=== PATIENT | female | born 1945 | race Caucasian/White ===

== ENCOUNTER 2017-06-19 10:50 | Inpatient (IN) | payer OTHER, MEDICARE ==
--- OUTSIDE RECORDS SUMMARY | 2017-06-19 11:26 | XMS REPORT ---
:1945 External Reference #:[id number] Author Organization [facility] Address [address] [place] [address] Phone [phone] Care Team Providers Name Role Phone Madelin Hoover M.D. 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 Primary Care Physician Unavailable Payers Type Date Identification Numbers Payment Subscriber Provider Health Maintenance Effective: Policy Number: [place] Saroj Yang [facility] ([facility] [place]) 06/01/2016 [id number] [employer] Number: [id number] [id number] PayID: [id number] [place] [address] Medigap Part B Effective: Policy Number: Medicare Carlota Yang 06/01/2012 [id number] PayID: [id number] [address] [place] [address] Problems Date Description Provider Status Onset: 08/12/2013 Essential hypertension Abhijeet Dunn M.D. Active Onset: 08/12/2013 Hypercalcemia Abhijeet Dunn M.D. Active Onset: 08/12/2013 Hypothyroidism Abhijeet Dunn M.D. Active Onset: 08/12/2013 Anxiety state Abhijeet Dunn M.D. Active Onset: 08/12/2013 Vitamin D deficiency Abhijeet Dunn M.D. Active Onset: 08/12/2013 Gastroesophageal reflux disease Abhijeet Dunn M.D. Active Onset: 02/08/2016 Hypoparathyroidism Madelin Hoover M.D. Active Onset: 02/08/2016 Degenerative joint disease involving Madelin Hoover M.D. Active multiple joints Onset: 10/18/2013 Hypocalcemia Abhijeet Dunn M.D. Resolved Resolved: 01/01/2016 Onset: 01/20/2014 Right upper quadrant pain Abhijeet Dunn M.D. Resolved Resolved: 01/01/2016 Onset: 04/17/2015 Acute serous otitis media Abhijeet Dunn M.D. Resolved Resolved: 01/01/2016 Onset: 04/17/2015 Renetta thyroiditis Abhijeet Dunn M.D. 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 ETOH Use Denies alcohol use Smoking Patient has never smoked Exercise Type/Frequency tries to walk , enjoys gardening back pain limits Exercise Type/Frequency Exercises regularly Exercise Type/Frequency Swims 2 times a week Allergies, Adverse Reactions, Alerts Date Description Reaction Status Severity Comments 08/12/2013 Lipitor active 08/12/2013 Norvasc active 08/12/2013 Shellfish-derived Products active 09/06/2013 Metoprolol sob/chest heaviness active 01/20/2014 Codeine active Headache 01/12/2015 Clonidine hypotension active 01/12/2015 Bystolic racing heart active 01/12/2015 Lisinopril/HCTZ elevates bp/dizziness active 10/04/2015 Indocin active 03/25/2016 NSAIDs hives/throat closes active 05/29/2016 Cyclobenzaprine dizzy active 06/12/2017 Retinol Acetate active Medications Medication Date Status Form Strength Qnty SIG Indications Ordering Provider Hydrocortisone 06/12 Active Cream 2.5% 20gm apply to L23.2 Chelsey C. /2018 skin Isidoro, around DIRECTOR HEDIS eyes twice daily for up to 10 days in a row. Lisinopril 05/12 Active Tablets 20mg 90tab 1 by mouth I10 s every day Candelaria Hoover Calcium 05/11 Active Suspension 1250mg/5M 600ml 7.5ml by Madelin L mouth in [place], Antacid am, 5ml in M.D. afternoon and 7.5ml in evening Ambien 12/20 Active Tablets 10mg 30tab take 1 s tablet by Kiko, mouth at M.D. bedtime as needed for sleep Diazepam 09/04 Active Tablets 10mg 30tab 1/2 -1 tab F41.1 Madelin s by mouth [place], two times M.D. a day as needed Escitalopram 04/02 Active Tablets 20mg 30tab 1 by mouth F41.1 Madelin Oxalate s every day [place], M.D. Levothyroxine 12/31 Active Tablets 100mcg 30tab Take 1 E06.3 Madelin Sodium s Tablet By [place], Mouth M.D. Every Day Hydrocodone-Acet 03/21 Active Tablets 5-325mg 90tab 1 by mouth M54.5 Madelin aminophen s three [place], times a M.D. day as needed pain Ergocalciferol 03/14 Active Capsules [id number] 90cap 1 by mouth Madelin s on sat and [place], sun M.D. Pantoprazole 08/[address] 40mg 30tab take 1 K21.9 Madelin Sodium s tablet by [place], mouth once M.D. daily Prednisone 06/12 Hx Tablets 20mg 6tabs take 2 by L23.2 Chelsey C. mouth as Isidoro, - one dose DIRECTOR HEDIS 06/19 daily until gone Zolpidem 06/23 Hx Tablets 10mg 30tab take one Madelin Tartrate s tablet by [place], - mouth at M.D. 12/20 bedtime needed for sleep; max daily dose=1 tablet Physical Therapy 05/28 Hx treatment M25.511 and [place], - evaluation M.D. 05/31 r shoulder pain Cyclobenzaprine 05/28 Hx Tablets 5mg 90tab take 1 M25.511 Madelin HCL s tablet by [place], - mouth M.D. 05/29 times daily as needed Diazepam 11/27 Hx Tablets 10mg 30tab 2 -1 tab F41.1 Madelin s by mouth [place], - two times M.D. 06/23 a day needed Levothyroxine 10/17 Hx Tablets 112mcg 30tab 1 po qd E06.3 Libby Sodium s Audrey, - [place] 12/31 Cyclobenzaprine 05/18 Hx Tablets 10mg 30tab 1 by mouth M79.671 BETZY Carpenter s every M.D. - night 07/12 Diazepam 05/18 Hx Tablets 10mg 6tabs 1 by mouth F41.1 Abhijeet Dunn three M.D. - times a 10/03 day needed Amoxicillin 04/17 Hx Tablets 875mg 20tab 1 by mouth H65.01 Abhijeet Dunn s twice a M.D. - day for 10 Proair HFA 08/08 Hx Aerosol 108(90Bas 1unit 2 puffs 786.2 Talia e) s every 4 [facility] [place], - mcg/Act hours as Afnp-C 11/07 needed for cough Azithromycin 08/03 Hx Tablets 250mg 6tabs 2 tabs by Abhijeet Dunn mouth day M.D. - #1 then 1 08/08 tab by mouth day#2-5 Cephalexin 06/13 Hx Tablets 500mg 20tab 1 by mouth 682.9 Abhijeet Dunn s twice a M.D. - day for 10 Clotrimazole/Bet 05/12 Hx Cream 1-0.05% 30gm apply to 112.9 Alanna amethasone /2013 affected Trae, Dipropionate - area twice [place] 01/12 a Prednisone 05/02 Hx Tablets 20mg 6tabs 1 by mouth 724.2 Abhijeet Dunn, twice a M.D. - day for 3 Zoloft 03/21 Hx Tablets 100mg 1 by mouth 300.00 Abhijeet Dunn every day M.D. - 03/21 Cyclobenzaprine 03/21 Hx Tablets 10mg 40tab 1 by mouth 724.2 Abhijeet Dunn s three M.D. - times a 06/13 day needed Escitalopram 03/21 Hx Tablets 10mg 30tab Take 1 F41.9 Pedrito Bacon s Tablet By Alva, - Mouth Once M.D. 04/02 Daily 2016 F32.9 Vitamin D2 01/20/2014 - Hx Tablets 400Unit 1 by mouth Abhijeet 03/14/2014 every day Candelaria Dunn Physical Therapy 12/26/2013 - Hx treatment and 724. Abhijeet 01/19/2014 evaluation for 3 Dunn, sciatica M.D. Cephalexin 12/19/2013 - Hx Tablets 500mg 20ta 1 by mouth 682. Abhijeet 01/19/2014 bs twice a day 3 Dunn, for 10 days M.D. Ondansetron Odt 12/19/2013 - Hx Tablets 4mg 40ta 1 by mouth 787. Abhijeet 05/11/2017 Dispers bs every 6 hours 02 Dunn, as needed M.D. Zoloft 12/06/2013 - Hx Tablets 50mg 1 po qd 300. Abhijeet 03/21/2014 00 Dunn, M.D. Oxycodone/Acetam 11/29/2013 - Hx Tablets 2.5-325mg 40ta 1-2 take pill Abhijeet inophen 12/25/2013 bs every 8 hours Dunn, for pain M.D. Hydrocodone/Acet 11/28/2013 - Hx Tablets 5-325mg 60ta 1 by mouth 719. Abhijeet aminophen 03/21/2014 bs four times a 42 Dunn, day as needed M.D. pain 724.3 Vitamin D3 10/18/2013 - Hx Tablets 400Unit 1 po qid Abhijeet Dunn, 01/19/2014 M.D. Zoloft 10/18/2013 - Hx Tablets 100mg 30ta 1 PO qd 300 Abhijeet Dunn, 12/06/2013 bs (brand name .00 M.D. only) Clonazepam 09/13/2013 - Hx Tablets 0.5mg 90ta three times 300 Abhijeet Dunn , 01/19/2014 bs a day as .00 M.D. needed Clonidine HCL 09/06/2013 - Hx Tablets 0.1mg 60ta take one 401 Abhijeet Dunn , 10/18/2013 bs tablet by .9 M.D. mouth twice a day Metoprolol 08/26/2013 - Hx Tablets ER 50mg 30ta 1 po qd 401 Abhijeet Dunn, Succinate ER 09/06/2013 24HR bs .9 M.D. Calcium 600 08/12/2013 - Hx Tablets 600mg 3 qam, 2 po E83 Abhijeet Dunn, 05/11/2017 @ noon and 3 .51 M.D. po qpm Vitamin D 08/12/2013 - Hx Capsules [id number] 8cap 1 po weekly 268 Abhijeet Dunn, 08/26/2013 s x 8. .9 M.D. Ambien 08/12/2013 - Hx Tablets 10mg 30ta 1 by mouth G47 Libby 06/04/2016 bs every night .00 Audrey, at bedtime [place] Valium 08/12/2013 - Hx Tablets 10mg 120t 1/2 to 1 po 300 Abhijeet Dunn, 08/26/2013 abs qd prn .00 M.D. severe anxiety Zoloft 08/12/2013 - Hx Tablets 50mg 30ta 1 po qd 300 Abhijeet Dunn, 10/18/2013 bs brand only .00 M.D. Lisinopril 08/12/2013 - Hx Tablets 40mg 90ta 1/2 tab at I10 Madelin 05/12/2017 bs bedtime Candelaria Hoover Levothyroxine 08/12/2013 - Hx Tablets 125mcg 90ta 1 by mouth E06 Abhijeet Dunn, Sodium 10/18/2015 bs every day .3 M.D. Klonopin - Hx Tablets 0.5mg 60ta 1 by mouth F41 Libby 12/20/2015 bs three times .9 Audrey, a day as [place] needed anxiety Prednisone - Hx Tablets 20mg taper as Unknown 12/06/2013 directed Magnesium-Oxide - Hx Tablet 400mg 30ta Take 1 Libby 12/30/2015 bs Tablet By Audrey, Mouth Every [place] Day as Needed Immunizations CPT Code Status Date Vaccine Lot # [id number] Given 08/20/2016 Pneumococcal Conjugate Vacc-13 [id number] Given 03/25/2016 High-Dose, Influenza Virus Vacccine-fluzone 65 and [id number] older 07627 Given 03/19/2014 DO Not Use Split Influenza Virus Vaccine Vital Signs Date Vital Result Comment 06/19/2017 BP Systolic 150 mmHg BP Diastolic 84 mmHg Heart Rate 76 /min Body Temperature 100.6 F Respiratory Rate 16 /min Height 61.5 inches 5'1.50" Weight 193.00 lb BMI (Body Mass Index) 35.9 kg/m2 06/12/2017 BP Systolic 142 mmHg BP Diastolic 98 mmHg Heart Rate 96 /min Body Temperature 97.7 F Height 61.5 inches 5'1.50" Weight 193.00 lb BMI (Body Mass Index) 35.9 kg/m2 05/12/2017 BP Systolic 150 mmHg BP Diastolic 80 mmHg Heart Rate 76 /min Body Temperature 98.2 F Respiratory Rate 16 /min Height 61.5 inches 5'1.50" Weight 193.00 lb BMI (Body Mass Index) 35.9 kg/m2 01/13/2017 BP Systolic 132 mmHg BP Diastolic 80 mmHg Heart Rate 90 /min Body Temperature 97.9 F Respiratory Rate 16 /min Height 61.5 inches 5'1.50" Weight 201.38 lb BMI (Body Mass Index) 37.4 kg/m2 08/20/2016 BP Systolic 150 mmHg BP Diastolic 90 mmHg Heart Rate 78 /min Body Temperature 97.7 F Respiratory Rate 16 /min Height 61.5 inches 5'1.50" 07/02/2016 BP Systolic 142 mmHg BP Diastolic 86 mmHg Heart Rate 80 /min Body Temperature 97.9 F Respiratory Rate 16 /min Height 61.5 inches 5'1.50" Weight 190.38 lb BMI (Body Mass Index) 35.4 kg/m2 05/28/2016 BP Systolic 140 mmHg BP Diastolic 86 mmHg Heart Rate 90 /min Body Temperature 97.0 F Respiratory Rate 16 /min Height 61.5 inches 5'1.50" Weight 190.38 lb BMI (Body Mass Index) 35.4 kg/m2 04/02/2016 BP Systolic 138 mmHg BP Diastolic 84 mmHg Heart Rate 72 /min Body Temperature 97.9 F Respiratory Rate 16 /min Height 61.5 inches 5'1.50" 03/25/2016 BP Systolic 170 mmHg BP Diastolic 100 mmHg BP Systolic Recheck 160 mmHg BP Diastolic Recheck 90 mmHg Heart Rate 64 /min Body Temperature 97.8 F Respiratory Rate 12 /min Height 61.5 inches 5'1.50" Weight 188.00 lb BMI (Body Mass Index) 34.9 kg/m2 02/08/2016 BP Systolic 134 mmHg BP Diastolic 86 mmHg Heart Rate 80 /min Body Temperature 98.1 F Respiratory Rate 16 /min Height 61.5 inches 5'1.50" Weight 193.00 lb BMI (Body Mass Index) 35.9 kg/m2 12/20/2015 BP Systolic 124 mmHg BP Diastolic 82 mmHg Heart Rate 80 /min Body Temperature 97.9 F Respiratory Rate 18 /min Height 61.5 inches 5'1.50" Weight 191.00 lb BMI (Body Mass Index) 35.5 kg/m2 10/18/2015 BP Systolic 140 mmHg BP Diastolic 90 mmHg Heart Rate 76 /min Body Temperature 97.8 F Respiratory Rate 18 /min Height 61.5 inches 5'1.50" Weight 190.00 lb BMI (Body Mass Index) 35.3 kg/m2 10/04/2015 BP Systolic 136 mmHg BP Diastolic 80 mmHg Heart Rate 78 /min Body Temperature 97.9 F Respiratory Rate 16 /min Height 61.5 inches 5'1.50" Weight 193.25 lb BMI (Body Mass Index) 35.9 kg/m2 07/12/2015 BP Systolic 140 mmHg BP Diastolic 80 mmHg Heart Rate 72 /min Body Temperature 98.3 F Respiratory Rate 20 /min Height 61.5 inches 5'1.50" Weight 205.00 lb BMI (Body Mass Index) 38.1 kg/m2 05/18/2015 BP Systolic 140 mmHg BP Diastolic 90 mmHg Heart Rate 78 /min Body Temperature 97.7 F Respiratory Rate 16 /min Height 61.5 inches 5'1.50" 04/17/2015 BP Systolic 158 mmHg BP Diastolic 100 mmHg Heart Rate 84 /min Body Temperature 97.6 F Respiratory Rate 18 /min Height 61.5 inches 5'1.50" Weight 204.00 lb BMI (Body Mass Index) 37.9 kg/m2 01/12/2015 BP Systolic 142 mmHg BP Diastolic 88 mmHg Heart Rate 84 /min Body Temperature 98.3 F Respiratory Rate 16 /min Height 61.5 inches 5'1.50" Weight 201.00 lb BMI (Body Mass Index) 37.4 kg/m2 11/07/2014 BP Systolic 140 mmHg BP Diastolic 98 mmHg Heart Rate 80 /min Body Temperature 98.1 F Respiratory Rate 18 /min Height 61.50 inches 5'1.50" Weight 199.00 lb BMI (Body Mass Index) 37.0 kg/m2 10/03/2014 BP Systolic 150 mmHg BP Diastolic 90 mmHg Heart Rate 84 /min Body Temperature 98.6 F Height 61.50 inches 5'1.50" Weight 199.12 lb BMI (Body Mass Index) 37.0 kg/m2 08/08/2014 BP Systolic 130 mmHg BP Diastolic 84 mmHg Heart Rate 70 /min Body Temperature 97.2 F Respiratory Rate 18 /min Height 61.50 inches 5'1.50" Weight 197.00 lb BMI (Body Mass Index) 36.6 kg/m2 07/28/2014 BP Systolic 142 mmHg BP Diastolic 88 mmHg Heart Rate 96 /min Body Temperature 101.0 F Respiratory Rate 18 /min O2 % BldC Oximetry 93 % Height 61.50 inches 5'1.50" Weight 197.00 lb BMI (Body Mass Index) 36.6 kg/m2 06/13/2014 BP Systolic 150 mmHg BP Diastolic 110 mmHg Heart Rate 68 /min Body Temperature 98.3 F Respiratory Rate 16 /min Height 61.50 inches 5'1.50" Weight 198.00 lb BMI (Body Mass Index) 36.8 kg/m2 05/12/2014 BP Systolic 170 mmHg BP Diastolic 90 mmHg Heart Rate 76 /min Body Temperature 96.9 F Respiratory Rate 16 /min Height 61.50 inches 5'1.50" Weight 201.00 lb BMI (Body Mass Index) 37.4 kg/m2 05/02/2014 BP Systolic 158 mmHg BP Diastolic 92 mmHg Heart Rate 92 /min Body Temperature 99.3 F Respiratory Rate 16 /min Height 61.50 inches 5'1.50" 03/31/2014 BP Systolic 132 mmHg BP Diastolic 80 mmHg Heart Rate 78 /min Body Temperature 98.0 F Respiratory Rate 14 /min Height 61.50 inches 5'1.50" 03/21/2014 BP Systolic 140 mmHg BP Diastolic 98 mmHg Heart Rate 88 /min Body Temperature 98.0 F Respiratory Rate 10 /min Height 61.50 inches 5'1.50" Weight 188.12 lb BMI (Body Mass Index) 35.0 kg/m2 01/20/2014 BP Systolic 130 mmHg BP Diastolic 90 mmHg Heart Rate 84 /min Body Temperature 97.8 F Height 61.50 inches 5'1.50" Weight 191.38 lb BMI (Body Mass Index) 35.6 kg/m2 12/26/2013 BP Systolic 134 mmHg BP Diastolic 74 mmHg Heart Rate 88 /min Body Temperature 99.5 F Respiratory Rate 16 /min Height 61.50 inches 5'1.50" Weight 190.00 lb BMI (Body Mass Index) 35.3 kg/m2 12/19/2013 BP Systolic 126 mmHg BP Diastolic 72 mmHg Heart Rate 72 /min Body Temperature 99.2 F Respiratory Rate 16 /min Height 61.50 inches 5'1.50" Weight 190.12 lb BMI (Body Mass Index) 35.3 kg/m2 12/13/2013 BP Systolic 144 mmHg BP Diastolic 86 mmHg Heart Rate 86 /min Body Temperature 99.3 F Height 61.50 inches 5'1.50" Weight 191.00 lb BMI (Body Mass Index) 35.5 kg/m2 12/06/2013 BP Systolic 144 mmHg BP Diastolic 96 mmHg Heart Rate 80 /min Body Temperature 98.2 F Respiratory Rate 15 /min Height 61.50 inches 5'1.50" Weight 189.00 lb BMI (Body Mass Index) 35.1 kg/m2 11/28/2013 BP Systolic 140 mmHg BP Diastolic 80 mmHg Heart Rate 84 /min Body Temperature 98.9 F Respiratory Rate 16 /min Height 61.50 inches 5'1.50" Weight 197.00 lb BMI (Body Mass Index) 36.6 kg/m2 10/18/2013 BP Systolic 142 mmHg BP Diastolic 80 mmHg Heart Rate 74 /min Body Temperature 98.3 F Respiratory Rate 18 /min Height 61.50 inches 5'1.50" Weight 187.00 lb BMI (Body Mass Index) 34.8 kg/m2 09/13/2013 BP Systolic 126 mmHg BP Diastolic 80 mmHg Heart Rate 68 /min Body Temperature 98.0 F Respiratory Rate 18 /min Height 61.50 inches 5'1.50" Weight 185.00 lb BMI (Body Mass Index) 34.4 kg/m2 09/06/2013 BP Systolic 142 mmHg BP Diastolic 98 mmHg Heart Rate 60 /min Body Temperature 97.5 F Respiratory Rate 16 /min Height 61.50 inches 5'1.50" Weight 184.00 lb BMI (Body Mass Index) 34.2 kg/m2 08/26/2013 BP Systolic 138 mmHg BP Diastolic 90 mmHg Heart Rate 80 /min Body Temperature 97.6 F Respiratory Rate 16 /min Height 61.50 inches 5'1.50" Weight 184.00 lb BMI (Body Mass Index) 34.2 kg/m2 08/12/2013 BP Systolic 140 mmHg BP Diastolic 82 mmHg Heart Rate 68 /min Body Temperature 98.4 F Respiratory Rate 18 /min Height 61.50 inches 5'1.50" Weight 184.00 lb BMI (Body Mass Index) 34.2 kg/m2 Results Test Date Test Result H/L Range Note Comprehensive Metabolic Prof 05/05/2017 Sodium 137 mEq/L 134-149 Potassium 3.6 mEq/L 3.6-5.5 Chloride 99 mEq/L 94-112 Carbon Dioxide 27 mEq/L 21-32 Glucose 98 mg/dL 70-105 BUN 13 mg/dL 6-26 Creatinine 0.8 mg/dL 0.6-1.4 BUN/Creat Ratio 16.3 CALC 8.0-36.0 Calcium 7.2 mg/dL Low 8.6-10.2 1 Total Protein 6.4 g/dL 6.4-8.3 Albumin 4.2 g/dL 3.8-5.5 Globulin 2.2 g/dL 2.0-4.8 A/G Ratio 1.9 CALC 0.6-2.3 Alk. Phosphatase 57 U/L 30-110 Alt (SGPT) 12 U/L 7-35 Ast (Sgot) 14 U/L 5-34 Total Bilirubin 0.5 mg/dL 0.2-1.3 GFR Non- >60 ml/min/1.73m^ >=60 GFR >60 ml/min/1.73m^ >=60 Complete Blood Count 05/05/2017 WBC 5.9 x10^3/UL 3.6-9.6 RBC 4.58 x10^6/UL 3.90-5.70 HGB 14.0 g/dL 12.1-17.2 HCT 40 % 36-50 MCV 88.0 fL 82.2-97.4 MCH 30.5 pg 27.6-33.3 MCHC 34.9 g/dL 33.0-35.5 RDW 14.8 % High 11.6-13.7 PLT 248 x10^3/UL 150-400 MPV 7.7 fL 7.4-10.4 Gran # 4.1 x10^3/UL 1.5-7.2 Lymph# 1.5 x10^3/UL 0.7-4.9 [place]# 0.3 x10^3/UL 0.1-0.9 Gran % 68.0 % 42.2-75.2 Lymph % 26.7 % 20.5-51.1 [place]% 5.3 % 1.7-9.3 Laboratory test finding 05/05/2017 TSH 3.37 mIU/L 0.50-6.00 Lipid Profile 05/05/2017 Cholesterol 244 mg/dL High 120-200 Triglycerides 90 mg/dL 30-200 HDL Cholesterol 59 mg/dL 30-85 LDL (Calculated) 167 CALC High 0-129 VLDL Cholesterol 18 mg/dL 0-50 HDL Risk Factor 4.1 CALC 0.0-4.4 Laboratory test finding 01/30/2017 Hemoglobin A1c (Fma) 5.8 % High 4.1- 5.7 Brain Natural Peptide 41.1 pg/mL <100 Laboratory test finding 01/30/2017 Calcium, Ionized, Serum 3.8 mg/dL Low 4.5-5.6 2 Laboratory test finding 01/30/2017 TSH 2.89 mIU/L 0.50-6.00 Vitamin D25 >120 High 30-100 Lipid Profile 01/30/2017 Cholesterol 279 mg/dL High 120-200 Triglycerides 102 mg/dL 30-200 HDL Cholesterol 68 mg/dL 30-85 LDL (Calculated) 191 CALC High 0-129 VLDL Cholesterol 20 mg/dL 0-50 HDL Risk Factor 4.1 CALC 0.0-4.4 Laboratory test finding 01/30/2017 Free T4 1.18 ng/dL 0.75-1.54 Comprehensive Metabolic Prof 01/30/2017 Sodium 146 mEq/L 134-149 Potassium 3.8 mEq/L 3.6-5.5 Chloride 102 mEq/L 94-112 Carbon Dioxide 30 mEq/L 21-32 Glucose 96 mg/dL 70-105 BUN 10 mg/dL 6-26 Creatinine 0.8 mg/dL 0.6-1.4 BUN/Creat Ratio 12.5 CALC 8.0-36.0 Calcium 7.2 mg/dL Low 8.6-10.2 3 Total Protein 6.6 g/dL 6.4-8.3 Albumin 3.9 g/dL 3.8-5.5 Globulin 2.7 g/dL 2.0-4.8 A/G Ratio 1.4 CALC 0.6-2.3 Alk. Phosphatase 60 U/L 30-110 Alt (SGPT) 14 U/L 7-35 Ast (Sgot) 16 U/L 5-34 Total Bilirubin 0.7 mg/dL 0.2-1.3 GFR Non- >60 ml/min/1.73m^ >=60 GFR >60 ml/min/1.73m^ >=60 Complete Blood Count 01/30/2017 WBC 6.6 x10^3/UL 3.6-9.6 RBC 4.84 x10^6/UL 3.90-5.70 HGB 14.3 g/dL 12.1-17.2 HCT 42 % 36-50 MCV 87.0 fL 82.2-97.4 MCH 29.5 pg 27.6-33.3 MCHC 33.8 g/dL 33.0-35.5 RDW 14.4 % High 11.6-13.7 PLT 266 x10^3/UL 150-400 MPV 7.7 fL 7.4-10.4 Gran # 4.9 x10^3/UL 1.5-7.2 Lymph# 1.4 x10^3/UL 0.7-4.9 [place]# 0.3 x10^3/UL 0.1-0.9 Gran % 73.2 % 42.2-75.2 Lymph % 21.6 % 20.5-51.1 [place]% 5.2 % 1.7-9.3 Comprehensive Metabolic Prof 07/02/2016 Sodium 142 mEq/L 134-149 Potassium 3.9 mEq/L 3.6-5.5 Chloride 103 mEq/L 94-112 Carbon Dioxide 32 mEq/L 21-32 Glucose 74 mg/dL 70-105 BUN 19 mg/dL 6-26 Creatinine 0.9 mg/dL 0.6-1.4 BUN/Creat Ratio 21.1 CALC 8.0-36.0 Calcium 7.3 mg/dL Low 8.6-10.2 4 Total Protein 7.2 g/dL 6.4-8.3 Albumin 4.1 g/dL 3.8-5.5 Globulin 3.1 g/dL 2.0-4.8 A/G Ratio 1.3 CALC 0.6-2.3 Alk. Phosphatase 68 U/L 30-110 Alt (SGPT) 15 U/L 7-35 Ast (Sgot) 17 U/L 5-34 Total Bilirubin 0.4 mg/dL 0.2-1.3 GFR Non- >60 ml/min/1.73m^ >=60 GFR >60 ml/min/1.73m^ >=60 Laboratory test finding 07/02/2016 TSH 4.63 mIU/L 0.50-6.00 Free T4 1.29 ng/dL 0.75-1.54 Complete Blood Count 07/02/2016 WBC 7.7 x10^3/UL 3.6-9.6 RBC 4.90 x10^6/UL 3.90-5.70 HGB 14.1 g/dL 12.1-17.2 HCT 42 % 36-50 MCV 86.0 fL 82.2-97.4 MCH 28.7 pg 27.6-33.3 MCHC 33.2 g/dL 33.0-35.5 RDW 15.5 % High 11.6-13.7 PLT 262 x10^3/UL 150-400 MPV 7.9 fL 7.4-10.4 Gran # 5.0 x10^3/UL 1.5-7.2 Lymph# 2.3 x10^3/UL 0.7-4.9 [place]# 0.4 x10^3/UL 0.1-0.9 Gran % 63.7 % 42.2-75.2 Lymph % 30.9 % 20.5-51.1 Dod[place]% 5.4 % 1.7-9.3 Laboratory test finding 07/02/2016 Calcium, Ionized, Serum 4.1 mg/dL Low 4.5-5.6 5 PTH Intact + Calcium 01/31/2016 Calcium, Ionized, Serum 3.9 mg/dL Low 4.5- 5.6 6 Ionized PTH, Intact 8 pg/mL Low 15-65 6 Laboratory test finding 01/31/2016 PDF [id number] SEE IMAGE 6 Laboratory test finding 01/31/2016 TSH 1.51 mIU/L 0.50-6.00 Free T4 1.36 ng/dL 0.75-1.54 Comprehensive Metabolic Prof 01/31/2016 Sodium 140 mEq/L 134-149 Potassium 3.9 mEq/L 3.6-5.5 Chloride 100 mEq/L 94-112 Carbon Dioxide 27 mEq/L 21-32 Glucose 87 mg/dL 70-105 BUN 13 mg/dL 6-26 Creatinine 0.8 mg/dL 0.6-1.4 BUN/Creat Ratio 16.3 CALC 8.0-36.0 Calcium 7.4 mg/dL Low 8.6-10.2 7 Total Protein 6.7 g/dL 6.4-8.3 Albumin 4.0 g/dL 3.8-5.5 Globulin 2.7 g/dL 2.0-4.8 A/G Ratio 1.5 CALC 0.6-2.3 Alk. Phosphatase 56 U/L 30-110 Alt (SGPT) 12 U/L 7-35 Ast (Sgot) 18 U/L 5-34 Total Bilirubin 0.5 mg/dL 0.2-1.3 GFR Non- >60 ml/min/1.73m^ >=60 GFR >60 ml/min/1.73m^ >=60 Laboratory test finding 01/31/2016 Vitamin D25 >120 High 30-100 8 Basic Metabolic Profile 12/20/2015 Sodium 141 mEq/L 134-149 Potassium 3.8 mEq/L 3.6-5.5 Chloride 101 mEq/L 94-112 Carbon Dioxide 26 mEq/L 21-32 Glucose 75 mg/dL 70-105 BUN 18 mg/dL 6-26 Creatinine 0.8 mg/dL 0.6-1.4 BUN/Creat Ratio 22.5 CALC 8.0-36.0 Calcium 8.0 mg/dL Low 8.6-10.2 9 GFR Non- >60 ml/min/1.73m^ >=60 GFR >60 ml/min/1.73m^ >=60 Laboratory test finding 12/20/2015 Magnesium, Serum 1.3 mEq/L 1.2-2.1 TSH 0.29 mIU/L Low 0.50-6.00 Free T3 2.67 pg/mL 2.00-4.90 Free T4 1.84 ng/dL High 0.75-1.54 Basic Metabolic Profile 10/04/2015 Sodium 140 mEq/L 134-149 Potassium 3.8 mEq/L 3.6-5.5 Chloride 100 mEq/L 94-112 Carbon Dioxide 32 mEq/L 21-32 Glucose 93 mg/dL 70-105 BUN 17 mg/dL 6-26 Creatinine 0.8 mg/dL 0.6-1.4 BUN/Creat Ratio 21.3 CALC 8.0-36.0 Calcium 8.1 mg/dL Low 8.6-10.2 10 GFR Non- >60 ml/min/1.73m^ >=60 GFR >60 ml/min/1.73m^ >=60 Laboratory test finding 10/04/2015 TSH 0.09 mIU/L Low 0.50-6.00 Free T4 1.86 ng/dL High 0.75-1.54 Free T3 2.78 pg/mL 2.00-4.90 Basic Metabolic Profile 07/12/2015 Sodium 139 mEq/L 134-149 Potassium 3.7 mEq/L 3.6-5.5 Chloride 99 mEq/L 94-112 Carbon Dioxide 28 mEq/L 21-32 Glucose 111 mg/dL High 70-105 11 BUN 18 mg/dL 6-26 Creatinine 0.8 mg/dL 0.6-1.4 BUN/Creat Ratio 22.5 CALC 8.0-36.0 Calcium 7.4 mg/dL Low 8.6-10.2 12 GFR Non- >60 ml/min/1.73m^ >=60 GFR >60 ml/min/1.73m^ >=60 Laboratory test finding 07/12/2015 Free T4 1.51 ng/dL 0.75-1.54 Free T3 2.46 pg/mL 2.00-4.90 Magnesium, Serum 2.0 mEq/L 1.2-2.1 TSH 1.08 mIU/L 0.50-6.00 Comprehensive Metabolic Prof 04/17/2015 Sodium 139 mEq/L 134-149 Potassium 3.6 mEq/L 3.6-5.5 Chloride 96 mEq/L 94-112 Carbon Dioxide 31 mEq/L 21-32 Glucose 105 mg/dL 70-105 BUN 15 mg/dL 6-26 Creatinine 0.8 mg/dL 0.6-1.4 BUN/Creat Ratio 18.8 CALC 8.0-36.0 Calcium 7.7 mg/dL Low 8.6-10.2 13 Total Protein 7.1 g/dL 6.4-8.3 Albumin 4.1 g/dL 3.8-5.5 Globulin 3.0 g/dL 2.0-4.8 A/G Ratio 1.4 CALC 0.6-2.3 Alk. Phosphatase 54 U/L 30-110 Alt (SGPT) 17 U/L 7-35 Ast (Sgot) 22 U/L 5-34 Total Bilirubin 0.5 mg/dL 0.2-1.3 GFR Non- >60 ml/min/1.73m^ >=60 GFR >60 ml/min/1.73m^ >=60 Laboratory test finding 04/17/2015 Free T4 1.32 ng/dL 0.75-1.54 14 TSH 1.42 mIU/L 0.50-6.00 Free T3 2.47 pg/mL 2.00-4.90 [facility] Metabolic Prof 01/12/2015 Sodium 140 mEq/L 134-149 Potassium 3.9 mEq/L 3.6-5.5 Chloride 102 mEq/L 94-112 Carbon Dioxide 22 mEq/L 21-32 Glucose 94 mg/dL 70-105 BUN 17 mg/dL 6-26 Creatinine 0.8 mg/dL 0.6-1.4 BUN/Creat Ratio 21.3 CALC 8.0-36.0 Calcium 7.0 mg/dL Low 8.6-10.2 15 Total Protein 7.1 g/dL 6.4-8.3 Albumin 4.1 g/dL 3.8-5.5 Globulin 3.0 g/dL 2.0-4.8 A/G Ratio 1.4 CALC 0.6-2.3 Alk. Phosphatase 63 U/L 30-110 Alt (SGPT) 15 U/L 7-35 Ast (Sgot) 13 U/L 5-34 Total Bilirubin 0.5 mg/dL 0.2-1.3 GFR Non- >60 ml/min/1.73m^ >=60 GFR >60 ml/min/1.73m^ >=60 Laboratory test finding 01/12/2015 TSH 1.71 mIU/L 0.50-6.00 Uric Acid 4.7 mg/dL 2.5-9.2 Complete Blood Count 01/12/2015 WBC 7.5 x10^3/UL 3.6-9.6 RBC 4.93 x10^6/UL 3.90-5.70 HGB 14.6 g/dL 12.1-17.2 HCT 44 % 36-50 MCV 88.0 fL 82.2-97.4 MCH 29.6 pg 27.6-33.3 MCHC 33.5 g/dL 33.0-35.5 RDW 13.8 % High 11.6-13.7 PLT 332 x10^3/UL 150-400 MPV 7.5 fL 7.4-10.4 Gran # 4.8 x10^3/UL 1.5-7.2 Lymph# 1.9 x10^3/UL 0.7-4.9 Doddridge# 0.8 x10^3/UL 0.1-0.9 Gran % 62.7 % 42.2-75.2 Lymph % 26.3 % 20.5-51.1 Doddridge% 11.0 % High 1.7-9.3 Ua - Non Micro (Fma) 01/12/2015 Appearance clear Color yellow Glucose, Urine (Fma/CMC/CTX) - Bilirubin - Ketones - SP Grav 1.010 Blood trace-intact PH 7.5 Protein - Urobil 0.2 Nitrite - Leukocytes (a/[facility]) - Comprehensive Metabolic Prof 11/07/2014 Sodium 138 mEq/L 134-149 Potassium 3.8 mEq/L 3.6-5.5 Chloride 94 mEq/L 94-112 Carbon Dioxide 27 mEq/L 21-32 Glucose 79 mg/dL 70-105 BUN 20 mg/dL 6-26 Creatinine 0.8 mg/dL 0.6-1.4 BUN/Creat Ratio 25.0 CALC 8.0-36.0 Calcium 7.6 mg/dL Low 8.6-10.2 16 Total Protein 7.1 g/dL 6.4-8.3 Albumin 4.2 g/dL 3.8-5.5 Globulin 2.9 g/dL 2.0-4.8 A/G Ratio 1.4 CALC 0.6-2.3 Alk. Phosphatase 58 U/L 30-110 Alt (SGPT) 17 U/L 7-35 Ast (Sgot) 18 U/L 5-34 Total Bilirubin 0.6 mg/dL 0.2-1.3 Laboratory test finding 11/07/2014 TSH 1.04 mIU/L 0.50-6.00 Free T3 2.61 pg/mL 2.00-4.90 Free T4 1.52 ng/dL 0.75-1.54 Laboratory test finding 10/03/2014 Cytology RUN DATE: <SEE NOTE> Laboratory test finding 10/03/2014 Wet Prep (Fma,CMC,CX) see scanned 18 Laboratory test finding 10/03/2014 Gardnerella/Yeast: (SEE NOTE) 19 Vaginal Dna Trichomonas: Vaginal Dna Probe (SEE NOTE) 20 Comprehensive Metabolic Prof 08/08/2014 Sodium 141 mEq/L 134-149 Potassium 3.7 mEq/L 3.6-5.5 Chloride 98 mEq/L 94-112 Carbon Dioxide 27 mEq/L 21-32 Glucose 108 mg/dL High 70-105 21 BUN 12 mg/dL 6-26 Creatinine 0.8 mg/dL 0.6-1.4 BUN/Creat Ratio 15.0 CALC 8.0-36.0 Calcium 7.3 mg/dL Low 8.6-10.2 22 Total Protein 7.1 g/dL 6.4-8.3 Albumin 3.9 g/dL 3.8-5.5 Globulin 3.2 g/dL 2.0-4.8 A/G Ratio 1.2 CALC 0.6-2.3 Alk. Phosphatase 56 U/L 30-110 Alt (SGPT) 20 U/L 7-35 Ast (Sgot) 17 U/L 5-34 Total Bilirubin 0.4 mg/dL 0.2-1.3 Complete Blood Count 08/08/2014 WBC 8.0 x10^3/UL 3.6-9.6 RBC 5.13 x10^6/UL 3.90-5.70 HGB 15.0 g/dL 12.1-17.2 HCT 45 % 36-50 MCV 87.0 fL 82.2-97.4 MCH 29.3 pg 27.6-33.3 MCHC 33.5 g/dL 33.0-35.5 RDW 12.5 % 11.6-13.7 PLT 282 x10^3/UL 150-400 MPV 7.4 fL 7.4-10.4 Gran # 6.2 x10^3/UL 1.5-7.2 Lymph# 1.5 x10^3/UL 0.7-4.9 Doddridge# 0.3 x10^3/UL 0.1-0.9 Gran % 76.2 % High 42.2-75.2 Lymph % 19.1 % Low 20.5-51.1 Doddridge% 4.7 % 1.7-9.3 Laboratory test finding 08/08/2014 Magnesium, Serum 1.9 mEq/L 1.2-2.1 Influenza A&B-fma 07/28/2014 Influenza A NEG Influenza B NEG Comprehensive Metabolic Prof 05/02/2014 Sodium 138 mEq/L 134-149 Potassium 3.6 mEq/L 3.6-5.5 Chloride 100 mEq/L 94-112 Carbon Dioxide 29 mEq/L 21-32 Glucose 92 mg/dL 70-105 BUN 18 mg/dL 6-26 Creatinine 0.9 mg/dL 0.6-1.4 BUN/Creat Ratio 20.0 CALC 8.0-36.0 Calcium 7.5 mg/dL Low 8.6-10.2 23 Total Protein 7.0 g/dL 6.4-8.3 Albumin 4.4 g/dL 3.8-5.5 Globulin 2.6 g/dL 2.0-4.8 A/G Ratio 1.7 CALC 0.6-2.3 Alk. Phosphatase 63 U/L 30-110 Alt (SGPT) 30 U/L 7-35 Ast (Sgot) 28 U/L 5-34 Total Bilirubin 0.3 mg/dL 0.2-1.3 Laboratory test finding 05/02/2014 Magnesium, Serum 1.9 mEq/L 1.2-2.1 Vitamin D25 >120 High 30-100 24 Laboratory test finding 02/21/2014 Magnesium 1.8 mg/dL Low 1.9-2.7 Free T4 1.08 ng/mL 0.61-1.12 TSH (Thyroid Stimulating Horm) 1.34 IU/mL 0.34-5.60 Vitamin D, 25 Hydroxy 02/21/2014 25-Hydroxy Vitamin D2 136 ng/mL 25-Hydroxy Vitamin D3 67 ng/mL 25-Hydroxy Vitamin D Total 203 ng/mL 25 Comp Metabolic Panel 02/21/2014 Sodium 139 mmol/L 133-145 Potassium 4.0 mmol/L 3.7-5.6 Chloride 102 mmol/L 101-111 Co2 Carbon Dioxide 30 mmol/L 22-32 Anion Gap 7 mmol/L 2-11 Glucose 75 mg/dL 70-100 Blood Urea Nitrogen 13 mg/dL 6-24 Creatinine 0.80 mg/dL 0.51-0.95 BUN/Creatinine Ratio 16.3 8-20 Calcium 7.1 mg/dL Low 8.6-10.3 Total Protein 6.8 g/dL 6.4-8.9 Albumin 4.0 g/dL 3.2-5.2 Globulin 2.8 g/dL 2-4 Albumin/Globulin Ratio 1.4 1-3 Total Bilirubin 0.40 mg/dL 0.2-1.0 Alkaline Phosphatase 61 U/L 34-104 Alt 24 U/L 7-52 Ast 21 U/L 13-39 Egfr Non- 71.8 >60 Egfr 92.3 >60 26 CBC Manual Diff-Fma 01/20/2014 WBC 8.1 3.6-9.6 RBC 5.06 3.90-5.70 Hemoglobin (Fma/CMC/CTX) 15.0 g/dL 12.1 - 17.2 Hematocrit (Fma/CMC/CTX) 44.9 % 36.1 - 50.3 Mean Corpuscular Vol 89 82.2-97.4 Mean Corpuscular Hemoglobin 29.6 27.6-33.3 Mean Corpuscular Hemo Concen 33.3 32.0-36.0 Platelets 251 10^3/ul 150-400 RDW 12.9 11.6-13.7 Mean Platelet Volume 7.7 5.5-11.0 Neutrophil 61 Band 5 Lymphocytes 24 Monocyte 6 Eosinophils 4 Z#Comment rbc/plts normal Laboratory test finding 01/20/2014 Rheumatoid Arth Factor 9.3 IU/mL 0.0- 13.9 Comprehensive Metabolic Prof 01/20/2014 Sodium 139 mEq/L 134-149 Potassium 3.8 mEq/L 3.6-5.5 Chloride 98 mEq/L 94-112 Carbon Dioxide 22 mEq/L 21-32 Glucose 91 mg/dL 70-105 BUN 13 mg/dL 6-26 Creatinine 0.8 mg/dL 0.6-1.4 BUN/Creat Ratio 16.3 CALC 8.0-36.0 Calcium 8.2 mg/dL Low 8.6-10.2 27 Total Protein 7.8 g/dL 6.3-8.1 Albumin 4.5 g/dL 3.8-5.5 Globulin 3.3 g/dL 2.0-4.8 A/G Ratio 1.4 CALC 0.6-2.3 Alk. Phosphatase 68 U/L 30-110 Alt (SGPT) 29 U/L 7-35 Ast (Sgot) 18 U/L 5-34 Total Bilirubin 0.6 mg/dL 0.2-1.3 Laboratory test finding 01/20/2014 TSH 3.77 mIU/L 0.50-6.00 Free T4 1.25 ng/dL 0.75-1.54 Laboratory test finding 12/13/2013 C Reactive Protein 7.40 mg/L High < 5.00 28 Complete Blood Count 12/13/2013 WBC 6.7 x10^3/UL 3.6-9.6 RBC 4.65 x10^6/UL 3.90-5.70 HGB 14.0 g/dL 12.1-17.2 HCT 41 % 36-50 MCV 88.0 fL 82.2-97.4 MCH 30.2 pg 27.6-33.3 MCHC 34.2 g/dL 33.0-35.5 RDW 12.4 % 11.6-13.7 PLT 287 x10^3/UL 150-400 MPV 7.1 fL Low 7.4-10.4 Gran # 5.1 x10^3/UL 1.5-7.2 Lymph# 1.3 x10^3/UL 0.7-4.9 Doddridge# 0.3 x10^3/UL 0.1-0.9 Gran % 73.9 % 42.2-75.2 Lymph % 20.3 % Low 20.5-51.1 Doddridge% 5.8 % 1.7-9.3 Laboratory test finding 12/13/2013 Calcium, Serum 6.7 mg/dL Low 8.6-10.2 29 Vitamin D, 25 Hydroxy 11/01/2013 25-Hydroxy Vitamin D2 96 ng/mL 25-Hydroxy Vitamin D3 75 ng/mL 25-Hydroxy Vitamin D Total 171 ng/mL 30 Comp Metabolic Panel 11/01/2013 Sodium 137 mmol/L 133-145 Potassium 3.9 mmol/L 3.7-5.6 Chloride 101 mmol/L 101-111 Co2 Carbon Dioxide 28 mmol/L 22-32 Anion Gap 8 mmol/L 2-11 Glucose 88 mg/dL 70-100 Blood Urea Nitrogen 15 mg/dL 6-24 Creatinine 0.81 mg/dL 0.51-0.95 BUN/Creatinine Ratio 18.5 8-20 Calcium 7.6 mg/dL Low 8.6-10.3 Total Protein 6.7 g/dL 6.4-8.9 Albumin 4.0 g/dL 3.2-5.2 Globulin 2.7 g/dL 2-4 Albumin/Globulin Ratio 1.5 1-3 Total Bilirubin 0.50 mg/dL 0.2-1.0 Alkaline Phosphatase 67 U/L 34-104 Alt 17 U/L 7-52 Ast 14 U/L 13-39 Egfr Non- 70.7 >60 Egfr 91.0 >60 31 Laboratory test finding 10[facility]12[facility]2013 [facility] see scanned Laboratory test finding 09/19/2013 Free T4 1.07 ng/mL 0.61-1.12 TSH (Thyroid Stimulating Horm) 0.65 IU/mL 0.34-5.60 Comp Metabolic Panel 09/19/2013 Sodium 137 mmol/L 133-145 Potassium 4.2 mmol/L 3.7-5.6 Chloride 102 mmol/L 101-111 Co2 Carbon Dioxide 28 mmol/L 22-32 Anion Gap 7 mmol/L 2-11 Glucose 70 mg/dL 70-100 Blood Urea Nitrogen 19 mg/dL 6-24 Creatinine 0.85 mg/dL 0.51-0.95 BUN/Creatinine Ratio 22.4 High 8-20 Calcium 7.3 mg/dL Low 8.6-10.3 Total Protein 6.3 g/dL Low 6.4-8.9 Albumin 4.0 g/dL 3.2-5.2 Globulin 2.3 g/dL 2-4 Albumin/Globulin Ratio 1.7 1-3 Total Bilirubin 0.40 mg/dL 0.2-1.0 Alkaline Phosphatase 64 U/L 34-104 Alt 29 U/L 7-52 Ast 23 U/L 13-39 Egfr Non- 66.9 >60 Egfr 86.1 >60 32 Vitamin D, 25 Hydroxy 09/19/2013 25-Hydroxy Vitamin D2 <4.0 ng/mL 25-Hydroxy Vitamin D3 53 ng/mL 25-Hydroxy Vitamin D Total 53 ng/mL 33 Comprehensive Metabolic Prof 08/12/2013 Sodium 135 mEq/L 134-149 Potassium 3.7 mEq/L 3.6-5.5 Chloride 95 mEq/L 94-112 Carbon Dioxide 28 mEq/L 21-32 Glucose 98 mg/dL 70-105 BUN 18 mg/dL 6-26 Creatinine 1.1 mg/dL 0.6-1.4 BUN/Creat Ratio 16.4 CALC 8.0-36.0 Calcium 8.6 mg/dL 8.6-10.2 Total Protein 7.1 g/dL 6.3-8.1 Albumin 4.5 g/dL 3.8-5.5 Globulin 2.6 g/dL 2.0-4.8 A/G Ratio 1.7 CALC 0.6-2.3 Alk. Phosphatase 68 U/L 30-110 Alt (SGPT) 25 U/L 7-35 Ast (Sgot) 20 U/L 5-34 Total Bilirubin 0.4 mg/dL 0.2-1.3 1 consistent w/ previous results 2 1 sst 3 consistent w/ previous results 4 consistent w/ previous results 5 1 sst unopened 6 split specimen 7 RESULTS VERIFIED BY REPEAT ANALYSIS 8 consistent w/ previous results 9 consistent w/ previous results 10 RESULTS VERIFIED BY REPEAT ANALYSIS 11 RESULTS VERIFIED BY REPEAT ANALYSIS 12 RESULTS VERIFIED BY REPEAT ANALYSIS 13 consistent w/ previous results 14 FASTING 15 RESULTS VERIFIED BY REPEAT ANALYSIS 16 RESULTS VERIFIED BY REPEAT ANALYSIS 17 RUN DATE: 10/05/14 [facility] LAB LIVE PAGE 1 RUN TIME: [address] [place] [address] Specimen Inquiry Name: MELIDA YANG Joleen : [address]: Talia Desouza NP Acct: [id number] Unit: [id number] AGE: 69 Location: [facility] Re10/03/14 SEX: F Status: REG REF SPEC: [id number] NITHYA: 10/03/14-[address]: Talia Desouza DIRECTOR HEDIS REQ: [id number] RECD: 10/04/14 STATUS: SOUT _ ORDERED: IMAGE ANALYSIS FINAL DIAGNOSIS Negative for Intraepithelial lesion or Malignancy A. Ectocervical/Endocervical Specimen Adequacy: Satisfactory of evaluation Transformation zone component cannot be definitely identified due to presence of atrophy or other hormonal changes Patient Information: HPV: Thin Layer Pap Test w/reflex to high risk HPV RNA testing when ASCUS Actual Specimen Date: 10/03/14 LMP If Unknown: 1998 Spec Date if unknown: 2011 ?: N Post Menopausal?: Y Hysterectomy?: N Previous Abnormal Pap Smears?:N Signed (signature on file) EDIE Mcnair (ASCP) 10/05 1519 This Pap test was evaluated with the assistance of the [employer] Test Imaging System. Due to cytologic findings at the medical communication specialist microscope, comprehensive manual rescreening by a Spool Salvager may be required. The Pap Smear is a screening test designed to aid in the detection of premalignant and malignant conditions of the uterine cervix. It is not a diagnostic procedure and should not be used as the sole means of detecting cervical cancer. Both false- positive and false- negative reports do occur. Depending on your risk status, a Pap smear should be obtained and evaluated every 1-3 years. END OF REPORT * ML=Testing performed at Main Lab DEPARTMENT OF PATHOLOGY, [address] [place] [address] Luke Cash M.D. Director [facility] # [id number] 18 few epis, no wbc , no clue cells, neg whiff 19 RUN DATE: 10/05/14 [facility] LAB LIVE PAGE 1 RUN TIME: [address] [place], [place] [address] Specimen Inquiry Name: MELIDA YANG : [address]: Talia Desouza NP Acct: [id number] Unit: [id number] AGE: 69 Location: [facility] Re10/03/14 SEX: F Status: REG REF SPEC: [id number] NITHYA: 10/03/[address] [facility] [address]: Talia Desouza DIRECTOR HEDIS REQ: [id number] RECD: 10/04/14428 STATUS: RES _ SOURCE: VAGINAL SPDESC: ORDERED: Gertrude,Yeast DNA, Trich DNA QUERIES: Provider Requisition # [id number] Procedure Result Verified Site Gardnerella/Yeast: Vaginal DNA Final 10/05/14- 08 ML Organism 1 Negative Gardnerella Organism 2 Negative Tameka The presence of G. vaginalis, although suggestive, is not diagnostic for bacterial vaginosis. Results should be interpreted in conjuction with other clinical and laboratory data available. Women with vaginal discharge should be evaluated for risk factors of cervicitis and pelvic inflammatory disease, toxic shock syndrome (S.aureus), and if present, evaluated for organisms not included in this assay such as N. gonorrhoeae, C. trachomatis, Mobiluncus, Mycoplasma and/or Prevotella. Mixed infections may occur. The performance of this test on patient specimens collected during or immediately after antimicrobial therapy is unknown. The presence or absence of Tameka species, or G. vaginalis cannot be used as a test for therapeutic success or failure. Trichomonas: Vaginal DNA Probe PENDING * ML - MAIN LAB ([facility]) . END OF REPORT * ML=Testing performed at Main Lab DEPARTMENT OF PATHOLOGY, [facility] [address] [place], [place] [address] Luke Cash M.D. Director [facility] # [id number] 20 RUN DATE: 10/05/14 [facility] LAB LIVE PAGE 1 RUN TIME: [address] [place], [place] [address] Specimen Inquiry Name: MELIDA YANG : [address]: Talia Desouza NP Acct: [id number] Unit: [id number] AGE: 69 Location: [facility] Re10/03/14 SEX: F Status: REG REF SPEC: [id number] NITHYA: 10/03/[address]: Talia Desouza NP REQ: [id number] RECD: 10/04/14 STATUS: COMP _ SOURCE: VAGINAL SPDESC: ORDERED: Gertrude,Yeast DNA, Trich DNA QUERIES: Provider Requisition # [id number] Procedure Result Verified Site Gardnerella/Yeast: Vaginal DNA Final 10/05/14- 0842 ML Organism 1 Negative Gardnerella Organism 2 Negative Tameka The presence of G. vaginalis, although suggestive, is not diagnostic for bacterial vaginosis. Results should be interpreted in conjuction with other clinical and laboratory data available. Women with vaginal discharge should be evaluated for risk factors of cervicitis and pelvic inflammatory disease, toxic shock syndrome (S.aureus), and if present, evaluated for organisms not included in this assay such as N. gonorrhoeae, C. trachomatis, Mobiluncus, Mycoplasma and/or Prevotella. Mixed infections may occur. The performance of this test on patient specimens collected during or immediately after antimicrobial therapy is unknown. The presence or absence of Tameka species, or G. vaginalis cannot be used as a test for therapeutic success or failure. Trichomonas: Vaginal DNA Probe Final 10/05/14- 843 ML Organism 1 Negative Trichomonas CONTINUED ON NEXT PAGE * ML=Testing performed at Main Lab DEPARTMENT OF PATHOLOGY, [facility] [address] [place] [address] Luke Cash M.D. Director [facility] # [id number] RUN DATE: 10/05/14 [facility] LAB LIVE PAGE 2 RUN TIME: 8[address] [facility] [employer] [place] [address] Specimen Inquiry Patient: MELIDA YANG Joleen [id number] (Continued) Specimen: [id number] Collected: 10/03/14 Received: 10/04/14 (Continued) Procedure Result Verified Site Trichomonas: Vaginal DNA Probe Final (continued) 10/05/14843 The presence or absence of T. vaginalis cannot be used as a test for therapeutic success or failure. * ML - MAIN LAB ([facility]) . END OF REPORT * ML=Testing performed at Main Lab DEPARTMENT OF PATHOLOGY, [address] [place] [address] Luke Cash M.D. Director [facility] # [id number] 21 RESULTS VERIFIED BY REPEAT ANALYSIS 22 RESULTS VERIFIED BY REPEAT ANALYSIS 23 consistent w/ previous results 24 RESULTS VERIFIED BY REPEAT ANALYSIS 25 Interpretation: >80 ng/mL (toxicity possible) -- REFERENCE VALUE -- 25-HYDROXY D TOTAL (D2+D3) Optimum levels in the healthy population are 20-50, patients with bone disease may benefit from higher levels within this range. Test Performed by: [place] [address] Leadlighter: Masood Rankin III, M.D. 26 Because ethnic data is not always readily available, this report includes an eGFR for both -Americans and non- Americans. The National Kidney Disease Education Program (NKDEP) does not endorse the use of the MDRD equation for patients that are not between the ages of 18 and 70, are , have extremes of body size, muscle mass, or nutritional status, or are non- or non-. According to the National Kidney Foundation, irrespective of diagnosis, the stage of the disease is based on the level of kidney function: Stage Description GFR(mL/min/1.73 m(2)) 1 Kidney damage with normal or decreased GFR 90 2 Kidney damage with mild decrease in GFR 60-89 3 Moderate decrease in GFR 30-59 4 Severe decrease in GFR 15-29 5 Kidney failure <15 (or dialysis) 27 consistent w/ previous results 28 Acute inflammation: >10.00 29 RESULTS VERIFIED BY REPEAT ANALYSIS 30 Interpretation: >80 ng/mL (toxicity possible) -- REFERENCE VALUE -- 25-HYDROXY D TOTAL (D2+D3) Optimum levels in the healthy population are 20-50, patients with bone disease may benefit from higher levels within this range. Test Performed by: [place] [address] Leadlighter: Masood Rankin III, M.D. 31 Because ethnic data is not always readily available, this report includes an eGFR for both -Americans and non- Americans. The National Kidney Disease Education Program (NKDEP) does not endorse the use of the MDRD equation for patients that are not between the ages of 18 and 70, are , have extremes of body size, muscle mass, or nutritional status, or are non- or non-. According to the National Kidney Foundation, irrespective of diagnosis, the stage of the disease is based on the level of kidney function: Stage Description GFR(mL/min/1.73 m(2)) 1 Kidney damage with normal or decreased GFR 90 2 Kidney damage with mild decrease in GFR 60-89 3 Moderate decrease in GFR 30-59 4 Severe decrease in GFR 15-29 5 Kidney failure <15 (or dialysis) 32 Because ethnic data is not always readily available, this report includes an eGFR for both -Americans and non- Americans. The National Kidney Disease Education Program (NKDEP) does not endorse the use of the MDRD equation for patients that are not between the ages of 18 and 70, are , have extremes of body size, muscle mass, or nutritional status, or are non- or non-. According to the National Kidney Foundation, irrespective of diagnosis, the stage of the disease is based on the level of kidney function: Stage Description GFR(mL/min/1.73 m(2)) 1 Kidney damage with normal or decreased GFR 90 2 Kidney damage with mild decrease in GFR 60-89 3 Moderate decrease in GFR 30-59 4 Severe decrease in GFR 15-29 5 Kidney failure <15 (or dialysis) 33 Interpretation: 51-80 ng/mL (increased risk of hypercalciuria) -- REFERENCE VALUE -- 25-HYDROXY D TOTAL (D2+D3) Optimum levels in the healthy population are 20-50, patients with bone disease may benefit from higher levels within this range. Test Performed by: [place] [address] Leadlighter: Masood Rankin III, M.D. Procedures Date CPT Code Description Status 05/12/2017 19774 Electrocardiogram Complete Completed 02/15/2016 Mammogram Completed 01/12/2015 59965 Paring/Cutting Benign Lesion (Ever[place]/Callus) Completed 08/15/2014 Mammogram Completed 08/08/2014 35467 Pulse Oximetry Completed 07/28/2014 34650 Pulse Oximetry Completed 06/01/2012 Colonoscopy Completed Encounters Type Date Location Provider CPT E/M Dx Office Visit 06/12/2017 1:45p [facility] [place] [address] L23.2 Office Visit 05/12/2017 1:20p [facility] Madelin Hoover M.D. 01793 Z00.00 I10 E83.51 F41.1 E03.8 Office Visit 01/13/2017 11:30a [facility] Madelin Hoover M.D. 45691 E83.51 F41.1 I10 E89.2 E66.9 Office Visit 08/20/2016 4:40p [facility] Madelin Hoover M.D. 92863 F41.1 I10 E89.2 E03.8 E83.51 Z23 Office Visit 07/02/2016 1:40p [facility] Madelin Hoover M.D. 14808 F41.1 I10 E83.51 E89.2 E03.8 M25.511 Office Visit 05/28/2016 8:00a [facility] Madelin Hoover M.D. 53752 F41.1 I10 E83.51 E89.2 E03.8 M25.511 Office Visit 04/02/2016 11:30a [facility] Madelin Hoover M.D. 69156 I10 E83.51 F41.1 Office Visit 03/25/2016 9:40a Main Office Madelin Hoover M.D. 73127 I10 E83.51 F41.1 Z23 Office Visit 02/08/2016 4:20p [facility] Madelin Hoover M.D. 09006 E89.2 E83.51 I10 F41.1 E03.8 Z12.31 M15.0 Office Visit 10/18/2015 1:00p [facility] LUIS Mueller 65893 E83.51 E06.3 Office Visit 10/04/2015 4:00p [facility] LUIS Mueller 79940 E83.51 E06.3 Office Visit 07/12/2015 3:00p [facility] LUIS Mueller 49951 E83.51 E06.3 Office Visit 05/18/2015 11:10a [facility] Abhijeet Dunn M.D. 84919 M79.671 F41.1 I10 Office Visit 04/17/2015 8:50a [facility] Abhijeet Dunn M.D. 36766 H65.01 I10 E06.3 E83.51 Office Visit 01/12/2015 9:20a [facility] Office Abhijeet Dunn M.D. 33620 788.42 780.52 275.42 300.02 454.1 700 719.47 Office Visit 11/07/2014 10:00a [facility] Office Abhijeet Dunn M.D. 83958 401.9 244.9 300.02 275.41 Office Visit 10/03/2014 4:00p [facility] Office Talia Desouza Willow-C 46253 V70.0 311 300.02 401.9 724.2 620.2 244.9 623.8 Office Visit 08/08/2014 10:15a [facility] Office Talia Desouza [place]-Fidencio 56009 786.2 790.6 300.00 Office Visit 07/28/2014 3:00p [facility] Office Alanna MelchorbhartMARVINP 11301 780.60 786.2 787.02 Office Visit 06/13/2014 11:00a [facility] Office Abhijeet Dunn M.D. 65948 682.9 300.00 530.81 780.52 Office Visit 05/12/2014 1:30p [facility] Office LUIS Espinosa 91230 112.9 Office Visit 05/02/2014 4:20p [facility] Office Abhijeet Dunn M.D. 86836 724.2 275.41 Office Visit 03/31/2014 2:30p [facility] Office Abhijeet Dunn M.D. 41321 724.2 780.52 Office Visit 03/21/2014 3:20p [facility] Office Abhijeet Dunn M.D. 31721 724.2 311 Office Visit 01/20/2014 8:00a [facility] Office Abhijeet Dunn M.D. 43770 275.41 401.9 789.01 780.79 244.9 Office Visit 12/26/2013 3:30p Main Office Abhijeet Dunn M.D. 39816 724.3 Office Visit 12/19/2013 2:40p Main Office Abhijeet Dunn M.D. 74502 682.3 787.02 Office Visit 12/13/2013 11:20a [facility] Office Abhijeet Dunn M.D. 32278 682.4 275.41 401.9 Office Visit 12/06/2013 1:00p [facility] Office Abhijeet Dunn M.D. 79143 682.4 Office Visit 11/28/2013 8:30a Main Office Abhijeet Dunn M.D. 87819 719.42 Office Visit 10/18/2013 9:20a [facility] Office Abhijeet Dunn M.D. 31274 401.9 275.42 300.00 275.41 Office Visit 09/13/2013 9:40a [facility] Office Abhijeet Dunn M.D. 42308 401.9 300.00 530.81 Office Visit 09/06/2013 10:50a [facility] Office Abhijeet Dunn M.D. 37159 401.9 Office Visit 08/26/2013 9:30a [facility] Office Abhijeet Dunn M.D. 41321 401.9 275.42 244.9 Office Visit 08/12/2013 10:20a [facility] Office Abhijeet Dunn M.D. 60388 401.9 275.42 244.9 300.00 268.9 530.81 Plan of Care Future Appointment(s):11/03/2017 8:30 am - Madelin Hoover M.D. at [facility] Esavku3411/10/2017 10:00 am - Madelin Hoover M.D. at [facility] Npmryo3906/19/2017 - Chelsey Chaudhry, NPM25.541 Pain in joints of right handNew Labs:CBC Electronic -ALL Lab CompaniErythrocyte Sed RateComments:Go see the orthopedist right away as we discussed.
--- OUTSIDE RECORDS SUMMARY | 2017-06-19 11:28 | XMS REPORT ---
:1945 External Reference #:[id number] Author Organization [facility] Address [address] [place] [address] Phone [phone] Care Team Providers Name Role Phone Madelin Hoover M.D. 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 Primary Care Physician Unavailable Payers Type Date Identification Payment Subscriber Numbers Provider Health Maintenance Effective: Policy Number: [place] Saroj Yang [facility] ([facility]) 06/01/2016 [id number] [employer] Group Number: [id number] [id number] PayID: [id number] [place] [address] Medigap Part B Effective: Policy Number: Medicare Carlota Yang 06/01/2012 [id number] PayID: [id number] [address] [place] [address] Problems Date Description Provider Status Onset: 08/12/2013 [...] History Date Family Member(s) Problem(s) Comments Father [place] Mother due to Alzheimer's Disease () Social History Type Date Description Comments Marital Status Legal Status: Lives With Spouse 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 /2018 mouth as Isidoro, one dose DRUG ABUSE TREATMENT SPECIALIST daily until gone Hydrocortisone 06/12 Active Cream 2.5% 20gm apply to L23.2 Chelsey C. /2018 skin Isidoro, around DRUG ABUSE TREATMENT SPECIALIST eyes twice daily for up to 10 days in a row. Lisinopril 05/12 Active Tablets 20mg 90tab 1 by mouth I10 s every day Lucien Hoover.DRohith Calcium 05/11 Active Suspension 1250mg/5M 600ml 7.5ml by Madelin L mouth in [place], Antacid am, 5ml in M.D. afternoon and 7.5ml in evening Ambien 12/20 Active Tablets 10mg 30tab take 1 Madelin s tablet by [place], mouth at M.D. bedtime as needed for sleep Diazepam 09/04 Active Tablets 10mg 30tab 2 -1 tab F41.1 s by mouth [place], two times M.D. a day as needed Escitalopram 04/02 Active Tablets 20mg 30tab 1 by mouth F41.1 Madelin Oxalate s every day [place], M.D. Levothyroxine 12/31 Active Tablets 100mcg 30tab Take 1 E06.3 Madelin Sodium s Tablet By [place], Mouth M.D. Every Day Hydrocodone-Acet 03/21 Active Tablets 5-325mg 90tab 1 by mouth M54.5 Madelin aminophen s three [place], times a M.D. day as needed pain Ergocalciferol 03/14 Active Capsules [id number] 90cap 1 by mouth Madelin s on sat and [place], sun M.D. Pantoprazole 08/[address] 40mg 30tab take 1 K21.9 Madelin Sodium s tablet by [place], mouth once M.D. daily Zolpidem 06/23 Hx Tablets 10mg 30tab take one Madelin Tartrate s tablet by [place], - mouth at M.D. 12/20 bedtime needed for sleep; max daily dose=1 tablet Physical Therapy 05/28 Hx treatment M25.511 and [place], - evaluation M.D. 05/31 r shoulder pain Cyclobenzaprine 05/28 Hx Tablets 5mg 90tab take 1 M25.511 Madelin HCL s tablet by [place], - mouth M.D. 05/29 times daily as needed Diazepam 11/27 Hx Tablets 10mg 30tab 2 -1 tab F41.1 Madelin s by mouth [place], - two times M.D. 06/23 a day needed Levothyroxine 10/17 Hx Tablets 112mcg 30tab 1 po qd E06.3 Libby Sodium s Audrey, - DUST BOX WORKER 12/31 Cyclobenzaprine 05/18 Hx Tablets 10mg 30tab 1 by mouth M79.671 BETZY Carpenter s every M.D. - night 07/12 Diazepam 05/18 Hx Tablets 10mg 6tabs 1 by mouth F41.1 Abhijeet three M.D. - times a 10/03 day needed Amoxicillin 04/17 Hx Tablets 875mg 20tab 1 by mouth H65.01 Abhijeet Dunn s twice a M.D. - day for 10 Proair HFA 08/08 Hx Aerosol 108(90Bas 1unit 2 puffs 786.2 Talia e) s every 4 [facility], [place], - mcg/Act hours as Afnp-C 11/07 needed [...] /2013 affected Trae, Dipropionate - area twice DUST BOX WORKER 01/12 a /2014 Prednisone 05/02 Hx Tablets 20mg 6tabs 1 [...] Alva, - Mouth Once M.D. 04/02 Daily /2015 F32.9 Vitamin D2 01/20/2014 - Hx Tablets [...] qpm Vitamin D 08/12/2013 - Hx Capsules [id number] 8cap 1 po weekly 268 Abhijeet Dunn, 08/26/2013 s x 8. .9 M.D. Ambien 08/12/2013 - Hx Tablets 10mg 30ta 1 by mouth G47 Libby 06/04/2016 bs every night .00 Audrey, at bedtime DUST BOX WORKER Valium 08/12/2013 - Hx Tablets 10mg 120t [...] three times .9 Audrey, a day as DUST BOX WORKER needed anxiety Prednisone - Hx Tablets 20mg taper as Unknown 12/06/2013 directed Magnesium-Oxide - Hx Tablet 400mg 30ta Take 1 Libby 12/30/2015 bs Tablet By Audrey, Mouth Every DUST BOX WORKER Day as Needed Immunizations CPT Code Status Date Vaccine Lot # [id number] Given 08/20/2016 Pneumococcal Conjugate Vacc-13 [id number] Given 03/25/2016 High-Dose, Influenza Virus Vacccine-fluzone 65 and [id number] older 80630 Given 03/19/2014 DO Not Use Split Influenza Virus Vaccine Vital Signs Date Vital Result Comment 06/12/2017 BP Systolic 142 mmHg BP Diastolic [...] 4.1 x10^3/UL 1.5-7.2 Lymph# 1.5 x10^3/UL 0.7-4.9 Divide# 0.3 x10^3/UL 0.1-0.9 Gran % 68.0 % 42.2-75.2 Lymph % 26.7 % 20.5-51.1 Divide% 5.3 % 1.7-9.3 Laboratory test finding 05/05/2017 TSH 3.37 mIU/L 0.50-6.00 Lipid Profile 05/05/2017 Cholesterol 244 mg/dL High 120-200 Triglycerides 90 mg/dL 30-200 HDL Cholesterol 59 mg/dL 30-85 LDL (Calculated) 167 CALC High 0-129 VLDL Cholesterol 18 mg/dL 0-50 HDL Risk Factor 4.1 CALC 0.0-4.4 Complete Blood Count 01/30/2017 WBC 6.6 x10^3/UL 3.6-9.6 RBC 4.84 x10^6/UL 3.90-5.70 HGB 14.3 g/dL 12.1-17.2 HCT 42 % 36-50 MCV 87.0 fL 82.2-97.4 MCH 29.5 pg 27.6-33.3 MCHC 33.8 g/dL 33.0-35.5 RDW 14.4 % High 11.6-13.7 PLT 266 x10^3/UL 150-400 MPV 7.7 fL 7.4-10.4 Gran # 4.9 x10^3/UL 1.5-7.2 Lymph# 1.4 x10^3/UL 0.7-4.9 Divide# 0.3 x10^3/UL 0.1-0.9 Gran % 73.2 % 42.2-75.2 Lymph % 21.6 % 20.5-51.1 Divide% 5.2 % 1.7-9.3 Comprehensive Metabolic Prof 01/30/2017 Sodium 146 mEq/L 134-149 Potassium 3.8 mEq/L 3.6-5.5 Chloride 102 mEq/L 94-112 Carbon Dioxide 30 mEq/L 21-32 Glucose 96 mg/dL 70-105 BUN 10 mg/dL 6-26 Creatinine 0.8 mg/dL 0.6-1.4 BUN/Creat Ratio 12.5 CALC 8.0-36.0 Calcium 7.2 mg/dL Low 8.6-10.2 2 Total Protein 6.6 g/dL 6.4-8.3 Albumin 3.9 g/dL 3.8-5.5 Globulin 2.7 g/dL 2.0-4.8 A/G Ratio 1.4 CALC 0.6-2.3 Alk. Phosphatase 60 U/L 30-110 Alt (SGPT) 14 U/L 7-35 Ast (Sgot) 16 U/L 5-34 Total Bilirubin 0.7 mg/dL 0.2-1.3 GFR Non- >60 ml/min/1.73m^ >=60 GFR >60 ml/min/1.73m^ >=60 Laboratory test finding 01/30/2017 Free T4 1.18 ng/dL 0.75-1.54 Lipid Profile 01/30/2017 Cholesterol 279 mg/dL High 120-200 Triglycerides 102 mg/dL 30-200 HDL Cholesterol 68 mg/dL 30-85 LDL (Calculated) 191 CALC High 0-129 VLDL Cholesterol 20 mg/dL 0-50 HDL Risk Factor 4.1 CALC 0.0-4.4 Laboratory test finding 01/30/2017 TSH 2.89 mIU/L 0.50-6.00 Vitamin D25 >120 High 30-100 Laboratory test finding 01/30/2017 Calcium, Ionized, Serum 3.8 mg/dL Low 4.5-5.6 3 Laboratory test finding 01/30/2017 Hemoglobin A1c (Fma) 5.8 % High 4.1- 5.7 Brain Natural Peptide 41.1 pg/mL <100 Comprehensive Metabolic Prof 07/02/2016 Sodium 142 mEq/L [...] 5.0 x10^3/UL 1.5-7.2 Lymph# 2.3 x10^3/UL 0.7-4.9 Divide# 0.4 x10^3/UL 0.1-0.9 Gran % 63.7 % 42.2-75.2 Lymph % 30.9 % 20.5-51.1 Divide% 5.4 % 1.7-9.3 Laboratory test finding 07/02/2016 Calcium, Ionized, Serum 4.1 mg/dL Low 4.5-5.6 5 PTH Intact + Calcium 01/31/2016 Calcium, Ionized, Serum 3.9 mg/dL Low 4.5- 5.6 6 Ionized PTH, Intact 8 pg/mL Low 15-65 6 Laboratory test finding 01/31/2016 PDF [id number] SEE IMAGE 6 Laboratory test finding 01/31/2016 [...] mIU/L 0.50-6.00 Free T3 2.47 pg/mL 2.00-4.90 Comprehensive Metabolic Prof 01/12/2015 Sodium 140 mEq/L 134-149 [...] 4.8 x10^3/UL 1.5-7.2 Lymph# 1.9 x10^3/UL 0.7-4.9 Divide# 0.8 x10^3/UL 0.1-0.9 Gran % 62.7 % 42.2-75.2 Lymph % 26.3 % 20.5-51.1 Divide% 11.0 % High 1.7-9.3 Ua - Non Micro (Fma) 01/12/2015 Appearance clear Color yellow Glucose, Urine (Fma/CMC/CTX) - Bilirubin - Ketones - SP Grav 1.010 Blood trace-intact PH 7.5 Protein - Urobil 0.2 Nitrite - Leukocytes (Fma/CMC/Centrex) - Comprehensive Metabolic Prof 11/07/2014 Sodium 138 [...] 6.2 x10^3/UL 1.5-7.2 Lymph# 1.5 x10^3/UL 0.7-4.9 Divide# 0.3 x10^3/UL 0.1-0.9 Gran % 76.2 % High 42.2-75.2 Lymph % 19.1 % Low 20.5-51.1 Divide% 4.7 % 1.7-9.3 Laboratory test finding 08/08/2014 [...] 1.2-2.1 Vitamin D25 >120 High 30-100 24 Comp Metabolic Panel 02/21/2014 Sodium 139 mmol/L [...] Egfr Non- 71.8 >60 Egfr 92.3 >60 25 Laboratory test finding 02/21/2014 Magnesium 1.8 mg/dL Low 1.9-2.7 Free T4 1.08 ng/mL 0.61-1.12 TSH (Thyroid Stimulating Horm) 1.34 IU/mL 0.34-5.60 Vitamin D, 25 Hydroxy 02/21/2014 25-Hydroxy Vitamin D2 136 ng/mL 25-Hydroxy Vitamin D3 67 ng/mL 25-Hydroxy Vitamin D Total 203 ng/mL 26 Laboratory test finding 01/20/2014 TSH 3.77 mIU/L 0.50-6.00 Free T4 1.25 ng/dL 0.75-1.54 Comprehensive Metabolic Prof 01/20/2014 Sodium 139 mEq/L [...] 0.6 mg/dL 0.2-1.3 Laboratory test finding 01/20/2014 Rheumatoid Arth Factor 9.3 IU/mL 0.0- 13.9 CBC Manual Diff-a 01/20/2014 WBC 8.1 3.6-9.6 RBC 5.06 3.90-5.70 [...] 4 Z#Comment rbc/plts normal Laboratory test finding 12/13/2013 Calcium, Serum 6.7 mg/dL Low 8.6-10.2 28 Complete Blood Count 12/13/2013 WBC 6.7 x10^3/UL 3.6-9.6 RBC 4.65 x10^6/UL 3.90-5.70 HGB 14.0 g/dL 12.1-17.2 HCT 41 % 36-50 MCV 88.0 fL 82.2-97.4 MCH 30.2 pg 27.6-33.3 MCHC 34.2 g/dL 33.0-35.5 RDW 12.4 % 11.6-13.7 PLT 287 x10^3/UL 150-400 MPV 7.1 fL Low 7.4-10.4 Gran # 5.1 x10^3/UL 1.5-7.2 Lymph# 1.3 x10^3/UL 0.7-4.9 Divide# 0.3 x10^3/UL 0.1-0.9 Gran % 73.9 % 42.2-75.2 Lymph % 20.3 % Low 20.5-51.1 Divide% 5.8 % 1.7-9.3 Laboratory test finding 12/13/2013 C Reactive Protein 7.40 mg/L High < 5.00 29 Comp Metabolic Panel 11/01/2013 Sodium 137 mmol/L [...] Egfr Non- 70.7 >60 Egfr 91.0 >60 30 Vitamin D, 25 Hydroxy 11/01/2013 25-Hydroxy Vitamin D2 96 ng/mL 25-Hydroxy Vitamin D3 75 ng/mL 25-Hydroxy Vitamin D Total 171 ng/mL 31 Laboratory test finding 10/12/2013 [facility] Lab Test see scanned Comp Metabolic Panel 09/19/2013 Sodium 137 mmol/L [...] 25-Hydroxy Vitamin D Total 53 ng/mL 33 Laboratory test finding 09/19/2013 Free T4 1.07 ng/mL 0.61-1.12 TSH (Thyroid Stimulating Horm) 0.65 IU/mL 0.34-5.60 Comprehensive Metabolic Prof 08/12/2013 Sodium 135 mEq/L [...] 0.2-1.3 1 consistent w/ previous results 2 consistent w/ previous results 3 1 sst 4 consistent w/ previous results 5 1 [...] BY REPEAT ANALYSIS 17 RUN DATE: 10/05/14 [facility] LAB LIVE PAGE 1 RUN TIME: [address] [place] [id number] Specimen Inquiry Name: MELIDA YANG : [address]: Talia Desouza DRUG ABUSE TREATMENT SPECIALIST Acct: [id number] Unit: [id number] AGE: 69 Location: [facility] Re10/03/14 SEX: F Status: REG REF SPEC: [id number] NITHYA: 10/03/14-16[address] [facility] [address]: Talia Desouza DRUG ABUSE TREATMENT SPECIALIST REQ: [id number] RECD: 10/04/14 STATUS: SOUT _ ORDERED: IMAGE [...] was evaluated with the assistance of the 8020select Test Imaging System. Due to cytologic findings at the traveling passenger agent microscope, comprehensive manual rescreening by a Water Quality Control Engineer may be required. The Pap Smear is [...] performed at Main Lab DEPARTMENT OF PATHOLOGY, [address] [place] [address] Luke Cash M.D. Director [place] # [id number] 18 few epis, no wbc , no clue cells, neg whiff 19 RUN DATE: 10/05/14 [facility] LAB LIVE PAGE 1 RUN TIME: [address] [place] [address] Specimen Inquiry Name: MELIDA YANG : [address]: Talia Desouza DRUG ABUSE TREATMENT SPECIALIST Acct: [id number] Unit: [id number] AGE: 69 Location: [facility] Re10/03/14 SEX: F Status: REG REF SPEC: [id number] NITHYA: 10/03/[address]: Talia Desouza NP REQ: [id number] RECD: 10/04/14 STATUS: RES _ SOURCE: VAGINAL SPDESC: ORDERED: Gertrude,Yeast DNA, Trich DNA QUERIES: Provider Requisition # [id number] Procedure Result Verified Site Gardnerella/Yeast: Vaginal DNA [...] Probe PENDING * ML - MAIN LAB ([facility]) . END OF REPORT * ML=Testing performed at Main Lab DEPARTMENT OF PATHOLOGY, [facility] [email or web address] [place], [place] [address] Luke Cash M.D. Director [facility] # [id number] 20 RUN DATE: 10/05/14 [facility] LAB LIVE PAGE 1 RUN TIME: 5552 [facility] [address] [place], [place] [address] Specimen Inquiry Name: MELIDA YANG : [address]: Talia Desouza NP Acct: [id number] Unit: [id number] AGE: 69 Location: [facility] Re10/03/14 SEX: F Status: REG REF SPEC: [id number] NITHYA: 10/03/14-[address] [facility] [address]: Talia Desouza NP REQ: [id number] RECD: 10/04/14 STATUS: COMP _ SOURCE: VAGINAL SPDESC: ORDERED: Gertrude,Yeast DNA, Trich DNA QUERIES: Provider Requisition # [id number] Procedure Result Verified Site Gardnerella/Yeast: Vaginal DNA [...] or failure. Trichomonas: Vaginal DNA Probe Final 10/05/14843 ML Organism 1 Negative Trichomonas CONTINUED ON NEXT PAGE * ML=Testing performed at Main Lab DEPARTMENT OF PATHOLOGY, [address] [place] [address] Luke Cash M.D. Director [facility] # [id number] RUN DATE: 10/05/14 [facility] LAB LIVE PAGE 2 RUN TIME: [address] [place] [address] Specimen Inquiry Patient: HUBERTMELIDA L [id number] (Continued) Specimen: [id number] Collected: 10/03/14 Received: 10/04/14 (Continued) Procedure Result Verified Site Trichomonas: Vaginal DNA Probe Final (continued) 10/05/14- 843 The presence or absence of T. vaginalis cannot be used as a test for therapeutic success or failure. * ML - MAIN LAB ([facility]) . END OF REPORT * ML=Testing performed at Main Lab DEPARTMENT OF PATHOLOGY, [address] [place] [address] Luke Cash M.D. Director [facility] # [id number] 21 RESULTS VERIFIED BY REPEAT ANALYSIS 22 RESULTS VERIFIED BY REPEAT ANALYSIS 23 consistent w/ previous results 24 RESULTS VERIFIED BY REPEAT ANALYSIS 25 Because ethnic data is not always readily [...] 15-29 5 Kidney failure <15 (or dialysis) 26 Interpretation: >80 ng/mL (toxicity possible) -- REFERENCE VALUE -- 25-HYDROXY D TOTAL (D2+D3) Optimum levels in the healthy population are 20-50, patients with bone disease may benefit from higher levels within this range. Test Performed by: [place] [address] [employer] St[employer] Channeler: Masood Rankin III, M.D. 27 consistent w/ previous results 28 RESULTS VERIFIED BY REPEAT ANALYSIS 29 Acute inflammation: >10.00 30 Because ethnic data is not always readily [...] 15-29 5 Kidney failure <15 (or dialysis) 31 Interpretation: >80 ng/mL (toxicity possible) -- REFERENCE VALUE -- 25-HYDROXY D TOTAL (D2+D3) Optimum levels in the healthy population are 20-50, patients with bone disease may benefit from higher levels within this range. Test Performed by: [address] [address] [employer] St[employer] Channeler: Masood R. Cockerill, III, M.D. 32 Because ethnic data is not always [...] levels within this range. Test Performed by: [place] [address] [employer] Channeler: Masood Rankin III, M.D. Procedures Date CPT Code Description Status 05/12/2017 08555 Electrocardiogram Complete Completed 02/15/2016 Mammogram Completed 01/12/2015 35515 Paring/Cutting Benign Lesion ([place]/Callus) Completed 08/15/2014 Mammogram Completed 08/08/2014 27614 Pulse Oximetry Completed 07/28/2014 96681 Pulse Oximetry Completed 06/01/2012 Colonoscopy Completed Encounters Type Date Location Provider CPT E/M Dx Office Visit 05/12/2017 1:20p [facility] Madelin Hoover M.D. 41737 Z00.00 I10 E83.51 F41.1 E03.8 Office Visit 01/13/2017 11:30a [facility] Madelin Hoover M.D. 91447 E83.51 F41.1 I10 E89.2 E66.9 Office Visit 08/20/2016 4:40p [facility] Madelin Hoover M.D. 67513 F41.1 I10 E89.2 E03.8 E83.51 Z23 Office Visit 07/02/2016 1:40p [facility] Madelin Hoover M.D. 95971 F41.1 I10 E83.51 E89.2 E03.8 M25.511 Office Visit 05/28/2016 8:00a [facility] Madelin Hoover M.D. 99669 F41.1 I10 E83.51 E89.2 E03.8 M25.511 Office Visit 04/02/2016 11:30a [facility] Madelin Hoover M.D. 99091 I10 E83.51 F41.1 Office Visit 03/25/2016 9:40a [facility] Madelin Hoover M.D. 48081 I10 E83.51 F41.1 Z23 Office Visit 02/08/2016 4:20p [facility] Madelin Hoover M.D. 76612 E89.2 E83.51 I10 F41.1 E03.8 Z12.31 M15.0 Office Visit 10/18/2015 1:00p [facility] Office LUIS Mueller 60272 E83.51 E06.3 Office Visit 10/04/2015 4:00p [facility] LUIS Mueller 63259 E83.51 E06.3 Office Visit 07/12/2015 3:00p [facility] Office LUIS Mueller 15940 E83.51 E06.3 Office Visit 05/18/2015 11:10a [facility] Office Abhijeet Dunn M.D. 32629 M79.671 F41.1 I10 Office Visit 04/17/2015 8:50a [facility] Office Abhijeet Dunn M.D. 46408 H65.01 I10 E06.3 E83.51 Office Visit 01/12/2015 9:20a [facility] Office Abhijeet Dunn M.D. 18224 788.42 780.52 275.42 300.02 454.1 700 719.47 Office Visit 11/07/2014 10:00a [facility] Office Abhijeet Dunn M.D. 25558 401.9 244.9 300.02 275.41 Office Visit 10/03/2014 4:00p [facility] Talia Desouza bubba-C 82694 V70.0 311 300.02 401.9 724.2 620.2 244.9 623.8 Office Visit 08/08/2014 10:15a [facility] Talia Desouza Afnp-C 53315 786.2 790.6 300.00 Office Visit 07/28/2014 3:00p [facility] Alanna Larkin, [facility] 05219 780.60 786.2 787.02 Office Visit 06/13/2014 11:00a [facility] Abhijeet Dunn M.D. 01327 682.9 300.00 530.81 780.52 Office Visit 05/12/2014 1:30p [facility] Alanna Trae, [facility] 88739 112.9 Office Visit 05/02/2014 4:20p [facility] Office Abhijeet Dunn M.D. 41509 724.2 275.41 Office Visit 03/31/2014 2:30p [facility] Office Abhijeet Dunn M.D. 73292 724.2 780.52 Office Visit 03/21/2014 3:20p [facility] Office Abhijeet Dunn M.D. 44947 724.2 311 Office Visit 01/20/2014 8:00a [facility] Office Abhijeet Dunn M.D. 98739 275.41 401.9 789.01 780.79 244.9 Office Visit 12/26/2013 3:30p [facility] Abhijeet Dunn M.D. 11492 724.3 Office Visit 12/19/2013 2:40p [facility] Abhijeet Dunn M.D. 70960 682.3 787.02 Office Visit 12/13/2013 11:20a [facility] Abhijeet Dunn M.D. 89394 682.4 275.41 401.9 Office Visit 12/06/2013 1:00p [facility] Abhijeet Dunn M.D. 61438 682.4 Office Visit 11/28/2013 8:30a [facility] Office Abhijeet Dunn M.D. 14004 719.42 Office Visit 10/18/2013 9:20a [facility] Abhijeet Dunn M.D. 09944 401.9 275.42 300.00 275.41 Office Visit 09/13/2013 9:40a [facility] Office Abhijeet Dunn M.D. 78439 401.9 300.00 530.81 Office Visit 09/06/2013 10:50a [facility] Abhijeet Dunn M.D. 94746 401.9 Office Visit 08/26/2013 9:30a [facility] Office Abhijeet Dunn M.D. 95565 401.9 275.42 244.9 Office Visit 08/12/2013 10:20a [facility] Office Abhijeet Dunn M.D. 24326 401.9 275.42 244.9 300.00 268.9 530.81 Plan of Care Future Appointment(s):11/03/2017 8:30 am - Madelin Hoover M.D. at [facility] [id number]/10/2017 10:00 am - Madelin Hoover M.D. at [facility]06/12/2017 - Chelsey Chaudhry, BUBBAL23.2 Allergic contact dermatitis due to cosmeticsNew Medication:Prednisone 20 mgHydrocortisone 2.5 %Comments:Call JENNIFER if condition changes/worsens in any way
[2017-06-19] MEDS ORDERED: Ondansetron INJ* 2 MG/ML VIAL IV PRN (12:17)
[2017-06-19] MEDS ORDERED: HYDROcodone/ACETAMIN 5-325 MG* 1 TAB PO PRN (12:27)
[2017-06-19 13:48] LABS: EGFR Non-African American 77.8 (>60)
[2017-06-19 14:00] LABS: INR 0.98 (0.77-1.02)
[2017-06-19 14:12] LABS: ABS Basophils 0.1 10^3/ul (0-0.2); ABS Eosinophils 0.1 10^3/ul (0-0.6); ABS Lymphocytes 1.7 10^3/ul (1.0-4.8); ABS Neutrophils 8.3 10^3/ul (1.5-7.7); ABS Nucleated RBC 0 10^3/ul; Hematocrit 42 % (35-47); Hemoglobin 13.7 g/dl (12.0-16.0); Lymphocyte % 15.5 % (25-47); Mean Corpuscular HGB Conc 33 g/dl (31-36); Mean Corpuscular Hemoglobin 29 pg (27-31); Mean Corpuscular Volume 87 fL (80-97); Mean Platelet Volume 8 um3 (7.4-10.4); Nucleated Red Blood Cells % 0.1; Platelet Count 215 10^3/ul (150-450); Red Blood Count 4.76 10^6/ul (4.0-5.4); Red Cell Distribution Width 14 % (10.5-15); White Blood Count 11.3 10^3/ul (3.5-10.8)
[2017-06-19] MEDS ORDERED: Vancomycin per Pharmacy* NOTE FOLLOW UP PRN (14:12)
[2017-06-19] MEDS ORDERED: Vancomycin(*) 1,500 MG in NS 0.9% 250 ML* 250 ML IVPB ONE (14:15)
--- NOTE | 2017-06-19 14:39 | CONS ---
CC: Dr. Aguilera; Dr. Madelin Hoover * CONSULTATION REPORT: DATE OF CONSULT: 06/19/17 PRIMARY CARE PROVIDER: Dr. Madelin Hoover. MY ATTENDING PHYSICIAN WHILE IN THE HOSPITAL: Dr. Adams Hoover (report dictated by Jaun Blair NP). REQUESTING PHYSICIAN FOR CONSULT: Dr. Aguilera. REASON FOR MEDICAL CONSULT: Evaluation and medical management of comorbid medical conditions and also perioperative risk stratification. HISTORY OF PRESENTING ILLNESS: Mrs. Yang is a 71-year-old female patient, she has a history of arthritis, hypertension, depression, anxiety, GERD, and hypothyroidism. She presented to the Dr. Aguilera's service on the outpatient setting as she had said that on Thursday, the patient was lifting heavy object. She developed right thumb finger swelling and the right hand was swollen and also started getting some wrist pain on the right wrist. The pain got progressively worse throughout the week and that she has noted the last 2 days, that she has had redness coming down from the base of her thumb and into her forearm. She was concerned because the redness was not getting any better and sought care with her primary today and then she was referred to Dr. Aguilera's office and it was felt that she was going to need IV antibiotics, imaging, and possible I and D and washout of that area. The patient says that she did have chills last night. She just could not get warm. She denies having any chest pain or shortness of breath. She denies any nausea or vomiting. There has been no URI symptoms, no cold symptoms. She has not felt short of breath and she says that she typically walks up a flight of stairs and she has no chest pain, shortness of breath, or discomfort with this when she is feeling well. She does state that she has been feeling nauseated and then has been feeling fatigued with this. To her knowledge, there have been no abrasions or opening of the skin to that area and no trauma. The only thing that she can remember is that she lifted a heavy tray. Because of her medical complexity and the fact that she needed perioperative risk stratification, we were asked to evaluate in consult. PAST MEDICAL HISTORY: Significant for: 1. Arthritis. 2. Hypertension. 3. Depression. 4. Anxiety. 5. GERD. 6. Hypothyroidism. PAST SURGICAL HISTORY: She has had: 1. Appendectomy. 2. . 3. Thyroidectomy. MEDICATIONS: Home meds according to list in [facility] include: 1. Calcium and vitamin D 1 tablet p.o. daily. 2. Synthroid 100 mcg p.o. daily. 3. Lisinopril 40 mg daily. 4. Lexapro 20 mg daily. 5. Hydrocodone/acetaminophen 1 tablet every 4 to 6 hours as needed. 6. Ambien 10 mg at bedtime as needed. 7. Protonix 40 mg p.o. daily. ALLERGIES TO MEDICATIONS: Include NSAIDS, CODEINE, FLEXERIL, and SHELLFISH. FAMILY HISTORY: Her mother had history of dementia, in her 80s. Father had history of an [place] in his 60s. SOCIAL HISTORY: She does not smoke, does not drink. She does live with her , who is her surrogate decision maker as well. REVIEW OF SYSTEMS: There is no documented fever. She did admit to having chills. There was no significant weight change. There was no double vision. She denies having any ear discharge. There was no rhinorrhea. There was no sore throat. There was no thyroid enlargement. She denied having any chest pain. No orthopnea, no nocturnal dyspnea. There was no abdominal pain. There was no nausea, no vomiting. No dysuria, there was no frequency. There was no seizure, no loss of consciousness. No pruritus and no skin ulcerations. Review of 14 systems completed, all others negative. PHYSICAL EXAM: Vital Signs: Blood pressure 134/70 with the pulse of 70, respirations 18, her temperature was 99.5. General: At this time, Ms. Yang is a 71-year-old female patient, she appears to be well-nourished, well- developed. She does not appear to be in any acute distress. She is sitting in the hospital bed. HEENT: Head is atraumatic and normocephalic. Eyes: EOMs are intact. Sclerae anicteric and not pale. Neck: Supple. Throat: Oral mucosa appears to be moist. No oropharyngeal erythema. Heart: Sounds S1 and S2. Regular rate and rhythm. No murmurs, rubs, or gallops. Lungs: Clear to auscultation. No wheezing, rales, or rhonchi. Abdomen: Soft, it was flat, nontender. Bowel sounds are present. Extremities: Pulses were 2+ throughout. She is moving all 4 extremities with 5/5 strength with exception of that right hand. Right hand is noted to be swollen and edematous. She does have an area of erythema down at the base of the thumb and swelling of the thumb and the erythema extends down into her wrist. She does have flexion and extension of the wrist along with pronation and supination of the wrist and there is no pain with this. With flexion and extension of the thumb and palpation at the base of the thumb, she does have significant amount of tenderness there. Neurologic: She is awake, alert, oriented x3. Tongue midline. Incubator Operator are equal. No gross focal deficits. Skin was intact. LABORATORY DATA: Her labs are pending. Old medical records reviewed. ASSESSMENT AND PLAN: Ms. Yang is a 71-year-old female patient coming into the hospital today, was a direct admit to Orthopedics. We we were asked to evaluate in consult for medical management and perioperative risk stratification for a right thumb cellulitis and possible tenosynovitis. Recommendations at this point are: 1. Cellulitis with possible tenosynovitis of the wrist and thumb. My plan at this point is to defer management to Dr. Aguilera and team, but an MRI has been ordered and I did order vancomycin and I did recommend getting CRP, ESR, CBC, BMP, and blood cultures which have all been ordered already and Dr. Aguilera will be following. In terms of her perioperative risk stratification, she is low risk. I am just waiting on an EKG and chest x-ray. If these are both negative and benign, then she could proceed to the OR. Again, the patient being a low risk, her RCRI is 0. 2. Arthritis. Continue meds as prescribed. 3. Gastroesophageal reflux disease. I recommend continuing PPI therapy. 4. Hypertension. Continue lisinopril. I would hold this though if she does go to surgery, hold it preoperatively. 5. Hypothyroidism. Continue Synthroid. 6. Depression and anxiety. Continue supportive care. 7. DVT prophylaxis. I will defer to the primary team, but I did order SCDs for the time being as she is moderate risk. 8. Code status. Full code. 9. Fluids, electrolytes, and nutrition. She can have a heart-healthy diet. TIME SPENT: On the admission was approximately 60 minutes, greater than half the time was spent [id number] with the patient obtaining my history and physical, the other half time was spent going over the plan of care with the patient and implementing plan of care. I did discuss the plan of care with my attending, Dr. Adams Hoover; he is in agreement. JAUN BLAIR NP [id number]/[facility]PS #: [id number] LADY
[2017-06-19] MEDS: Diazepam TAB(*) 10 MG PO PRN (15:08)
[2017-06-19] MEDS ORDERED: Gadoteridol* (CONTRAST) 279.3 MG/ML 10 ML IV ONE (15:54)
[2017-06-19] MEDS ORDERED: Calcium Gluconate INJ* 2 GM in NS 0.9% 100 ML* 100 ML IV ONE (17:00)
--- NOTE | 2017-06-19 17:07 | PN ---
Hospitalist Progress Note Date of Service: 06/19/17 Responded to cat call for AMS, pt noted to be starring by MRI staff. Cat call placed. On arrival sitting in wheelchair awake and alert, drowsy but alert to place time self and situation, no focal deficits, f/s 127, bp stable tx to fllor , patient states numbness in both hand and states that she was anxious about the mri as it took hours per patient, noted to be diaphoretic, no chest pain or sob, lungs cta, no murmurs heard, non focal exam, suspect panic, attack vs, hypocalcemia hx of this, will hydrate patient, replaced calcium, and encourage PO intake, ekg pending and ordered, Dr ford in agreement with plan,
[2017-06-19] MEDS ORDERED: NS 0.9% 1000 ML* 1,000 ML IV ONE (17:18)
[2017-06-19] MEDS ORDERED: CALCIUM GLUCONATE* 1 GM/10 ML VIAL (in Pyxis) IV PUSH ONE (17:18)
[2017-06-19] MEDS ORDERED: Calcium Gluconate INJ* 1 GM in NS 0.9% 50 ML* 50 ML IV ONE (17:20)
[2017-06-19] MEDS ORDERED: CALCIUM GLUCONATE* 1 GM/10 ML VIAL (in Pyxis) IV PUSH STA (17:22)
--- NOTE | 2017-06-19 19:07 | RAD ---
INDICATION: Hypertension and acute presentation of right hand cellulitis COMPARISON: Chest x-ray August 08, 2014 TECHNIQUE: Single AP portable view of the chest was obtained. FINDINGS: Image quality is compromised due to the relative inferiority of a portable chest x-ray. Surgical clips are noted overlying the midline low cervical level. The heart and mediastinum exhibit normal size and contour. There is density obscuring the left lung base and left hemidiaphragm that was not apparent on the previous chest x-ray. Elsewhere the lungs are grossly clear. There is no evidence of a large pleural effusion. Visualized bones are normal for the patient's age. IMPRESSION: Density obscuring the left lung base and left hemidiaphragm. Atelectasis, pneumonia or other consolidation with or without pleural effusion are diagnostic possibilities.
[2017-06-19] MEDS: Calcium Carbonate CHEW TAB* 500 MG (TUMS) PO SCH (19:40)
[2017-06-19] MEDS: NS 0.9% 1000 ML* 1,000 ML IV SCH (19:40)
[2017-06-19] MEDS ORDERED: PROCHLORPERAZINE INJ 5 MG/ML 2 ML VIAL IV PRN (19:55)
--- NOTE | 2017-06-19 19:58 | HP ---
HISTORY AND PHYSICAL: DATE OF ADMISSION: 06/19/17 CHIEF COMPLAINT: Right hand pain and erythema. ADMITTING DIAGNOSIS: Right hand cellulitis. HISTORY OF PRESENT ILLNESS: Ms. Yang is a 71-year-old female who has developed right hand pain, erythema, and warmth over the last 48 hours. She denies any injury to the hand. She has developed 7/10 pain in the right thumb and hand. She noted swelling and erythema. Now, the erythema is traveling up her wrist. She has increased pain with movement of the thumb and wrist, decreased pain with rest. She notices she feels feverish. No recent illness. The patient reports that over a year ago, she was hospitalized for left hand cellulitis, which occurred in much the same manner. She was treated with IV antibiotics and did not have any surgery with resolution of symptoms. PAST MEDICAL HISTORY: 1. Hypertension. 2. Osteoarthritis. 3. GERD. 4. Hypothyroidism. 5. Anxiety. PAST SURGICAL HISTORY: 1. Appendectomy. 2. Thyroid surgery at age 24. FAMILY HISTORY: Paternal heart disease. Paternal rheumatoid arthritis. 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 She lives with her . No tobacco, alcohol, or recreational drug use. Right hand dominant. REVIEW OF SYSTEMS: Fourteen systems reviewed with the patient today. Positive for right hand pain, swelling, erythema. Positive for fevers, chills, nausea, vomiting. Positive for fatigue and anxiety. Otherwise, the patient reports review of systems is negative or not relevant. PHYSICAL EXAMINATION GENERAL: The patient is a well-nourished female, in no apparent distress. She does look fatigued and ill today. Alert and oriented x3. Pleasant mood and appropriate affect. VITAL SIGNS: The patient's temperature is 99.5, pulse of 84, blood pressure 134 /70. Height of 5 feet 2 inches tall, weight of 178 pounds, BMI 32.6. HEENT: Atraumatic/normocephalic. Pupils equal and reactive to light. LUNGS: Clear to auscultation in all lung cardona. No wheezes, rubs, or rhonchi. HEART: S1 and S2. No obvious irregular rhythm or murmur. ABDOMEN: Soft, nontender, nondistended. Bowel sounds in 4 quadrants. EXTREMITIES: Right upper extremity, the patient's skin is intact. She has no open wounds. She has some swelling and erythema around the thenar eminence of her right thumb as well as along the basal joint and proximal at the carpal tunnel region. This is warm. She has pain with motion of the thumb and wrist. She has 2+ palpable radial pulse. Full sensation to light touch in all nerve distributions. No palpable masses or fluid collections. GAIT: The patient's gait is normal. DIAGNOSTIC STUDIES/LAB DATA: Radiographs: Multiple views of the right hand and wrist show significant arthritic changes at the basal joint. Scaphoid has a subchondral cyst. I see no obvious fracture. Labs are pending. ASSESSMENT AND PLAN: Ms. Yang is a 71-year-old female who presents today as an outpatient in orthopedic clinic with right thumb and hand cellulitis. The patient is reporting fevers. I will direct admit her to hospital. We will run some laboratory studies to include CBC, ESR, CRP. We will obtain blood cultures to ensure she is not septic. I will get a hospitalist consult to medically optimize her in case we need to do an open I and D of any abscess or fluid collections in the thumb or hand. We will order a stat MRI to evaluate for any fluid collections or abscesses. We will place her on IV vancomycin for the cellulitis. The patient and I had a long discussion today. She understands she needs to be admitted with IV antibiotics. The cellulitis might clear up on its own. If we find a fluid collection suggestive of infection, we may consider an open I and D in the operating room. Within the differential diagnosis is also gout, an we will check uric acid as well as place her on indomethacin. She will be admitted and placed on her home medications. She will have SCDs and mobilize often for DVT prophylaxis. She will have p.r.n. pain medication. I will follow the MRI and discuss this with the patient. [id number]/[facility] #: [id number] LADY
[2017-06-19] MEDS: Zolpidem TAB* 10 MG PO PRN (21:35)
[2017-06-20] MEDS: hydrALAZINE IV* 20 MG/ML VIAL IV PRN (00:46)
[2017-06-20] MEDS: Vancomycin(*) 1,000 MG in NS 0.9% 250 ML* 250 ML IVPB SCH ×3 (00:46→18:05)
[2017-06-20] MEDS: Acetaminophen TAB* 325 MG PO PRN ×2 (01:57→09:23)
[2017-06-20] MEDS: Levothyroxine TAB* 100 MCG TAB PO SCH (05:23)
[2017-06-20 08:43] LABS: ABS Basophils 0.1 10^3/ul (0-0.2); ABS Eosinophils 0.2 10^3/ul (0-0.6); ABS Lymphocytes 1.5 10^3/ul (1.0-4.8); ABS Neutrophils 8.4 10^3/ul (1.5-7.7); ABS Nucleated RBC 0 10^3/ul; Eosinophil % 1.6 % (0-6); Hematocrit 40 % (35-47); Hemoglobin 13.4 g/dl (12.0-16.0); Lymphocyte % 13.5 % (25-47); Mean Corpuscular HGB Conc 33 g/dl (31-36); Mean Corpuscular Hemoglobin 29 pg (27-31); Mean Corpuscular Volume 87 fL (80-97); Mean Platelet Volume 8 um3 (7.4-10.4); Nucleated Red Blood Cells % 0; Platelet Count 207 10^3/ul (150-450); Red Blood Count 4.63 10^6/ul (4.0-5.4); Red Cell Distribution Width 15 % (10.5-15); White Blood Count 11.2 10^3/ul (3.5-10.8)
--- NOTE | 2017-06-20 08:51 | PN ---
Progress Note - Progress Note Date of Service: 06/20/17 SOAP: Subjective: Pt. is alert, reports pain and swelling is much improved. Objective: RUE - erythema and swelling dramatically improved today. Radially over basal joint is dark red area, no obvious palpable fluid collection. Improved motion wrist and thumb with minimal pain. 2+ radial pulse, full sens lt. Vital Signs: Temp Pulse Resp BP Pulse Ox 98.4 F 85 16 141/68 91 06/20/17 07:58 06/20/17 07:58 06/20/17 07:58 06/20/17 07:58 06/20/17 07:58 Laboratory Results - last 24 hr 06/19/17 06/19/17 06/19/17 13:18 13:18 14:00 WBC 11.3 H RBC 4.76 Hgb 13.7 Hct 42 MCV 87 MCH 29 MCHC 33 RDW 14 Plt Count 215 MPV 8 Neut % (Auto) 73.4 Lymph % (Auto) 15.5 L [place] % (Auto) 9.2 H Eos % (Auto) 1.0 Baso % (Auto) 0.9 Absolute Neuts (auto) 8.3 H Absolute Lymphs (auto) 1.7 Absolute Monos (auto) 1.0 H Absolute Eos (auto) 0.1 Absolute Basos (auto) 0.1 Absolute Nucleated RBC 0 Nucleated RBC % 0.1 ESR 28 INR (Anticoag Therapy) 0.98 Sodium 134 Potassium 4.1 Chloride 100 L Carbon Dioxide 24 Anion Gap 10 BUN 12 Creatinine 0.74 Est GFR ( Amer) 100.1 Est GFR (Non-Af Amer) 77.8 BUN/Creatinine Ratio 16.2 Glucose 87 POC Glucose (mg/dL) Uric Acid 4.4 Calcium 6.8 L C-Reactive Protein 61.23 H 06/19/17 06/19/17 06/20/17 17:03 21:02 08:15 WBC 11.2 H RBC 4.63 Hgb 13.4 Hct 40 MCV 87 MCH 29 MCHC 33 RDW 15 Plt Count 207 MPV 8 Neut % (Auto) 75.1 Lymph % (Auto) 13.5 L [place] % (Auto) 9.0 Eos % (Auto) 1.6 Baso % (Auto) 0.8 Absolute Neuts (auto) 8.4 H Absolute Lymphs (auto) 1.5 Absolute Monos (auto) 1.0 H Absolute Eos (auto) 0.2 Absolute Basos (auto) 0.1 Absolute Nucleated RBC 0 Nucleated RBC % 0 ESR INR (Anticoag Therapy) Sodium Potassium Chloride Carbon Dioxide Anion Gap BUN Creatinine Est GFR ( Amer) Est GFR (Non-Af Amer) BUN/Creatinine Ratio Glucose POC Glucose (mg/dL) 127 H 139 H Uric Acid Calcium C-Reactive Protein Assessment: 71 yo F HD 2 for R hand cellulitis Plan: dramatic improvement on Vanco continue IV abx another 24-48 hours and will reassess tomorrow. starting indomethacin today OOB and ambulate TID prn analgesia possible d/c to home on bactrim or clinda po tomorrow if continued imrovement
[2017-06-20 08:54] LABS: EGFR Non-African American 88.8 (>60)
[2017-06-20] MEDS: Indomethacin CAP* 25 MG CAP PO SCH ×3 (09:21→21:17)
[2017-06-20] MEDS: Lisinopril TAB* 10 MG PO SCH (09:21)
[2017-06-20] MEDS: Omeprazole CAP* 20 MG PO SCH (09:22)
[2017-06-20] MEDS: Calcium Carbonate CHEW TAB* 500 MG (TUMS) PO SCH ×3 (09:23→21:16)
[2017-06-20] MEDS: NS 0.9% 1000 ML* 1,000 ML IV SCH (09:28)
[2017-06-20] MEDS: ESCITALOPRAM 20 MG PO SCH (11:39)
--- NOTE | 2017-06-20 15:07 | PN ---
Subjective Date of Service: 06/20/17 Interval History: Feeling better. Swelling and ROM greatly improved per pt report on the IV vancomycin. Midline not working well. Objective Active Medications: Acetaminophen (Tylenol Tab*) 650 mg PO Q4H PRN PRN Reason: FEVER/PAIN Last Admin: 06/20/17 09:23 Dose: 650 mg Hydrocodone Bitart/Acetaminophen ([place] 5-325 Tab*) 1 tab PO Q4H PRN PRN Reason: PAIN Last Admin: 06/19/17 15:08 Dose: 1 tab Calcium Carbonate (Tums*) 600 mg PO TID REPLACED BY [facility] Last Admin: 06/20/17 09:23 Dose: 600 mg Diazepam (Valium Tab(*)) 10 mg PO DAILY PRN PRN Reason: ANXIETY Last Admin: 06/19/17 15:08 Dose: 10 mg Escitalopram Oxalate (Lexapro (Nf)) 20 mg PO DAILY REPLACED BY [facility] Last Admin: 06/20/17 11:39 Dose: 20 mg Heparin Sodium (Porcine) (Heparin Flush Picc/Ml/Cvc(*)) 0 ml IV FLUSH 0600, 1800 REPLACED BY [facility] PRN Reason: Protocol Last Admin: 06/20/17 05:23 Dose: 1 ml Hydralazine HCl (Apresoline Iv*) 10 mg IV Q4H PRN PRN Reason: Systolic >170 Last Admin: 06/20/17 00:46 Dose: 10 mg Sodium Chloride (Ns 0.9% 1000 Ml*) 1,000 mls @ 100 mls/hr IV PER RATE REPLACED BY [facility] Last Admin: 06/20/17 09:28 Dose: 100 mls/hr Vancomycin HCl 1,000 mg/ (Sodium Chloride) 250 mls @ 166.667 mls/hr IVPB Q8H REPLACED BY [facility] Last Admin: 06/20/17 09:28 Dose: 166.667 mls/hr Indomethacin (Indocin Cap*) 25 mg PO TID REPLACED BY [facility] Last Admin: 06/20/17 09:21 Dose: 25 mg Levothyroxine Sodium (Synthroid Tab*) 100 mcg PO 0600 REPLACED BY [facility] Last Admin: 06/20/17 05:23 Dose: 100 mcg Lisinopril (Prinivil Tab*) 40 mg PO DAILY REPLACED BY [facility] Last Admin: 06/20/17 09:21 Dose: 40 mg Omeprazole (Prilosec Cap*) 20 mg PO DAILY REPLACED BY [facility] Last Admin: 06/20/17 09:22 Dose: 20 mg Ondansetron HCl (Zofran Inj*) 4 mg IV Q6H PRN PRN Reason: NAUSEA Last Admin: 06/19/17 18:29 Dose: 4 mg Pharmacy Consult (Vancomycin Per Pharmacy*) 1 note FOLLOW UP . PRN PRN Reason: PER PROTOCOL Pharmacy Profile Note (Vancomycin Trough Check) 1 note FOLLOW UP ONCE ONE Stop: 06/20/17 16:31 Prochlorperazine Edisylate (Compazine Inj*) 5 mg IV Q6H PRN PRN Reason: NAUSEA/VOMITING Last Admin: 06/19/17 20:04 Dose: 5 mg Zolpidem Tartrate (Ambien Tab*) 10 mg PO BEDTIME PRN PRN Reason: SLEEP Last Admin: 06/19/17 21:35 Dose: 10 mg Vital Signs - 8 hr 06/20/17 06/20/17 06/20/17 07:58 08:00 11:25 Temperature 98.4 F 97.3 F Pulse Rate 85 73 Respiratory 16 16 16 Rate Blood Pressure 141/68 146/74 (mmHg) O2 Sat by Pulse 91 91 91 Oximetry Oxygen Devices in Use Now: None Appearance: NAD Eyes: No Scleral Icterus, PERRLA Ears/Nose/Mouth/Throat: NL Teeth, Lips, Gums, Mucous Membranes Moist Respiratory: Symmetrical Chest Expansion and Respiratory Effort, Clear to Auscultation Cardiovascular: NL Sounds; No Murmurs; No JVD, RRR Abdominal: NL Sounds; No Tenderness; No Distention, No Hepatosplenomegaly Extremities: No Edema, - - small echymoses base of right thumb. erythema. slight sweeling. able to close finger Skin: - - as above Neurological: Alert and Oriented x 3, NL Sensation, NL Muscle Strength and Tone Nutrition: Taking PO's Result Diagrams: 06/20/17 08:15 06/20/17 08:18 Additional Lab and Data: Laboratory Results - last 24 hr 06/19/17 06/19/17 06/19/17 14:00 17:03 21:02 WBC RBC Hgb Hct MCV MCH MCHC RDW Plt Count MPV Neut % (Auto) Lymph % (Auto) [place] % (Auto) Eos % (Auto) Baso % (Auto) Absolute Neuts (auto) Absolute Lymphs (auto) Absolute Monos (auto) Absolute Eos (auto) Absolute Basos (auto) Absolute Nucleated RBC Nucleated RBC % ESR 28 Sodium Potassium Chloride Carbon Dioxide Anion Gap BUN Creatinine Est GFR ( Amer) Est GFR (Non-Af Amer) BUN/Creatinine Ratio Glucose POC Glucose (mg/dL) 127 H 139 H Calcium 06/20/17 06/20/17 08:15 08:18 WBC 11.2 H RBC 4.63 Hgb 13.4 Hct 40 MCV 87 MCH 29 MCHC 33 RDW 15 Plt Count 207 MPV 8 Neut % (Auto) 75.1 Lymph % (Auto) 13.5 L [place] % (Auto) 9.0 Eos % (Auto) 1.6 Baso % (Auto) 0.8 Absolute Neuts (auto) 8.4 H Absolute Lymphs (auto) 1.5 Absolute Monos (auto) 1.0 H Absolute Eos (auto) 0.2 Absolute Basos (auto) 0.1 Absolute Nucleated RBC 0 Nucleated RBC % 0 ESR Sodium 138 Potassium 3.3 L Chloride 103 Carbon Dioxide 26 Anion Gap 9 BUN 7 Creatinine 0.66 Est GFR ( Amer) 114.2 Est GFR (Non-Af Amer) 88.8 BUN/Creatinine Ratio 10.6 Glucose 97 POC Glucose (mg/dL) Calcium 7.0 L Microbiology and Other Data: Microbiology 06/19/17 14:00 Aerobic Blood Culture - Preliminary Blood Venous No Growth Day 1 Anaerobic Blood Culture - Preliminary No Growth Day 1 06/19/17 13:16 Aerobic Blood Culture - Preliminary Blood Venous No Growth Day 1 Anaerobic Blood Culture - Preliminary No Growth Day 1 Assess/Plan/Problems-Billing Assessment: 71 yo female PMH HTN, OA, GERD, hypothryoidism (s/p thyroidectomy), anxiety p/w right thumb cellulitis. Improving on IV vancomycin. Course c/b AMS w/ CAT call during MRI. - Patient Problems (1) Cellulitis of thumb, right Current Visit: Yes Status: Acute Code(s): L03.011 - CELLULITIS OF RIGHT FINGER SNOMED Code(s): 24437035 Comment: Improving on IV vancomycin. No surgery planned by ortho if continue to improve. (2) Hypothyroidism Current Visit: Yes Status: Acute Code(s): E03.9 - HYPOTHYROIDISM, UNSPECIFIED SNOMED Code(s): 81898703 Comment: Continue synthroid 100mcg daily. (3) Anxiety Current Visit: Yes Status: Acute Code(s): F41.9 - ANXIETY DISORDER, UNSPECIFIED SNOMED Code(s): 57228542 Comment: continue lexapro 10mg daily. continue valium 10mg daily prn. (4) Hypocalcemia Current Visit: Yes Status: Acute Code(s): E83.51 - HYPOCALCEMIA SNOMED Code(s): 1741696 Comment: s/p repletion. (5) Hypertension Current Visit: Yes Status: Acute Code(s): I10 - ESSENTIAL (PRIMARY) HYPERTENSION SNOMED Code(s): 17953654 Comment: continue lisinopril 40mg daily. Status and Disposition: ortho service inpatient. Medicine consulted for risk stratification. Attending: Nicholas Bajwa
[2017-06-20] MEDS ORDERED: Potassium Chlor TAB* 20 MEQ TAB.ER PO ONE (15:51)
[2017-06-20] MEDS ORDERED: Vancomycin Trough Check NOTE FOLLOW UP ONE (16:30)
[2017-06-20] MEDS: Zolpidem TAB* 10 MG PO PRN (21:20)
[2017-06-21] MEDS: Vancomycin(*) 1,000 MG in NS 0.9% 250 ML* 250 ML IVPB SCH ×2 (01:08→08:28)
[2017-06-21] MEDS: Diazepam TAB(*) 10 MG PO PRN (01:51)
[2017-06-21] MEDS: Levothyroxine TAB* 100 MCG TAB PO SCH (05:41)
[2017-06-21] MEDS: ESCITALOPRAM 20 MG PO SCH (08:23)
[2017-06-21] MEDS: Acetaminophen TAB* 325 MG PO PRN (08:23)
[2017-06-21] MEDS: Indomethacin CAP* 25 MG CAP PO SCH (08:24)
[2017-06-21] MEDS: Omeprazole CAP* 20 MG PO SCH (08:24)
[2017-06-21] MEDS: Lisinopril TAB* 10 MG PO SCH (08:24)
[2017-06-21] MEDS: Calcium Carbonate CHEW TAB* 500 MG (TUMS) PO SCH (08:27)
[2017-06-21] MEDS: hydrALAZINE IV* 20 MG/ML VIAL IV PRN (09:38)
--- NOTE | 2017-06-21 10:13 | PN ---
Progress Note - Progress Note Date of Service: 06/21/17 SOAP: Subjective: Right thumb cellulitis, improving rapidly with IV abx. Minimal pain today. Anxious for d/c home. Denies CP/SOB Objective: Vitals: Temp Pulse Resp BP Pulse Ox 97.9 F 70 16 173/76 93 06/21/17 07:17 06/21/17 07:17 06/21/17 07:17 06/21/17 07:17 06/21/17 07:37 Gen: A&O x3, NAD at rest RUE: Small area of erythema to radial aspect of 1st MCP joint, +ttp but no fluctuance appreciated. +triggering and tenderness at A1 monserrat of thumb. N/V intact Assessment: Right thumb cellulitis Plan: Pt able to be d/c'd home. Indomethacin stopped due to NSAID allergy. Pt takes [place] occasionally for pain due to arthritis and has some if pain worsens, otherwise with take Tylenol Clindamycin 300mg QID F/u with Dr. Aguilera Thursday.
[2017-06-21 12:09] VITALS: BP 135/64
--- NOTE | 2017-06-22 03:28 | DS ---
DISCHARGE SUMMARY: DATE OF ADMISSION: 06/19/17 DATE OF DISCHARGE: 06/21/17 ATTENDING PROVIDER: Dr. Aguilera *(DICTATED BY RICARDO MCGUIRE) ADMITTING DIAGNOSIS: Right upper extremity cellulitis. DISCHARGE DIAGNOSIS: Right upper extremity cellulitis. SECONDARY DIAGNOSES: 1. Hypertension. 2. Gastroesophageal reflux disease. 3. Hypothyroidism. 4. Anxiety. HISTORY OF PRESENT ILLNESS: Ms. Yang is a 71-year-old female who developed right hand pain, erythema, and warmth 48 hours prior to admission. She had no injury to the hand. She had no open wound. She developed 7/10 pain in the thumb and hand with the associated swelling and erythema and is travelling up her wrist. She did not report any fevers, but did state that she felt feverish. HOSPITAL COURSE: On 06/19/17, the patient was admitted to [facility] and started on broad-spectrum IV antibiotics. Blood cultures, CBC, sed rate, and CRP were also obtained. Blood cultures have been negative to date. The patient did have an increased white count of 11, sed rate was normal at 28, CRP was elevated at 61. The patient was started on IV vancomycin. On day 2 of her admission, the patient's pain, swelling, and redness had improved significantly with the IV antibiotics. She was also started on indomethacin for possible gouty arthropathy. She did have a uric acid drawn, which was normal as well. On day 3 of admission, the patient advised staff that she was allergic to NSAIDs and the indomethacin was stopped. She had no adverse reaction due to this. She reported continued improvement of the pain, swelling , and redness. On evaluation, the erythema and swelling had subsided significantly as well. She was found stable for discharge home. DISCHARGE CONDITION: Stable. DISCHARGE MEDICATIONS: The patient will go home with: 1. Clindamycin 300 mg p.o. q.i.d. She will resume her home medications of: 1. Tylenol 650 mg p.o. q.4 hours p.r.n. 2. Tums as needed for indigestion. 3. Valium 10 mg p.o. q. day. 4. Lexapro 20 mg p.o. q. day. 5. Harmony 5/325 one tab p.o. q.4 hours p.r.n. 6. Synthroid 100 mcg p.o. q. day. 7. Lisinopril 40 mg p.o. q. day. 8. Omeprazole 20 mg p.o. q. day. DISCHARGE INSTRUCTIONS: The patient is to avoid any heavy lifting with the right hand until pain completely resolved. She will apply warm compresses to the hand as needed for pain. She will follow up in the office on Thursday, , with Dr. Aguilera. She is understanding to call to schedule that appointment. She is understanding to call the office with any problems or concerns. She will go back directly to the ER with any increasing redness, pain, swelling, fevers, or chills. RICARDO MCGUIER [id number]/CPS #: [id number] MTDD
[2017-06-23] MEDS ORDERED: Vancomycin Trough Check NOTE FOLLOW UP ONE (08:30)
== END 2017-06-21 13:15 | disposition home or self-care (01) | DRG 603 ==
LOC: MED 11:21
PROVIDERS: ADMIT Orthopaedic Surgery Adult Reconstructive Orthopaedic Surgery; ATTEND Orthopaedic Surgery Adult Reconstructive Orthopaedic Surgery
DX: L03.113 Cellulitis of right upper limb (principal); E83.51 Hypocalcemia; I10 Essential (primary) hypertension; K21.9 Gastro-esophageal reflux disease without esophagitis; E03.9 Hypothyroidism, unspecified; F41.9 Anxiety disorder, unspecified; M19.90 Unspecified osteoarthritis, unspecified site; Z82.49 Family history of ischemic heart disease and other diseases of the circulatory system; Z82.61 Family history of arthritis; Z79.1 Long term (current) use of non-steroidal anti-inflammatories (NSAID); Z79.899 Other long term (current) drug therapy; Z88.8 Allergy status to other drugs, medicaments and biological substances; Z88.6 Allergy status to analgesic agent; Z88.5 Allergy status to narcotic agent; Z91.013 Allergy to seafood
CPT/HCPCS: 36415; 71045; 80048; 80202; 84550; 85025; 85610; 85652; 86140; 87040; 93005; 94760; A9270-GY; A9579; J0360; J0610; J0780; J2405; J3370

== ENCOUNTER 2017-11-25 15:06 | Inpatient (IN) | payer MEDICARE, OTHER ==
--- OUTSIDE RECORDS SUMMARY | 2017-11-25 15:25 | XMS REPORT ---
:1945 External Reference #:[id number] Author Organization [facility] Address [address] [place] [address] Phone [phone] Care Team Providers Name Role Phone Madelin Hoover M.D. Care Team Information Box Finisher Unavailable Madelin Hoover M.D. Primary Care Physician Unavailable Payers Type Date Identification Numbers Payment Subscriber Provider Health Maintenance Effective: Policy Number: Liebenthal Saroj Yang [facility] ([facility] [place] [facility]) 06/01/2016 [id number] [employer] Number: [id number] [id number] PayID: [id number] [place] [address] Medigap Part B Effective: Policy Number: Medicare Carlota Yang 06/01/2012 [id number] PayID: [id number] [address] [place] [address] Problems Date Description Provider Status Onset: 08/12/2013 [...] History Date Family Member(s) Problem(s) Comments Father CA Mother due to Alzheimer's Disease () Social History Type Date Description Comments Marital Status Legal Status: Lives With Spouse 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 Thursday And Thursday Hydrocodone-Acet 09/16 Active Tablets 7.5-325mg 90tab 1 tab M54.5 Madelin aminophen s every 8 Frederic, hours as M.D. needed pain Lisinopril 05/12 Active Tablets 20mg 90tab 1 by mouth I10 Madelin s every day Frederic, M.D. Calcium 05/11 Active Suspension 1250mg/5M 600ml 7.5ml by Madelin Carbonate L mouth in Frederic, Antacid am, 5ml in M.D. afternoon and 7.5ml in evening Ambien 12/20 Active Tablets 10mg 30tab take 1 Madelin s tablet by Frederic, mouth at M.D. bedtime Diazepam 09/04 Active Tablets 10mg 30tab 2 -1 tab F41.1 s by mouth Kiko, two times M.D. a day as needed Escitalopram 04/02 Active Tablets 20mg 30tab 1 by mouth F41.1 Madelin Oxalate s every day FredericCandelaria Levothyroxine 12/31 Active Tablets 100mcg 30tab Take 1 E06.3 Madelin Sodium s Tablet By Frederic, Mouth M.D. Every Day Ergocalciferol 03/14 Active Capsules [id number] 90cap 1 by mouth s every Frederic, other day M.D. Pantoprazole 08/[address] 40mg 30tab Take 1 K21.9 Madelin Sodium s Tablet By Kiko Mouth Once M.D. Daily Augmentin 11/02 Hx Tablets 875-125mg 14tab 1 by mouth Pedrito Moody s twice a Halley fisher MD 11/10 Prednisone 06/12 Hx Tablets 20mg 6tabs take 2 by L23.2 Chelsey CRohith mouth as Isidoro, - one dose STONECUTTER 06/19 daily until gone Hydrocortisone 06/12 Hx Cream 2.5% 20gm apply to L23.2 skin Frederic, - around M.D. 08/24 eyes twice daily for up to 10 days in a row. Zolpidem 06/23 Hx Tablets 10mg 30tab take one Madelin Tartrate s tablet by Kiko, - mouth at M.D. 12/20 bedtime needed for sleep; max daily dose=1 tablet Physical Therapy 05/28 Hx treatment M25.511 and Kiko, - evaluation M.D. 05/31 r shoulder pain Cyclobenzaprine 05/28 Hx Tablets 5mg 90tab take 1 M25.511 Madelin HCL s tablet by Kiko, - mouth M.D. 05/29 times daily as needed Diazepam 11/27 Hx Tablets 10mg 30tab 06/02 -1 tab F41.1 s by mouth Frederic, - two times M.D. 06/23 a day as needed Levothyroxine 10/17 Hx Tablets 112mcg 30tab 1 po qd E06.3 Libby Sodium /2015 s Audrey, - DIETARY TECH 12/31 Cyclobenzaprine 05/18 Hx Tablets 10mg 30tab [...] puffs 786.2 Talia e) s every 4 [facility], - mcg/Act hours as Afnp-C 11/07 needed for cough Azithromycin 08/03 Hx Tablets 250mg 6tabs 2 tabs by Abhijeet Dunn, mouth day M.D. - #1 then 1 08/08 tab by mouth day#2-5 Cephalexin 06/13 Hx Tablets 500mg 20tab 1 by mouth 682.9 Abhijeet Dunn s twice a M.D. - day for 10 Clotrimazole/Bet 05/12 Hx Cream 1-0.05% 30gm apply to 112.9 Alanna amethasone /2013 affected Trae, Dipropionate - area twice DIETARY TECH 01/12 a day /2014 Prednisone 05/02 Hx Tablets 20mg 6tabs 1 by mouth 724.2 Abhijeet Dunn, twice a M.D. - day for 3 Zoloft 03/21 Hx Tablets 100mg 1 by mouth 300.00 Abhijeet Dunn every day M.D. - 03/21 Cyclobenzaprine 03/21 Hx Tablets 10mg 40tab 1 by mouth 724.2 BETZY Carpenter s three M.D. - times a 06/13 day needed Hydrocodone-Acet 03/21 Hx Tablets 5-325mg 90tab 1 by mouth M54.5 Madelin aminophen s three Frederic, - times a M.D. 09/16 day as needed pain Escitalopram 03/21 Hx Tablets 10mg 30tab Take 1 F41.9 Pedrito J. Oxalate s Tablet By Alva, - Mouth Once M.D. 04/02 Daily /2016 F32.9 Vitamin D2 01/20/2014 - Hx Tablets [...] 1 po qd 300. Abhijeet 03/21/2014 00 Candelaria Dunn Oxycodone/Acetam 11/29/2013 - Hx Tablets 2.5-325mg 40ta 1-2 take pill Abhijeet inomarcos 12/25/2013 bs every 8 hours Shaun, for pain M.D. Hydrocodone/Acet 11/28/2013 - Hx [...] 0.5mg 90ta three times 300 Abhijeet Dunn 01/19/2014 bs a day as .00 M.D. needed Clonidine HCL 09/06/2013 - Hx Tablets 0.1mg 60ta take one 401 Abhijeet Dunn 10/18/2013 bs tablet by .9 M.D. mouth twice a day Metoprolol 08/26/2013 - Hx Tablets ER 50mg 30ta 1 po qd 401 Abhijeet Dunn, Succinate ER 09/06/2013 24HR bs .9 M.D. Calcium 600 08/12/2013 - Hx Tablets 600mg 3 qam, 2 po E83 Abhijeet Dunn, 05/11/2017 @ noon and 3 .51 M.D. po qpm Vitamin D 08/12/2013 - Hx Capsules [id number] 8cap 1 po weekly 268 Abhijeet Dunn, 08/26/2013 s x 8. .9 M.D. Ambien 08/12/2013 - Hx Tablets 10mg 30ta 1 by mouth G47 Libby 06/04/2016 bs every night .00 Audrey, at bedtime DIETARY TECH Valium 08/12/2013 - Hx Tablets 10mg 120t [...] three times .9 Audrey, a day as DIETARY TECH needed anxiety Prednisone - Hx Tablets 20mg taper as Unknown 12/06/2013 directed Magnesium-Oxide - Hx Tablet 400mg 30ta Take 1 Libby 12/30/2015 bs Tablet By Audrey, Mouth Every DIETARY TECH Day as Needed Immunizations CPT Code Status Date Vaccine Lot # [id number] Given 03/20/2017 High-Dose, Influenza Virus Vacccine-fluzone 65 and older [id number] Given 08/20/2016 Pneumococcal Conjugate Vacc-13 [id number] Given 03/25/2016 High-Dose, Influenza Virus Vacccine-fluzone [id number] [facility] [address] Given 03/19/2014 DO Not Use Split Influenza Virus Vaccine Vital Signs Date Vital Result Comment 11/10/2017 BP Systolic 148 mmHg BP Diastolic 98 mmHg Heart Rate 76 /min Body Temperature 98.6 F Respiratory Rate 18 /min Height 61.5 inches 5'1.50" Weight 190.00 lb BMI (Body Mass Index) 35.3 kg/m2 11/02/2017 BP Systolic 140 mmHg BP Diastolic 82 mmHg Heart Rate 78 /min Body Temperature 97.7 F Height 61.5 inches 5'1.50" Weight 192.00 lb BMI (Body Mass Index) 35.7 kg/m2 09/16/2017 BP Systolic 154 mmHg BP Diastolic 84 mmHg Heart Rate 72 /min Body Temperature 98.4 F Respiratory Rate 16 /min Height 61.5 inches 5'1.50" Weight 194.00 lb BMI (Body Mass Index) 36.1 kg/m2 06/19/2017 BP Systolic 150 mmHg BP Diastolic [...] Test Date Test Result H/L Range Note Istat BUN/Crea/Egfr/V Mainct 11/02/2017 Poc Bun Mainct 14 mg/dL 9-18 Poc Crea Mainct 0.9 mg/dL 0.6-0.9 GFR Non- MCT 61.9 >60 GFR Mainct 79.6 >60 1 Laboratory test finding 09/16/2017 Vitamin D25 >120 High 30-100 Free T4 1.44 ng/dL 0.75-1.54 TSH 1.69 mIU/L 0.50-6.00 Comprehensive Metabolic Prof 09/16/2017 Sodium 142 mEq/L 134-149 Potassium 3.6 mEq/L 3.6-5.5 Chloride 99 mEq/L 94-112 Carbon Dioxide 29 mEq/L 21-32 Glucose 123 mg/dL High 70-105 BUN 18 mg/dL 6-26 Creatinine 0.7 mg/dL 0.6-1.4 BUN/Creat Ratio 25.7 CALC 8.0-36.0 Calcium 7.5 mg/dL Low 8.6-10.2 2 Total Protein 6.7 g/dL 6.4-8.3 Albumin 4.2 g/dL 3.8-5.5 Globulin 2.5 g/dL 2.0-4.8 A/G Ratio 1.7 CALC 0.6-2.3 Alk. Phosphatase 63 U/L 30-110 Alt (SGPT) 13 U/L 7-35 Ast (Sgot) 13 U/L 5-34 Total Bilirubin 0.4 mg/dL 0.2-1.3 GFR Non- >60 ml/min/1.73m^ >=60 GFR >60 ml/min/1.73m^ >=60 CBC Electronic Fma 09/16/2017 WBC 7.9 x10^3/UL 4.0-10.0 RBC 4.94 x10^6/UL 3.93-6.00 HGB 14.3 g/dL 12.0-17.0 HCT 43 % 35-50 MCV 86.6 fL 80.0-95.0 MCH 28.9 pg 25.6-32.2 MCHC 33.4 g/dL 32.2-36.0 RDW-CV 13.7 % 11.6-14.4 PLT 271 x10^3/UL 163-400 MPV 10.1 fL 9.4-12.4 Mary# 5.22 x10^3/UL 1.56-6.13 Lymph# 1.85 x10^3/UL 1.18-3.74 Baraga# 0.64 x10^3/UL 0.24-0.82 Eos # 0.1 x10^3/UL 0.0-0.5 Baso # 0.04 x10^3/UL 0.01-0.08 Mary% 66.1 % 34.0-70.0 Lymph % 23.4 % 20.0-52.0 Baraga% 8.1 % 5.0-12.0 Eos% 1.8 % 0.7-7.0 Baso% 0.5 % 0.1-1.2 Calcium+Calcium,Ionized 09/16/2017 Calcium 7.1 mg/dL Low 8.7-10.3 3 Calcium, Ionized, Serum 4.0 mg/dL Low 4.5-5.6 3 Lyme AB/Western Blot Reflex 09/16/2017 Lyme IgG/IgM Ab <0.91 ISR 0.00- 0.90 3, 4 Lyme Disease Ab, Quant, IgM <0.80 index 0.00-0.79 3, 5 Arthritis Panel 06/26/2017 Uric Acid 4.6 mg/dL 2.3-6.6 Erythrocyte Sed Rate 33 mm/Hr 0-40 Rheumatoid Factor <15 IU/mL <15 6 Anti-Nuclear Antibody 0.3 U 7 Cyclic Citrullinated Peptide <15.6 U 8 Interpretation See Comment 9 CBC Electronic (Fma) 06/19/2017 WBC 12.0 High 3.6-9.6 RBC 4.87 3.90-5.70 Hemoglobin (Fma/CMC/CTX) 14.6 g/dL 12.1 - 17.2 Hematocrit (Fma/CMC/CTX) 42.7 % 36.1 - 50.3 Platelets 255 10^3/ul 150-400 Lymph% 12.5 % Low 17.0-48.0 Mixed% 4.1 Neutrophils % 83.4 Mean Corpuscular Vol 88 82.2-97.4 Mean Corpuscular Hemoglobin 29.9 27.6-33.3 Mean Corpuscular Hemo Concen 34.1 32.0-36.0 RDW 14.3 High 11.6-13.7 Mean Platelet Volume 7.8 5.5-11.0 Laboratory test finding 06/19/2017 Sedimentation Rate 17 mm Lipid Profile 05/05/2017 Cholesterol 244 mg/dL High 120-200 Triglycerides 90 mg/dL 30-200 HDL Cholesterol 59 mg/dL 30-85 LDL (Calculated) 167 CALC High 0-129 VLDL Cholesterol 18 mg/dL 0-50 HDL Risk Factor 4.1 CALC 0.0-4.4 Laboratory test finding 05/05/2017 TSH 3.37 mIU/L 0.50-6.00 Complete Blood Count 05/05/2017 WBC 5.9 x10^3/UL 3.6-9.6 RBC 4.58 x10^6/UL 3.90-5.70 HGB 14.0 g/dL 12.1-17.2 HCT 40 % 36-50 MCV 88.0 fL 82.2-97.4 MCH 30.5 pg 27.6-33.3 MCHC 34.9 g/dL 33.0-35.5 RDW 14.8 % High 11.6-13.7 PLT 248 x10^3/UL 150-400 MPV 7.7 fL 7.4-10.4 Gran # 4.1 x10^3/UL 1.5-7.2 Lymph# 1.5 x10^3/UL 0.7-4.9 Baraga# 0.3 x10^3/UL 0.1-0.9 Gran % 68.0 % 42.2-75.2 Lymph % 26.7 % 20.5-51.1 Baraga% 5.3 % 1.7-9.3 Comprehensive Metabolic Prof 05/05/2017 Sodium 137 mEq/L 134-149 Potassium 3.6 mEq/L 3.6-5.5 Chloride 99 mEq/L 94-112 Carbon Dioxide 27 mEq/L 21-32 Glucose 98 mg/dL 70-105 BUN 13 mg/dL 6-26 Creatinine 0.8 mg/dL 0.6-1.4 BUN/Creat Ratio 16.3 CALC 8.0-36.0 Calcium 7.2 mg/dL Low 8.6-10.2 10 Total Protein 6.4 g/dL 6.4-8.3 Albumin 4.2 g/dL 3.8-5.5 Globulin 2.2 g/dL 2.0-4.8 A/G Ratio 1.9 CALC 0.6-2.3 Alk. Phosphatase 57 U/L 30-110 Alt (SGPT) 12 U/L 7-35 Ast (Sgot) 14 U/L 5-34 Total Bilirubin 0.5 mg/dL 0.2-1.3 GFR Non- >60 ml/min/1.73m^ >=60 GFR >60 ml/min/1.73m^ >=60 Laboratory test finding 01/30/2017 Hemoglobin A1c (Fma) 5.8 % High 4.1- 5.7 Brain Natural Peptide 41.1 pg/mL <100 Laboratory test finding 01/30/2017 Calcium, Ionized, 3.8 mg/dL Low 4.5- 5.6 11 Serum Laboratory test finding 01/30/2017 TSH 2.89 mIU/L [...] CALC 8.0-36.0 Calcium 7.2 mg/dL Low 8.6-10.2 12 Total Protein 6.6 g/dL 6.4-8.3 Albumin 3.9 [...] 4.9 x10^3/UL 1.5-7.2 Lymph# 1.4 x10^3/UL 0.7-4.9 Baraga# 0.3 x10^3/UL 0.1-0.9 Gran % 73.2 % 42.2-75.2 Lymph % 21.6 % 20.5-51.1 Baraga% 5.2 % 1.7-9.3 Comprehensive Metabolic Prof 07/02/2016 Sodium 142 mEq/L 134-149 Potassium 3.9 mEq/L 3.6-5.5 Chloride 103 mEq/L 94-112 Carbon Dioxide 32 mEq/L 21-32 Glucose 74 mg/dL 70-105 BUN 19 mg/dL 6-26 Creatinine 0.9 mg/dL 0.6-1.4 BUN/Creat Ratio 21.1 CALC 8.0-36.0 Calcium 7.3 mg/dL Low 8.6-10.2 13 Total Protein 7.2 g/dL 6.4-8.3 Albumin 4.1 [...] 5.0 x10^3/UL 1.5-7.2 Lymph# 2.3 x10^3/UL 0.7-4.9 Baraga# 0.4 x10^3/UL 0.1-0.9 Gran % 63.7 % 42.2-75.2 Lymph % 30.9 % 20.5-51.1 Baraga% 5.4 % 1.7-9.3 Laboratory test finding 07/02/2016 Calcium, Ionized, Serum 4.1 mg/dL Low 4.5-5.6 14 PTH Intact + Calcium 01/31/2016 Calcium, Ionized, Serum 3.9 mg/dL Low 4.5- 5.6 15 Ionized PTH, Intact 8 pg/mL Low 15-65 15 Laboratory test finding 01/31/2016 PDF [id number] SEE IMAGE 15 Laboratory test finding 01/31/2016 TSH 1.51 mIU/L 0.50-6.00 Free T4 1.36 ng/dL 0.75-1.54 Comprehensive Metabolic Prof 01/31/2016 Sodium 140 mEq/L 134-149 Potassium 3.9 mEq/L 3.6-5.5 Chloride 100 mEq/L 94-112 Carbon Dioxide 27 mEq/L 21-32 Glucose 87 mg/dL 70-105 BUN 13 mg/dL 6-26 Creatinine 0.8 mg/dL 0.6-1.4 BUN/Creat Ratio 16.3 CALC 8.0-36.0 Calcium 7.4 mg/dL Low 8.6-10.2 16 Total Protein 6.7 g/dL 6.4-8.3 Albumin 4.0 g/dL 3.8-5.5 Globulin 2.7 g/dL 2.0-4.8 A/G Ratio 1.5 CALC 0.6-2.3 Alk. Phosphatase 56 U/L 30-110 Alt (SGPT) 12 U/L 7-35 Ast (Sgot) 18 U/L 5-34 Total Bilirubin 0.5 mg/dL 0.2-1.3 GFR Non- >60 ml/min/1.73m^ >=60 GFR >60 ml/min/1.73m^ >=60 Laboratory test finding 01/31/2016 Vitamin D25 >120 High 30-100 17 Basic Metabolic Profile 12/20/2015 Sodium 141 mEq/L 134-149 Potassium 3.8 mEq/L 3.6-5.5 Chloride 101 mEq/L 94-112 Carbon Dioxide 26 mEq/L 21-32 Glucose 75 mg/dL 70-105 BUN 18 mg/dL 6-26 Creatinine 0.8 mg/dL 0.6-1.4 BUN/Creat Ratio 22.5 CALC 8.0-36.0 Calcium 8.0 mg/dL Low 8.6-10.2 18 GFR Non- >60 ml/min/1.73m^ >=60 GFR >60 [...] CALC 8.0-36.0 Calcium 8.1 mg/dL Low 8.6-10.2 19 GFR Non- >60 ml/min/1.73m^ >=60 GFR >60 ml/min/1.73m^ >=60 Laboratory test finding 10/04/2015 TSH 0.09 mIU/L Low 0.50-6.00 Free T4 1.86 ng/dL High 0.75-1.54 Free T3 2.78 pg/mL 2.00-4.90 Basic Metabolic Profile 07/12/2015 Sodium 139 mEq/L 134-149 Potassium 3.7 mEq/L 3.6-5.5 Chloride 99 mEq/L 94-112 Carbon Dioxide 28 mEq/L 21-32 Glucose 111 mg/dL High 70-105 20 BUN 18 mg/dL 6-26 Creatinine 0.8 mg/dL 0.6-1.4 BUN/Creat Ratio 22.5 CALC 8.0-36.0 Calcium 7.4 mg/dL Low 8.6-10.2 21 GFR Non- >60 ml/min/1.73m^ >=60 GFR >60 [...] CALC 8.0-36.0 Calcium 7.7 mg/dL Low 8.6-10.2 22 Total Protein 7.1 g/dL 6.4-8.3 Albumin 4.1 g/dL 3.8-5.5 Globulin 3.0 g/dL 2.0-4.8 A/G Ratio 1.4 CALC 0.6-2.3 Alk. Phosphatase 54 U/L 30-110 Alt (SGPT) 17 U/L 7-35 Ast (Sgot) 22 U/L 5-34 Total Bilirubin 0.5 mg/dL 0.2-1.3 GFR Non- >60 ml/min/1.73m^ >=60 GFR >60 ml/min/1.73m^ >=60 Laboratory test finding 04/17/2015 Free T4 1.32 ng/dL 0.75-1.54 23 TSH 1.42 mIU/L 0.50-6.00 Free T3 2.47 pg/mL 2.00-4.90 Comprehensive Metabolic Prof 01/12/2015 Sodium 140 mEq/L 134-149 Potassium 3.9 mEq/L 3.6-5.5 Chloride 102 mEq/L 94-112 Carbon Dioxide 22 mEq/L 21-32 Glucose 94 mg/dL 70-105 BUN 17 mg/dL 6-26 Creatinine 0.8 mg/dL 0.6-1.4 BUN/Creat Ratio 21.3 CALC 8.0-36.0 Calcium 7.0 mg/dL Low 8.6-10.2 24 Total Protein 7.1 g/dL 6.4-8.3 Albumin 4.1 [...] 4.8 x10^3/UL 1.5-7.2 Lymph# 1.9 x10^3/UL 0.7-4.9 Baraga# 0.8 x10^3/UL 0.1-0.9 Gran % 62.7 % 42.2-75.2 Lymph % 26.3 % 20.5-51.1 Baraga% 11.0 % High 1.7-9.3 Ua - Non [...] CALC 8.0-36.0 Calcium 7.6 mg/dL Low 8.6-10.2 25 Total Protein 7.1 g/dL 6.4-8.3 Albumin 4.2 g/dL 3.8-5.5 Globulin 2.9 g/dL 2.0-4.8 A/G Ratio 1.4 CALC 0.6-2.3 Alk. Phosphatase 58 U/L 30-110 Alt (SGPT) 17 U/L 7-35 Ast (Sgot) 18 U/L 5-34 Total Bilirubin 0.6 mg/dL 0.2-1.3 Laboratory test finding 11/07/2014 TSH 1.04 mIU/L 0.50-6.00 Free T3 2.61 pg/mL 2.00-4.90 Free T4 1.52 ng/dL 0.75-1.54 Laboratory test finding 10/03/2014 Cytology RUN DATE: 10/05/ <SEE 26 NOTE> Laboratory test finding 10/03/2014 Wet Prep (a,[facility] [place] see scanned 27 Laboratory test finding 10/03/2014 Gardnerella/Yeast: (SEE NOTE) 28 Vaginal Dna Trichomonas: Vaginal Dna Probe (SEE NOTE) 29 Comprehensive Metabolic Prof 08/08/2014 Sodium 141 mEq/L 134-149 Potassium 3.7 mEq/L 3.6-5.5 Chloride 98 mEq/L 94-112 Carbon Dioxide 27 mEq/L 21-32 Glucose 108 mg/dL High 70-105 30 BUN 12 mg/dL 6-26 Creatinine 0.8 mg/dL 0.6-1.4 BUN/Creat Ratio 15.0 CALC 8.0-36.0 Calcium 7.3 mg/dL Low 8.6-10.2 31 Total Protein 7.1 g/dL 6.4-8.3 Albumin 3.9 [...] 6.2 x10^3/UL 1.5-7.2 Lymph# 1.5 x10^3/UL 0.7-4.9 Baraga# 0.3 x10^3/UL 0.1-0.9 Gran % 76.2 % High 42.2-75.2 Lymph % 19.1 % Low 20.5-51.1 Baraga% 4.7 % 1.7-9.3 Laboratory test finding 08/08/2014 [...] CALC 8.0-36.0 Calcium 7.5 mg/dL Low 8.6-10.2 32 Total Protein 7.0 g/dL 6.4-8.3 Albumin 4.4 g/dL 3.8-5.5 Globulin 2.6 g/dL 2.0-4.8 A/G Ratio 1.7 CALC 0.6-2.3 Alk. Phosphatase 63 U/L 30-110 Alt (SGPT) 30 U/L 7-35 Ast (Sgot) 28 U/L 5-34 Total Bilirubin 0.3 mg/dL 0.2-1.3 Laboratory test finding 05/02/2014 Magnesium, Serum 1.9 mEq/L 1.2-2.1 Vitamin D25 >120 High 30-100 33 Comp Metabolic Panel 02/21/2014 Sodium 139 mmol/L [...] Egfr Non- 71.8 >60 Egfr 92.3 >60 34 Laboratory test finding 02/21/2014 Magnesium 1.8 mg/dL Low 1.9-2.7 Free T4 1.08 ng/mL 0.61-1.12 TSH (Thyroid Stimulating Horm) 1.34 IU/mL 0.34-5.60 Vitamin D, 25 Hydroxy 02/21/2014 25-Hydroxy Vitamin D2 136 ng/mL 25-Hydroxy Vitamin D3 67 ng/mL 25-Hydroxy Vitamin D Total 203 ng/mL 35 Laboratory test finding 01/20/2014 TSH 3.77 mIU/L 0.50-6.00 Free T4 1.25 ng/dL 0.75-1.54 CBC Manual Diff-Fma 01/20/2014 WBC 8.1 3.6-9.6 [...] CALC 8.0-36.0 Calcium 8.2 mg/dL Low 8.6-10.2 36 Total Protein 7.8 g/dL 6.3-8.1 Albumin 4.5 g/dL 3.8-5.5 Globulin 3.3 g/dL 2.0-4.8 A/G Ratio 1.4 CALC 0.6-2.3 Alk. Phosphatase 68 U/L 30-110 Alt (SGPT) 29 U/L 7-35 Ast (Sgot) 18 U/L 5-34 Total Bilirubin 0.6 mg/dL 0.2-1.3 Laboratory test finding 12/13/2013 C Reactive Protein 7.40 mg/L High < 5.00 37 Complete Blood Count 12/13/2013 WBC 6.7 x10^3/UL 3.6-9.6 RBC 4.65 x10^6/UL 3.90-5.70 HGB 14.0 g/dL 12.1-17.2 HCT 41 % 36-50 MCV 88.0 fL 82.2-97.4 MCH 30.2 pg 27.6-33.3 MCHC 34.2 g/dL 33.0-35.5 RDW 12.4 % 11.6-13.7 PLT 287 x10^3/UL 150-400 MPV 7.1 fL Low 7.4-10.4 Gran # 5.1 x10^3/UL 1.5-7.2 Lymph# 1.3 x10^3/UL 0.7-4.9 Baraga# 0.3 x10^3/UL 0.1-0.9 Gran % 73.9 % 42.2-75.2 Lymph % 20.3 % Low 20.5-51.1 Baraga% 5.8 % 1.7-9.3 Laboratory test finding 12/13/2013 Calcium, Serum 6.7 mg/dL Low 8.6-10.2 38 Vitamin D, 25 Hydroxy 11/01/2013 25-Hydroxy Vitamin D2 96 ng/mL 25-Hydroxy Vitamin D3 75 ng/mL 25-Hydroxy Vitamin D Total 171 ng/mL 39 Comp Metabolic Panel 11/01/2013 Sodium 137 mmol/L [...] Egfr Non- 70.7 >60 Egfr 91.0 >60 40 Laboratory test finding 10/12/2013 [facility] Lab Test see scanned Vitamin D, 25 Hydroxy 09/19/2013 25-Hydroxy Vitamin D2 <4.0 ng/mL 25-Hydroxy Vitamin D3 53 ng/mL 25-Hydroxy Vitamin D Total 53 ng/mL 41 Laboratory test finding 09/19/2013 Free T4 1.07 [...] Egfr Non- 66.9 >60 Egfr 86.1 >60 42 Comprehensive Metabolic Prof 08/12/2013 Sodium 135 mEq/L [...] 5-34 Total Bilirubin 0.4 mg/dL 0.2-1.3 1 Because ethnic data is not always readily [...] 15-29 5 Kidney failure <15 (or dialysis) 2 RESULTS VERIFIED BY REPEAT ANALYSIS 3 2 SST ONE WITH TAPE UNOPEN ED 4 Negative <0.91 Equivocal 0.91 - 1.09 Positive >1.09 5 Negative <0.80 Equivocal 0.80 - 1.19 Positive >1.19 IgM levels may peak at 3-6 weeks post infection, then gradually decline. 6 Test Performed by: [facility] [place] [id number] 7 REFERENCE VALUE <=1.0 (Negative) 8 REFERENCE VALUE <20.0 (Negative) 9 Tests for antibodies to dsDNA and TAYLOR antigens are not performed automatically unless the JOSEFA result is > or= 3.0 U. Studies performed at [facility] indicate that positive JOSEFA results <3.0 U are rarely accompanied by positive second order tests. Test Performed by: [facility] - [address] [address] 10 consistent w/ previous results 11 1 sst 12 consistent w/ previous results 13 consistent w/ previous results 14 1 sst unopened 15 split specimen 16 RESULTS VERIFIED BY REPEAT ANALYSIS 17 consistent w/ previous results 18 consistent w/ previous results 19 RESULTS VERIFIED BY REPEAT ANALYSIS 20 RESULTS VERIFIED BY REPEAT ANALYSIS 21 RESULTS VERIFIED BY REPEAT ANALYSIS 22 consistent w/ previous results 23 FASTING 24 RESULTS VERIFIED BY REPEAT ANALYSIS 25 RESULTS VERIFIED BY REPEAT ANALYSIS 26 RUN DATE: 10/05/14 [facility] LAB LIVE PAGE 1 RUN TIME: [address] [place] [address] Specimen Inquiry Name: MELIDA YANG : [address]: Talia Desouza STONECUTTER Acct: [id number] Unit: [id number] AGE: 69 Location: [facility] Re10/03/14 SEX: F Status: REG REF SPEC: [id number] NITHYA: 10/03/14-[address]: Talia Desouza STONECUTTER REQ: [id number] RECD: 10/04/14 STATUS: SOUT _ ORDERED: IMAGE [...] (signature on file) EDIE Mcnair (ASCP) 10/05 4698 This Pap test was evaluated with the assistance of the [employer] Test Imaging System. Due to cytologic findings at the signalman microscope, comprehensive manual rescreening by a Electrical Development Engineer may be required. The Pap Smear [...] performed at Main Lab DEPARTMENT OF PATHOLOGY, [facility] [employer] [place], [place] [address] Luke Cash M.D. Director [facility] # [id number] 27 few epis, no wbc , no clue cells, neg whiff 28 RUN DATE: 10/05/14 [facility] LAB LIVE PAGE 1 RUN TIME: 841 [facility] [employer] [place], [place] [address] Specimen Inquiry Name: HUBERTMELIDA : [address]: Talia Desouza NP Acct: [id number] Unit: [id number] AGE: 69 Location: [facility] Re10/03/14 SEX: F Status: REG REF SPEC: [id number] NITHYA: 10/03/14-[address] [facility] [address]: Talia Desouza NP REQ: [id number] RECD: 10/04/14 STATUS: RES _ SOURCE: VAGINAL SPDESC: ORDERED: Gertrude,Yeast DNA, Trich DNA QUERIES: Provider Requisition # [id number] Procedure Result Verified Site Gardnerella/Yeast: Vaginal DNA Final 10/05/14841 ML Organism 1 Negative Gardnerella Organism 2 [...] Probe PENDING * ML - MAIN LAB ([facility]) . END OF REPORT * ML=Testing performed at Main Lab DEPARTMENT OF PATHOLOGY, [facility] [employer] [place], [place] [address] Luke Cash M.D. Director [facility] # [id number] RUN DATE: 10/05/14 [facility] LAB LIVE PAGE 1 RUN TIME: 08 [facility] [employer] [place], [place] [address] Specimen Inquiry Name: MELIDA YANG : [address]: Talia Desouza STONECUTTER Acct: [id number] Unit: [id number] AGE: 69 Location: [facility] Re10/03/14 SEX: F Status: REG REF SPEC: [id number] NITHYA: 10/03/14-[address] [facility] [address]: Talia Desouza STONECUTTER REQ: [id number] RECD: 10/04/14 STATUS: COMP _ SOURCE: VAGINAL SPDESC: ORDERED: Gertrude,Yeast DNA, Trich DNA QUERIES: Provider Requisition # [id number] Procedure Result Verified Site Gardnerella/Yeast: Vaginal DNA Final 10/05/14- 841 ML Organism 1 Negative Gardnerella Organism 2 [...] performed at Main Lab DEPARTMENT OF PATHOLOGY, [address] [place] [address] Luke Cash M.D. Director [facility] # [id number] RUN DATE: 10/05/14 [facility] LAB LIVE PAGE 2 RUN TIME: [address] [place] [address] Specimen Inquiry Patient: MELIDA YANG [id number] (Continued) Specimen: [id number] Collected: 10/03/14 Received: 10/04/14 (Continued) Procedure Result Verified Site Trichomonas: Vaginal DNA Probe Final (continued) 10/05/14843 The presence or absence of T. vaginalis cannot be used as a test for therapeutic success or failure. * ML - [facility] ([facility]) . END OF REPORT * ML=Testing performed at [facility] DEPARTMENT OF PATHOLOGY, [address] [place] [address] Luke Cash M.D. Director [facility] # [id number] 30 RESULTS VERIFIED BY REPEAT ANALYSIS 31 RESULTS VERIFIED BY REPEAT ANALYSIS 32 consistent w/ previous results 33 RESULTS VERIFIED BY REPEAT ANALYSIS 34 Because ethnic data is not always readily [...] 15-29 5 Kidney failure <15 (or dialysis) 35 Interpretation: >80 ng/mL (toxicity possible) -- REFERENCE VALUE -- 25-HYDROXY D TOTAL (D2+D3) Optimum levels in the healthy population are 20-50, patients with bone disease may benefit from higher levels within this range. Test Performed by: [address] [address] Recruiter: Masood Rankin III, M.D. 36 consistent w/ previous results 37 Acute inflammation: >10.00 38 RESULTS VERIFIED BY REPEAT ANALYSIS 39 Interpretation: >80 ng/mL (toxicity possible) -- REFERENCE VALUE -- 25-HYDROXY D TOTAL (D2+D3) Optimum levels in the healthy population are 20-50, patients with bone disease may benefit from higher levels within this range. Test Performed by: [address] [address] Recruiter: Masood Rankin III, M.D. 40 Because ethnic data is not always readily [...] 15-29 5 Kidney failure <15 (or dialysis) 41 Interpretation: 51-80 ng/mL (increased risk of hypercalciuria) -- REFERENCE VALUE -- 25-HYDROXY D TOTAL (D2+D3) Optimum levels in the healthy population are 20-50, patients with bone disease may benefit from higher levels within this range. Test Performed by: [address] [address] Recruiter: Masood Rankin III, M.D. 42 Because ethnic data is not always readily [...] 15-29 5 Kidney failure <15 (or dialysis) Procedures Date CPT Code Description Status 10/01/2017 Mammogram Completed 05/12/2017 94984 Electrocardiogram Complete Completed 02/15/2016 Mammogram Completed 01/12/2015 18246 Paring/Cutting Benign Lesion (Huguenot/Callus) Completed 08/15/2014 Mammogram Completed 08/08/2014 13626 Pulse Oximetry Completed 07/28/2014 22832 Pulse Oximetry Completed 06/01/2012 Colonoscopy Completed Encounters Type Date Location Provider CPT E/M Dx Office Visit 11/02/2017 1:20p [facility] Pedrito Rowley, 38703 R59.0 Office Visit 09/16/2017 2:00p [facility] Office Madelin Hoover M.D. 74857 M25.541 F41.1 E83.51 M15.0 E06.3 Z12.31 Office Visit 06/19/2017 9:00a [facility] [place] [address] M25.541 Office Visit 06/12/2017 1:45p [facility] [place] [address] L23.2 Office Visit 05/12/2017 1:20p [facility] Madelin Hoover M.D. 09325 Z00.00 I10 E83.51 F41.1 E03.8 Office Visit 01/13/2017 11:30a [facility] Madelin Hoover M.D. 91366 E83.51 F41.1 I10 E89.2 E66.9 Office Visit 08/20/2016 4:40p [facility] Madelin Hoover M.D. 38184 F41.1 I10 E89.2 E03.8 E83.51 Z23 Office Visit 07/02/2016 1:40p [facility] Madelin Hoover M.D. 79501 F41.1 I10 E83.51 E89.2 E03.8 M25.511 Office Visit 05/28/2016 8:00a [facility] Madelin Hoover M.D. 13509 F41.1 I10 E83.51 E89.2 E03.8 M25.511 Office Visit 04/02/2016 11:30a [facility] Madelin Hoover M.D. 19189 I10 E83.51 F41.1 Office Visit 03/25/2016 9:40a [facility] Madelin Hoover M.D. 34657 I10 E83.51 F41.1 Z23 Office Visit 02/08/2016 4:20p [facility] Madelin Hoover M.D. 78123 E89.2 E83.51 I10 F41.1 E03.8 Z12.31 M15.0 Office Visit 10/18/2015 1:00p [facility] Libby Ventura [facility] 77003 E83.51 E06.3 Office Visit 10/04/2015 4:00p [facility] Libby Ventura [facility] 72807 E83.51 E06.3 Office Visit 07/12/2015 3:00p [facility] Libby Ventura [facility] 33212 E83.51 E06.3 Office Visit 05/18/2015 11:10a [facility] Office Abhijeet Dunn M.D. 76573 M79.671 F41.1 I10 Office Visit 04/17/2015 8:50a [facility] Office Abhijeet Dunn M.D. 30833 H65.01 I10 E06.3 E83.51 Office Visit 01/12/2015 9:20a [facility] Abhijeet Dunn M.D. 56960 788.42 780.52 275.42 300.02 454.1 700 719.47 Office Visit 11/07/2014 10:00a [facility] Abhijeet Dunn M.D. 53062 401.9 244.9 300.02 275.41 Office Visit 10/03/2014 4:00p [facility] Willow Adler-Fidencio 22491 V70.0 311 300.02 401.9 724.2 620.2 244.9 623.8 Office Visit 08/08/2014 10:15a [facility] Willow Adler-Fidencio 20877 786.2 790.6 300.00 Office Visit 07/28/2014 3:00p [facility] Alanna Larkin DIETARY TECH 08128 780.60 786.2 787.02 Office Visit 06/13/2014 11:00a [facility] Abhijeet Dunn M.D. 60523 682.9 300.00 530.81 780.52 Office Visit 05/12/2014 1:30p [facility] Office Alanna LarkinMARVINP 55777 112.9 Office Visit 05/02/2014 4:20p [facility] Abhijeet Dunn M.D. 60347 724.2 275.41 Office Visit 03/31/2014 2:30p [facility] Abhijeet Dunn M.D. 01260 724.2 780.52 Office Visit 03/21/2014 3:20p [facility] Abhijeet Dunn M.D. 88879 724.2 311 Office Visit 01/20/2014 8:00a [facility] Abhijeet Dunn M.D. 44315 275.41 401.9 789.01 780.79 244.9 Office Visit 12/26/2013 3:30p [facility] Abhijeet Dunn M.D. 70187 724.3 Office Visit 12/19/2013 2:40p [facility] Abhijeet Dunn M.D. 46833 682.3 787.02 Office Visit 12/13/2013 11:20a [facility] Office Abhijeet Dunn M.D. 58154 682.4 275.41 401.9 Office Visit 12/06/2013 1:00p [facility] Abhijeet Dunn M.D. 38538 682.4 Office Visit 11/28/2013 8:30a [facility] Abhijeet Dunn M.D. 23501 719.42 Office Visit 10/18/2013 9:20a [facility] Abhijeet Dunn M.D. 43896 401.9 275.42 300.00 275.41 Office Visit 09/13/2013 9:40a [facility] Office Abhijeet Dunn M.D. 75337 401.9 300.00 530.81 Office Visit 09/06/2013 10:50a [facility] Office Abhijeet Dunn M.D. 18673 401.9 Office Visit 08/26/2013 9:30a [facility] Office Abhijeet Dunn M.D. 62168 401.9 275.42 244.9 Office Visit 08/12/2013 10:20a [facility] Abhijeet Dunn M.D. 99152 401.9 275.42 244.9 300.00 268.9 530.81 Plan of Care Future Appointment(s):04/13/2018 8:20 am - Madelin Hoover M.D. at [facility] Grcpwx9511/10/2017 - Madelin Hoover M.D.I10 Essential (primary) hypertensionComments:The patient will continue to monitor blood pressure and let me know the blood pressure results if there are readings persistently above 140/80. Goal blood pressure is less than 140/80. Recommend low salt/cardiac diet and routine exercise.M15.0 Primary generalized (osteo)arthritisComments: stable on smcocogtzcaS84.51 HypocalcemiaComments:continue vitamin D and calcium druyegggxlE25.1 Generalized anxiety disorderComments:consider adding cymbalta if mood worsens or pain not controlledFollow up:FallK21.9 Gastro- esophageal reflux disease without esophagitisComments:The patient was instructed to call if symptoms worsened. Can stop pantoprazole, take tums prnE89.2 Postprocedural hypoparathyroidismAllComments:~B_~U_Medication Management~b_~u_ Patient Understands medications she's taking? Yes No Are there Barriers to Adherence? Yes No Has the patient been asked about herbal supplements and therapies, and OTC meds? Yes No
--- OUTSIDE RECORDS SUMMARY | 2017-11-25 15:25 | XMS REPORT ---
:1945 External Reference #:[id number] Author Organization [facility] Address [address] [place] [address] Phone [phone] Care Team Providers Name Role Phone Madelin Hoover M.D. 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 Primary Care Physician Unavailable Payers Type Date Identification Numbers Payment Subscriber Provider Health Maintenance Effective: Policy Number: [place] Saroj Yang [facility] [place] [place] 06/01/2016 [id number] [employer] Number: [id number] [id number] PayID: [id number] [place] [address] Medigap Part B Effective: Policy Number: Medicare Carlota Yang 06/01/2012 [id number] PayID: [id number] [address] [place] [address] Problems Date Description Provider Status Onset: 08/12/2013 [...] History Date Family Member(s) Problem(s) Comments Father DE Mother due to Alzheimer's Disease () Social History Type Date Description Comments Marital Status Legal Status: Lives With Spouse 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 Thursday And Thursday Hydrocodone-Acet 09/16 Active Tablets 7.5-325mg 90tab 1 tab M54.5 Madelin aminophen /2017 s every 8 [place], hours as M.D. needed pain Lisinopril 05/12 Active Tablets 20mg 90tab 1 by mouth I10 Madelin s every day Candelaria Hoover Calcium 05/11 Active Suspension 1250mg/5M 600ml 7.5ml by Madelin Carbonate L mouth in [place], Antacid am, 5ml in M.D. afternoon and 7.5ml in evening Ambien 12/20 Active Tablets 10mg 30tab take 1 Madelin s tablet by [place], mouth at M.D. bedtime Diazepam 09/04 Active Tablets 10mg 30tab 2 -1 tab F41.1 Madelin s by mouth Kiko, two times M.D. a day as needed Escitalopram 04/02 Active Tablets 20mg 30tab 1 by mouth F41.1 Madelin Oxalate s every day Candelaria Hoover Levothyroxine 12/31 Active Tablets 100mcg 30tab Take 1 E06.3 Madelin Sodium s Tablet By [place], Mouth M.D. Every Day Ergocalciferol 03/14 Active Capsules [id number] 90cap 1 by mouth s on sat and param Hoover M.DRohith Pantoprazole 08/[address] 40mg 30tab Take 1 K21.9 Madelin Sodium s Tablet By [place] Once M.D. Daily Prednisone 06/12 Hx Tablets 20mg 6tabs take 2 by L23.2 Chelsey C. mouth as Isidoro, - one dose PUBLIC AREA ATTENDANT 06/19 daily until gone Hydrocortisone 06/12 Hx Cream 2.5% 20gm apply to L23.2 skin [place], - around M.D. 08/24 eyes twice daily [...] -1 tab F41.1 s by mouth Kiko, - two times M.D. 06/23 a day needed Levothyroxine 10/17 Hx Tablets 112mcg 30tab 1 po qd E06.3 Libby Sodium s Audrey, - SKEIN STRAIGHTENER 12/31 Cyclobenzaprine 05/18 Hx Tablets 10mg 30tab 1 by mouth M79.671 Abhijeet Dunn s every M.D. - night 07/12 Diazepam [...] /2013 affected Trae, Dipropionate - area twice SKEIN STRAIGHTENER 01/12 a Prednisone 05/02 Hx Tablets 20mg [...] 90tab 1 by mouth M54.5 Madelin aminophen /2013 s three [place], - times a M.D. 09/16 day needed pain Escitalopram 03/21 Hx Tablets 10mg 30tab Take 1 F41.9 Pedrito Hawthorne s Tablet By Alva, - Mouth Once M.D. 04/02 /2015 F32.9 Vitamin D2 01/20/2014 - Hx [...] Abhijeet aminophen 03/21/2014 bs four times a Dunn, day as needed M.D. pain 724.3 [...] qpm Vitamin D 08/12/2013 - Hx Capsules [id number] 8cap 1 po weekly 268 Abhijeetilana Dunn, 08/26/2013 s x 8. .9 M.D. Ambien 08/12/2013 - Hx Tablets 10mg 30ta 1 by mouth G47 Libby 06/04/2016 bs every night .00 Audrey, at bedtime SKEIN STRAIGHTENER Valium 08/12/2013 - Hx Tablets 10mg 120t [...] 125mcg 90ta 1 by mouth E06 Abhijeet Dunn Sodium 10/18/2015 bs every day .3 M.D. Klonopin - Hx Tablets 0.5mg 60ta 1 by mouth F41 Libby 12/20/2015 bs three times .9 Audrey, a day as SKEIN STRAIGHTENER needed anxiety Prednisone - Hx Tablets 20mg taper as Unknown 12/06/2013 directed Magnesium-Oxide - Hx Tablet 400mg 30ta Take 1 Libby 12/30/2015 bs Tablet By Audrey, Mouth Every SKEIN STRAIGHTENER Day as Needed Immunizations CPT Code Status Date Vaccine Lot # [id number] Given 08/20/2016 Pneumococcal Conjugate Vacc-13 [id number] Given 03/25/2016 High-Dose, Influenza Virus Vacccine-fluzone 65 and [id number] older 75987 Given 03/19/2014 DO Not Use Split Influenza Virus Vaccine Vital Signs Date Vital Result Comment 11/02/2017 BP Systolic 140 mmHg BP Diastolic [...] Test Date Test Result H/L Range Note Lyme AB/Western Blot Reflex 09/16/2017 Lyme IgG/IgM Ab <0.91 ISR 0.00- 0.90 1, 2 Lyme Disease Ab, Quant, IgM <0.80 index 0.00-0.79 1, 3 Calcium+Calcium,Ionized 09/16/2017 Calcium 7.1 mg/dL Low 8.7-10.3 1 Calcium, Ionized, Serum 4.0 mg/dL Low 4.5-5.6 1 Laboratory test finding 09/16/2017 Vitamin D25 >120 High 30-100 Free T4 1.44 ng/dL 0.75-1.54 TSH 1.69 mIU/L 0.50-6.00 Comprehensive Metabolic Prof 09/16/2017 Sodium 142 mEq/L 134-149 Potassium 3.6 mEq/L 3.6-5.5 Chloride 99 mEq/L 94-112 Carbon Dioxide 29 mEq/L 21-32 Glucose 123 mg/dL High 70-105 BUN 18 mg/dL 6-26 Creatinine 0.7 mg/dL 0.6-1.4 BUN/Creat Ratio 25.7 CALC 8.0-36.0 Calcium 7.5 mg/dL Low 8.6-10.2 4 Total Protein 6.7 g/dL 6.4-8.3 Albumin 4.2 g/dL 3.8-5.5 Globulin 2.5 g/dL 2.0-4.8 A/G Ratio 1.7 CALC 0.6-2.3 Alk. Phosphatase 63 U/L 30-110 Alt (SGPT) 13 U/L 7-35 Ast (Sgot) 13 U/L 5-34 Total Bilirubin 0.4 mg/dL 0.2-1.3 GFR Non- >60 ml/min/1.73m^ >=60 GFR >60 ml/min/1.73m^ >=60 CBC Electronic a 09/16/2017 WBC 7.9 x10^3/UL 4.0-10.0 RBC 4.94 x10^6/UL 3.93-6.00 HGB 14.3 g/dL 12.0-17.0 HCT 43 % 35-50 MCV 86.6 fL 80.0-95.0 MCH 28.9 pg 25.6-32.2 MCHC 33.4 g/dL 32.2-36.0 RDW-CV 13.7 % 11.6-14.4 PLT 271 x10^3/UL 163-400 MPV 10.1 fL 9.4-12.4 Mary# 5.22 x10^3/UL 1.56-6.13 Lymph# 1.85 x10^3/UL 1.18-3.74 [place]# 0.64 x10^3/UL 0.24-0.82 Eos # 0.1 x10^3/UL 0.0-0.5 Baso # 0.04 x10^3/UL 0.01-0.08 Mary% 66.1 % 34.0-70.0 Lymph % 23.4 % 20.0-52.0 [place]% 8.1 % 5.0-12.0 Eos% 1.8 % 0.7-7.0 Baso% 0.5 % 0.1-1.2 Arthritis Panel 06/26/2017 Uric Acid 4.6 mg/dL 2.3-6.6 Erythrocyte Sed Rate 33 mm/Hr 0-40 Rheumatoid Factor <15 IU/mL <15 5 Anti-Nuclear Antibody 0.3 U 6 Cyclic Citrullinated Peptide <15.6 U 7 Interpretation See Comment 8 CBC Electronic (Fma) 06/19/2017 WBC 12.0 High [...] test finding 06/19/2017 Sedimentation Rate 17 mm Comprehensive Metabolic Prof 05/05/2017 Sodium 137 mEq/L 134-149 Potassium 3.6 mEq/L 3.6-5.5 Chloride 99 mEq/L 94-112 Carbon Dioxide 27 mEq/L 21-32 Glucose 98 mg/dL 70-105 BUN 13 mg/dL 6-26 Creatinine 0.8 mg/dL 0.6-1.4 BUN/Creat Ratio 16.3 CALC 8.0-36.0 Calcium 7.2 mg/dL Low 8.6-10.2 9 Total Protein 6.4 g/dL 6.4-8.3 Albumin 4.2 [...] 4.1 x10^3/UL 1.5-7.2 Lymph# 1.5 x10^3/UL 0.7-4.9 [place]# 0.3 x10^3/UL 0.1-0.9 Gran % 68.0 % 42.2-75.2 Lymph % 26.7 % 20.5-51.1 [place]% 5.3 % 1.7-9.3 Laboratory test finding 05/05/2017 [...] 4.9 x10^3/UL 1.5-7.2 Lymph# 1.4 x10^3/UL 0.7-4.9 [place]# 0.3 x10^3/UL 0.1-0.9 Gran % 73.2 % 42.2-75.2 Lymph % 21.6 % 20.5-51.1 [place]% 5.2 % 1.7-9.3 Comprehensive Metabolic Prof 01/30/2017 Sodium 146 mEq/L 134-149 Potassium 3.8 mEq/L 3.6-5.5 Chloride 102 mEq/L 94-112 Carbon Dioxide 30 mEq/L 21-32 Glucose 96 mg/dL 70-105 BUN 10 mg/dL 6-26 Creatinine 0.8 mg/dL 0.6-1.4 BUN/Creat Ratio 12.5 CALC 8.0-36.0 Calcium 7.2 mg/dL Low 8.6-10.2 10 Total Protein 6.6 g/dL 6.4-8.3 Albumin 3.9 [...] Calcium, Ionized, Serum 3.8 mg/dL Low 4.5-5.6 11 Laboratory test finding 01/30/2017 Hemoglobin A1c (Fma) 5.8 % High 4.1- 5.7 Brain Natural Peptide 41.1 pg/mL <100 Comprehensive Metabolic Prof 07/02/2016 Sodium 142 mEq/L 134-149 Potassium 3.9 mEq/L 3.6-5.5 Chloride 103 mEq/L 94-112 Carbon Dioxide 32 mEq/L 21-32 Glucose 74 mg/dL 70-105 BUN 19 mg/dL 6-26 Creatinine 0.9 mg/dL 0.6-1.4 BUN/Creat Ratio 21.1 CALC 8.0-36.0 Calcium 7.3 mg/dL Low 8.6-10.2 12 Total Protein 7.2 g/dL 6.4-8.3 Albumin 4.1 [...] 5.0 x10^3/UL 1.5-7.2 Lymph# 2.3 x10^3/UL 0.7-4.9 [place]# 0.4 x10^3/UL 0.1-0.9 Gran % 63.7 % 42.2-75.2 Lymph % 30.9 % 20.5-51.1 [place]% 5.4 % 1.7-9.3 Laboratory test finding 07/02/2016 Calcium, Ionized, Serum 4.1 mg/dL Low 4.5-5.6 13 PTH Intact + Calcium 01/31/2016 Calcium, Ionized, Serum 3.9 mg/dL Low 4.5- 5.6 14 Ionized PTH, Intact 8 pg/mL Low 15-65 14 Laboratory test finding 01/31/2016 PDF [id number] SEE IMAGE 14 Laboratory test finding 01/31/2016 TSH 1.51 mIU/L 0.50-6.00 Free T4 1.36 ng/dL 0.75-1.54 Comprehensive Metabolic Prof 01/31/2016 Sodium 140 mEq/L 134-149 Potassium 3.9 mEq/L 3.6-5.5 Chloride 100 mEq/L 94-112 Carbon Dioxide 27 mEq/L 21-32 Glucose 87 mg/dL 70-105 BUN 13 mg/dL 6-26 Creatinine 0.8 mg/dL 0.6-1.4 BUN/Creat Ratio 16.3 CALC 8.0-36.0 Calcium 7.4 mg/dL Low 8.6-10.2 15 Total Protein 6.7 g/dL 6.4-8.3 Albumin 4.0 g/dL 3.8-5.5 Globulin 2.7 g/dL 2.0-4.8 A/G Ratio 1.5 CALC 0.6-2.3 Alk. Phosphatase 56 U/L 30-110 Alt (SGPT) 12 U/L 7-35 Ast (Sgot) 18 U/L 5-34 Total Bilirubin 0.5 mg/dL 0.2-1.3 GFR Non- >60 ml/min/1.73m^ >=60 GFR >60 ml/min/1.73m^ >=60 Laboratory test finding 01/31/2016 Vitamin D25 >120 High 30-100 16 Basic Metabolic Profile 12/20/2015 Sodium 141 mEq/L 134-149 Potassium 3.8 mEq/L 3.6-5.5 Chloride 101 mEq/L 94-112 Carbon Dioxide 26 mEq/L 21-32 Glucose 75 mg/dL 70-105 BUN 18 mg/dL 6-26 Creatinine 0.8 mg/dL 0.6-1.4 BUN/Creat Ratio 22.5 CALC 8.0-36.0 Calcium 8.0 mg/dL Low 8.6-10.2 17 GFR Non- >60 ml/min/1.73m^ >=60 GFR >60 [...] CALC 8.0-36.0 Calcium 8.1 mg/dL Low 8.6-10.2 18 GFR Non- >60 ml/min/1.73m^ >=60 GFR >60 ml/min/1.73m^ >=60 Laboratory test finding 10/04/2015 TSH 0.09 mIU/L Low 0.50-6.00 Free T4 1.86 ng/dL High 0.75-1.54 Free T3 2.78 pg/mL 2.00-4.90 Basic Metabolic Profile 07/12/2015 Sodium 139 mEq/L 134-149 Potassium 3.7 mEq/L 3.6-5.5 Chloride 99 mEq/L 94-112 Carbon Dioxide 28 mEq/L 21-32 Glucose 111 mg/dL High 70-105 19 BUN 18 mg/dL 6-26 Creatinine 0.8 mg/dL 0.6-1.4 BUN/Creat Ratio 22.5 CALC 8.0-36.0 Calcium 7.4 mg/dL Low 8.6-10.2 20 GFR Non- >60 ml/min/1.73m^ >=60 GFR >60 [...] CALC 8.0-36.0 Calcium 7.7 mg/dL Low 8.6-10.2 21 Total Protein 7.1 g/dL 6.4-8.3 Albumin 4.1 g/dL 3.8-5.5 Globulin 3.0 g/dL 2.0-4.8 A/G Ratio 1.4 CALC 0.6-2.3 Alk. Phosphatase 54 U/L 30-110 Alt (SGPT) 17 U/L 7-35 Ast (Sgot) 22 U/L 5-34 Total Bilirubin 0.5 mg/dL 0.2-1.3 GFR Non- >60 ml/min/1.73m^ >=60 GFR >60 ml/min/1.73m^ >=60 Laboratory test finding 04/17/2015 Free T4 1.32 ng/dL 0.75-1.54 22 TSH 1.42 mIU/L 0.50-6.00 Free T3 2.47 pg/mL 2.00-4.90 Ua - Non Micro (Fma) 01/12/2015 Appearance clear Color yellow Glucose, Urine (Fma/CMC/CTX) - Bilirubin - Ketones - SP Grav 1.010 Blood trace-intact PH 7.5 Protein - Urobil 0.2 Nitrite - Leukocytes (Fma/CMC/Centrex) - Complete Blood Count 01/12/2015 WBC 7.5 x10^3/UL 3.6-9.6 RBC 4.93 x10^6/UL 3.90-5.70 HGB 14.6 g/dL 12.1-17.2 HCT 44 % 36-50 MCV 88.0 fL 82.2-97.4 MCH 29.6 pg 27.6-33.3 MCHC 33.5 g/dL 33.0-35.5 RDW 13.8 % High 11.6-13.7 PLT 332 x10^3/UL 150-400 MPV 7.5 fL 7.4-10.4 Gran # 4.8 x10^3/UL 1.5-7.2 Lymph# 1.9 x10^3/UL 0.7-4.9 [place]# 0.8 x10^3/UL 0.1-0.9 Gran % 62.7 % 42.2-75.2 Lymph % 26.3 % 20.5-51.1 [place]% 11.0 % High 1.7-9.3 Laboratory test finding 01/12/2015 TSH 1.71 mIU/L 0.50-6.00 Uric Acid 4.7 mg/dL 2.5-9.2 Comprehensive Metabolic Prof 01/12/2015 Sodium 140 mEq/L 134-149 Potassium 3.9 mEq/L 3.6-5.5 Chloride 102 mEq/L 94-112 Carbon Dioxide 22 mEq/L 21-32 Glucose 94 mg/dL 70-105 BUN 17 mg/dL 6-26 Creatinine 0.8 mg/dL 0.6-1.4 BUN/Creat Ratio 21.3 CALC 8.0-36.0 Calcium 7.0 mg/dL Low 8.6-10.2 23 Total Protein 7.1 g/dL 6.4-8.3 Albumin 4.1 g/dL 3.8-5.5 Globulin 3.0 g/dL 2.0-4.8 A/G Ratio 1.4 CALC 0.6-2.3 Alk. Phosphatase 63 U/L 30-110 Alt (SGPT) 15 U/L 7-35 Ast (Sgot) 13 U/L 5-34 Total Bilirubin 0.5 mg/dL 0.2-1.3 GFR Non- >60 ml/min/1.73m^ >=60 GFR >60 ml/min/1.73m^ >=60 Comprehensive Metabolic Prof 11/07/2014 Sodium 138 mEq/L 134-149 Potassium 3.8 mEq/L 3.6-5.5 Chloride 94 mEq/L 94-112 Carbon Dioxide 27 mEq/L 21-32 Glucose 79 mg/dL 70-105 BUN 20 mg/dL 6-26 Creatinine 0.8 mg/dL 0.6-1.4 BUN/Creat Ratio 25.0 CALC 8.0-36.0 Calcium 7.6 mg/dL Low 8.6-10.2 24 Total Protein 7.1 g/dL 6.4-8.3 Albumin 4.2 [...] finding 10/03/2014 Cytology RUN DATE: 10/05/ <SEE 25 NOTE> Laboratory test finding 10/03/2014 Wet Prep (Fma,CMC,CX) see scanned 26 Laboratory test finding 10/03/2014 Gardnerella/Yeast: (SEE NOTE) 27 Vaginal Dna Trichomonas: Vaginal Dna Probe (SEE NOTE) 28 Comprehensive Metabolic Prof 08/08/2014 Sodium 141 mEq/L 134-149 Potassium 3.7 mEq/L 3.6-5.5 Chloride 98 mEq/L 94-112 Carbon Dioxide 27 mEq/L 21-32 Glucose 108 mg/dL High 70-105 29 BUN 12 mg/dL 6-26 Creatinine 0.8 mg/dL 0.6-1.4 BUN/Creat Ratio 15.0 CALC 8.0-36.0 Calcium 7.3 mg/dL Low 8.6-10.2 30 Total Protein 7.1 g/dL 6.4-8.3 Albumin 3.9 [...] 6.2 x10^3/UL 1.5-7.2 Lymph# 1.5 x10^3/UL 0.7-4.9 [place]# 0.3 x10^3/UL 0.1-0.9 Gran % 76.2 % High 42.2-75.2 Lymph % 19.1 % Low 20.5-51.1 [place]% 4.7 % 1.7-9.3 Laboratory test finding 08/08/2014 [...] CALC 8.0-36.0 Calcium 7.5 mg/dL Low 8.6-10.2 31 Total Protein 7.0 g/dL 6.4-8.3 Albumin 4.4 g/dL 3.8-5.5 Globulin 2.6 g/dL 2.0-4.8 A/G Ratio 1.7 CALC 0.6-2.3 Alk. Phosphatase 63 U/L 30-110 Alt (SGPT) 30 U/L 7-35 Ast (Sgot) 28 U/L 5-34 Total Bilirubin 0.3 mg/dL 0.2-1.3 Laboratory test finding 05/02/2014 Magnesium, Serum 1.9 mEq/L 1.2-2.1 Vitamin D25 >120 High 30-100 32 Comp Metabolic Panel 02/21/2014 Sodium 139 mmol/L [...] Egfr Non- 71.8 >60 Egfr 92.3 >60 33 Laboratory test finding 02/21/2014 Magnesium 1.8 mg/dL Low 1.9-2.7 Free T4 1.08 ng/mL 0.61-1.12 TSH (Thyroid Stimulating Horm) 1.34 IU/mL 0.34-5.60 Vitamin D, 25 Hydroxy 02/21/2014 25-Hydroxy Vitamin D2 136 ng/mL 25-Hydroxy Vitamin D3 67 ng/mL 25-Hydroxy Vitamin D Total 203 ng/mL 34 Laboratory test finding 01/20/2014 TSH 3.77 mIU/L 0.50-6.00 Free T4 1.25 ng/dL 0.75-1.54 Comprehensive Metabolic Prof 01/20/2014 Sodium 139 mEq/L 134-149 Potassium 3.8 mEq/L 3.6-5.5 Chloride 98 mEq/L 94-112 Carbon Dioxide 22 mEq/L 21-32 Glucose 91 mg/dL 70-105 BUN 13 mg/dL 6-26 Creatinine 0.8 mg/dL 0.6-1.4 BUN/Creat Ratio 16.3 CALC 8.0-36.0 Calcium 8.2 mg/dL Low 8.6-10.2 35 Total Protein 7.8 g/dL 6.3-8.1 Albumin 4.5 g/dL 3.8-5.5 Globulin 3.3 g/dL 2.0-4.8 A/G Ratio 1.4 CALC 0.6-2.3 Alk. Phosphatase 68 U/L 30-110 Alt (SGPT) 29 U/L 7-35 Ast (Sgot) 18 U/L 5-34 Total Bilirubin 0.6 mg/dL 0.2-1.3 Laboratory test finding 01/20/2014 Rheumatoid Arth Factor 9.3 IU/mL 0.0- 13.9 CBC Manual Diff-Fma 01/20/2014 WBC 8.1 3.6-9.6 [...] 12/13/2013 Calcium, Serum 6.7 mg/dL Low 8.6-10.2 36 Complete Blood Count 12/13/2013 WBC 6.7 x10^3/UL 3.6-9.6 RBC 4.65 x10^6/UL 3.90-5.70 HGB 14.0 g/dL 12.1-17.2 HCT 41 % 36-50 MCV 88.0 fL 82.2-97.4 MCH 30.2 pg 27.6-33.3 MCHC 34.2 g/dL 33.0-35.5 RDW 12.4 % 11.6-13.7 PLT 287 x10^3/UL 150-400 MPV 7.1 fL Low 7.4-10.4 Gran # 5.1 x10^3/UL 1.5-7.2 Lymph# 1.3 x10^3/UL 0.7-4.9 [place]# 0.3 x10^3/UL 0.1-0.9 Gran % 73.9 % 42.2-75.2 Lymph % 20.3 % Low 20.5-51.1 [place]% 5.8 % 1.7-9.3 Laboratory test finding 12/13/2013 C Reactive Protein 7.40 mg/L High < 5.00 37 Comp Metabolic Panel 11/01/2013 Sodium 137 mmol/L [...] Egfr Non- 70.7 >60 Egfr 91.0 >60 38 Vitamin D, 25 Hydroxy 11/01/2013 25-Hydroxy Vitamin D2 96 ng/mL 25-Hydroxy Vitamin D3 75 ng/mL 25-Hydroxy Vitamin D Total 171 ng/mL 39 Laboratory test finding 10/12/2013 [facility] Lab Test see scanned Vitamin D, 25 Hydroxy 09/19/2013 25-Hydroxy Vitamin D2 <4.0 ng/mL 25-Hydroxy Vitamin D3 53 ng/mL 25-Hydroxy Vitamin D Total 53 ng/mL 40 Laboratory test finding 09/19/2013 Free T4 1.07 [...] Egfr Non- 66.9 >60 Egfr 86.1 >60 41 Comprehensive Metabolic Prof 08/12/2013 Sodium 135 mEq/L [...] 5-34 Total Bilirubin 0.4 mg/dL 0.2-1.3 1 2 SST ONE WITH TAPE UNOPEN ED 2 Negative <0.91 Equivocal 0.91 - 1.09 Positive >1.09 3 Negative <0.80 Equivocal 0.80 - 1.19 Positive >1.19 IgM levels may peak at 3-6 weeks post infection, then gradually decline. 4 RESULTS VERIFIED BY REPEAT ANALYSIS 5 Test Performed by: [facility] - [address] [address] 6 REFERENCE VALUE <=1.0 (Negative) 7 REFERENCE VALUE <20.0 (Negative) 8 Tests for antibodies to dsDNA and TAYLOR antigens are not performed automatically unless the JOSEFA result is > or= 3.0 U. Studies performed at [facility] indicate that positive JOSEFA results <3.0 U are rarely accompanied by positive second order tests. Test Performed by: [facility] - [address] [address] 9 consistent w/ previous results 10 consistent w/ previous results 11 1 sst 12 consistent w/ previous results 13 1 sst unopened 14 split specimen 15 RESULTS VERIFIED BY REPEAT ANALYSIS 16 consistent w/ previous results 17 consistent w/ previous results 18 RESULTS VERIFIED BY REPEAT ANALYSIS 19 RESULTS VERIFIED BY REPEAT ANALYSIS 20 RESULTS VERIFIED BY REPEAT ANALYSIS 21 consistent w/ previous results 22 FASTING 23 RESULTS VERIFIED BY REPEAT ANALYSIS 24 RESULTS VERIFIED BY REPEAT ANALYSIS 25 RUN DATE: 10/05/14 [facility] LAB LIVE PAGE 1 RUN TIME: [address] [place] [address] Specimen Inquiry Name: MELIDA YANG : [address]: Talia Desouza NP Acct: [id number] Unit: [id number] AGE: 69 Location: [facility] Re10/03/14 SEX: F Status: REG REF SPEC: [id number] NITHYA: 10/03/14-[address]: Talia Desouza PUBLIC AREA ATTENDANT REQ: [id number] RECD: 10/04/14 STATUS: SOUT _ ORDERED: IMAGE [...] Abnormal Pap Smears?:N Signed (signature on file) Ant Maurer EDIE (ASCP) 10/05 1519 This Pap test was evaluated with the assistance of the ThinPrep Test Imaging System. Due to cytologic findings at the belt brander microscope, comprehensive manual rescreening by a Mask Layout Designer may be required. The Pap Smear is [...] performed at Main Lab DEPARTMENT OF PATHOLOGY, [facility] [employer] [place], [place] [address] Luke Cash M.D. Director [facility] # [id number] 26 few epis, no wbc , no clue cells, neg whiff 27 RUN DATE: 10/05/14 [facility] LAB LIVE PAGE 1 RUN TIME: 841 [facility] [employer] [place], [place] [address] Specimen Inquiry Name: MELIDA YANG : [address]: Talia Desouza NP Acct: [id number] Unit: [id number] AGE: 69 Location: [facility] Re10/03/14 SEX: F Status: REG REF SPEC: [id number] NITHYA: 10/03/14 [facility] DR: Talia Desouza NP REQ: [id number] RECD: 10/04/14 STATUS: RES _ SOURCE: VAGINAL SPDESC: ORDERED: Gertrude,Yeast DNA, Trich DNA QUERIES: Provider Requisition # [id number] Procedure Result Verified Site Gardnerella/Yeast: Vaginal DNA [...] Probe PENDING * ML - MAIN LAB ([facility]) . END OF REPORT * ML=Testing performed at Main Lab DEPARTMENT OF PATHOLOGY, [facility] [employer] [place] [address] Luke Cash M.D. Director [facility] # [id number] 28 RUN DATE: 10/05/14 [facility] LAB LIVE PAGE 1 RUN TIME: 08 [facility] [place], [place] [address] Specimen Inquiry Name: MELIDA YANG : [address]: Talia Desouza NP Acct: [id number] Unit: [id number] AGE: 69 Location: [facility] Re10/03/14 SEX: F Status: REG REF SPEC: [id number] NITHYA: 10/03/[address]: Talia Desouza NP REQ: [id number] RECD: 10/04/14 STATUS: COMP _ SOURCE: VAGINAL SPDESC: ORDERED: Gertrude,Yeast DNA, Trich DNA QUERIES: Provider Requisition # [id number] Procedure Result Verified Site Gardnerella/Yeast: Vaginal DNA [...] performed at Main Lab DEPARTMENT OF PATHOLOGY, [facility] [employer] [place] [address] Luke Cash M.D. Director [facility] # [id number] RUN DATE: 10/05/14 [facility] LAB LIVE PAGE 2 RUN TIME: 843 [facility] [place], [place] [address] Specimen Inquiry Patient: MELIDA YANG Joleen [id number] (Continued) Specimen: [id number] Collected: 10/03/14 Received: 10/04/14-1755 (Continued) Procedure Result Verified Site Trichomonas: Vaginal DNA Probe Final (continued) 10/05/14843 The presence or absence of T. vaginalis cannot be used as a test for therapeutic success or failure. * ML - [facility] ([facility]) . END OF REPORT * ML=Testing performed at Main Lab DEPARTMENT OF PATHOLOGY, [address] [place] [address] Luke Cash M.D. Director [facility] # [id number] 29 RESULTS VERIFIED BY REPEAT ANALYSIS 30 RESULTS VERIFIED BY REPEAT ANALYSIS 31 consistent w/ previous results 32 RESULTS VERIFIED BY REPEAT ANALYSIS 33 Because ethnic data is not always readily [...] 15-29 5 Kidney failure <15 (or dialysis) 34 Interpretation: >80 ng/mL (toxicity possible) -- REFERENCE VALUE -- 25-HYDROXY D TOTAL (D2+D3) Optimum levels in the healthy population are 20-50, patients with bone disease may benefit from higher levels within this range. Test Performed by: [place] [address] [employer] Guide: Masood Rankin III, M.D. 35 consistent w/ previous results 36 RESULTS VERIFIED BY REPEAT ANALYSIS 37 Acute inflammation: >10.00 38 Because ethnic data is not always readily [...] 15-29 5 Kidney failure <15 (or dialysis) 39 Interpretation: >80 ng/mL (toxicity possible) -- REFERENCE VALUE -- 25-HYDROXY D TOTAL (D2+D3) Optimum levels in the healthy population are 20-50, patients with bone disease may benefit from higher levels within this range. Test Performed by: [place] [address] [employer] Guide: Masood Rankin III, M.D. 40 Interpretation: 51-80 ng/mL (increased risk of hypercalciuria) -- REFERENCE VALUE -- 25-HYDROXY D TOTAL (D2+D3) Optimum levels in the healthy population are 20-50, patients with bone disease may benefit from higher levels within this range. Test Performed by: [address] [address] [employer] Guide: Masood Rankin III, M.D. 41 Because ethnic data is not always readily [...] Code Description Status 10/01/2017 Mammogram Completed 05/12/2017 99825 Electrocardiogram Complete Completed 02/15/2016 Mammogram Completed 01/12/2015 77149 Paring/Cutting Benign Lesion ([place]/Callus) Completed 08/15/2014 Mammogram Completed 08/08/2014 71954 Pulse Oximetry Completed 07/28/2014 33513 Pulse Oximetry Completed 06/01/2012 Colonoscopy Completed Encounters Type Date Location Provider CPT E/M Dx Office Visit 09/16/2017 2:00p [facility] Madelin Hoover M.D. 04681 M25.541 F41.1 E83.51 M15.0 E06.3 Z12.31 Office Visit 06/19/2017 9:00a [facility] [place] [address] M25.541 Office Visit 06/12/2017 1:45p [facility] [place] [address] L23.2 Office Visit 05/12/2017 1:20p [facility] Madelin Hoover M.D. 25532 Z00.00 I10 E83.51 F41.1 E03.8 Office Visit 01/13/2017 11:30a [facility] Madelin Hoover M.D. 53412 E83.51 F41.1 I10 E89.2 E66.9 Office Visit 08/20/2016 4:40p [facility] Madelin Hoover M.D. 29358 F41.1 I10 E89.2 E03.8 E83.51 Z23 Office Visit 07/02/2016 1:40p [facility] Madelin Hoover M.D. 18110 F41.1 I10 E83.51 E89.2 E03.8 M25.511 Office Visit 05/28/2016 8:00a [facility] Madelin Hoover M.D. 41711 F41.1 I10 E83.51 E89.2 E03.8 M25.511 Office Visit 04/02/2016 11:30a [facility] Madelin Hoover M.D. 40381 I10 E83.51 F41.1 Office Visit 03/25/2016 9:40a [facility] Madelin Hoover M.D. 43471 I10 E83.51 F41.1 Z23 Office Visit 02/08/2016 4:20p [facility] Madelin Hoover M.D. 50524 E89.2 E83.51 I10 F41.1 E03.8 Z12.31 M15.0 Office Visit 10/18/2015 1:00p [facility] Office MARVIN MuellerP 60029 E83.51 E06.3 Office Visit 10/04/2015 4:00p [facility] LUIS Mueller 01589 E83.51 E06.3 Office Visit 07/12/2015 3:00p [facility] MARVIN MuellerP 22096 E83.51 E06.3 Office Visit 05/18/2015 11:10a [facility] Office Abhijeet Dunn M.D. 72233 M79.671 F41.1 I10 Office Visit 04/17/2015 8:50a [facility] Office Abhijeet Dunn M.D. 99956 H65.01 I10 E06.3 E83.51 Office Visit 01/12/2015 9:20a [facility] Office Abhijeet Dunn M.D. 78620 788.42 780.52 275.42 300.02 454.1 700 719.47 Office Visit 11/07/2014 10:00a [facility] Office Abhijeet Dunn M.D. 84965 401.9 244.9 300.02 275.41 Office Visit 10/03/2014 4:00p [facility] Talia Desouza, júnior-C 22699 V70.0 311 300.02 401.9 724.2 620.2 244.9 623.8 Office Visit 08/08/2014 10:15a [facility] Talia Desouza Afnp-C 44804 786.2 790.6 300.00 Office Visit 07/28/2014 3:00p [facility] Alanna Larkin, [facility] [address] 780.60 786.2 787.02 Office Visit 06/13/2014 11:00a [facility] Abhijeet Dunn M.D. 22425 682.9 300.00 530.81 780.52 Office Visit 05/12/2014 1:30p [facility] Office Alanna Trae, [facility] [address] 112.9 Office Visit 05/02/2014 4:20p [facility] Office Abhijeet Dunn M.D. 91177 724.2 275.41 Office Visit 03/31/2014 2:30p [facility] Office Abhijeet Dunn M.D. 30576 724.2 780.52 Office Visit 03/21/2014 3:20p [facility] Office Abhijeet Dunn M.D. 92969 724.2 311 Office Visit 01/20/2014 8:00a [facility] Office Abhijeet Dunn M.D. 00313 275.41 401.9 789.01 780.79 244.9 Office Visit 12/26/2013 3:30p [facility] Abhijeet Dunn M.D. 33768 724.3 Office Visit 12/19/2013 2:40p [facility] Abhijeet Dunn M.D. 35694 682.3 787.02 Office Visit 12/13/2013 11:20a [facility] Office Abhijeet Dunn M.D. 23503 682.4 275.41 401.9 Office Visit 12/06/2013 1:00p [facility] Office Abhijeet Dunn M.D. 91351 682.4 Office Visit 11/28/2013 8:30a [facility] Abhijeet Dunn M.D. 11320 719.42 Office Visit 10/18/2013 9:20a [facility] Office Abhijeet Dunn M.D. 41911 401.9 275.42 300.00 275.41 Office Visit 09/13/2013 9:40a [facility] Office Abhijeet Dunn M.D. 26277 401.9 300.00 530.81 Office Visit 09/06/2013 10:50a [facility] Office Abhijeet Dunn M.D. 78405 401.9 Office Visit 08/26/2013 9:30a [facility] Office Abhijeet Dunn M.D. 94390 401.9 275.42 244.9 Office Visit 08/12/2013 10:20a [facility] Office Abhijeet Dunn M.D. 43539 401.9 275.42 244.9 300.00 268.9 530.81 Plan of Care Future Appointment(s):11/03/2017 8:30 am - Madelin Hoover M.D. at [facility] Hyogsi0811/10/2017 10:00 am - Madelin Hoover M.D. at [facility] Zoojpl6811/02/2017 - Pedrito Rowley, MDR59.0 Localized enlarged lymph nodesNew Xrays:CT Head Or Brain W/ContrastAllComments:~B_~U_Medication Management~b_~u_ Patient Understands medications she's taking? Yes No Are there Barriers to Adherence? Yes No Has the patient been asked about herbal supplements and therapies, and OTC meds? Yes No
[2017-11-25] MEDS ORDERED: Acetaminophen TAB* 325 MG PO ONE ×2 (15:38→22:51)
[2017-11-25] MEDS ORDERED: Ondansetron ODT TAB* 4 MG PO ONE (15:46)
--- NOTE | 2017-11-25 16:03 | RAD ---
Indication: Chest pain. Single frontal view of the chest performed at 1548 hours was reviewed. Comparison is made with previous exam dated June 19, 2017. No mediastinal shift is noted. Heart is of normal size and configuration. Lung cardona appear clear. IMPRESSION: NO ACTIVE CARDIOPULMONARY DISEASE IS NOTED.
[2017-11-25] MEDS: NS 0.9% 1000 ML* 2,500 ML IV ONE (16:10)
[2017-11-25 16:15] LABS: ABS Basophils 0 10^3/ul (0-0.2); ABS Eosinophils 0 10^3/ul (0-0.6); ABS Lymphocytes 0.5 10^3/ul (1.0-4.8); ABS Monocytes 0.6 10^3/ul (0-0.8); ABS Neutrophils 7.9 10^3/ul (1.5-7.7); ABS Nucleated RBC 0 10^3/ul; Eosinophil % 0 % (0-6); Hematocrit 42 % (35-47); Hemoglobin 14.4 g/dl (12.0-16.0); Lymphocyte % 5.1 % (25-47); Mean Corpuscular HGB Conc 35 g/dl (31-36); Mean Corpuscular Hemoglobin 29 pg (27-31); Mean Corpuscular Volume 85 fL (80-97); Mean Platelet Volume 8.1 um3 (7.4-10.4); Nucleated Red Blood Cells % 0.1; Platelet Count 192 10^3/ul (150-450); Red Blood Count 4.92 10^6/ul (4.00-5.40); Red Cell Distribution Width 15 % (10.5-15)
[2017-11-25 16:34] LABS: EGFR Non-African American 76.4 (>60)
[2017-11-25] MEDS ORDERED: Metoprolol Tartrate IV* 1 MG/ML 5 ML VIAL IV ONE (17:19)
[2017-11-25] MEDS ORDERED: Morphine INJ* 10 MG/ML 1 ML CARPUJECT IV ONE (17:20)
[2017-11-25] MEDS ORDERED: Iohexol 350* (CONTRAST) 500 ML MDV IV ONE (17:23)
[2017-11-25] MEDS ORDERED: Morphine VIAL* 4 MG/ML VIAL (1 ml vial) IV ONE ×3 (17:33→17:38)
[2017-11-25 18:03] LABS: Urine Appearance Clear; Urine Blood 2+ (Negative); Urine Color Yellow; Urine Ketones 1+ (Negative); Urine Protein 1+(30 mg/dL) (Negative); Urine Specific Gravity 1.014 (1.010-1.030); Urine Urobilinogen Negative (Negative)
--- NOTE | 2017-11-25 18:40 | RAD ---
INDICATION: Chest pain radiating to back. COMPARISON: CT abdomen pelvis March 30, 2013 TECHNIQUE: Axial source images were obtained from the thoracic inlet to the symphysis pubis following administration of intravenous contrast using CT angiographic technique. 80 mL of Visipaque 320 was utilized. Coronal and sagittal reconstructed images were acquired. CHEST FINDINGS: Neck/thyroid: There is thyroidectomy. Chest wall: There are no acute abnormalities of the bony thorax or chest wall. There is no supraclavicular, infraclavicular, or axillary lymphadenopathy. Lungs : There are no pulmonary parenchymal masses or infiltrates. The pulmonary interstitium appears normal. There are no endobronchial lesions. Cardiomediastinal structures: The heart is normal in size. There is no pericardial effusion. There is no evidence of aortic aneurysm or dissection. The central pulmonary vessels appear normal. There is no mediastinal or hilar adenopathy. The esophagus appears normal. Pleura : There are no pleural-based masses or effusions. ABDOMINAL/PELVIC FINDINGS: Liver: The liver is normal in size. There are no masses. There is no ductal dilatation. Gallbladder: There are no calcified gallstones. There is no evidence of wall thickening or pericholecystic fluid. Spleen: The spleen is normal in size. There are no masses. Pancreas: There is no evidence of pancreatic mass or ductal dilatation. Adrenal glands: There is no evidence of adrenal mass. Kidneys: The kidneys are normal in size and position. There are prompt nephrograms and there is prompt excretion bilaterally. There are no renal parenchymal masses. There is no evidence of nephrolithiasis. Adenopathy: There is no evidence of adenopathy by size criteria. Fluid collections: There are no free or localized fluid collections. Vessels:The aorta is patent with no evidence of aneurysm or dissection. The visceral branches are widely patent. Incidental note is made of dual renal arterial supply bilaterally GI tract: There are no acute CT bowel findings. There is no obstruction. The stomach and small bowel appear normal. There are moderate diverticula of the sigmoid colon. There is no CT evidence of acute diverticulitis. There are no obstructive findings. Pelvic organs: There were no calcifications consistent with calcified uterine leiomyomas. The appearance unchanged. There is no adnexal mass. Bladder: There are no bladder masses. Abdominal and pelvic soft tissues: The extraperitoneal abdominal and pelvic soft tissues appear normal.. Osseous structures: There are no acute osseous findings. IMPRESSION: 1. No CT evidence of thoracic aortic aneurysm or dissection. There is no active disease of the chest. 2. No acute CT findings of the abdomen or pelvis. Normal abdominal aorta and visceral branches. 3. Moderate diverticula of the sigmoid colon without CT evidence of acute diverticulitis. 4. Uterine leiomyomas. 5. Thyroidectomy.
[2017-11-25] MEDS ORDERED: Al Hydrox/Mg Hydrox/Simet LIQ* 30 ML UDC PO ONE (20:58)
[2017-11-25] MEDS ORDERED: Lidocaine 2% VISCOUS* 15 ML UDC PO ONE (20:58)
[2017-11-25] MEDS ORDERED: Enoxaparin(*) 80 MG/0.8 ML SYR SUBCUT ONE (22:06)
--- NOTE | 2017-11-25 22:23 | HP ---
H&P (Free Text) History and Physical: PCP: Fidencio Hoover MD Date/Time: 11/25/2017 2200 CC: chest pain, hypoxia HPI: Mrs Yang is a 72YO female HX HTN, hypothyroidism, GERD, OA, & anxiety/ depression who reports onset of generalized malaise and myalgias Thursday AM which progressed to ~8 episodes of N/V this AM. Although she then states that she just vomited a small amount and references an emesis bag with <5cc of clear , frothy saliva. She then developed generalized dull chest discomfort radiating across B shoulder blades. The chest pain began after the recurrent N/V. She denies subjective F/C, sweats, SOB, palpitations, sore throat, earache, abdominal pain, B/U/F of urine, rash, and open wounds. She has had some diarrhea without black or bloody aspect. She did have a mild/mod headache which resolved with acetaminophen in the ED, but did not do much for her generalized myalgias. While in the ED, she was noted to desaturate to 85% and was placed on oxygen with good result. She denies HX smoking, COPD, asthma, or other lung problems. At this point, the ED MD became concerned for an atypical presentation of pulmonary embolism, but she has already received a CT chest/abd/ pel W. As such, he requested observation and further evaluation in AM. The plan is to anticoagulate with SQ enoxaparin, give IV hydration overnight, recheck the renal function in the AM, and to obtain a CTA chest in the AM. PMedHx HTN hypothyroidism GERD OA anxiety depression insomnia Ambulatory Orders Calcium Carbonate LIQ* [Calcium Carbonate Liq*] 5 ml PO 1200 11/25/17 Calcium Carbonate LIQ* [Calcium Carbonate Liq*] 7.5 ml PO BID 11/25/17 Diazepam TAB(*) [Valium TAB(*)] 5 - 10 mg PO BID PRN 11/25/17 Ergocalciferol CAP* [Drisdol CAP*] 50,000 unit PO SUSA 11/25/17 Escitalopram (NF) [Lexapro 20 mg (NF)] 20 mg PO DAILY 11/25/17 Hydrocodone/Acetaminophen [[place] 7.5-325 Tablet] 1 tab PO Q8HR PRN 11/25/17 Levothyroxine TAB* [Synthroid TAB*] 100 mcg PO DAILY 11/25/17 Lisinopril TAB* [Prinivil TAB*] 20 mg PO DAILY 11/25/17 Pantoprazole TAB (NF) [Protonix TAB (NF)] 40 mg PO DAILY 11/25/17 Zolpidem TAB* [Ambien TAB*] 10 mg PO BEDTIME 11/25/17 Allergies MS Cyclobenzaprine [Cyclobenzaprine] Allergy (Verified 06/19/17 13:17) Hives MS Hydrochlorothiazide [Hydrochlorothiazide] Allergy (Verified 06/19/17 13:19) Hives MS NSAIDs [NSAIDs] Allergy (Verified 11/25/17 21:39) All Nsaids, Hives, closing of throat MS Atorvastatin [From Lipitor] Adverse Reaction (Verified 11/25/17 21:39) Vomiting Violent vomitting per pt MS Codeine [Codeine] Adverse Reaction (Verified 11/25/17 21:39) Headache Sea Food Adverse Reaction (Uncoded 11/25/17 21:39) GI Upset PSurgHx thyroidectomy appendectomy section SocHx: no tobacco, alcohol, or recreational drugs; lives with her ; 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; 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 FamHx: Mother: passed in her 80s 2nd dementia; Father: passed in his 60s 2nd CAD ROS: as above, otherwise reviewed and all were negative vitals: Vital Signs Temp 37.3 C 11/25/17 19:50 Pulse 72 11/25/17 22:34 Resp 20 11/25/17 17:39 BP 168/90 11/25/17 22:34 Pulse Ox 95 11/25/17 22:34 Intake & Output 11/24/17 11/25/17 11/25/17 23:59 11:59 23:59 Intake Total 1999 Balance 1999 Weight 81.647 kg Intake: IV Fluids 1999 Constitutional: NAD, normally developed, obese white female HEENM: atraumatic; sclera/conjunctiva: anicteric/clear; hearing: clinically intact; oropharynx: clear, mucosa moist Neck: soft tissue: no nuchal rigidity; thyroid: normal Pulmonary: clear to auscultation bilaterally, good aeration, no accessory muscle use CV: RR/RR, normal S1S2, no carotid bruit, no jugular venous distention, 2+ B DP/ PT, no edema Abdominal: soft, non-distended, non-tender, no rebound/guarding/rigidity, normoactive bowel sounds, no hepatosplenomegaly or masses, no costovertebral angle tenderness Musculoskeletal: general: grossly intact, mild tenderness of ankles with palpation Integumental: normal appearance and texture of exposed skin Psychiatric orientation: AA&O to PPS affect: mildly anxious & generally uncomfortable appearing w/o specific localizable complaint at this time mood: cooperative eye contact: fair content: seemingly reliable responses: timely insight: fair Testing: Lab Results 11/25/17 11/25/17 11/25/17 Range/Units 16:08 16:08 16:08 WBC 9.0 (3.5-10.8) 10^3/ul RBC 4.92 (4.00-5.40) 10^6/ul Hgb 14.4 (12.0-16.0) g/dl Hct 42 (35-47) % MCV 85 (80-97) fL MCH 29 (27-31) pg MCHC 35 (31-36) g/dl RDW 15 (10.5-15) % Plt Count 192 (150-450) 10^3/ul MPV 8.1 (7.4-10.4) um3 Neut % (Auto) 87.3 H (38-83) % Lymph % (Auto) 5.1 L (25-47) % Garza % (Auto) 7.1 H (0-7) % Eos % (Auto) 0 (0-6) % Baso % (Auto) 0.5 (0-2) % Absolute Neuts (auto) 7.9 H (1.5-7.7) 10^3/ul Absolute Lymphs (auto) 0.5 L (1.0-4.8) 10^3/ul Absolute Monos (auto) 0.6 (0-0.8) 10^3/ul Absolute Eos (auto) 0 (0-0.6) 10^3/ul Absolute Basos (auto) 0 (0-0.2) 10^3/ul Absolute Nucleated RBC 0 10^3/ul Nucleated RBC % 0.1 Sodium 135 (135-145) mmol/L Potassium 3.1 L (3.5-5.0) mmol/L Chloride 96 L (101-111) mmol/L Carbon Dioxide 26 (22-32) mmol/L Anion Gap 13 H (2-11) mmol/L BUN 12 (6-24) mg/dL Creatinine 0.75 (0.51-0.95) mg/dL Est GFR ( Amer) 92.4 (>60) Est GFR (Non-Af Amer) 76.4 (>60) BUN/Creatinine Ratio 16.0 (8-20) Glucose 123 H (70-100) mg/dL Lactic Acid 0.9 (0.5-2.0) mmol/L Calcium 7.4 L (8.6-10.3) mg/dL Total Bilirubin 0.80 (0.2-1.0) mg/dL AST 17 (13-39) U/L ALT 13 (7-52) U/L Alkaline Phosphatase 59 (34-104) U/L Troponin I 0.01 (<0.04) ng/mL Total Protein 7.4 (6.4-8.9) g/dL Albumin 4.0 (3.2-5.2) g/dL Globulin 3.4 (2-4) g/dL Albumin/Globulin Ratio 1.2 (1-3) Urine Color Urine Appearance Urine pH (5-9) Ur Specific [place] (1.010-1.030) Urine Protein (Negative) Urine Ketones (Negative) Urine Blood (Negative) Urine Nitrate (Negative) Urine Bilirubin (Negative) Urine Urobilinogen (Negative) Ur Leukocyte Esterase (Negative) Urine WBC (Auto) (Absent) Urine RBC (Auto) (Absent) Ur Squamous Epith Cells (Absent) Urine Bacteria (Absent) Urine Glucose (Negative) 11/25/17 11/25/17 11/25/17 Range/Units 17:40 18:43 21:35 WBC (3.5-10.8) 10^3/ul RBC (4.00-5.40) 10^6/ul Hgb (12.0-16.0) g/dl Hct (35-47) % MCV (80-97) fL MCH (27-31) pg MCHC (31-36) g/dl RDW (10.5-15) % Plt Count (150-450) 10^3/ul MPV (7.4-10.4) um3 Neut % (Auto) (38-83) % Lymph % (Auto) (25-47) % Garza % (Auto) (0-7) % Eos % (Auto) (0-6) % Baso % (Auto) (0-2) % Absolute Neuts (auto) (1.5-7.7) 10^3/ul Absolute Lymphs (auto) (1.0-4.8) 10^3/ul Absolute Monos (auto) (0-0.8) 10^3/ul Absolute Eos (auto) (0-0.6) 10^3/ul Absolute Basos (auto) (0-0.2) 10^3/ul Absolute Nucleated RBC 10^3/ul Nucleated RBC % Sodium (135-145) mmol/L Potassium (3.5-5.0) mmol/L Chloride (101-111) mmol/L Carbon Dioxide (22-32) mmol/L Anion Gap (2-11) mmol/L BUN (6-24) mg/dL Creatinine (0.51-0.95) mg/dL Est GFR ( Amer) (>60) Est GFR (Non-Af Amer) (>60) BUN/Creatinine Ratio (8-20) Glucose (70-100) mg/dL Lactic Acid (0.5-2.0) mmol/L Calcium (8.6-10.3) mg/dL Total Bilirubin (0.2-1.0) mg/dL AST (13-39) U/L ALT (7-52) U/L Alkaline Phosphatase (34-104) U/L Troponin I 0.01 0.00 (<0.04) ng/mL Total Protein (6.4-8.9) g/dL Albumin (3.2-5.2) g/dL Globulin (2-4) g/dL Albumin/Globulin Ratio (1-3) Urine Color Yellow Urine Appearance Clear Urine pH 7.0 (5-9) Ur Specific [place] 1.014 (1.010-1.030) Urine Protein 1+(30 mg/dl) A (Negative) Urine Ketones 1+ A (Negative) Urine Blood 2+ A (Negative) Urine Nitrate Negative (Negative) Urine Bilirubin Negative (Negative) Urine Urobilinogen Negative (Negative) Ur Leukocyte Esterase Negative (Negative) Urine WBC (Auto) Trace(0-5/hpf) (Absent) Urine RBC (Auto) 3+(>10/hpf) A (Absent) Ur Squamous Epith Cells Present A (Absent) Urine Bacteria Absent (Absent) Urine Glucose Negative (Negative) ECG, personally reviewed: sinus vs ectopic atrial rhythem rate 86, no ischemia, small Q-waves II/III/AVF; unchanged from comparison dated 06/19/2017 CXR, personally reviewed: IMPRESSION: NO ACTIVE CARDIOPULMONARY DISEASE IS NOTED. CT chest/abd/pel W, personally reviewed: IMPRESSION: 1. No CT evidence of thoracic aortic aneurysm or dissection. There is no active disease of the chest. 2. No acute CT findings of the abdomen or pelvis. Normal abdominal aorta and visceral branches. 3. Moderate diverticula of the sigmoid colon without CT evidence of acute diverticulitis. 4. Uterine leiomyomas. 5. Thyroidectomy. Impression: 72F HX HTN, hypothyroidism, GERD, OA, & anxiety presents with chest pain radiating to B shoulder blades associated with new hypoxia being admitted observation for evaluation of possible atypical PE DIAGNOSIS & PLAN Primary atypical chest pain, concern for atypical PE given unexplained hypoxia : given 1mg/kg enoxaparin SQ in ED : unable to do CTA currently 2nd IV dye load for CTA c/a/p : gentle overnight IV hydration : check BMP in AM : plan CTA chest to eval for PE in AM : supplemental oxygen : pain control : supportive care fever ? source : could be VTE vs viral vs as yet undeclared bacterial source : no clear indication for ABX at this time : check blood & urine CXs : trend WBCs & temp curves hypoKalemia : replace & recheck Secondary HTN : continue lisinopril hypothyroidism : continue levothyroxine GERD : continue pantoprazole OA : continue hydrocodone/acetaminophen PRN anxiety : continue escitalopram & diazepam insomnia : continue zolpidem HS Admission Rational: telemetry observation to r/o PE in AM DVTp: enoxaparin SQ Code Status: full HCP: , Brian
[2017-11-25] MEDS ORDERED: Ondansetron ODT TAB* 4 MG ONE (22:54)
[2017-11-25] MEDS: Ondansetron ODT TAB* 4 MG SL PRN (22:57)
[2017-11-25] MEDS ORDERED: HYDROmorphone INJ* 1 MG/ML CARPUJECT SYRINGE IV ONE (23:28)
[2017-11-25] MEDS ORDERED: HYDROmorphone INJ* 2 MG/ML CARPUJECT SYRINGE ONE (23:36)
[2017-11-26] MEDS ORDERED: Melatonin 3 MG TAB PO PRN (00:40)
[2017-11-26] MEDS ORDERED: Pantoprazole IV* 40 MG IV ONE (00:42)
[2017-11-26] MEDS: KCL 10 MEQ/50 ML IVPREMIX* 10 MEQ/50 ML BAG IV SCH ×2 (01:17→02:28)
[2017-11-26] MEDS: NS 0.9% 1000 ML* 1,000 ML IV SCH ×2 (01:17→18:09)
[2017-11-26] MEDS: Ondansetron ODT TAB* 4 MG SL PRN ×3 (05:39→20:06)
[2017-11-26] MEDS: HYDROcodone/ACET. 7.5/325 LIQ* 15 ML UDC PO PRN ×2 (05:49→14:03)
[2017-11-26] MEDS ORDERED: HYDROmorphone INJ* 2 MG/ML CARPUJECT SYRINGE IV PRN (05:56)
[2017-11-26] MEDS: Levothyroxine TAB* 100 MCG TAB PO SCH (06:18)
[2017-11-26] MEDS: Acetaminophen TAB* 325 MG PO PRN (07:27)
[2017-11-26] MEDS: Lisinopril TAB* 10 MG PO SCH (08:57)
[2017-11-26] MEDS: Diazepam TAB(*) 5 MG PO PRN (08:58)
[2017-11-26] MEDS: Omeprazole CAP* 20 MG PO SCH (08:58)
[2017-11-26] MEDS: CMCS Escitalopram (NF) 10 MG TAB PO SCH (09:34)
[2017-11-26 10:20] LABS: ABS Basophils 0 10^3/ul (0-0.2); ABS Eosinophils 0 10^3/ul (0-0.6); ABS Lymphocytes 0.3 10^3/ul (1.0-4.8); ABS Monocytes 0.6 10^3/ul (0-0.8); ABS Neutrophils 7.1 10^3/ul (1.5-7.7); ABS Nucleated RBC 0 10^3/ul; Eosinophil % 0 % (0-6); Hematocrit 39 % (35-47); Mean Corpuscular HGB Conc 34 g/dl (31-36); Mean Corpuscular Hemoglobin 29 pg (27-31); Mean Corpuscular Volume 86 fL (80-97); Mean Platelet Volume 8.5 um3 (7.4-10.4); Nucleated Red Blood Cells % 0; Platelet Count 169 10^3/ul (150-450); Red Blood Count 4.51 10^6/ul (4.00-5.40); Red Cell Distribution Width 15 % (10.5-15); White Blood Count 8.1 10^3/ul (3.5-10.8)
[2017-11-26 10:36] LABS: EGFR Non-African American 80.1 (>60)
[2017-11-26] MEDS ORDERED: Calcium CHLORIDE 10% SYRINGE* 0.68 GM in D5W 100 ML BAG* 100 ML IV ONE (11:31)
[2017-11-26] MEDS ORDERED: Magnesium Sulfate 1 GM IV* 1 GM/100 ML BAG IV ONE (11:31)
[2017-11-26] MEDS ORDERED: D5W IV ONE (15:00)
[2017-11-26] MEDS ORDERED: CALCIUM CHLORIDE IV ONE (15:00)
[2017-11-26] MEDS ORDERED: Acetaminophen SUPP* 650 MG SUPP PR PRN (15:26)
[2017-11-26] MEDS: HYDROmorphone INJ* 0.5 MG/0.5 ML SYRINGE IV PRN ×2 (16:12→20:06)
[2017-11-26] MEDS: LORazepam INJ* 2 MG/ML 1 ML VIAL IV PUSH PRN (16:17)
[2017-11-26] MEDS: Ondansetron INJ* 2 MG/ML VIAL IV PRN (16:19)
[2017-11-26] MEDS ORDERED: Enoxaparin(*) 80 MG/0.8 ML SYR SUBCUT STA (16:46)
[2017-11-26] MEDS ORDERED: Iohexol 350* (CONTRAST) 500 ML MDV IV ONE (17:10)
--- NOTE | 2017-11-26 17:21 | PN ---
Subjective Date of Service: 11/26/17 Interval History: Pt seen and examined. Meds and labs reviewed. Received a page/call from tomographic tech this AM asking why a CTA Chest is ordered when she had a CTA of Chest /Abd/Pelvis. Instructed tomographic tech to confirm with radiologist to see if PE has been appropriately ruled out, and for radiologist to write an addendum saying so in the official report, if it has truly been ruled out. Received a text page later informing me that there is no PE. However, pt continued to complain of CP radiating to the back throughout the day and contacted Dr. Yusuf directly since I didnt see a modification of his official note as previously discussed. He clarified that although large PE is likely ruled out, a CTA of chest looking for PE specifically will need to be re- ordered to be more sensitive to small vessel PE. Please see discussion below. ROS: CP, radiating to back, burning in character. Denied DEAN/dizziness, F/C, N/ V, SOB, increased cough, sputum production, abd pain, diarrhea, constipation, dysuria, myalgias, arthralgias, throat pain, and new skin lesions. The rest of the 14 point ROS are unremarkable. PHYSICAL EXAM: GEN APPEARANCE: Awake, not in acute distress HEENT: NC/AT, PERRLA, moist oral mucosa, (-) throat erythema NECK: Soft, supple, (-) cervical LAD, (-)JVD HEART: S1S2 WNL, RRR, No MRG CHEST: CTA, BL, GAE, No W/R/R, non-reproducible CP ABD: Soft, ND/NT, NABS 4x Q EXT: No C/C/E SKIN: Warm to touch PSYCH: No active psychosis, hallucinations, depression, SI/HI Objective Active Medications: Acetaminophen (Tylenol Tab*) 650 mg PO Q6H PRN PRN Reason: FEVER/PAIN Last Admin: 11/26/17 07:27 Dose: 650 mg Acetaminophen (Tylenol Supp*) 650 mg [place] Q6H PRN PRN Reason: FEVER/PAIN Hydrocodone Bitart/Acetaminophen ([place] 7.5/325 Liq*) 15 ml PO Q8H PRN PRN Reason: PAIN Last Admin: 11/26/17 14:03 Dose: 15 ml Diazepam (Valium Tab(*)) 5 mg PO BID PRN PRN Reason: ANXIETY Last Admin: 11/26/17 08:58 Dose: 5 mg Escitalopram Oxalate (Lexapro (Nf)) 20 mg PO DAILY [facility] Last Admin: 11/26/17 09:34 Dose: Not Given Hydromorphone HCl (Dilaudid Inj*) 0.5 mg IV Q4H PRN PRN Reason: PAIN Last Admin: 11/26/17 16:12 Dose: 0.5 mg Sodium Chloride (Ns 0.9% 1000 Ml*) 1,000 mls @ 75 mls/hr IV PER RATE [facility] Last Admin: 11/26/17 01:17 Dose: 75 mls/hr Levothyroxine Sodium (Synthroid Tab*) 100 mcg PO 0600 [facility] Last Admin: 11/26/17 06:18 Dose: Not Given Lisinopril (Prinivil Tab*) 20 mg PO DAILY [facility] Last Admin: 11/26/17 08:57 Dose: 20 mg Lorazepam (Ativan Inj*) 0.25 mg IV PUSH Q8H PRN PRN Reason: ANXIETY Last Admin: 11/26/17 16:17 Dose: 0.25 mg Melatonin (Melatonin) 3 mg PO BEDTIME PRN; Protocol PRN Reason: Sleep Omeprazole (Prilosec Cap*) 20 mg PO DAILY [facility] Last Admin: 11/26/17 08:58 Dose: 20 mg Ondansetron HCl (Zofran Odt Tab*) 4 mg SL Q6H PRN PRN Reason: NAUSEA/VOMITING Last Admin: 11/26/17 14:05 Dose: 4 mg Ondansetron HCl (Zofran Inj*) 4 mg IV Q6H PRN PRN Reason: NAUSEA Last Admin: 11/26/17 16:19 Dose: 4 mg Potassium Chloride (Klor Con Er Tab*) 40 meq PO DAILY [facility] Zolpidem Tartrate (Ambien Tab*) 10 mg PO BEDTIME PRN PRN Reason: SLEEP Vital Signs - 8 hr 11/26/17 11/26/17 11/26/17 11:14 11:43 14:03 Temperature 98.2 F Pulse Rate 74 Respiratory 15 18 18 Rate Blood Pressure 137/68 (mmHg) O2 Sat by Pulse 95 Oximetry 11/26/17 11/26/17 11/26/17 15:19 16:10 16:12 Temperature 99.5 F Pulse Rate 80 Respiratory 20 18 18 Rate Blood Pressure 161/67 (mmHg) O2 Sat by Pulse 93 Oximetry 11/26/17 16:17 Temperature Pulse Rate Respiratory 18 Rate Blood Pressure (mmHg) O2 Sat by Pulse Oximetry Oxygen Devices in Use Now: None Result Diagrams: 11/26/17 09:51 11/26/17 09:51 Assess/Plan/Problems-Billing Assessment: - Patient Problems (1) Chest pain, atypical Current Visit: Yes Status: Acute Code(s): R07.89 - OTHER CHEST PAIN SNOMED Code(s): 362887960 Comment: -Clarified with Dr. Yusuf that the admitting physician was concerned about PE and mentioned that CTA previously ordered does not have sufficient power for small vessel PE -No dissection seen on CTA Chest/Abd/Pelvis -Reordered CTA of Chest for PE protocol -Continue to trend troponins as ordered -Ordered 1mg/kg x1 of Lovenox given her symptoms and will continue q12 if any PE is found -Possibly due to GERD due to N/V, however, denies any sour taste nor sensation at the back of the mouth this AM -If PE negative consider esophageal dysmotility given radiation to back (2) Hypoxia Current Visit: Yes Status: Acute Code(s): R09.02 - HYPOXEMIA SNOMED Code(s ): 298307015 Comment: -Small vessel PE still being ruled out given above -Will request overnight oximetry study (3) Fever Current Visit: Yes Status: Acute Code(s): R50.9 - FEVER, UNSPECIFIED SNOMED Code(s): 890733461 Comment: -Please see above discussion -Imaging of Chest does not suggest PNA -U/A does not suggest UTI, although with some microscopic hematuria; unclear whether this was a cath sample -Blood cultures still pending (4) Electrolyte abnormality Current Visit: Yes Status: Acute Code(s): E87.8 - OTH DISORDERS OF ELECTROLYTE AND FLUID BALANCE, NEC SNOMED Code(s): 483330488 Comment: -Hypokalemia, Hypocalcemia, and Hypomagnesemia -All replaced -Will continue watchful waiting (5) Hypertension Current Visit: No Status: Acute Code(s): I10 - ESSENTIAL (PRIMARY) HYPERTENSION SNOMED Code(s): 63201583 Comment: -Improved control -Earlier much elevated BP likely due to pain and distress of recent admission -Continue Lisinopril -Continue watchful waiting (6) Hypothyroidism Current Visit: No Status: Acute Code(s): E03.9 - HYPOTHYROIDISM, UNSPECIFIED SNOMED Code(s): 17104786 Comment: -Continue synthroid -Will check TSH in AM (7) DVT prophylaxis Current Visit: Yes Status: Acute Code(s): [id number] - SNOMED Code(s): 492534214 Comment: -Pt will once again received 1x dose of 80 mg Lovenox -If negative for PE, consider starting on prophylaxis in AM Status and Disposition: -As above
[2017-11-26] MEDS: Potassium Chlor TAB* 20 MEQ TAB.ER PO SCH (17:41)
--- NOTE | 2017-11-26 19:25 | RAD ---
Indication: Shortness of breath. Contrast: Administered 74.2 ml of Contrast -- mg/ml CTA of the chest was performed without IV contrast administration. Coronal and sagittal reconstructed images were obtained. The pulmonary arterial tree is well opacified. No filling defect is present to suggest pulmonary embolus. Aorta demonstrates no evidence of aortic dissection. There is no mediastinal or hilar adenopathy noted. The heart is enlarged. No pericardial effusion is noted. The lung cardona demonstrate left basilar atelectasis. No alveolar consolidation is noted. IMPRESSION: No definite pulmonary embolus is noted. Cardiomegaly. No evidence of aortic dissection. Left basilar atelectasis.
[2017-11-26] MEDS: Zolpidem TAB* 10 MG PO PRN (22:26)
[2017-11-27] MEDS: Acetaminophen TAB* 325 MG PO PRN ×3 (00:18→19:38)
[2017-11-27] MEDS: Levothyroxine TAB* 100 MCG TAB PO SCH (05:36)
[2017-11-27 06:14] LABS: ABS Basophils 0 10^3/ul (0-0.2); ABS Eosinophils 0 10^3/ul (0-0.6); ABS Lymphocytes 0.4 10^3/ul (1.0-4.8); ABS Monocytes 0.7 10^3/ul (0-0.8); ABS Neutrophils 7.1 10^3/ul (1.5-7.7); ABS Nucleated RBC 0 10^3/ul; Eosinophil % 0.1 % (0-6); Hematocrit 39 % (35-47); Hemoglobin 13.2 g/dl (12.0-16.0); Lymphocyte % 4.9 % (25-47); Mean Corpuscular HGB Conc 34 g/dl (31-36); Mean Corpuscular Hemoglobin 29 pg (27-31); Mean Corpuscular Volume 86 fL (80-97); Mean Platelet Volume 8.1 um3 (7.4-10.4); Nucleated Red Blood Cells % 0; Platelet Count 143 10^3/ul (150-450); Red Cell Distribution Width 15 % (10.5-15); White Blood Count 8.4 10^3/ul (3.5-10.8)
[2017-11-27 06:32] LABS: EGFR Non-African American 78.8 (>60)
[2017-11-27] MEDS: Diazepam TAB(*) 5 MG PO PRN (08:00)
[2017-11-27] MEDS: Potassium Chlor TAB* 20 MEQ TAB.ER PO SCH (08:00)
[2017-11-27] MEDS: Lisinopril TAB* 10 MG PO SCH (08:00)
[2017-11-27] MEDS: CMCS Escitalopram (NF) 10 MG TAB PO SCH (08:00)
[2017-11-27] MEDS: Omeprazole CAP* 20 MG PO SCH (08:01)
--- NOTE | 2017-11-27 11:08 | ED ---
Ryan Dial Tenzin, scribed for Olegario Diaz MD on 11/25/17 at 1550 . Complex/Multi-Sys Presentation - HPI Summary HPI Summary: Pt is a 72 years old female presenting to the ED complaining of general malaise , body aches, N/V with coughs since yesterday. Her reports that the chest pain radiating to the lumbar back started after the coughs with white phelgm and episodes of emesis. Pt also reports that last night her whole body was aching and that she couldn't sleep well. Pt reports she woke up this morning with feeling nauseous. She took some meds for it this morning. She also adds that she has been very anxious from all the sickness and reports she has a hx of anxiety. Denies Fever, Chills, Erythema (eyes), Sore throat, SOB, cough, Dysuria, Hematuria, Myalgia, Edema and rash. No alleviating factors were noted. She reports that the chest pain is aggravated when she is breathing. She took some meds last night and this morning. But notes that she is still feeling very sick. She reports a hx of arthritis. - History Of Current Complaint Chief Complaint: EDChestPainROMI Time Seen by Provider: 11/25/17 15:37 Hx Obtained From: Patient, Family/[employer] Onset/Duration: Still Present - Allergies/Home Medications Allergies/Adverse Reactions: Allergies Allergy/AdvReac Type Severity Reaction Status Date / Time MS Cyclobenzaprine Allergy Hives Verified 06/19/17 13:17 [Cyclobenzaprine] MS Hydrochlorothiazide Allergy Hives Verified 06/19/17 13:19 [Hydrochlorothiazide] MS NSAIDs [NSAIDs] Allergy All Verified 11/25/17 21:39 Nsaids, Hives, closing of throat MS Atorvastatin AdvReac Vomiting Verified 11/25/17 21:39 [From Lipitor] MS Codeine [Codeine] AdvReac Headache Verified 11/25/17 21:39 Sea Food AdvReac GI Upset Uncoded 11/25/17 21:39 Home Medications: Home Medications Calcium Carbonate LIQ* [Calcium Carbonate Liq*] 5 ml PO 1200 11/25/17 [History Confirmed 11/25/17] Calcium Carbonate LIQ* [Calcium Carbonate Liq*] 7.5 ml PO BID 11/25/17 [History Confirmed 11/25/17] Diazepam TAB(*) [Valium TAB(*)] 5 - 10 mg PO BID PRN 11/25/17 [History Confirmed 11/25/17] Ergocalciferol CAP* [Drisdol CAP*] 50,000 unit PO SUSA 11/25/17 [History Confirmed 11/25/17] Escitalopram (NF) [Lexapro 20 mg (NF)] 20 mg PO DAILY 11/25/17 [History Confirmed 11/25/17] Hydrocodone/Acetaminophen [[place] 7.5-325 Tablet] 1 tab PO Q8HR PRN 11/25/17 [ History Confirmed 11/25/17] Levothyroxine TAB* [Synthroid TAB*] 100 mcg PO DAILY 11/25/17 [History Confirmed 11/25/17] Lisinopril TAB* [Prinivil TAB*] 20 mg PO DAILY 11/25/17 [History Confirmed 11/25] Pantoprazole TAB (NF) [Protonix TAB (NF)] 40 mg PO DAILY 11/25/17 [History Confirmed 11/25/17] Zolpidem TAB* [Ambien TAB*] 10 mg PO BEDTIME 11/25/17 [History Confirmed ] PMH/Surg Hx/FS Hx/Imm Hx Endocrine/Hematology History: Reports: Hx Thyroid Disease, Other Endocrine/ Hematological Disorders - hypoparathyroidism, hypo and hypercalcemia r/t Denies: Hx Diabetes Cardiovascular History: Reports: Hx Hypertension - MEDS Denies: Hx Pacemaker/ICD History: Denies: Hx Renal Disease Musculoskeletal History: Reports: Hx Arthritis Denies: Hx Rheumatoid Arthritis, Hx Osteoporosis Sensory History: Reports: Hx Contacts or Glasses Denies: Hx Hearing Aid Opthamlomology History: Reports: Hx Contacts or Glasses Psychiatric History: Reports: Hx Anxiety Denies: Hx Panic Disorder - Cancer History Hx Chemotherapy: No Hx Radiation Therapy: No - Surgical History Surgery Procedure, Year, and Place: Appendectomy-age 16, Thyroid -age 24, C- section-age 42 Infectious Disease History: No Infectious Disease History: Denies: Hx Clostridium Difficile, Hx Hepatitis, Hx Human Immunodeficiency Virus (HIV), Hx of Known/Suspected MRSA, Hx Shingles, Hx Tuberculosis, Hx Known/ Suspected VRE, Hx Known/Suspected VRSA, History Other Infectious Disease, Traveled Outside the [place] in Last 30 Days - Family History Known Family History: Positive: Hypertension - Social History Alcohol Use: Occasionally Substance Use Type: Reports: None Smoking Status (MU): Never Smoked Tobacco Review of Systems Positive: Fatigue. Negative: Fever, Chills Negative: Erythema Negative: Sore Throat Positive: Chest Pain - radiating to her lumber back. Positive: Cough. Negative: Shortness Of Breath Positive: Abdominal Pain, Vomiting, Nausea Negative: dysuria, hematuria Negative: Myalgia, Edema Negative: Rash All Other Systems Reviewed And Are Negative: Yes Physical Exam - Summary Physical Exam Summary: Constitutional: Well-developed, Well-nourished, Alert. (-) Distressed Skin: Warm, Dry HENT: Normocephalic; Atraumatic Eyes: Conjunctiva normal Neck: Musculoskeletal ROM normal neck. (-) JVD, (-) Stridor, (-) Tracheal deviation Cardio: Rhythm regular, rate normal, Heart sounds normal; Intact distal pulses; The pedal pulses are 2+ and symmetric. Radial pulses are 2+ and symmetric. (-) Murmur Pulmonary/Chest wall: Effort normal. (-) Respiratory distress, (-) Wheezes, (-) Rales Abd: Soft, TENDERNESS IN EPIGASTRIUM, (-) Distension, (-) Guarding, (-) Rebound Musculoskeletal: (-) Edema Lymph: (-) Cervical adenopathy Neuro: Alert, Oriented x3 Psych: Mood and affect Normal Triage Information Reviewed: Yes Vital Signs On Initial Exam: Initial Vitals Temp Pulse Resp BP Pulse Ox 100.8 F 99 24 172/100 96 11/25/17 15:25 11/25/17 15:25 11/25/17 15:25 11/25/17 15:25 11/25/17 15:25 Vital Signs Reviewed: Yes Diagnostics - Vital Signs Vital Signs Temp Pulse Resp BP Pulse Ox 11/25/17 15:25 100.8 F 99 24 172/100 96 - Laboratory Result Diagrams: 11/25/17 16:08 11/25/17 16:08 Lab Statement: Any lab studies that have been ordered have been reviewed, and results considered in the medical decision making process. - Radiology CHEST X RAY Radiology Interpretation Completed By: Radiologist - IMPRESSION: NO ACTIVE CARDIOPULMONARY DISEASE IS NOTED. - CT CHEST/ABDOMEN/PELVIS CTA CT Interpretation Completed By: Radiologist - IMPRESSION: 1. No CT evidence of thoracic aortic aneurysm or dissection. There is no active disease of the chest. 2. No acute CT findings of the abdomen or pelvis. Normal abdominal aorta and visceral branches. 3. Moderate diverticula of the sigmoid colon without CT evidence of acute diverticulitis. 4. Uterine leiomyomas. 5. Thyroidectomy. - EKG 15:31 Cardiac Rate: NL - at 86 BPM EKG Interpretation: Ectopic atrial rhythm, NON-STEMI Re-Evaluation - Re-Evaluation First Eval Re-Evaluation Time: 20:43 Comment: Pt notes that her chest is burning. Her oximetry reading is 91% in room air. Second Eval Re-Evaluation Time: 20:59 Change: Unchanged Comment: Pt notes that her chest is still burning. Her oximetery dropped from 91 % to 86% after ambulation. Complex Multi-Symp Course/Dx Course Of Treatment: Pt is a 72 years old female presenting to the ED complaining of general malaise, body aches, N/V with coughs since yesterday. Her reports that the chest pain radiating to the lumbar back started after the coughs with white phelgm and episodes of emesis. Chest X ray was taken. Chest/abdomen/pelvis CTA is taken. Consulted with Dr. Thayer and pt will be admitted. He also advised to give lovenox to the pt in ED today. - Diagnoses Provider Diagnoses: Hypoxia, Chest pain, unspecified, Vomiting, Diarrhea, Pulmonary embolism - Physician Notifications Discussed Care Of Patient With: Pramod Thayer Time Discussed With Above Provider: 21:56 - Pt will be admitted. He advised to give anticoagulant lovenox at the ED today. Discharge - Sign-Out/Discharge Documenting (check all that apply): Discharge/Admit/Transfer - Admit - Discharge Plan Condition: Stable Disposition: ADMITTED TO [facility] Referrals: Madelin Hoover MD [Primary Care Provider] - The documentation as recorded by the Ryan sanchez Tenzin accurately reflects the service I personally performed and the decisions made by me, Olegario Diaz MD.
[2017-11-27] MEDS ORDERED: Potassium Chlor TAB* 20 MEQ TAB.ER PO ONE (11:18)
[2017-11-27] MEDS: DOXYcycline IV* 100 MG in NS 0.9% 250 ML* 250 ML IVPB SCH (11:58)
[2017-11-27] MEDS: NS 0.9% 1000 ML* 1,000 ML IV SCH (11:58)
[2017-11-27] MEDS ORDERED: Albuterol/Ipratropium NEB.SOL* Albuterol 2.5 MG/Ipratropium 0.5 MG 3 ML INH SCH (12:00)
[2017-11-27] MEDS ORDERED: Albuterol/Ipratropium NEB.SOL* Albuterol 2.5 MG/Ipratropium 0.5 MG 3 ML INH PRN (12:29)
[2017-11-27] MEDS: Ondansetron INJ* 2 MG/ML VIAL IV PRN (13:39)
[2017-11-27] MEDS: LORazepam INJ* 2 MG/ML 1 ML VIAL IV PUSH PRN (13:54)
[2017-11-27] MEDS: Metoprolol Tartrate IV* 1 MG/ML 5 ML VIAL IV PRN (16:11)
[2017-11-27] MEDS: Hydrocodone/Acetamin 10/325 1 TAB PO PRN (16:11)
[2017-11-27] MEDS: Metoclopramide IV* 5 MG/ML 2 ML VIAL IV SCH (16:17)
--- NOTE | 2017-11-27 16:19 | PN ---
Subjective Date of Service: 11/27/17 Interval History: Pt seen and examined. Meds and labs reviewed. Pt had ROS: Denied DEAN/dizziness, F/C, N/V, CP, SOB, increased cough, sputum production , abd pain, diarrhea, constipation, dysuria, myalgias, arthralgias, throat pain , and new skin lesions. The rest of the 14 point ROS are unremarkable. PHYSICAL EXAM: GEN APPEARANCE: Awake, not in acute distress HEENT: NC/AT, PERRLA, moist oral mucosa, (-) throat erythema NECK: Soft, supple, (-) cervical LAD, (-)JVD HEART: S1S2 WNL, RRR, No MRG CHEST: CTA, BL, GAE, No W/R/R ABD: Soft, ND/NT, NABS 4x Q EXT: No C/C/E SKIN: Warm to touch PSYCH: No active psychosis, hallucinations, depression, SI/HI Objective Active Medications: Acetaminophen (Tylenol Tab*) 650 mg PO Q6H PRN PRN Reason: FEVER/PAIN Last Admin: 11/27/17 06:26 Dose: 650 mg Acetaminophen (Tylenol Supp*) 650 mg AL Q6H PRN PRN Reason: FEVER/PAIN Hydrocodone Bitart/Acetaminophen ([place] 10/325 (Nf)) 1 tab PO Q8H PRN PRN Reason: PAIN Last Admin: 11/27/17 16:11 Dose: 1 tab Albuterol/Ipratropium (Duoneb (Albuterol 2.5 Mg/Ipratropium 0.5 Mg)) 1 neb INH [id number] AWAKE PRN PRN Reason: SHORTNESS OF BREATH Diazepam (Valium Tab(*)) 5 mg PO BID PRN PRN Reason: ANXIETY Last Admin: 11/27/17 08:00 Dose: 5 mg Enoxaparin Sodium (Lovenox(*)) 40 mg SUBCUT Q24H SYDNEE Escitalopram Oxalate (Lexapro (Nf)) 20 mg PO DAILY SYDNEE Last Admin: 11/27/17 08:00 Dose: 20 mg Hydromorphone HCl (Dilaudid Inj*) 0.5 mg IV Q4H PRN PRN Reason: PAIN Last Admin: 11/26/17 20:06 Dose: 0.5 mg Sodium Chloride (Ns 0.9% 1000 Ml*) 1,000 mls @ 75 mls/hr IV PER RATE [facility] Last Admin: 11/27/17 11:58 Dose: 75 mls/hr Doxycycline Hyclate 100 mg/ (Sodium Chloride) 250 mls @ 250 mls/hr IVPB Q12H [facility] Last Admin: 11/27/17 11:58 Dose: 250 mls/hr Levothyroxine Sodium (Synthroid Tab*) 100 mcg PO 0600 [facility] Last Admin: 11/27/17 05:36 Dose: 100 mcg Lisinopril (Prinivil Tab*) 20 mg PO DAILY [facility] Last Admin: 11/27/17 08:00 Dose: 20 mg Lorazepam (Ativan Inj*) 0.25 mg IV PUSH Q8H PRN PRN Reason: ANXIETY Last Admin: 11/27/17 13:54 Dose: 0.25 mg Melatonin (Melatonin) 3 mg PO BEDTIME PRN; Protocol PRN Reason: Sleep Metoclopramide HCl (Reglan Iv*) 10 mg IV Q8H [facility] Stop: 11/28/17 16:59 Metoprolol Tartrate (Lopressor Iv*) 5 mg IV Q6H PRN PRN Reason: BLOOD PRESSURE Last Admin: 11/27/17 16:11 Dose: 5 mg Omeprazole (Prilosec Cap*) 20 mg PO DAILY [facility] Last Admin: 11/27/17 08:01 Dose: 20 mg Ondansetron HCl (Zofran Odt Tab*) 4 mg SL Q6H PRN PRN Reason: NAUSEA/VOMITING Last Admin: 11/26/17 20:06 Dose: 4 mg Ondansetron HCl (Zofran Inj*) 4 mg IV Q6H PRN PRN Reason: NAUSEA Last Admin: 11/27/17 13:39 Dose: 4 mg Potassium Chloride (Klor Con Er Tab*) 40 meq PO DAILY [facility] Last Admin: 11/27/17 08:00 Dose: 40 meq Zolpidem Tartrate (Ambien Tab*) 10 mg PO BEDTIME PRN PRN Reason: SLEEP Last Admin: 11/26/17 22:26 Dose: 10 mg Vital Signs - 8 hr 11/27/17 11/27/17 11/27/17 09:55 11:36 12:22 Temperature 98.1 F Pulse Rate 81 82 Respiratory 20 16 14 Rate Blood Pressure 150/72 (mmHg) O2 Sat by Pulse 95 96 Oximetry 11/27/17 11/27/17 11/27/17 13:54 15:16 15:18 Temperature 98.5 F Pulse Rate 95 Respiratory 22 20 20 Rate Blood Pressure 184/88 (mmHg) O2 Sat by Pulse 93 Oximetry 11/27/17 16:11 Temperature Pulse Rate Respiratory 20 Rate Blood Pressure (mmHg) O2 Sat by Pulse Oximetry Oxygen Devices in Use Now: Nasal Cannula Result Diagrams: 11/27/17 06:01 11/27/17 06:01 Microbiology and Other Data: Microbiology 11/25/17 17:40 Urine Culture - Final Urine 11/25/17 17:38 Aerobic Blood Culture - Preliminary Blood Venous No Growth Day 1 Anaerobic Blood Culture - Preliminary No Growth Day 1 Assess/Plan/Problems-Billing Assessment: - Patient Problems (1) Chest pain, atypical Current Visit: Yes Status: Acute Code(s): R07.89 - OTHER CHEST PAIN SNOMED Code(s): 834323442 Comment: -Likely due to Atypical PNA -PE, ACS, and dissection ruled out -Had periods of de-saturation on O/N oximetry and pt may have MICHELA; d/w Dr. Odonnell and will await further reccs -Given low grade fever and small lesion in other circumstances is interpreted as atelectasis is likely due to an atypical PNA, therefore will give Doxycycline -Continue to follow cultures (2) Hypoxia Current Visit: Yes Status: Acute Code(s): R09.02 - HYPOXEMIA SNOMED Code(s ): 173654233 Comment: -Likely due to above and maybe complicated by sleep apnea (3) Electrolyte abnormality Current Visit: Yes Status: Acute Code(s): E87.8 - OTH DISORDERS OF ELECTROLYTE AND FLUID BALANCE, NEC SNOMED Code(s): 311551181 Comment: -Hypokalemia, Hypocalcemia, and Hypomagnesemia -All replaced -Will continue watchful waiting (4) Hypertension Current Visit: No Status: Acute Code(s): I10 - ESSENTIAL (PRIMARY) HYPERTENSION SNOMED Code(s): 67371882 Comment: -Uncontrolled -PRN IV Metoprolol ordered with appropriate holding orders (5) Hypothyroidism Current Visit: No Status: Acute Code(s): E03.9 - HYPOTHYROIDISM, UNSPECIFIED SNOMED Code(s): 99482178 Comment: -Continue synthroid -Will check TSH in AM (6) DVT prophylaxis Current Visit: Yes Status: Acute Code(s): GLJ2314 - SNOMED Code(s): 789444519 Comment: -Pt will once again received 1x dose of 80 mg Lovenox -If negative for PE, consider starting on prophylaxis in AM Status and Disposition: -For PT eval
[2017-11-27] MEDS: Enoxaparin(*) 40 MG/0.4 ML SYR SUBCUT SCH (16:40)
[2017-11-27] MEDS: Zolpidem TAB* 10 MG PO PRN (22:04)
[2017-11-28] MEDS: DOXYcycline IV* 100 MG in NS 0.9% 250 ML* 250 ML IVPB SCH ×2 (00:17→15:12)
[2017-11-28] MEDS: Metoclopramide IV* 5 MG/ML 2 ML VIAL IV SCH ×2 (00:18→09:06)
[2017-11-28] MEDS: Acetaminophen TAB* 325 MG PO PRN ×2 (00:56→12:01)
[2017-11-28] MEDS: Diazepam TAB(*) 5 MG PO PRN (02:33)
[2017-11-28] MEDS: Levothyroxine TAB* 100 MCG TAB PO SCH (05:31)
[2017-11-28] MEDS: Hydrocodone/Acetamin 10/325 1 TAB PO PRN ×2 (05:32→18:47)
[2017-11-28] MEDS: Potassium Chlor TAB* 20 MEQ TAB.ER PO SCH (09:06)
[2017-11-28] MEDS: Lisinopril TAB* 10 MG PO SCH (09:06)
[2017-11-28] MEDS: Omeprazole CAP* 20 MG PO SCH (09:06)
[2017-11-28] MEDS: CMCS Escitalopram (NF) 10 MG TAB PO SCH (09:06)
[2017-11-28] MEDS ORDERED: Calcium CHLORIDE 10% SYRINGE* 0.68 GM in D5W 100 ML BAG* 100 ML IV ONE (11:21)
--- NOTE | 2017-11-28 15:10 | RAD ---
Indication: Fever. 2 views of the chest are reviewed including dual energy PA views and compared to previous exam dated November 25, 2017. Cardiomegaly is noted. There appears to be bibasilar airspace disease likely representing atelectasis. No pneumothorax is noted. IMPRESSION: Likely bibasilar atelectasis.
[2017-11-28 16:14] LABS: Urine Appearance Cloudy; Urine Blood 2+ (Negative); Urine Color Yellow; Urine Ketones 1+ (Negative); Urine Protein 2+(100 mg/dL) (Negative); Urine Specific Gravity 1.017 (1.010-1.030); Urine Urobilinogen Negative (Negative)
[2017-11-28] MEDS: Enoxaparin(*) 40 MG/0.4 ML SYR SUBCUT SCH (16:39)
[2017-11-28] MEDS: NS 0.9% 1000 ML* 1,000 ML IV SCH (16:39)
--- NOTE | 2017-11-28 18:13 | PN ---
Subjective Date of Service: 11/28/17 Interval History: Pt seen and examined. Meds and labs reviewed. She had another febrile episode again this AM and earlier at [facility]. ROS: Has intermittent fever. Denied DEAN/dizziness, Chills, N/V, CP, SOB, increased cough, sputum production, abd pain, diarrhea, constipation, dysuria, myalgias, arthralgias, throat pain, and new skin lesions. The rest of the 14 point ROS are unremarkable. PHYSICAL EXAM: GEN APPEARANCE: Awake, not in acute distress HEENT: NC/AT, PERRLA, moist oral mucosa, (-) throat erythema NECK: Soft, supple, (-) cervical LAD, (-)JVD HEART: S1S2 WNL, RRR, No MRG CHEST: CTA, BL, GAE, No W/R/R ABD: Soft, ND/NT, NABS 4x Q EXT: No C/C/E SKIN: Warm to touch PSYCH: No active psychosis, hallucinations, depression, SI/HI Objective Active Medications: Acetaminophen (Tylenol Tab*) 650 mg PO Q6H PRN PRN Reason: FEVER/PAIN Last Admin: 11/28/17 12:01 Dose: 650 mg Acetaminophen (Tylenol Supp*) 650 mg VT Q6H PRN PRN Reason: FEVER/PAIN Hydrocodone Bitart/Acetaminophen ([place] 10/325 (Nf)) 1 tab PO Q6H PRN PRN Reason: PAIN Albuterol/Ipratropium (Duoneb (Albuterol 2.5 Mg/Ipratropium 0.5 Mg)) 1 neb INH [id number] AWAKE PRN PRN Reason: SHORTNESS OF BREATH Diazepam (Valium Tab(*)) 5 mg PO BID PRN PRN Reason: ANXIETY Last Admin: 11/28/17 02:33 Dose: 5 mg Enoxaparin Sodium (Lovenox(*)) 40 mg SUBCUT Q24H SYDNEE Last Admin: 11/28/17 16:39 Dose: 40 mg Escitalopram Oxalate (Lexapro (Nf)) 20 mg PO DAILY SY[facility] Last Admin: 11/28/17 09:06 Dose: 20 mg Hydromorphone HCl (Dilaudid Inj*) 0.5 mg IV Q4H PRN PRN Reason: PAIN Last Admin: 11/26/17 20:06 Dose: 0.5 mg Sodium Chloride (Ns 0.9% 1000 Ml*) 1,000 mls @ 75 mls/hr IV PER RATE SY[facility] Last Admin: 11/28/17 16:39 Dose: 75 mls/hr Doxycycline Hyclate 100 mg/ (Sodium Chloride) 250 mls @ 250 mls/hr IVPB Q12H SY[facility] Last Admin: 11/28/17 15:12 Dose: 250 mls/hr Levothyroxine Sodium (Synthroid Tab*) 100 mcg PO 0600 [facility] Last Admin: 11/28/17 05:31 Dose: 100 mcg Lisinopril (Prinivil Tab*) 20 mg PO DAILY [facility] Last Admin: 11/28/17 09:06 Dose: 20 mg Lorazepam (Ativan Inj*) 0.25 mg IV PUSH Q8H PRN PRN Reason: ANXIETY Last Admin: 11/27/17 13:54 Dose: 0.25 mg Melatonin (Melatonin) 3 mg PO BEDTIME PRN; Protocol PRN Reason: Sleep Metoprolol Tartrate (Lopressor Iv*) 5 mg IV Q6H PRN PRN Reason: BLOOD PRESSURE Last Admin: 11/27/17 16:11 Dose: 5 mg Metoprolol Tartrate (Lopressor Tab*) 25 mg PO BID [facility] Omeprazole (Prilosec Cap*) 20 mg PO DAILY [facility] Last Admin: 11/28/17 09:06 Dose: 20 mg Ondansetron HCl (Zofran Odt Tab*) 4 mg SL Q6H PRN PRN Reason: NAUSEA/VOMITING Last Admin: 11/26/17 20:06 Dose: 4 mg Ondansetron HCl (Zofran Inj*) 4 mg IV Q6H PRN PRN Reason: NAUSEA Last Admin: 11/27/17 13:39 Dose: 4 mg Potassium Chloride (Klor Con Er Tab*) 40 meq PO DAILY [facility] Last Admin: 11/28/17 09:06 Dose: 40 meq Zolpidem Tartrate (Ambien Tab*) 10 mg PO BEDTIME PRN PRN Reason: SLEEP Last Admin: 11/27/17 22:04 Dose: 10 mg Vital Signs - 8 hr 11/28/17 11/28/17 11/28/17 10:52 11:30 13:22 Temperature 101.5 F 99.3 F Pulse Rate 92 Respiratory 18 17 Rate Blood Pressure 156/87 (mmHg) O2 Sat by Pulse 90 Oximetry 11/28/17 15:16 Temperature 98.2 F Pulse Rate 85 Respiratory 16 Rate Blood Pressure 145/80 (mmHg) O2 Sat by Pulse 91 Oximetry Oxygen Devices in Use Now: Nasal Cannula Result Diagrams: 11/27/17 06:01 11/27/17 06:01 Microbiology and Other Data: Microbiology 11/25/17 17:40 Urine Culture - Final Urine 11/25/17 17:38 Aerobic Blood Culture - Preliminary Blood Venous No Growth Day 1 Anaerobic Blood Culture - Preliminary No Growth Day 1 Assess/Plan/Problems-Billing Assessment: - Patient Problems (1) FUO (fever of unknown origin) Current Visit: Yes Status: Acute Comment: -Multiple imaging of chest/abd/pelvis are unremarkable for any focus of fever -Blood cultures remain negative -Urinalysis show no pyuria but with microscopic hematuria---will check with nurse if last one done was straight cath; otherwise consider urine microscopic analysis and nephrology consultation to rule out autoimmune cause? -D/W Dr. Gonzalez for possibility of atypical or tick-borne illness; will evaluate pt on Thursday and will obtain Tickborne PCR panel---although no rashes nor conjunctivitis seen -Mildly elevated ESR and significantly elevated CRP -Repeat CXR showed basilar atelectasis, repeat blood cultures done -Possibly due to atypical PNA??? Continue Doxycycline to cover for possible PNA vs viral and/or atypical infection (2) Chest pain, atypical Current Visit: Yes Status: Acute Code(s): R07.89 - OTHER CHEST PAIN SNOMED Code(s): 475582254 Comment: -Likely due to Atypical PNA -PE, ACS, and dissection ruled out with CTA chest and (-) troponins x3, respectively -Had periods of de-saturation on O/N oximetry and pt may have MICHELA; d/w Dr. Odonnell and will await further reccs---will await any further recommendations and /or outpatient F/U -Given low grade fever and small lesion in other circumstances is interpreted as atelectasis is likely due to an atypical PNA, therefore will continue Doxycycline -Continue to follow cultures (3) Hypoxia Current Visit: Yes Status: Acute Code(s): R09.02 - HYPOXEMIA SNOMED Code(s ): 930429975 Comment: -Likely due to above and maybe complicated by sleep apnea (4) Electrolyte abnormality Current Visit: Yes Status: Acute Code(s): E87.8 - OTH DISORDERS OF ELECTROLYTE AND FLUID BALANCE, NEC SNOMED Code(s): 988538756 Comment: -Hypokalemia, Hypocalcemia, and Hypomagnesemia -All replaced -Will continue watchful waiting (5) Hypertension Current Visit: No Status: Acute Code(s): I10 - ESSENTIAL (PRIMARY) HYPERTENSION SNOMED Code(s): 46023370 Comment: -Uncontrolled -PRN IV Metoprolol ordered with appropriate holding orders (6) Hypothyroidism Current Visit: No Status: Acute Code(s): E03.9 - HYPOTHYROIDISM, UNSPECIFIED SNOMED Code(s): 90011277 Comment: -Continue synthroid -TSH normal (7) DVT prophylaxis Current Visit: Yes Status: Acute Code(s): BPR8182 - SNOMED Code(s): 308894240 Comment: -Continue Lovenox SQ Status and Disposition: -Appreciate PT eval---D/C home when W/U done and clinically improved
[2017-11-28] MEDS: Ondansetron ODT TAB* 4 MG SL PRN (20:54)
[2017-11-28] MEDS ORDERED: Metoprolol Tartrate TAB* 25 MG PO SCH (21:00)
[2017-11-28] MEDS: Zolpidem TAB* 10 MG PO PRN (21:01)
[2017-11-29] MEDS: DOXYcycline IV* 100 MG in NS 0.9% 250 ML* 250 ML IVPB SCH ×2 (00:12→12:25)
[2017-11-29] MEDS: Diazepam TAB(*) 5 MG PO PRN ×3 (00:45→20:51)
[2017-11-29] MEDS: Ondansetron INJ* 2 MG/ML VIAL IV PRN (00:46)
[2017-11-29] MEDS: Metoprolol Tartrate IV* 1 MG/ML 5 ML VIAL IV PRN ×2 (00:57→09:41)
[2017-11-29] MEDS: Acetaminophen TAB* 325 MG PO PRN (01:29)
[2017-11-29] MEDS: Levothyroxine TAB* 100 MCG TAB PO SCH (05:57)
[2017-11-29 06:38] LABS: EGFR Non-African American 102.8 (>60)
[2017-11-29] MEDS ORDERED: Potassium Chlor TAB* 20 MEQ TAB.ER PO ONE (07:56)
[2017-11-29] MEDS ORDERED: Metoprolol Tartrate TAB* 25 MG PO SCH (08:00)
[2017-11-29 08:05] LABS: Hematocrit 37 % (35-47); Hemoglobin 12.5 g/dl (12.0-16.0); Mean Corpuscular HGB Conc 34 g/dl (31-36); Mean Corpuscular Hemoglobin 29 pg (27-31); Mean Corpuscular Volume 86 fL (80-97); Red Blood Count 4.32 10^6/ul (4.00-5.40); Red Cell Distribution Width 15 % (10.5-15)
[2017-11-29 08:50] LABS: ABS Basophils 0 10^3/ul (0-0.2); ABS Eosinophils 0 10^3/ul (0-0.6); ABS Lymphocytes 1.1 10^3/ul (1.0-4.8); ABS Monocytes 1.3 10^3/ul (0-0.8); ABS Neutrophils 5.5 10^3/ul (1.5-7.7)
[2017-11-29 08:55] LABS: Monocytes % 10 % (0-7); Platelet Count Platelets clumped. 10^3/ul (150-450)
[2017-11-29] MEDS: Metoprolol Tartrate TAB* 25 MG PO SCH ×2 (09:42→20:43)
[2017-11-29] MEDS: Lisinopril TAB* 10 MG PO SCH (09:42)
[2017-11-29] MEDS: Omeprazole CAP* 20 MG PO SCH (09:42)
[2017-11-29] MEDS: NS 0.9% 1000 ML* 1,000 ML IV SCH (09:47)
[2017-11-29] MEDS: CMCS Escitalopram (NF) 10 MG TAB PO SCH (10:12)
[2017-11-29] MEDS: Potassium Chlor TAB* 20 MEQ TAB.ER PO SCH (10:13)
[2017-11-29] MEDS: Calcium Carbonate LIQ* 1,250 MG/5 ML UDC PO SCH ×3 (13:50→22:38)
[2017-11-29] MEDS: Hydrocodone/Acetamin 10/325 1 TAB PO PRN (15:39)
[2017-11-29] MEDS ORDERED: hydrOXYzine HCL TAB* 25 MG PO PRN (16:31)
--- NOTE | 2017-11-29 16:44 | PN ---
Subjective Date of Service: 11/29/17 Interval History: Pt seen and examined. Meds and labs reviewed. No fevers last night although last febrile episode was yesterday morning. ROS: Complains of anxiety. Denied DEAN/dizziness, F/C, N/V, CP, SOB, increased cough, sputum production, abd pain, diarrhea, constipation, dysuria, myalgias, arthralgias, throat pain, and new skin lesions. The rest of the 14 point ROS are unremarkable. PHYSICAL EXAM: GEN APPEARANCE: Awake, not in acute distress HEENT: NC/AT, PERRLA, moist oral mucosa, (-) throat erythema NECK: Soft, supple, (-) cervical LAD, (-)JVD HEART: S1S2 WNL, RRR, No MRG CHEST: CTA, BL, GAE, No W/R/R ABD: Soft, ND/NT, NABS 4x Q EXT: No C/C/E SKIN: Warm to touch PSYCH: No active psychosis, hallucinations, depression, SI/HI Objective Active Medications: Acetaminophen (Tylenol Tab*) 650 mg PO Q6H PRN PRN Reason: FEVER/PAIN Last Admin: 11/29/17 01:29 Dose: 650 mg Acetaminophen (Tylenol Supp*) 650 mg NM Q6H PRN PRN Reason: FEVER/PAIN Hydrocodone Bitart/Acetaminophen ([place] 10/325 (Nf)) 1 tab PO Q6H PRN PRN Reason: PAIN Last Admin: 11/29/17 15:39 Dose: 1 tab Albuterol/Ipratropium (Duoneb (Albuterol 2.5 Mg/Ipratropium 0.5 Mg)) 1 neb INH [id number] AWAKE PRN PRN Reason: SHORTNESS OF BREATH Buspirone HCl (Buspar Tab*) 10 mg PO BID SYDNEE Calcium Carbonate (Calcium Carbonate Liq*) 1,875 mg PO TID SYDNEE Last Admin: 11/29/17 14:18 Dose: 1,875 mg Diazepam (Valium Tab(*)) 5 mg PO BID PRN PRN Reason: ANXIETY Last Admin: 11/29/17 08:56 Dose: 5 mg Enoxaparin Sodium (Lovenox(*)) 40 mg SUBCUT Q24H [facility] Last Admin: 11/28/17 16:39 Dose: 40 mg Escitalopram Oxalate (Lexapro (Nf)) 20 mg PO DAILY [facility] Last Admin: 11/29/17 10:12 Dose: 20 mg Hydromorphone HCl (Dilaudid Inj*) 0.5 mg IV Q4H PRN PRN Reason: PAIN Last Admin: 11/26/17 20:06 Dose: 0.5 mg Hydroxyzine HCl (Atarax Tab*) 25 mg PO Q6H PRN PRN Reason: ANXIETY Sodium Chloride (Ns 0.9% 1000 Ml*) 1,000 mls @ 75 mls/hr IV PER RATE [facility] Last Admin: 11/29/17 09:47 Dose: 75 mls/hr Doxycycline Hyclate 100 mg/ (Sodium Chloride) 250 mls @ 250 mls/hr IVPB Q12H [facility] Last Admin: 11/29/17 12:25 Dose: 250 mls/hr Levothyroxine Sodium (Synthroid Tab*) 100 mcg PO 0600 [facility] Last Admin: 11/29/17 05:57 Dose: 100 mcg Lisinopril (Prinivil Tab*) 40 mg PO DAILY [facility] Last Admin: 11/29/17 09:42 Dose: 40 mg Lorazepam (Ativan Inj*) 0.25 mg IV PUSH Q8H PRN PRN Reason: ANXIETY Last Admin: 11/27/17 13:54 Dose: 0.25 mg Melatonin (Melatonin) 3 mg PO BEDTIME PRN; Protocol PRN Reason: Sleep Metoprolol Tartrate (Lopressor Iv*) 5 mg IV Q6H PRN PRN Reason: BLOOD PRESSURE Last Admin: 11/29/17 09:41 Dose: 5 mg Metoprolol Tartrate (Lopressor Tab*) 50 mg PO BID [facility] Last Admin: 11/29/17 09:42 Dose: 50 mg Omeprazole (Prilosec Cap*) 20 mg PO DAILY [facility] Last Admin: 11/29/17 09:42 Dose: 20 mg Ondansetron HCl (Zofran Odt Tab*) 4 mg SL Q6H PRN PRN Reason: NAUSEA/VOMITING Last Admin: 11/28/17 20:54 Dose: 4 mg Ondansetron HCl (Zofran Inj*) 4 mg IV Q6H PRN PRN Reason: NAUSEA Last Admin: 11/29/17 00:46 Dose: 4 mg Potassium Chloride (Klor Con Er Tab*) 40 meq PO DAILY SYDNEE Last Admin: 11/29/17 10:13 Dose: 40 meq Zolpidem Tartrate (Ambien Tab*) 10 mg PO BEDTIME PRN PRN Reason: SLEEP Last Admin: 11/28/17 21:01 Dose: 10 mg Vital Signs - 8 hr 11/29/17 11/29/17 11/29/17 08:56 10:33 15:39 Respiratory 20 16 18 Rate Oxygen Devices in Use Now: Nasal Cannula Result Diagrams: 11/29/17 05:47 11/29/17 05:47 Microbiology and Other Data: Microbiology 11/25/17 17:40 Urine Culture - Final Urine 11/25/17 17:38 Aerobic Blood Culture - Preliminary Blood Venous No Growth Day 1 Anaerobic Blood Culture - Preliminary No Growth Day 1 Assess/Plan/Problems-Billing Assessment: - Patient Problems (1) FUO (fever of unknown origin) Current Visit: Yes Status: Acute Comment: -Multiple imaging of chest/abd/pelvis are unremarkable for any focus of fever -Viral infection from remote loose stools/diarrhea prior to admission??? -Blood cultures remain negative -Urinalysis show no pyuria but with microscopic hematuria---consider nephrology consult for possible glomerulonephritis? -D/W Dr. Gonzalez for possibility of atypical or tick-borne illness; will evaluate pt on Thursday and will obtain Tickborne PCR panel---although no rashes nor conjunctivitis seen -Mildly elevated ESR and significantly elevated CRP -Repeat CXR showed basilar atelectasis, repeat blood cultures done -Possibly due to atypical PNA??? Continue Doxycycline to cover for possible PNA vs viral and/or atypical infection (2) Primary hyperparathyroidism Current Visit: Yes Status: Acute Code(s): E21.0 - PRIMARY HYPERPARATHYROIDISM SNOMED Code(s): 01370217 Comment: -iPTH low and calcium is low, normal phosphorous, High vit D likely due to supplementations -24 hour urine calcium ordered -Likely cause of Hypocalcemia -Unclear if other electrolyte abn associated with or concomitant with other cause such as atypical and/or viral infection -Continue PO Calcium and Vit D oral supplementations -Likely contributing to patients uncontrolled anxiety (3) Anxiety Current Visit: No Status: Acute Code(s): F41.9 - ANXIETY DISORDER, UNSPECIFIED SNOMED Code(s): 44735219 Comment: -Pt with some episodes of panic attacks during this admission, however, will defer with BZDs at this point given desaturation especially at night that may be suggestive of MICHELA -Place pt on buspirone and titrate to effect -Place on Hydroxyzine PRN -Primary hypoparathyroidism likely contributing (4) Chest pain, atypical Current Visit: Yes Status: Acute Code(s): R07.89 - OTHER CHEST PAIN SNOMED Code(s): 739836254 Comment: -Likely due to Atypical PNA -PE, ACS, and dissection ruled out with CTA chest and (-) troponins x3, respectively -Repeat O/N oximetry tonight and ambulatory sats in AM in preparation for possible D/C in 1-2 days -Given low grade fever and small lesion in other circumstances is interpreted as atelectasis is likely due to an atypical PNA, therefore will continue Doxycycline -Continue to follow cultures (5) Hypoxia Current Visit: Yes Status: Acute Code(s): R09.02 - HYPOXEMIA SNOMED Code(s ): 019442494 Comment: -Likely due to above and maybe complicated by sleep apnea -Appreciate Dr. Antonio input -Repeat O/N oximetry study -For outpatient Sleep study to see if pt qualifies for CPAP (6) Electrolyte abnormality Current Visit: Yes Status: Acute Code(s): E87.8 - OTH DISORDERS OF ELECTROLYTE AND FLUID BALANCE, NEC SNOMED Code(s): 657191593 Comment: -Hypokalemia, Hypocalcemia, and Hypomagnesemia -All replaced -Will continue watchful waiting -Please see above discussion (7) Hypertension Current Visit: No Status: Acute Code(s): I10 - ESSENTIAL (PRIMARY) HYPERTENSION SNOMED Code(s): 57951361 Comment: -Uncontrolled -PRN IV Metoprolol ordered with appropriate holding orders -Increase Metoprolol tartrate to 50 mg PO BID (8) Hypothyroidism Current Visit: No Status: Acute Code(s): E03.9 - HYPOTHYROIDISM, UNSPECIFIED SNOMED Code(s): 98321248 Comment: -Continue synthroid -TSH normal (9) DVT prophylaxis Current Visit: Yes Status: Acute Code(s): LNH7170 - SNOMED Code(s): 755553047 Comment: -Continue Lovenox SQ Status and Disposition: -Appreciate PT eval---D/C home when W/U done and clinically improved
[2017-11-29] MEDS: Enoxaparin(*) 40 MG/0.4 ML SYR SUBCUT SCH (17:10)
--- NOTE | 2017-11-29 20:17 | CONS ---
PULMONARY CONSULT REPORT: DATE OF CONSULT: 11/29/17 REQUESTING PHYSICIAN: Dr. Ton Boateng REASON FOR CONSULT: Evaluation of hypoxemia. HISTORY OF PRESENT ILLNESS: The patient is a 72-year-old female with history of hypertension, hypothyroidism, GERD, osteoarthritis, anxiety, depression, insomnia, who presents for evaluation of chest pain. The patient reports onset of generalized malaise and myalgias 1 week ago, which progressed to having nausea and vomiting the day of presentation. The patient did not feel herself, was concerned about the vomiting, and decided to come into the emergency room. The patient reported significant chest pain, radiating across her shoulder blades, also reported abdominal pain. The patient started having chest pain after episodes of nausea and vomiting. The patient denies subjective fevers or chills, night sweats, shortness of breath, palpitations, sore throat, earache, abdominal pain, urinary complaints, rash. The patient reports recent diarrheal illness and nausea. Denies dark stools. The patient also reported generalized malaise and headaches that resolved with Tylenol. She was found to have an episode of hypoxemia in the emergency room and was placed on O2 supplementation. The patient denies any lung problems in the past. The patient denies episodes of shortness of breath in the past. The patient reports mild allergies. The patient reports feeling congested in her chest. The patient reports the chest pain is significantly improved and almost resolved at this time; however, she still feels weak and tired. The patient had a CT scan of the chest, abdomen and pelvis with contrast, I personally reviewed the images. The patient with no evidence of filling defects concerning for pulmonary embolism. The patient noted to have atelectasis of the right lung in the lingular segment. No significant mediastinal or hilar adenopathy was noted, no pleural effusions were noted, no evidence of pneumonia was noted. The patient had further evaluation including a laboratory workup, which did not reveal any white count. She, however, did have a left shift. Her ESR was elevated. Potassium was low. Calcium was significantly low with low albumin at 3.0. PTH was significantly decreased and 25-hydroxy vitamin D was increased. TSH levels were within normal limits. Urinalysis revealed evidence of 2+ protein, 1+ ketones, 2+ blood without obvious hematuria. The patient also with evidence of hyaline casts in urine. She is currently undergoing 24-hour urine measurement. The patient was started on nebulizer treatments and broad spectrum antibiotic, she is currently on doxycycline. The patient reports history of snoring, nocturia, daytime fatigue; however, denies gasping episodes or witnessed apneas. The patient has history of thyroid surgery in the past. The patient was seen and examined at bedside. The patient denies any other complaints other than generalized malaise. The patient reports complete resolution of chest and abdominal discomfort at this time. PAST MEDICAL HISTORY: 1. Hypertension. 2. Hypothyroidism. 3. GERD. 4. Osteoarthritis. 5. Anxiety/depression. 6. Insomnia. MEDICATIONS: At home: 1. Calcium carbonate. 2. Diazepam. 3. Drisdol. 4. Lexapro. 5. [place]. 6. Synthroid. 7. Prinivil. 8. Protonix. 9. Ambien. ALLERGIES: CYCLOBENZAPRINE, HYDROCHLOROTHIAZIDE, ATORVASTATIN, CODEINE. PAST SURGICAL HISTORY: Thyroidectomy, appendectomy, . FAMILY HISTORY: Mother secondary to dementia related complications. Father passed in 60 secondary to coronary artery disease. SOCIAL HISTORY: No smoking, alcohol or drug abuse. 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 REVIEW OF SYSTEMS: All 14 systems reviewed and as per HPI. PHYSICAL EXAMINATION: The patient is an obese female, lying in bed, in no apparent distress. Vital Signs: Temperature 98.1, pulse 75 beats per minute, respiratory rate 20 per minute, O2 sat 96% on 2 L as per records, has been on room air at the time of my exam, blood pressure 175/96. HEENT: Pupils equal, reactive to light. Mucous membranes moist. Lungs: Good air entry bilaterally. Fine crackles at the left base. Cardiovascular: S1 and S2 present, regular. No murmurs, gallops or rubs. Abdomen: Soft, nontender, nondistended, bowel sounds present. Extremities: Normal range of motion. Neurologic: No focal deficits DIAGNOSTIC STUDIES/LAB DATA: WBC count 8.0, hemoglobin 12.5, hematocrit 37, platelet count 120. Sodium 138, potassium 3.0, chloride 98, bicarb 32, BUN 7, creatinine 0.58, calcium 6.0, PTH less than 1, 25-hydroxy vitamin D elevated at 120, CRP elevated 171. Urinalysis as above. CT of the chest show no evidence of filling defects, evidence of left basilar consolidation or atelectasis. Pulse oximetry showed evidence of hypoxemia with O2 zachariah of 63% and desaturation index of 10 per hour, O2 less than 88% for about an hour. IMPRESSION/RECOMMENDATION: 1. 72-year-old female, admitted with myalgias, fevers, continues to have febrile episodes, has been afebrile since past day, unknown etiology of febrile illness, suspect autoimmune disorder. She does have low calcium, low PTH, with elevated vitamin D levels, with evidence of proteinuria and mild hematuria. Unclear if above are secondary to viral illness as she had some GI complaints recently. The patient is undergoing 24-hour urine collection for further evaluation. Recommend Nephrology consult. 2. Fever of unknown etiology, less likely to be infectious. I suspect either viral etiology or noninfectious etiology given significantly elevated CRP levels. 3. Hypoxemia, likely secondary to atelectasis of left lung base secondary to significant pain she has been having prior to presentation resulting in splinting. O2 levels are improving. She does also have component of obstructive sleep apnea, which will be evaluated further as outpatient. Will recommend repeating overnight oximetry prior to discharge. Recommend echocardiogram for evaluation of shunt physiology, suspect intrapulmonary shunting and V/Q mismatching secondary to atelectasis. Recommended incentive spirometry. Thank you for allowing me to participate in the care of your patient. Will follow up with you. [id number]/[facility] #: [id number] LADY
[2017-11-29] MEDS: busPIRone TAB* 10 MG PO SCH (20:42)
[2017-11-29] MEDS: Zolpidem TAB* 10 MG PO PRN (20:51)
[2017-11-30] MEDS: DOXYcycline IV* 100 MG in NS 0.9% 250 ML* 250 ML IVPB SCH (00:16)
[2017-11-30] MEDS: NS 0.9% 1000 ML* 1,000 ML IV SCH (00:18)
[2017-11-30] MEDS: Hydrocodone/Acetamin 10/325 1 TAB PO PRN ×2 (01:51→22:54)
[2017-11-30] MEDS: Levothyroxine TAB* 100 MCG TAB PO SCH (05:05)
[2017-11-30 06:32] LABS: ABS Basophils 0.1 10^3/ul (0-0.2); ABS Eosinophils 0.2 10^3/ul (0-0.6); ABS Lymphocytes 2.4 10^3/ul (1.0-4.8); ABS Monocytes 1.4 10^3/ul (0-0.8); ABS Neutrophils 3.8 10^3/ul (1.5-7.7); Hematocrit 35 % (35-47); Hemoglobin 11.6 g/dl (12.0-16.0); Mean Corpuscular HGB Conc 34 g/dl (31-36); Mean Corpuscular Hemoglobin 29 pg (27-31); Mean Corpuscular Volume 86 fL (80-97); Red Blood Count 4.06 10^6/ul (4.00-5.40); Red Cell Distribution Width 15 % (10.5-15); White Blood Count 7.9 10^3/ul (3.5-10.8)
[2017-11-30] MEDS ORDERED: MAGNESIUM SULFATE IVPB ONE (07:30)
[2017-11-30] MEDS ORDERED: NS 0.9% IVPB ONE (07:30)
[2017-11-30] MEDS: Calcium Carbonate LIQ* 1,250 MG/5 ML UDC PO SCH ×3 (07:50→20:39)
[2017-11-30] MEDS: Omeprazole CAP* 20 MG PO SCH (08:10)
[2017-11-30] MEDS: Lisinopril TAB* 10 MG PO SCH (08:11)
[2017-11-30] MEDS: Potassium Chlor TAB* 20 MEQ TAB.ER PO SCH (08:11)
[2017-11-30] MEDS: CMCS Escitalopram (NF) 10 MG TAB PO SCH (08:12)
[2017-11-30] MEDS: Metoprolol Tartrate TAB* 25 MG PO SCH ×2 (08:12→20:43)
[2017-11-30] MEDS: busPIRone TAB* 10 MG PO SCH ×2 (08:12→20:43)
[2017-11-30 08:32] LABS: Monocytes % 11 % (0-7)
[2017-11-30] MEDS ORDERED: Calcium CHLORIDE 10% SYRINGE* 0.34 GM in D5W 100 ML BAG* 100 ML IV ONE (08:55)
[2017-11-30] MEDS: Metoprolol Tartrate IV* 1 MG/ML 5 ML VIAL IV PRN (11:39)
--- NOTE | 2017-11-30 12:24 | CONS ---
CONSULTATION REPORT: DATE OF CONSULT: 11/30/17 REQUESTING PHYSICIAN: Dr. Boateng. CONSULTING SERVICE: Infectious Disease. REASON FOR CONSULT: Fever. IMPRESSION: 1. Three days of fever, myalgia, nausea, vomiting, initial chest pain. Aortic dissection and MT were ruled out. Her symptoms all resolved, except for fatigue. She has been on doxycycline two days. She spends a lot of time outdoors in areas where there are a lot of deer. At this time of the year, the differential diagnosis does include Lyme or anaplasmosis even without a rash for Lyme. She has a transaminitis and thrombocytopenia, so could fit for anaplasma. Could also be a viral illness. In any event, she is much improved. 2. Hypertension. 3. Hypothyroidism. 4. Hypoparathyroidism with hypocalcemia. RECOMMENDATIONS: Continue doxycycline, we will change it to 100 mg by mouth twice a day for seven more days. She can follow up with me. HISTORY OF PRESENT ILLNESS: This is a 72-year-old woman with hypothyroidism admitted with chest pain and malaise with fever and chills. She was well until last . She developed diffuse myalgia, chills, fever, malaise. She started vomiting a few times, after she vomited a few times she developed crushing substernal chest pain that radiated to her back. She was seen in the emergency room, she had no white count. Platelet were normal. Troponin was negative. CT chest, abdomen, and pelvis were negative. Her PE were negative. Her troponins were trended and never bumped. She was febrile on admission and that persisted for a couple of days up to 38.6. She was started on doxycycline empirically with resolution of all of her symptoms today. The main thing today that she still notices is severe fatigue though better even than yesterday. Her energy is starting to continuous pickling line pickler. Her appetite is too. She has had no chills or sweats overnight. She spends a lot of time outdoors in the yard where there a lot of deer activity in [place]. She does check for tics. She has an indoor pet. She has no sick contacts. PAST MEDICAL HISTORY: 1. History of graves disease, status post thyroidectomy, now hypothyroidism and hypoparathyroid. 2. Hypertension. 3. Gastroesophageal reflux disease. 4. Osteoarthritis. 5. Anxiety. 6. Depression. 7. Insomnia. 8. Status post appendectomy. 9. Status post section. ALLERGIES: FLEXERIL, HYDROCHLOROTHIAZIDE, ANTIINFLAMMATORIES, LIPITOR, and CODEINE. FAMILY HISTORY: Parents . Mother with dementia, father with coronary artery disease. SOCIAL HISTORY: Nonsmoker, lives with her . She is retired. No injection drugs. REVIEW OF SYSTEMS: All negative for 12-point review of systems except as noted above. PHYSICAL EXAM: Vital Signs: Temperature 36.7, heart rate 70, respiratory rate 16, blood pressure 170/89, oxygen saturation 93% on room air. General: She is awake, not in distress. Neurologic: She is oriented x3, follows all commands. HEENT: There is no conjunctival hemorrhage. Oropharynx without lesions. Neck: Supple without mass. There is a healed thyroidectomy scar. Heart: Regular, rate, and rhythm without murmurs, rubs, or gallops. Lungs: Clear to auscultation bilaterally. Abdomen: Soft, nontender, and nondistended. There is bowel sounds present. Skin: There is no rash or splinter hemorrhages. Musculoskeletal: There is no spinous tenderness to palpation. No joint synovitis. DIAGNOSTIC STUDIES/LAB DATA: Creatinine 0.5, calcium 5.8, magnesium 1.6, ALT 75 , white blood cell count 7.9, hemoglobin 11, platelets 120. Urinalysis, ketones, blood, and epithelial cells. Please see impression and recommendations outlined above. Thank you for asking me to see Ms. Yang in consultation. [id number]/[facility] #: [id number] LADY
[2017-11-30] MEDS: DOXYcycline CAP(*) 100 MG PO SCH ×2 (12:34→20:43)
[2017-11-30] MEDS: Diazepam TAB(*) 5 MG PO PRN ×2 (12:51→20:43)
--- NOTE | 2017-11-30 15:43 | PN ---
Subjective Date of Service: 11/30/17 Interval History: Ms. Yang reports that she is feeling better today. She denies nausea or vomiting and is tolerating oral intake well. She denies diarrhea. She reports some chest heaviness this morning but denies shortness of breath, lightheadedness. Objective Active Medications: Acetaminophen (Tylenol Tab*) 650 mg PO Q6H PRN Acetaminophen (Tylenol Supp*) 650 mg CA Q6H PRN Hydrocodone Bitart/Acetaminophen ([place] 10/325 (Nf)) 1 tab PO Q6H PRN Albuterol/Ipratropium (Duoneb (Albuterol 2.5 Mg/Ipratropium 0.5 Mg)) 1 neb INH [id number] AWAKE PRN Buspirone HCl (Buspar Tab*) 10 mg PO BID SYDNEE Calcium Carbonate (Calcium Carbonate Liq*) 1,875 mg PO TID SYDNEE Diazepam (Valium Tab(*)) 5 mg PO BID PRN Doxycycline Hyclate (Vibramycin Cap(*)) 100 mg PO BID SYDNEE Enoxaparin Sodium (Lovenox(*)) 40 mg SUBCUT Q24H SYDNEE Escitalopram Oxalate (Lexapro (Nf)) 20 mg PO DAILY SYDNEE Hydromorphone HCl (Dilaudid Inj*) 0.5 mg IV Q4H PRN Hydroxyzine HCl (Atarax Tab*) 25 mg PO Q6H PRN Sodium Chloride (Ns 0.9% 1000 Ml*) 1,000 mls @ 75 mls/hr IV PER RATE SYDNEE Levothyroxine Sodium (Synthroid Tab*) 100 mcg PO 0600 SYDNEE Lisinopril (Prinivil Tab*) 40 mg PO DAILY SYDNEE Lorazepam (Ativan Inj*) 0.25 mg IV PUSH Q8H PRN Melatonin (Melatonin) 3 mg PO BEDTIME PRN; Protocol Metoprolol Tartrate (Lopressor Iv*) 5 mg IV Q6H PRN Metoprolol Tartrate (Lopressor Tab*) 50 mg PO BID SYDNEE Omeprazole (Prilosec Cap*) 20 mg PO DAILY SYDNEE Ondansetron HCl (Zofran Odt Tab*) 4 mg SL Q6H PRN Ondansetron HCl (Zofran Inj*) 4 mg IV Q6H PRN Potassium Chloride (Klor Con Er Tab*) 40 meq PO DAILY SYDNEE Zolpidem Tartrate (Ambien Tab*) 10 mg PO BEDTIME PRN Vital Signs: Temp Pulse Resp BP Pulse Ox 98.1 F 65 16 172/82 92 11/30/17 11:29 11/30/17 11:29 11/30/17 14:23 11/30/17 11:29 11/30/17 11:29 Oxygen Devices in Use Now: None Appearance: Female sitting up in bed, eating breakfast in NAD Eyes: No Scleral Icterus Ears/Nose/Mouth/Throat: Mucous Membranes Moist Neck: Trachea Midline Respiratory: Symmetrical Chest Expansion and Respiratory Effort, Clear to Auscultation Cardiovascular: NL Sounds; No Murmurs; No JVD, No Edema Abdominal: NL Sounds; No Tenderness; No Distention Lymphatic: No Cervical Adenopathy Extremities: No Edema Skin: No Rash or Ulcers Neurological: Alert and Oriented x 3, NL Muscle Strength and Tone Nutrition: Taking PO's Result Diagrams: 11/30/17 06:00 11/30/17 06:00 Microbiology and Other Data: . Assess/Plan/Problems-Billing Assessment: Ms. Yang is a 72 yo female with a PMH of hypothyroidism with thyroidectomy and subsequent hypoparathyroidism on chronic levothyroxone and calcium supplementation who was admitted on 11/25/17 with nausea, vomiting and diarrhea with suspected viral illness vs tick borne illness and electrolyte abnormalities including hypocalcemia, hypomagnesemia, and hypokalemia. - Patient Problems (1) Secondary hypoparathyroidism Comment: - Hx of thyroidectomy with subsequent hypoparathyroidism since age 24. - Suspect malabsorption of calcium supplementation with n/v/d. - Continue oral replacement, IV calcium ordered today as well. - Repeat labs pending for this afternoon. (2) Fever Comment: - Afebrile since 11/28 at 1130am. - With nausea, vomiting and diarrhea, highly suspect viral illness though has frequent exposure to ticks and could have tick borne illness. - Appreciate ID consultation, plan to complete course of doxycycline. (3) Chest pain, atypical Comment: - Question if secondary to retching with N/V. - PE, ACS, and dissection ruled out with CTA chest and (-) troponins x3, respectively. No infiltrate noted on CT chest. (4) Electrolyte abnormality Comment: - Hypokalemia, Hypocalcemia, and Hypomagnesemia - Repleted, repeat afternoon labs pending. (5) Hypoxia Comment: - Appreciate Dr. Antonio input - MICHELA likely - For outpatient Sleep study to see if pt qualifies for CPAP (6) Anxiety Comment: - Continue buspirone, started this admission. Continue home valium. - Secondary hypoparathyroidism likely contributing (7) Hypertension Comment: - SBP 150-170s. - Continue increased metoprolol tartrate, continue lisinopril. - Stop IVF. (8) Hypothyroidism Comment: - Continue synthroid - TSH normal (9) DVT prophylaxis Comment: -Continue Lovenox SQ (10) Full code status Comment: Status and Disposition: Inpatient. Anticipate discharge to home when medically stable.
[2017-11-30] MEDS: Enoxaparin(*) 40 MG/0.4 ML SYR SUBCUT SCH (16:54)
[2017-11-30] MEDS: KCL 20 MEQ/100 ML IVPREMIX* 20 MEQ/100 ML BAG IV SCH ×3 (19:23→23:34)
[2017-11-30] MEDS: Zolpidem TAB* 10 MG PO PRN (20:43)
[2017-11-30] MEDS ORDERED: Potassium Chlor TAB* 20 MEQ TAB.ER PO ONE (23:25)
[2017-12-01] MEDS ORDERED: hydrALAZINE IV* 20 MG/ML VIAL IV SLOW PU ONE (03:54)
[2017-12-01] MEDS: Levothyroxine TAB* 100 MCG TAB PO SCH (05:35)
[2017-12-01] MEDS: Calcium Carbonate LIQ* 1,250 MG/5 ML UDC PO SCH ×2 (07:35→12:53)
[2017-12-01] MEDS: Omeprazole CAP* 20 MG PO SCH (07:36)
[2017-12-01] MEDS: DOXYcycline CAP(*) 100 MG PO SCH (07:36)
[2017-12-01] MEDS: Potassium Chlor TAB* 20 MEQ TAB.ER PO SCH (07:36)
[2017-12-01] MEDS: CMCS Escitalopram (NF) 10 MG TAB PO SCH (07:36)
[2017-12-01] MEDS: Lisinopril TAB* 10 MG PO SCH (07:36)
[2017-12-01] MEDS: Metoprolol Tartrate TAB* 25 MG PO SCH (07:36)
[2017-12-01] MEDS: busPIRone TAB* 10 MG PO SCH (07:36)
[2017-12-01] MEDS: Acetaminophen TAB* 325 MG PO PRN (07:43)
[2017-12-01] MEDS ORDERED: Calcium CHLORIDE 10% SYRINGE* 0.34 GM in D5W 100 ML BAG* 100 ML IV ONE (11:10)
[2017-12-01 12:08] VITALS: BP 143/86
--- NOTE | 2017-12-01 12:44 | PN ---
Subjective Date of Service: 12/01/17 Interval History: Ms. Yang reports feeling quite well today and is eager for discharge to home. Objective Active Medications: Acetaminophen (Tylenol Tab*) 650 mg PO Q6H PRN Acetaminophen (Tylenol Supp*) 650 mg NC Q6H PRN Hydrocodone Bitart/Acetaminophen ([employer] 10/325 (Nf)) 1 tab PO Q6H PRN Albuterol/Ipratropium (Duoneb (Albuterol 2.5 Mg/Ipratropium 0.5 Mg)) 1 neb INH [id number] AWAKE PRN Buspirone HCl (Buspar Tab*) 10 mg PO BID SYDNEE Calcium Carbonate (Calcium Carbonate Liq*) 1,875 mg PO TID SYDNEE Diazepam (Valium Tab(*)) 5 mg PO BID PRN Doxycycline Hyclate (Vibramycin Cap(*)) 100 mg PO BID SYDNEE Enoxaparin Sodium (Lovenox(*)) 40 mg SUBCUT Q24H SYDNEE Escitalopram Oxalate (Lexapro (Nf)) 20 mg PO DAILY SYDNEE Hydromorphone HCl (Dilaudid Inj*) 0.5 mg IV Q4H PRN Hydroxyzine HCl (Atarax Tab*) 25 mg PO Q6H PRN Levothyroxine Sodium (Synthroid Tab*) 100 mcg PO 0600 SYDNEE Lisinopril (Prinivil Tab*) 40 mg PO DAILY SYDNEE Lorazepam (Ativan Inj*) 0.25 mg IV PUSH Q8H PRN Melatonin (Melatonin) 3 mg PO BEDTIME PRN; Protocol Metoprolol Tartrate (Lopressor Iv*) 5 mg IV Q6H PRN Metoprolol Tartrate (Lopressor Tab*) 50 mg PO BID SYDNEE Omeprazole (Prilosec Cap*) 20 mg PO DAILY SYDNEE Ondansetron HCl (Zofran Odt Tab*) 4 mg SL Q6H PRN Ondansetron HCl (Zofran Inj*) 4 mg IV Q6H PRN Potassium Chloride (Klor Con Er Tab*) 40 meq PO DAILY SYDNEE Zolpidem Tartrate (Ambien Tab*) 10 mg PO BEDTIME PRN Vital Signs: Temp Pulse Resp BP Pulse Ox 98.1 F 70 16 143/86 96 12/01/17 11:48 12/01/17 11:48 12/01/17 11:48 12/01/17 11:48 12/01/17 11:48 Oxygen Devices in Use Now: None Result Diagrams: 11/30/17 06:00 12/01/17 05:52 Microbiology and Other Data: . Assess/Plan/Problems-Billing Assessment: Ms. Yang is a 72 yo female with a PMH of hypothyroidism with thyroidectomy and subsequent hypoparathyroidism on chronic levothyroxone and calcium supplementation who was admitted on 11/25/17 with nausea, vomiting and diarrhea with suspected viral illness vs tick borne illness and electrolyte abnormalities including hypocalcemia, hypomagnesemia, and hypokalemia. - Patient Problems (1) Secondary hypoparathyroidism Comment: - Calcium level at 6.8, at goal per patient's history. - Hx of thyroidectomy with subsequent hypoparathyroidism since age 24. - Suspect malabsorption of calcium supplementation with n/v/d. - Continue oral replacement. (2) Fever Comment: - Afebrile since 11/28 at 1130am. - With nausea, vomiting and diarrhea, highly suspect viral illness though has frequent exposure to ticks and could have tick borne illness. - Appreciate ID consultation, plan to complete course of doxycycline. (3) Chest pain, atypical Comment: - Question if secondary to retching with N/V. - PE, ACS, and dissection ruled out with CTA chest and (-) troponins x3, respectively. No infiltrate noted on CT chest. (4) Electrolyte abnormality Comment: - Hypokalemia, Hypocalcemia, and Hypomagnesemia - Repleted, resolved. (5) Hypoxia Comment: - Appreciate Dr. Antonio input - MICHELA likely - For outpatient Sleep study to see if pt qualifies for CPAP (6) Anxiety Comment: - Continue buspirone, started this admission. Continue home valium. - Secondary hypoparathyroidism likely contributing (7) Hypertension Comment: - SBP 150-170s. - Patient feels jittery with metoprol, continue lisinopril (increased this admission). - Will need continued adjustment per PCP. (8) Hypothyroidism Comment: - Continue synthroid - TSH normal (9) DVT prophylaxis Comment: -Continue Lovenox SQ (10) Full code status Comment: Status and Disposition: Inpatient. Discharge to home.
--- NOTE | 2017-12-01 15:33 | DS ---
CC: Dr. Madelin Hoover* [facility] MEDICINE DISCHARGE SUMMARY: DATE OF ADMISSION: 11/25/17 DATE OF DISCHARGE: 12/01/17 PRIMARY CARE PHYSICIAN: Dr. Madelin Hoover. ATTENDING PHYSICIAN: Dr. Mariajose Zuniga* (dictation provided by Yulissa Zhong NP) . PRIMARY DIAGNOSES: 1. Suspected viral illness versus acute tick-borne illness with nausea and vomiting. 2. Hypocalcemia secondary to chronic secondary hypoparathyroidism. 3. Hypokalemia. 4. Hypomagnesemia. SECONDARY DIAGNOSES: 1. Hypertension. 2. Hypothyroidism. 3. Gastroesophageal reflux disease. 4. Osteoarthritis. 5. Anxiety. 6. Depression. 7. Insomnia. MEDICATIONS AT THE TIME OF DISCHARGE: 1. Pantoprazole 40 mg p.o. daily. 2. Levothyroxine 100 mcg p.o. daily. 3. Lexapro 20 mg p.o. daily. 4. Diazepam 5 to 10 mg p.o. b.i.d. p.r.n. 5. Zolpidem 10 mg p.o. at bedtime. 6. Calcium carbonate liquid 7.5 mL p.o. b.i.d. and 5 mL at noon. 7. Hydrocodone with acetaminophen 7.5/325 one tab p.o. q. 8 hours p.r.n. 8. Ergocalciferol 50,000 units p.o. on Thursday and Thursday (please hold until followup with primary care physician). 9. BuSpar 5 mg p.o. b.i.d. (new medication). 10. Omeprazole 20 mg p.o. daily. 11. Lisinopril 40 mg p.o. daily (new increased dose). 12. Doxycycline 100 mg p.o. b.i.d. (new medication). HOSPITAL COURSE: Ms. Yang is a 72-year-old female with a past medical history of secondary hypoparathyroidism after a thyroidectomy at age 24 with chronic hypocalcemia, on chronic supplementation, who presented to the hospital on 11/25/17 with concerns for nausea, vomiting, chest pain. Please see dictated H and P from Dr. Pramod Thayer for complete details. In brief, the patient states that in the days prior to admission, she had been cleaning her home in preparation for visitors. About 2 days into that visit, she began to develop malaise, after which she developed nausea and vomiting. She also had some diarrhea, but felt that vomiting was the primary feature of the illness. She had mild fever. Immediately prior to admission, she developed severe chest pain and for that reason came to the emergency room for evaluation. In the emergency room, Ms. Yang had a chest x-ray, which showed the following : "No active cardiopulmonary disease is noted." She had a chest, abdomen and pelvis CTA that showed the following: "No CT evidence of thoracic aortic aneurysm or dissection. There is no active disease or the chest. No acute findings of the abdomen and pelvis. Normal abdominal aorta and visceral branches. Moderate diverticula of the sigmoid colon without CT evidence of acute diverticulosis. Uterine leiomyomas and thyroidectomy." Her labs showed no leukocytosis. Her ESR was 41. Her CRP was 171.73. Her first calcium was low at 7.4. She had a potassium of 3.1, magnesium was checked the following day and it was 1.7. Her vitals, showed a low-grade fever to a little over 100. Her blood pressure was elevated at 140s to 180s systolically. Ms. Yang was admitted to the hospital. Acute coronary syndrome was ruled out with negative troponins and EKG. PE was also ruled out as per above. Ms. Yang has made slow but steady progress. The following day, she was still having some nausea and vomiting, but by day 2, she was feeling better and tolerating oral intake. She has had some significant hypocalcemia consistent with her history of secondary hypoparathyroidism. Her calcium fell to a zachariah of 5.8. We had initiated intravenous calcium supplementation in addition to her oral supplementation as well as repleting her magnesium and potassium. With this, her potassium today is 3.5, her sodium was 140, the calcium was 6.8, magnesium was 1.9. The patient states 6.8 is a good goal for her given her history of hypoparathyroidism and desire to avoid hypercalcemia. I will note that the patient had a dramatically elevated vitamin D level greater than 120 and I suggested she hold the vitamin D supplementation until followup with her primary care physician. For the nausea and vomiting and fever, she was seen in consultation by Dr. Jose Gonzalez of Infectious Disease and he agreed that she could have a tick- borne illness versus a viral illness and recommended that she go on doxycycline 100 mg p.o. b.i.d. x10 days. The only other issue of interest during the hospitalization is that her blood pressure has been elevated at times, at the time of discharge it is 143/86, but has been as high as 190 during the hospitalization. I think this is in part secondary to intravenous fluids given while here as well as stress and pain. We have increased her lisinopril from 20 mg p.o. daily to 40 mg p.o. daily. We attempted to initiate metoprolol, but she states that this gives her "jitteriness" and is unable to tolerate that medication. Ms. Yang is doing very well this morning. She has had no nausea, no vomiting. She is up and ambulating in her room independently. She is tolerating oral intake well. Our plans for her are to be discharged to home, to follow up closely with her primary care physician, Dr. Hoover. DISPOSITION: To home. DIET: Regular. ACTIVITY: As tolerated. FOLLOWUP PLANS: Please follow up with Dr. Hoover regarding ongoing management of chronic electrolyte issues secondary to hypoparathyroidism as well as blood pressure management. TIME SPENT: Approximately 60 minutes was spent in the discharge of this patient , more than half the time spent with the patient at bedside reviewing the events leading up to this hospitalization, performing the physical examination and reviewing the plan of care. YULISSA ZHONG NP [id number]/[facility] #: [id number] LADY
== END 2017-12-01 15:00 | disposition home or self-care (01) | DRG 866 ==
LOC: ED 15:06 → MEDTELE 23:26 → OBSVTOIN 11-27 12:00
PROVIDERS: ADMIT Hospitalist; ATTEND Internal Medicine
DX: B34.9 Viral infection, unspecified (principal); J98.11 Atelectasis; A93.8 Other specified arthropod-borne viral fevers; I10 Essential (primary) hypertension; K21.9 Gastro-esophageal reflux disease without esophagitis; F41.9 Anxiety disorder, unspecified; F32.9 Major depressive disorder, single episode, unspecified; M19.90 Unspecified osteoarthritis, unspecified site; G47.00 Insomnia, unspecified; E89.0 Postprocedural hypothyroidism; E66.9 Obesity, unspecified; R09.02 Hypoxemia; E87.6 Hypokalemia; R07.89 Other chest pain; E83.51 Hypocalcemia; E83.42 Hypomagnesemia; R31.9 Hematuria, unspecified; R74.0 Nonspecific elevation of levels of transaminase and lactic acid dehydrogenase [LDH]; D69.6 Thrombocytopenia, unspecified; R11.2 Nausea with vomiting, unspecified; E20.8 Other hypoparathyroidism; K57.30 Diverticulosis of large intestine without perforation or abscess without bleeding; D25.9 Leiomyoma of uterus, unspecified; Z88.5 Allergy status to narcotic agent; Z88.8 Allergy status to other drugs, medicaments and biological substances; Z88.6 Allergy status to analgesic agent; Z82.49 Family history of ischemic heart disease and other diseases of the circulatory system; Z82.0 Family history of epilepsy and other diseases of the nervous system; Z68.34 Body mass index [BMI] 34.0-34.9, adult; Z91.018 Allergy to other foods; Z72.89 Other problems related to lifestyle
CPT/HCPCS: 36415; 71045; 71046; 71275; 74174; 80048; 80053; 81003; 81015; 82306; 82330; 82652; 83605; 83735; 83880; 83970; 84100; 84443; 84484; 85025; 85049; 85060; 85652; 86140; 86703; 87040; 87086; 87798; 87899; 93005; 94640; 94760; 94762; 99285; A9270-GY; G0378; G8978-GP-CJ; G8979-GP-CJ; G8980-GP-CJ; J0360; J1170; J1650; J2060; J2270; J2405; J2765; J3475; J3480; J3490; Q9967

== ENCOUNTER 2018-11-18 10:58 | Emergency (ER) | payer OTHER, MEDICARE ==
--- OUTSIDE RECORDS SUMMARY | 2018-11-18 11:18 | XMS REPORT | Continuity of Care Document ---
:1945 External Reference #:[id number] Author Name Chelsey Chaudhry NP Address [address] [facility] [place] [address] Care Team Providers Name Role Phone Madelin Hoover M.D. Care Team Information Child Support Agent Unavailable Madelin Hoover M.D. Primary Care Physician Unavailable Payers Date Identification Numbers Payment Provider Subscriber Effective: 2016 Policy Number: [id number] [facility] [employer] Number: [id number] [id number] PayID: [id number] [place] [address] Effective: 2012 Policy Number: [id number] [employer] [place] [employer] PayID: [id number] [place] [address] Problems Active Problems Provider Date Essential hypertension Abhijeet Dunn M.D. Onset: 08/12/2013 Hypercalcemia Abhijeet Dunn M.D. Onset: 08/12/2013 Hypothyroidism Abhijeet Dunn M.D. Onset: 08/12/2013 Anxiety state Abhijeet Dunn M.D. Onset: 08/12/2013 Vitamin D deficiency Abhijeet Dunn M.D. Onset: 08/12/2013 Gastroesophageal reflux disease Abhijeet Dunn M.D. Onset: 08/12/2013 Hypoparathyroidism Madelin Hoover M.D. Onset: 02/08/2016 Degenerative joint disease involving multiple Madelin Hoover M.D. Onset: 02/07 joints Resolved Problems Hypocalcemia Abhijeet Dunn M.D. Onset: 10/18/2013 Resolved: 01/01/2016 Right upper quadrant pain Abhijeet Dunn M.D. Onset: 01/20/2014 Resolved: 01/01/2016 Acute serous otitis media Abhijeet Dunn M.D. Onset: 04/17/2015 Resolved: 01/01/2016 Renetta thyroiditis Abhijeet Dunn M.D. 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 ETOH Use Denies alcohol use Tobacco Use Start: Unknown Patient has never smoked Exercise Type/Frequency tries to walk , enjoys back pain limits gardening Exercise Type/Frequency Exercises regularly Exercise Type/Frequency Swims 2 times a week Allergies, Adverse Reactions, Alerts Active Allergies Reaction Severity Comments Date Lipitor 08/12/2013 Norvasc 08/12/2013 Shellfish-derived Products 08/12/2013 Metoprolol sob/chest heaviness 09/06/2013 Codeine Headache 01/20/2014 Clonidine hypotension 01/12/2015 Bystolic racing heart 01/12/2015 Indocin 10/04/2015 NSAIDs hives/throat closes 03/25/2016 Cyclobenzaprine dizzy 05/29/2016 Retinol Acetate 06/12/2017 Amoxicillin 11/10/2017 Buspar 12/21/2017 Hydrochlorothiazide 03/09/2018 Medications Active Medications SIG Qnty Indications Ordering Date Provider Vitamin D Take 1 Capsule 45Caps [facility], 11/15/2018 (Ergocalciferol) By Mouth Every M.D. Other Day [id number] Capsules Fluconazole one tab by mouth 2tabs B37.3 [facility], 11/09/2018 150mg once, may repeat M.D. Tablets in five days Pantoprazole Sodium 1 by mouth every 30tabs I10 Ruby Myrna 04/27/2018 day Ro [employer] 40mg Tablets Escitalopram Oxalate take 1 tablet by 90tabs F41.1 [facility], 2017 mouth daily M.D. 20mg Tablets Hydrocodone-Acetamino 1 tab every 8 90tabs M54.5 [facility], 09/16/2017 phen hours as needed M.D. 7.5-325mg Tablets pain Calcium Carbonate 7.5ml by mouth 1800units [facility], 05/11/2017 Antacid in in the M.D. 1250mg/5ML morning, 5ml in Suspension afternoon and 7.5ml in evening Ambien take 1 tablet by 30tabs Madelin Preston, 12/20/2016 10mg Tablets mouth at bedtime M.D. Diazepam 1-2 tab by mouth 30tabs F41.1 Chelsey Victor 09/04/2016 10mg Tablets two times a day BUBBA Chaudhry as needed Levothyroxine Sodium Take 1 Tablet By 90tabs E06.3 [facility], 2015 Mouth Every Day M.D. 100mcg Tablets Ergocalciferol 1 by mouth Sat 90caps Madelin Preston, 03/14/2014 And Sun M.D. [id number] Capsules History Medications Spironolactone Take 1 Tablet By 90Tablet [facility], 10/05/2018 - 50mg Mouth Every Day M.D. 11/18/2018 Tablets In The Morning Spironolactone 1 by mouth every 30tabs I10 [facility], 06/08/2018 - 50mg morning M.D. 10/04/2018 Tablets Lisinopril 1 by mouth every 90tabs I10 [facility], 04/27/2018 - 40mg Tablets day M.D. 11/18/2018 Lexapro 1 by mouth every 90tabs F41.1 [facility], 11/19/2017 - 20mg Tablets day (Brand Only) M.D. 12/12/2017 Augmentin 1 by mouth twice 14tabs Pedrito Moody 11/02/2017 - 875-125mg a day MD Halley 11/10/2017 Tablets Vitamin D Take 1 Capsule By 90caps Madelin Preston, 09/18/2017 - (Ergocalciferol) Mouth On Thursday M.D. 03/09/2018 And Thursday [id number] Capsules Prednisone take 2 by mouth 6tabs L23.2 Chelsey Victor 06/12/2017 - 20mg Tablets as one dose daily BUBBA Chaudhry 06/19/2017 until gone Hydrocortisone apply to skin 20gm L23.2 [facility], 06/12/2017 - 2.5% Cream around eyes twice M.D. 08/24/2017 daily for up to 10 days in a row. Lisinopril Take 1 Tablet By 90tabs I10 Madelin Preston, 05/12/2017 - 20mg Tablets Mouth Every Day M.D. 12/21/2017 Zolpidem Tartrate take one tablet 30tabs [facility], 06/23/2016 - 10mg by mouth at M.D. 12/20/2016 Tablets bedtime as needed for sleep; max daily dose=1 tablet Physical Therapy treatment and M25.51 Madelin Preston, 05/28/2016 - evaluation r 1 M.D. 05/31/2016 shoulder pain Cyclobenzaprine HCL take 1 tablet by 90tabs M25.51 [facility], 2015 - 5mg mouth three times 1 M.D. 05/29/2016 Tablets daily as needed Escitalopram Oxalate 1 by mouth every 30tabs F41.1 [facility], 2015 - 20mg day (brand only) M.D. 11/19/2017 Tablets Diazepam 1/2 -1 tab by 30tabs F41.1 [facility], 11/28/2015 - 10mg Tablets mouth two times a M.D. 06/23/2016 day as needed Levothyroxine Sodium 1 po qd 30tabs E06.3 Libby Ventura, 10/18/2015 - [employer] 01/01/2016 112mcg Tablets Cyclobenzaprine HCL 1 by mouth every 30tabs M79.67 Abhijeet Dunn M.D. 2014 - 10mg night 1 07/12/2015 Tablets Diazepam 1 by mouth three 6tabs F41.1 Abhijeet Dunn M.D. 05/18/2015 - 10mg Tablets times a day as 10/04/2015 needed Amoxicillin 1 by mouth twice 20tabs H65.01 Abhijeet Dunn M.D. 04/17/2015 - 875mg Tablets a day for 10 days 05/18/2015 Proair HFA 2 puffs every 4 1units 786.2 Talia 08/08/2014 - 108(90Base) hours as needed Deo, 11/07/2014 mcg/Act Aerosol for cough Afnp-C Azithromycin 2 tabs by mouth 6tabs Abhijeet Dunn M.D. 08/03/2014 - 250mg day #1 then 1 tab 08/08/2014 Tablets by mouth day#2-5 Cephalexin 1 by mouth twice 20tabs 682.9 Abhijeet Dunn M.D. 06/13/2014 - 500mg Tablets a day for 10 days 08/08/2014 Clotrimazole/Betametha apply to affected 30gm 112.9 Alanna 05/12/2014 - sone Dipropionate area twice a day Trae LUIS 01/12/2015 1-0.05% Cream Prednisone 1 by mouth twice 6tabs 724.2 Abhijeet Dunn M.D. 05/02/2014 - 20mg Tablets a day for 3 days 05/12/2014 Zoloft 1 by mouth every 300.00 Abhijeet Dunn M.D. 03/21/2014 - 100mg Tablets day 03/21/2014 Cyclobenzaprine HCL 1 by mouth three 40tabs 724.2 Abhijeet Dunn M.D. 2013 - 10mg times a day as 06/13/2014 Tablets needed Hydrocodone-Acetaminop 1 by mouth three 90tabs M54.5 Madelin Hoover 2013 - hen times a day as M.D. 09/16/2017 5-325mg Tablets needed pain Escitalopram Oxalate Take 1 Tablet By 30tabs F41.9 Pedrito Hawthorne 03/21/2014 - 10mg Mouth Once Daily Candelaria Calle 04/02/2016 Tablets F32.9 Vitamin D2 1 by mouth every Abhijeet Dunn 01/20/2014 - 400Unit day M.D. 03/14/2014 Tablets Physical Therapy treatment and 724.3 Abhijeet Dunn 12/26/2013 - evaluation for M.D. 01/19/2014 sciatica Cephalexin 1 by mouth twice a 20tabs 682.3 Abhijeet Dunn 12/19/2013 - 500mg day for 10 days M.D. 01/19/2014 Tablets Ondansetron Odt 1 by mouth every 6 40tabs 787.02 Abhijeet Dunn 12/19/2013 - 4mg hours as needed M.D. 05/11/2017 Tablets Dispers Zoloft 1 po qd 300.00 Abhijeet Dunn 12/06/2013 - 50mg Tablets M.D. 03/21/2014 Oxycodone/Acetaminop 1-2 take pill every 40tabs Abhijeet Dunn 11/29/2013 - hen 8 hours for pain M.D. 12/25/2013 2.5-325mg Tablets Hydrocodone/Acetamin 1 by mouth four 60tabs 719.42 Abhijeet Dunn 11/28/2013 - ophen times a day as M.D. 03/21/2014 5-325mg Tablets needed pain 724.3 Zoloft 1 PO qd (brand 30tabs 300.00 Abhijeet Dunn M.D. 10/18/2013 - 100mg Tablets name only) 12/06/2013 Vitamin D3 1 po qid Abhijeet Dunn M.D. 10/18/2013 - 400Unit 01/19/2014 Tablets Clonazepam three times a 90tabs 300.00 Abhijeet Dunn M.D. 09/13/2013 - 0.5mg day as needed 01/19/2014 Tablets Clonidine HCL take one tablet 60tabs 401.9 Abhijeet Dunn M.D. 09/06/2013 - 0.1mg by mouth twice a 10/18/2013 Tablets day Metoprolol Succinate 1 po qd 30tabs 401.9 Abhijeet Dunn M.D. 08/26/2013 - ER 09/06/2013 50mg Tablets ER 24HR Calcium 600 3 qam, 2 po @ E83.51 Abhijeet Dunn M.D. 08/12/2013 - 600mg noon and 3 po 05/11/2017 Tablets qpm Vitamin D 1 po weekly x 8. 8caps 268.9 Abhijeet Dunn M.D. 08/12/2013 - [id number] 08/26/2013 Capsules Ambien 1 by mouth every 30tabs G47.00 Libby Ventura, 08/12/2013 - 10mg Tablets night at bedtime [employer] 06/04/2016 Valium 1/2 to 1 po qd 120tabs 300.00 Abhijeet Dunn M.D. 08/12/2013 - 10mg Tablets prn severe 08/26/2013 anxiety Zoloft 1 po qd brand 30tabs 300.00 Abhijeet Dunn M.D. 08/12/2013 - 50mg Tablets only 10/18/2013 Lisinopril 1/2 tab at 90tabs I10 Madelin Hoover, 08/12/2013 - 40mg Tablets bedtime Lucien.Alexander 05/12/2017 Levothyroxine Sodium 1 by mouth every 90tabs E06.3 Abhijeet Dunn M.D. 2013 - day 10/18/2015 125mcg Tablets Pantoprazole Sodium Take 1 Tablet By 30tabs K21.9 Libby Audrey, 2013 - Mouth Once Daily [employer] 03/09/[address] Wing 1 by mouth three 60tabs F41.9 Libby Westborokrer, - 0.5mg Tablets times a day as [employer] 12/20/2015 needed anxiety Prednisone taper as Unknown - 20mg Tablets directed 12/06/2013 Magnesium-Oxide Take 1 Tablet By 30tabs Libby Ventura, - 400mg Mouth Every Day [employer] 12/30/2015 Tablet as Needed Lisinopril Take 4 Tablets 120tabs I10 Ruby Myrna - 10mg Tablets By Mouth Every Ro, [employer] 04/27/2018 Day Immunizations CPT Code Status Date Vaccine Lot # [id number] Given 03/09/2018 High-Dose, Influenza Virus Vacccine-fluzone 65 and [id number] older 78415 Given 03/20/2017 High-Dose, Influenza Virus Vacccine-fluzone 65 and older 00561 Given 08/20/2016 Pneumococcal Conjugate Vacc-13 [id number] 32924 Given 03/25/2016 High-Dose, Influenza Virus Vacccine-fluzone 65 and [id number] older 35187 Given 03/19/2014 DO Not Use Split Influenza Virus Vaccine Vital Signs Date Vital Result Comment 11/18/2018 10:06am BP Systolic 112 mmHg BP Diastolic 72 mmHg Heart Rate 62 /min Body Temperature 98.5 F Respiratory Rate 16 /min 11/09/2018 8:01am BP Systolic 124 mmHg BP Diastolic 70 mmHg Heart Rate 72 /min Body Temperature 97.7 F Respiratory Rate 16 /min Height 61.5 inches 5'1.50" Weight 198.00 lb BMI (Body Mass Index) 36.8 kg/m2 08/03/2018 9:30am BP Systolic 138 mmHg BP Diastolic 70 mmHg Heart Rate 60 /min Body Temperature 98.2 F Respiratory Rate 16 /min Height 61.5 inches 5'1.50" Weight 200.00 lb BMI (Body Mass Index) 37.2 kg/m2 06/08/2018 9:42am BP Systolic 162 mmHg 1st reading 160/90 BP Diastolic 90 mmHg 1st reading 160/90 Heart Rate 84 /min Body Temperature 98.1 F Respiratory Rate 16 /min Height 61.5 inches 5'1.50" Weight 200.00 lb BMI (Body Mass Index) 37.2 kg/m2 04/27/2018 8:57am BP Systolic 180 mmHg BP Diastolic 94 mmHg Heart Rate 80 /min Body Temperature 97.9 F Respiratory Rate 16 /min Height 61.5 inches 5'1.50" Weight 199.00 lb BMI (Body Mass Index) 37.0 kg/m2 03/09/2018 10:28am BP Systolic 160 mmHg BP Diastolic 100 mmHg BP Systolic Recheck 160 mmHg BP Diastolic Recheck 100 mmHg Heart Rate 84 /min Body Temperature 98.1 F Respiratory Rate 16 /min Height 61.5 inches 5'1.50" Weight 194.00 lb BMI (Body Mass Index) 36.1 kg/m2 12/21/2017 1:23pm BP Systolic 160 mmHg BP Diastolic 100 mmHg Heart Rate 84 /min Body Temperature 98.3 F Respiratory Rate 18 /min Height 61.5 inches 5'1.50" Weight 186.00 lb BMI (Body Mass Index) 34.6 kg/m2 11/10/2017 10:04am BP Systolic 148 mmHg BP Diastolic 98 mmHg Heart Rate 76 /min Body Temperature 98.6 F Respiratory Rate 18 /min Height 61.5 inches 5'1.50" Weight 190.00 lb BMI (Body Mass Index) 35.3 kg/m2 11/02/2017 1:13pm BP Systolic 140 mmHg BP Diastolic 82 mmHg Heart Rate 78 /min Body Temperature 97.7 F Height 61.5 inches 5'1.50" Weight 192.00 lb BMI (Body Mass Index) 35.7 kg/m2 09/16/2017 2:04pm BP Systolic 154 mmHg BP Diastolic 84 mmHg Heart Rate 72 /min Body Temperature 98.4 F Respiratory Rate 16 /min Height 61.5 inches 5'1.50" Weight 194.00 lb BMI (Body Mass Index) 36.1 kg/m2 06/19/2017 8:59am BP Systolic 150 mmHg BP Diastolic 84 mmHg Heart Rate 76 /min Body Temperature 100.6 F Respiratory Rate 16 /min Height 61.5 inches 5'1.50" Weight 193.00 lb BMI (Body Mass Index) 35.9 kg/m2 06/12/2017 1:45pm BP Systolic 142 mmHg BP Diastolic 98 mmHg Heart Rate 96 /min Body Temperature 97.7 F Height 61.5 inches 5'1.50" Weight 193.00 lb BMI (Body Mass Index) 35.9 kg/m2 05/12/2017 1:31pm BP Systolic 150 mmHg BP Diastolic 80 mmHg Heart Rate 76 /min Body Temperature 98.2 F Respiratory Rate 16 /min Height 61.5 inches 5'1.50" Weight 193.00 lb BMI (Body Mass Index) 35.9 kg/m2 01/13/2017 11:31am BP Systolic 132 mmHg BP Diastolic 80 mmHg Heart Rate 90 /min Body Temperature 97.9 F Respiratory Rate 16 /min Height 61.5 inches 5'1.50" Weight 201.38 lb BMI (Body Mass Index) 37.4 kg/m2 08/20/2016 4:30pm BP Systolic 150 mmHg BP Diastolic 90 mmHg Heart Rate 78 /min Body Temperature 97.7 F Respiratory Rate 16 /min Height 61.5 inches 5'1.50" 07/02/2016 1:31pm BP Systolic 142 mmHg BP Diastolic 86 mmHg Heart Rate 80 /min Body Temperature 97.9 F Respiratory Rate 16 /min Height 61.5 inches 5'1.50" Weight 190.38 lb BMI (Body Mass Index) 35.4 kg/m2 05/28/2016 7:58am BP Systolic 140 mmHg BP Diastolic 86 mmHg Heart Rate 90 /min Body Temperature 97.0 F Respiratory Rate 16 /min Height 61.5 inches 5'1.50" Weight 190.38 lb BMI (Body Mass Index) 35.4 kg/m2 04/02/2016 11:34am BP Systolic 138 mmHg BP Diastolic 84 mmHg Heart Rate 72 /min Body Temperature 97.9 F Respiratory Rate 16 /min Height 61.5 inches 5'1.50" 03/25/2016 9:35am BP Systolic 170 mmHg BP Diastolic 100 mmHg BP Systolic Recheck 160 mmHg BP Diastolic Recheck 90 mmHg Heart Rate 64 /min Body Temperature 97.8 F Respiratory Rate 12 /min Height 61.5 inches 5'1.50" Weight 188.00 lb BMI (Body Mass Index) 34.9 kg/m2 02/08/2016 4:13pm BP Systolic 134 mmHg BP Diastolic 86 mmHg Heart Rate 80 /min Body Temperature 98.1 F Respiratory Rate 16 /min Height 61.5 inches 5'1.50" Weight 193.00 lb BMI (Body Mass Index) 35.9 kg/m2 12/20/2015 10:17am BP Systolic 124 mmHg BP Diastolic 82 mmHg Heart Rate 80 /min Body Temperature 97.9 F Respiratory Rate 18 /min Height 61.5 inches 5'1.50" Weight 191.00 lb BMI (Body Mass Index) 35.5 kg/m2 10/18/2015 1:00pm BP Systolic 140 mmHg BP Diastolic 90 mmHg Heart Rate 76 /min Body Temperature 97.8 F Respiratory Rate 18 /min Height 61.5 inches 5'1.50" Weight 190.00 lb BMI (Body Mass Index) 35.3 kg/m2 10/04/2015 4:15pm BP Systolic 136 mmHg BP Diastolic 80 mmHg Heart Rate 78 /min Body Temperature 97.9 F Respiratory Rate 16 /min Height 61.5 inches 5'1.50" Weight 193.25 lb BMI (Body Mass Index) 35.9 kg/m2 07/12/2015 2:57pm BP Systolic 140 mmHg BP Diastolic 80 mmHg Heart Rate 72 /min Body Temperature 98.3 F Respiratory Rate 20 /min Height 61.5 inches 5'1.50" Weight 205.00 lb BMI (Body Mass Index) 38.1 kg/m2 05/18/2015 11:31am BP Systolic 140 mmHg BP Diastolic 90 mmHg Heart Rate 78 /min Body Temperature 97.7 F Respiratory Rate 16 /min Height 61.5 inches 5'1.50" 04/17/2015 8:52am BP Systolic 158 mmHg BP Diastolic 100 mmHg Heart Rate 84 /min Body Temperature 97.6 F Respiratory Rate 18 /min Height 61.5 inches 5'1.50" Weight 204.00 lb BMI (Body Mass Index) 37.9 kg/m2 01/12/2015 9:18am BP Systolic 142 mmHg BP Diastolic 88 mmHg Heart Rate 84 /min Body Temperature 98.3 F Respiratory Rate 16 /min Height 61.5 inches 5'1.50" Weight 201.00 lb BMI (Body Mass Index) 37.4 kg/m2 11/07/2014 10:12am BP Systolic 140 mmHg BP Diastolic 98 mmHg Heart Rate 80 /min Body Temperature 98.1 F Respiratory Rate 18 /min Height 61.50 inches 5'1.50" Weight 199.00 lb BMI (Body Mass Index) 37.0 kg/m2 10/03/2014 4:01pm BP Systolic 150 mmHg BP Diastolic 90 mmHg Heart Rate 84 /min Body Temperature 98.6 F Height 61.50 inches 5'1.50" Weight 199.12 lb BMI (Body Mass Index) 37.0 kg/m2 08/08/2014 10:35am BP Systolic 130 mmHg BP Diastolic 84 mmHg Heart Rate 70 /min Body Temperature 97.2 F Respiratory Rate 18 /min Height 61.50 inches 5'1.50" Weight 197.00 lb BMI (Body Mass Index) 36.6 kg/m2 07/28/2014 2:43pm BP Systolic 142 mmHg BP Diastolic 88 mmHg Heart Rate 96 /min Body Temperature 101.0 F Respiratory Rate 18 /min O2 % BldC Oximetry 93 % Height 61.50 inches 5'1.50" Weight 197.00 lb BMI (Body Mass Index) 36.6 kg/m2 06/13/2014 11:09am BP Systolic 150 mmHg BP Diastolic 110 mmHg Heart Rate 68 /min Body Temperature 98.3 F Respiratory Rate 16 /min Height 61.50 inches 5'1.50" Weight 198.00 lb BMI (Body Mass Index) 36.8 kg/m2 05/12/2014 1:20pm BP Systolic 170 mmHg BP Diastolic 90 mmHg Heart Rate 76 /min Body Temperature 96.9 F Respiratory Rate 16 /min Height 61.50 inches 5'1.50" Weight 201.00 lb BMI (Body Mass Index) 37.4 kg/m2 05/02/2014 4:33pm BP Systolic 158 mmHg BP Diastolic 92 mmHg Heart Rate 92 /min Body Temperature 99.3 F Respiratory Rate 16 /min Height 61.50 inches 5'1.50" 03/31/2014 2:26pm BP Systolic 132 mmHg BP Diastolic 80 mmHg Heart Rate 78 /min Body Temperature 98.0 F Respiratory Rate 14 /min Height 61.50 inches 5'1.50" 03/21/2014 3:22pm BP Systolic 140 mmHg BP Diastolic 98 mmHg Heart Rate 88 /min Body Temperature 98.0 F Respiratory Rate 10 /min Height 61.50 inches 5'1.50" Weight 188.12 lb BMI (Body Mass Index) 35.0 kg/m2 01/20/2014 8:08am BP Systolic 130 mmHg BP Diastolic 90 mmHg Heart Rate 84 /min Body Temperature 97.8 F Height 61.50 inches 5'1.50" Weight 191.38 lb BMI (Body Mass Index) 35.6 kg/m2 12/26/2013 3:32pm BP Systolic 134 mmHg BP Diastolic 74 mmHg Heart Rate 88 /min Body Temperature 99.5 F Respiratory Rate 16 /min Height 61.50 inches 5'1.50" Weight 190.00 lb BMI (Body Mass Index) 35.3 kg/m2 12/19/2013 2:51pm BP Systolic 126 mmHg BP Diastolic 72 mmHg Heart Rate 72 /min Body Temperature 99.2 F Respiratory Rate 16 /min Height 61.50 inches 5'1.50" Weight 190.12 lb BMI (Body Mass Index) 35.3 kg/m2 12/13/2013 11:17am BP Systolic 144 mmHg BP Diastolic 86 mmHg Heart Rate 86 /min Body Temperature 99.3 F Height 61.50 inches 5'1.50" Weight 191.00 lb BMI (Body Mass Index) 35.5 kg/m2 12/06/2013 1:03pm BP Systolic 144 mmHg BP Diastolic 96 mmHg Heart Rate 80 /min Body Temperature 98.2 F Respiratory Rate 15 /min Height 61.50 inches 5'1.50" Weight 189.00 lb BMI (Body Mass Index) 35.1 kg/m2 11/28/2013 8:48am BP Systolic 140 mmHg BP Diastolic 80 mmHg Heart Rate 84 /min Body Temperature 98.9 F Respiratory Rate 16 /min Height 61.50 inches 5'1.50" Weight 197.00 lb BMI (Body Mass Index) 36.6 kg/m2 10/18/2013 9:12am BP Systolic 142 mmHg BP Diastolic 80 mmHg Heart Rate 74 /min Body Temperature 98.3 F Respiratory Rate 18 /min Height 61.50 inches 5'1.50" Weight 187.00 lb BMI (Body Mass Index) 34.8 kg/m2 09/13/2013 9:38am BP Systolic 126 mmHg BP Diastolic 80 mmHg Heart Rate 68 /min Body Temperature 98.0 F Respiratory Rate 18 /min Height 61.50 inches 5'1.50" Weight 185.00 lb BMI (Body Mass Index) 34.4 kg/m2 09/06/2013 9:40am BP Systolic 142 mmHg BP Diastolic 98 mmHg Heart Rate 60 /min Body Temperature 97.5 F Respiratory Rate 16 /min Height 61.50 inches 5'1.50" Weight 184.00 lb BMI (Body Mass Index) 34.2 kg/m2 08/26/2013 9:35am BP Systolic 138 mmHg BP Diastolic 90 mmHg Heart Rate 80 /min Body Temperature 97.6 F Respiratory Rate 16 /min Height 61.50 inches 5'1.50" Weight 184.00 lb BMI (Body Mass Index) 34.2 kg/m2 08/12/2013 10:31am BP Systolic 140 mmHg BP Diastolic 82 mmHg Heart Rate 68 /min Body Temperature 98.4 F Respiratory Rate 18 /min Height 61.50 inches 5'1.50" Weight 184.00 lb BMI (Body Mass Index) 34.2 kg/m2 Results Test Date Facility Test Result H/L Range Note Laboratory test 11/09/2018 [facility] Hemoglobin A1c 5.8 % High 4.1- 5.7 finding (607)- - (Fma) Ua - Micro (Fma) 11/09/2018 [facility] Appearance clear (607)- - Color yellow Glucose, Urine (Fma/CMC/CTX) neg Bilirubin neg Ketones neg SP Grav 1.010 Blood trace-intact # PH 6.0 Protein neg Urobil 0.2 Nitrite neg Leukocytes (Fma/CMC/Centrex) neg Hyaline - /Lpf Granular - /Lpf WBC (Fma,Centrex) 1-2 # RBC 1-2 # Mucus (Fma/CBC/Centrex) - /Lpf Epith occ /Lpf # Bacteria trace /Hpf # Amorphous (Fma/CMC/Centrex) - /Lpf Crystals, Fluid (Fma/CMC/CTX) - Z#Comments - Vaginitis Plus 11/09/2018 [facility] Atopobium vaginae Low - 0 Score 1 [address] [place] [address] (608)- - Bvab 2 Low - 0 Score Megasphaera 1 Low - 0 Score 2 Tameka albicans, Denisha Negative Negative Tameka glabrata, Denisha Negative Negative 3 Trich vag by Denisha Negative Negative Chlamydia trachomatis, Denisha Negative Negative Neisseria gonorrhoeae, Denisha Negative Negative Urine Culture, 11/09/2018 [facility] Urine Culture, Final report Routine [address] [facility] [place] [address] (269)- - Result 1 See Comment: 4 Laboratory test 11/09/2018 [facility] Calcium, 4.0 mg/dL Low 4.5-5.6 finding [address] [facility] Ionized, [place] [address] (607)- - Comprehensive 11/09/2018 [facility](fma) Sodium 137 mEq/L 134-149 Metabolic Prof Potassium 4.9 mEq/L 3.6-5.5 Chloride 96 mEq/L 94-112 Carbon Dioxide 26 mEq/L 21-32 Glucose 104 mg/dL 70-105 BUN 23 mg/dL 6-26 Creatinine 1.1 mg/dL 0.6-1.4 BUN/Creat Ratio 20.9 CALC 8.0-36.0 Calcium 7.3 mg/dL Low 8.6-10.2 Total Protein 7.2 g/dL 6.4-8.3 Albumin 4.5 g/dL 3.8-5.5 Globulin 2.7 g/dL 2.0-4.8 A/G Ratio 1.7 CALC 0.6-2.3 Alk. Phosphatase 56 U/L 30-110 Alt (SGPT) 11 U/L 7-35 Ast (Sgot) 16 U/L 5-34 Total Bilirubin 0.5 mg/dL 0.2-1.3 GFR Non- 52 ml/min/1.73m^ Low >=60 GFR >60 ml/min/1.73m^ >=60 Lipid Profile 11/09/2018 [facility](fma) Cholesterol 274 mg/dL High 120-200 Triglycerides 124 mg/dL 30-200 HDL Cholesterol 61 mg/dL 30-85 LDL (Calculated) 188 CALC High 0-129 VLDL Cholesterol 25 mg/dL 0-50 HDL Risk Factor 4.5 CALC High 0.0-4.4 Laboratory test 11/09/2018 [facility](fma) Free T4 1.42 ng/dL 0.75- 1.54 finding TSH 3.93 mIU/L 0.50-6.00 Magnesium, Serum 2.4 mEq/L High 1.2-2.1 CBC Electronic Fma 11/09/2018 [facility] Scanlon(a) WBC 7.7 x10^3/UL 4.0- 10.0 RBC 4.63 x10^6/UL 3.93-6.00 HGB 13.7 g/dL 12.0-17.0 HCT 41 % 35-50 MCV 89.0 fL 80.0-95.0 MCH 29.6 pg 25.6-32.2 MCHC 33.3 g/dL 32.2-36.0 RDW-CV 13.1 % 11.6-14.4 PLT 273 x10^3/UL 163-400 MPV 9.5 fL 9.4-12.4 Mary# 5.21 x10^3/UL 1.56-6.13 Lymph# 1.62 x10^3/UL 1.18-3.74 Marinette# 0.67 x10^3/UL 0.24-0.82 Eos # 0.1 x10^3/UL 0.0-0.5 Baso # 0.04 x10^3/UL 0.01-0.08 Mary% 67.8 % 34.0-70.0 Lymph % 21.1 % 20.0-52.0 Marinette% 8.7 % 5.0-12.0 Eos% 1.8 % 0.7-7.0 Baso% 0.5 % 0.1-1.2 Comprehensive Metabolic 08/03/2018 [facility](fma) Sodium 136 mEq/L 134-149 Prof Potassium 5.1 mEq/L 3.6-5.5 Chloride 98 mEq/L 94-112 Carbon Dioxide 28 mEq/L 21-32 Glucose 138 mg/dL High 70-105 BUN 29 mg/dL High 6-26 Creatinine 1.0 mg/dL 0.6-1.4 BUN/Creat Ratio 29.0 CALC 8.0-36.0 Calcium 6.9 mg/dL Low 8.6-10.2 5 Total Protein 7.1 g/dL 6.4-8.3 Albumin 4.4 g/dL 3.8-5.5 Globulin 2.7 g/dL 2.0-4.8 A/G Ratio 1.6 CALC 0.6-2.3 Alk. Phosphatase 57 U/L 30-110 Alt (SGPT) 12 U/L 7-35 Ast (Sgot) 15 U/L 5-34 Total Bilirubin 0.5 mg/dL 0.2-1.3 GFR Non- 58 ml/min/1.73m^ Low >=60 GFR >60 ml/min/1.73m^ >=60 Laboratory test 08/03/2018 [facility](fma) Magnesium, Serum 2.2 mEq/L High 1.2-2.1 finding Free T4 1.44 ng/dL 0.75-1.54 TSH 3.34 mIU/L 0.50-6.00 Laboratory test 08/03/2018 [facility] Calcium, 3.9 mg/dL Low 4.5-5.6 6 finding [address] [facility] Ionized, [place] [address] (607)- - Laboratory test 06/08/2018 [facility] Calcium, TNP mg/dL 7 finding [address] [facility] Ionized, [place] [address] (607)- - Request Problem TNP Abnormal 8 Laboratory test finding 06/08/2018 Hola Scanlon([facility]) TSH 3.13 mIU/L 0.50-6.00 Free T4 1.65 ng/dL High 0.75-1.54 9 CBC Electronic a 06/08/2018 Hola Scanlon([facility]) WBC 8.1 x10^3/UL 4.0- 10.0 RBC 5.00 x10^6/UL 3.93-6.00 HGB 14.3 g/dL 12.0-17.0 HCT 43 % 35-50 MCV 86.8 fL 80.0-95.0 MCH 28.6 pg 25.6-32.2 MCHC 32.9 g/dL 32.2-36.0 RDW-CV 13.7 % 11.6-14.4 PLT 298 x10^3/UL 163-400 MPV 9.4 fL 9.4-12.4 Mary# 5.68 x10^3/UL 1.56-6.13 Lymph# 1.48 x10^3/UL 1.18-3.74 [place]# 0.77 x10^3/UL 0.24-0.82 Eos # 0.1 x10^3/UL 0.0-0.5 Baso # 0.05 x10^3/UL 0.01-0.08 Mary% 69.9 % 34.0-70.0 Lymph % 18.2 % Low 20.0-52.0 [place]% 9.5 % 5.0-12.0 Eos% 1.7 % 0.7-7.0 Baso% 0.6 % 0.1-1.2 Laboratory test 06/08/2018 Simental Ghislaine([facility]) Magnesium, Serum 2.0 mEq/L 1.2-2.1 finding Comprehensive 06/08/2018 Simental Ghislaine([facility]) Sodium 136 mEq/L 134-149 Metabolic Prof Potassium 4.0 mEq/L 3.6-5.5 Chloride 102 mEq/L 94-112 Carbon Dioxide 26 mEq/L 21-32 Glucose 93 mg/dL 70-105 BUN 14 mg/dL 6-26 Creatinine 0.8 mg/dL 0.6-1.4 BUN/Creat Ratio 17.5 CALC 8.0-36.0 Calcium 7.1 mg/dL Low 8.6-10.2 10 Total Protein 7.2 g/dL 6.4-8.3 Albumin 4.4 g/dL 3.8-5.5 Globulin 2.8 g/dL 2.0-4.8 A/G Ratio 1.6 CALC 0.6-2.3 Alk. Phosphatase 72 U/L 30-110 Alt (SGPT) 12 U/L 7-35 Ast (Sgot) 17 U/L 5-34 Total Bilirubin 0.4 mg/dL 0.2-1.3 GFR Non- >60 ml/min/1.73m^ >=60 GFR >60 ml/min/1.73m^ >=60 Laboratory test finding 03/09/2018 Simental Flora([facility]) TSH 1.89 mIU/L 0.50-6.00 Free T4 1.59 ng/dL High 0.75-1.54 11 Magnesium, Serum 1.7 mEq/L 1.2-2.1 Vitamin B-12 724 pg/mL 230-1050 Serum Iron 73 g/dL 60-150 CBC Electronic Fma 03/09/2018 Simentalmariela Scanlon([facility]) WBC 7.3 x10^3/UL 4.0- 10.0 RBC 4.76 x10^6/UL 3.93-6.00 HGB 13.7 g/dL 12.0-17.0 HCT 41 % 35-50 MCV 86.1 fL 80.0-95.0 MCH 28.8 pg 25.6-32.2 MCHC 33.4 g/dL 32.2-36.0 RDW-CV 13.7 % 11.6-14.4 PLT 267 x10^3/UL 163-400 MPV 9.7 fL 9.4-12.4 Mary# 4.77 x10^3/UL 1.56-6.13 Lymph# 1.71 x10^3/UL 1.18-3.74 [place]# 0.65 x10^3/UL 0.24-0.82 Eos # 0.1 x10^3/UL 0.0-0.5 Baso # 0.04 x10^3/UL 0.01-0.08 Mary% 65.5 % 34.0-70.0 Lymph % 23.4 % 20.0-52.0 Marinette% 8.9 % 5.0-12.0 Eos% 1.6 % 0.7-7.0 Baso% 0.5 % 0.1-1.2 Comprehensive Metabolic 03/09/2018 Simental Ghislaine([facility]) Sodium 137 mEq/L 134-149 Prof Potassium 4.0 mEq/L 3.6-5.5 Chloride 97 mEq/L 94-112 Carbon Dioxide 27 mEq/L 21-32 Glucose 91 mg/dL 70-105 BUN 15 mg/dL 6-26 Creatinine 0.8 mg/dL 0.6-1.4 BUN/Creat Ratio 18.8 CALC 8.0-36.0 Calcium 7.3 mg/dL Low 8.6-10.2 12 Total Protein 7.6 g/dL 6.4-8.3 Albumin 4.6 g/dL 3.8-5.5 Globulin 3.0 g/dL 2.0-4.8 A/G Ratio 1.5 CALC 0.6-2.3 Alk. Phosphatase 61 U/L 30-110 Alt (SGPT) 14 U/L 7-35 Ast (Sgot) 16 U/L 5-34 Total Bilirubin 0.4 mg/dL 0.2-1.3 GFR Non- >60 ml/min/1.73m^ >=60 GFR >60 ml/min/1.73m^ >=60 Laboratory test 03/09/2018 [facility] Calcium, 4.0 mg/dL Low 4.5-5.6 finding [address] [facility] Ionized, [place] [address] (607)- - Basic Metabolic 12/21/2017 Simental Ghislaine([facility]) Sodium 137 mEq/L 134-149 Profile Potassium 3.9 mEq/L 3.6-5.5 Chloride 98 mEq/L 94-112 Carbon Dioxide 26 mEq/L 21-32 Glucose 90 mg/dL 70-105 BUN 13 mg/dL 6-26 Creatinine 0.8 mg/dL 0.6-1.4 BUN/Creat Ratio 16.3 CALC 8.0-36.0 Calcium 7.7 mg/dL Low 8.6-10.2 13 GFR Non- >60 ml/min/1.73m^ >=60 GFR >60 ml/min/1.73m^ >=60 Laboratory test finding 11/25/2017 [facility] Troponin I 0.00 ng/mL <0.04 Laboratory test finding 11/25/2017 [facility] Troponin I 0.01 ng/mL <0.04 Urinalysis Profile 11/25/2017 [facility] Urine Color Yellow Urine Appearance Clear Urine Specific Bradley 1.014 N 1.010-1.030 Urine pH 7.0 N 5-9 Urine Urobilinogen Negative Negative Urine Ketones 1+ Abnormal Negative Urine Protein 1+(30 mg/dL) Abnormal Negative Urine Leukocytes Negative Negative Urine Blood 2+ Abnormal Negative Urine Nitrite Negative Negative Urine Bilirubin Negative Negative Urine Glucose Negative Negative Urine White Blood Cell Trace(0-5/hpf) Absent Urine Red Blood Cell 3+(>10/hpf) Abnormal Absent Urine Bacteria Absent Absent Urine Squamous Epithelial Cell Present Abnormal Absent Urine Culture And 11/25/2017 [facility] Urine Culture SEE RESULT BELOW 14 Sensitivities CBC Auto Diff 11/25/2017 [facility] White Blood Count 9.0 10^3/uL N 3.5-10.8 Red Blood Count 4.92 10^6/uL N 4.00-5.40 Hemoglobin 14.4 g/dL N 12.0-16.0 Hematocrit 42 % N 35-47 Mean Corpuscular Volume 85 fL N 80-97 Mean Corpuscular Hemoglobin 29 pg N 27-31 Mean Corpuscular HGB Conc 35 g/dL N 31-36 Red Cell Distribution Width 15 % N 10.5-15 Platelet Count 192 10^3/uL N 150-450 Mean Platelet Volume 8.1 um3 N 7.4-10.4 Abs Neutrophils 7.9 10^3/uL High 1.5-7.7 Abs Lymphocytes 0.5 10^3/uL Low 1.0-4.8 Abs Monocytes 0.6 10^3/uL N 0-0.8 Abs Eosinophils 0 10^3/uL N 0-0.6 Abs Basophils 0 10^3/uL N 0-0.2 Abs Nucleated RBC 0 10^3/uL Granulocyte % 87.3 % High 38-83 Lymphocyte % 5.1 % Low 25-47 Monocyte % 7.1 % High 0-7 Eosinophil % 0 % N 0-6 Basophil % 0.5 % N 0-2 Nucleated Red Blood Cells % 0.1 Comp Metabolic Panel 11/25/2017 [facility] Sodium 135 mmol/L N 135-145 Potassium 3.1 mmol/L Low 3.5-5.0 Chloride 96 mmol/L Low 101-111 Co2 Carbon Dioxide 26 mmol/L N 22-32 Anion Gap 13 mmol/L High 2-11 Glucose 123 mg/dL High 70-100 Blood Urea Nitrogen 12 mg/dL N 6-24 Creatinine 0.75 mg/dL N 0.51-0.95 BUN/Creatinine Ratio 16.0 N 8-20 Calcium 7.4 mg/dL Low 8.6-10.3 Total Protein 7.4 g/dL N 6.4-8.9 Albumin 4.0 g/dL N 3.2-5.2 Globulin 3.4 g/dL N 2-4 Albumin/Globulin Ratio 1.2 N 1-3 Total Bilirubin 0.80 mg/dL N 0.2-1.0 Alkaline Phosphatase 59 U/L N 34-104 Alt 13 U/L N 7-52 Ast 17 U/L N 13-39 Egfr Non- 76.4 >60 Egfr 92.4 >60 15 Laboratory test finding 11/25/2017 [facility] Troponin I 0.01 ng/mL <0.04 Lactic Acid 0.9 mmol/L N 0.5-2.0 16 B-Type Natriuretic Peptide BNP 93 pg/mL 17 Istat BUN/Crea/Egfr/V Mainct 11/02/2017 [facility] Poc Bun Mainct 14 mg/dL N 9- 18 Poc Crea Mainct 0.9 mg/dL N 0.6-0.9 GFR Non- MCT 61.9 >60 GFR Mainct 79.6 >60 18 Laboratory test 09/16/2017 Hola Scanlon([facility]) Vitamin D25 >120 High 30- 100 finding Free T4 1.44 ng/dL 0.75-1.54 TSH 1.69 mIU/L 0.50-6.00 Lyme AB/Western 09/16/2017 [facility] Lyme IgG/IgM <0.91 ISR 0.00-0.90 19 , 20 Blot Reflex [address] [facility] [place] [address] (607)- - Lyme Disease Ab, Quant, IgM <0.80 index 0.00-0.79 21 Calcium+Calcium,Ionized 09/16/2017 [facility] Calcium 7.1 mg/dL Low 8.7- 10.3 [address] [place] [address] (607)- - Calcium, Ionized, Serum 4.0 mg/dL Low 4.5-5.6 CBC Electronic a 09/16/2017 Hola Ghislaine([facility]) WBC 7.9 x10^3/UL 4.0- 10.0 RBC 4.94 x10^6/UL 3.93-6.00 HGB 14.3 g/dL 12.0-17.0 HCT 43 % 35-50 MCV 86.6 fL 80.0-95.0 MCH 28.9 pg 25.6-32.2 MCHC 33.4 g/dL 32.2-36.0 RDW-CV 13.7 % 11.6-14.4 PLT 271 x10^3/UL 163-400 MPV 10.1 fL 9.4-12.4 Mary# 5.22 x10^3/UL 1.56-6.13 Lymph# 1.85 x10^3/UL 1.18-3.74 [place]# 0.64 x10^3/UL 0.24-0.82 Eos # 0.1 x10^3/UL 0.0-0.5 Baso # 0.04 x10^3/UL 0.01-0.08 Mary% 66.1 % 34.0-70.0 Lymph % 23.4 % 20.0-52.0 [place]% 8.1 % 5.0-12.0 Eos% 1.8 % 0.7-7.0 Baso% 0.5 % 0.1-1.2 Comprehensive Metabolic 09/16/2017 Simental Ghislaine([facility]) Sodium 142 mEq/L 134-149 Prof Potassium 3.6 mEq/L 3.6-5.5 Chloride 99 mEq/L 94-112 Carbon Dioxide 29 mEq/L 21-32 Glucose 123 mg/dL High 70-105 BUN 18 mg/dL 6-26 Creatinine 0.7 mg/dL 0.6-1.4 BUN/Creat Ratio 25.7 CALC 8.0-36.0 Calcium 7.5 mg/dL Low 8.6-10.2 22 Total Protein 6.7 g/dL 6.4-8.3 Albumin 4.2 g/dL 3.8-5.5 Globulin 2.5 g/dL 2.0-4.8 A/G Ratio 1.7 CALC 0.6-2.3 Alk. Phosphatase 63 U/L 30-110 Alt (SGPT) 13 U/L 7-35 Ast (Sgot) 13 U/L 5-34 Total Bilirubin 0.4 mg/dL 0.2-1.3 GFR Non- >60 ml/min/1.73m^ >=60 GFR >60 ml/min/1.73m^ >=60 Arthritis Panel 06/26/2017 [facility] Uric Acid 4.6 mg/dL N 2.3-6.6 Erythrocyte Sed Rate 33 mm/Hr N 0-40 Rheumatoid Factor <15 IU/mL <15 23 Anti-Nuclear Antibody 0.3 U 24 Cyclic Citrullinated Peptide <15.6 U 25 Interpretation See Comment 26 CBC Electronic (a) 06/19/2017 [facility] WBC 12.0 High 3.6-9.6 (607)- - RBC 4.87 3.90-5.70 Hemoglobin (Fma/CMC/CTX) 14.6 g/dL 12.1 - 17.2 Hematocrit (Fma/CMC/CTX) 42.7 % 36.1 - 50.3 Platelets 255 10^3/ul 150-400 Lymph% 12.5 % Low 17.0-48.0 Mixed% 4.1 Neutrophils % 83.4 Mean Corpuscular Vol 88 82.2-97.4 Mean Corpuscular Hemoglobin 29.9 27.6-33.3 Mean Corpuscular Hemo Concen 34.1 32.0-36.0 RDW 14.3 High 11.6-13.7 Mean Platelet Volume 7.8 5.5-11.0 Laboratory test 06/19/2017 [facility] Sedimentation Rate 17 mm finding (607)- - Comprehensive 05/05/2017 Hoal Scanlon([facility]) Sodium 137 mEq/L 134-14 Metabolic Prof 9 Potassium 3.6 mEq/L 3.6-5.5 Chloride 99 mEq/L 94-112 Carbon Dioxide 27 mEq/L 21-32 Glucose 98 mg/dL 70-105 BUN 13 mg/dL 6-26 Creatinine 0.8 mg/dL 0.6-1.4 BUN/Creat Ratio 16.3 CALC 8.0-36.0 Calcium 7.2 mg/dL Low 8.6-10.2 27 Total Protein 6.4 g/dL 6.4-8.3 Albumin 4.2 g/dL 3.8-5.5 Globulin 2.2 g/dL 2.0-4.8 A/G Ratio 1.9 CALC 0.6-2.3 Alk. Phosphatase 57 U/L 30-110 Alt (SGPT) 12 U/L 7-35 Ast (Sgot) 14 U/L 5-34 Total Bilirubin 0.5 mg/dL 0.2-1.3 GFR Non- >60 ml/min/1.73m^ >=60 GFR >60 ml/min/1.73m^ >=60 Complete Blood Count 05/05/2017 Hola Scanlon([facility]) WBC 5.9 x10^3/UL 3.6 -9.6 RBC 4.58 x10^6/UL 3.90-5.70 HGB 14.0 g/dL 12.1-17.2 HCT 40 % 36-50 MCV 88.0 fL 82.2-97.4 MCH 30.5 pg 27.6-33.3 MCHC 34.9 g/dL 33.0-35.5 RDW 14.8 % High 11.6-13.7 PLT 248 x10^3/UL 150-400 MPV 7.7 fL 7.4-10.4 Gran # 4.1 x10^3/UL 1.5-7.2 Lymph# 1.5 x10^3/UL 0.7-4.9 [place]# 0.3 x10^3/UL 0.1-0.9 Gran % 68.0 % 42.2-75.2 Lymph % 26.7 % 20.5-51.1 [place]% 5.3 % 1.7-9.3 Laboratory test 05/05/2017 Simental Ghislaine([facility]) TSH 3.37 mIU/L 0.50-6.00 finding Lipid Profile 05/05/2017 Simental Ghislaine([facility]) Cholesterol 244 mg/dL High 120-200 Triglycerides 90 mg/dL 30-200 HDL Cholesterol 59 mg/dL 30-85 LDL (Calculated) 167 CALC High 0-129 VLDL Cholesterol 18 mg/dL 0-50 HDL Risk Factor 4.1 CALC 0.0-4.4 Laboratory test 01/30/2017 [facility] Hemoglobin A1c 5.8 % High 4.1- 5.7 finding (607)- - (Fma) Brain Natural Peptide 41.1 pg/mL <100 Laboratory test 01/30/2017 [facility] Calcium, 3.8 mg/dL Low 4.5-5.6 28 finding [facility]7 [facility] Ionized, [place] [address] (607)- - Laboratory test 01/30/2017 Simental Ghislaine([facility]) TSH 2.89 mIU/L 0.50-6.00 finding Vitamin D25 >120 High 30-100 Lipid Profile 01/30/2017 Simental Ghislaine([facility]) Cholesterol 279 mg/dL High 120-200 Triglycerides 102 mg/dL 30-200 HDL Cholesterol 68 mg/dL 30-85 LDL (Calculated) 191 CALC High 0-129 VLDL Cholesterol 20 mg/dL 0-50 HDL Risk Factor 4.1 CALC 0.0-4.4 Laboratory test 01/30/2017 Simental Ghislaine([facility]) Free T4 1.18 ng/dL 0.75- 1.54 finding Comprehensive 01/30/2017 Simental Ghislaine([facility]) Sodium 146 mEq/L 134-149 Metabolic Prof Potassium 3.8 mEq/L 3.6-5.5 Chloride 102 mEq/L 94-112 Carbon Dioxide 30 mEq/L 21-32 Glucose 96 mg/dL 70-105 BUN 10 mg/dL 6-26 Creatinine 0.8 mg/dL 0.6-1.4 BUN/Creat Ratio 12.5 CALC 8.0-36.0 Calcium 7.2 mg/dL Low 8.6-10.2 29 Total Protein 6.6 g/dL 6.4-8.3 Albumin 3.9 g/dL 3.8-5.5 Globulin 2.7 g/dL 2.0-4.8 A/G Ratio 1.4 CALC 0.6-2.3 Alk. Phosphatase 60 U/L 30-110 Alt (SGPT) 14 U/L 7-35 Ast (Sgot) 16 U/L 5-34 Total Bilirubin 0.7 mg/dL 0.2-1.3 GFR Non- >60 ml/min/1.73m^ >=60 GFR >60 ml/min/1.73m^ >=60 Complete Blood Count 01/30/2017 Hola Scanlon(a) WBC 6.6 x10^3/UL 3.6 -9.6 RBC 4.84 x10^6/UL 3.90-5.70 HGB 14.3 g/dL 12.1-17.2 HCT 42 % 36-50 MCV 87.0 fL 82.2-97.4 MCH 29.5 pg 27.6-33.3 MCHC 33.8 g/dL 33.0-35.5 RDW 14.4 % High 11.6-13.7 PLT 266 x10^3/UL 150-400 MPV 7.7 fL 7.4-10.4 Gran # 4.9 x10^3/UL 1.5-7.2 Lymph# 1.4 x10^3/UL 0.7-4.9 [place]# 0.3 x10^3/UL 0.1-0.9 Gran % 73.2 % 42.2-75.2 Lymph % 21.6 % 20.5-51.1 [place]% 5.2 % 1.7-9.3 Comprehensive Metabolic 07/02/2016 Hola Ghislaine([facility]) Sodium 142 mEq/L 134-149 Prof Potassium 3.9 mEq/L 3.6-5.5 Chloride 103 mEq/L 94-112 Carbon Dioxide 32 mEq/L 21-32 Glucose 74 mg/dL 70-105 BUN 19 mg/dL 6-26 Creatinine 0.9 mg/dL 0.6-1.4 BUN/Creat Ratio 21.1 CALC 8.0-36.0 Calcium 7.3 mg/dL Low 8.6-10.2 30 Total Protein 7.2 g/dL 6.4-8.3 Albumin 4.1 g/dL 3.8-5.5 Globulin 3.1 g/dL 2.0-4.8 A/G Ratio 1.3 CALC 0.6-2.3 Alk. Phosphatase 68 U/L 30-110 Alt (SGPT) 15 U/L 7-35 Ast (Sgot) 17 U/L 5-34 Total Bilirubin 0.4 mg/dL 0.2-1.3 GFR Non- >60 ml/min/1.73m^ >=60 GFR >60 ml/min/1.73m^ >=60 Laboratory test finding 07/02/2016 Hola Scanlon([facility]) TSH 4.63 mIU/L 0.50-6.00 Free T4 1.29 ng/dL 0.75-1.54 Complete Blood Count 07/02/2016 Hola Scanlon(a) WBC 7.7 x10^3/UL 3.6 -9.6 RBC 4.90 x10^6/UL 3.90-5.70 HGB 14.1 g/dL 12.1-17.2 HCT 42 % 36-50 MCV 86.0 fL 82.2-97.4 MCH 28.7 pg 27.6-33.3 MCHC 33.2 g/dL 33.0-35.5 RDW 15.5 % High 11.6-13.7 PLT 262 x10^3/UL 150-400 MPV 7.9 fL 7.4-10.4 Gran # 5.0 x10^3/UL 1.5-7.2 Lymph# 2.3 x10^3/UL 0.7-4.9 [place]# 0.4 x10^3/UL 0.1-0.9 Gran % 63.7 % 42.2-75.2 Lymph % 30.9 % 20.5-51.1 [place]% 5.4 % 1.7-9.3 Laboratory test 07/02/2016 [facility] Calcium, 4.1 mg/dL Low 4.5-5.6 31 finding [address] [facility] Ionized, [place] [address] (607)- - PTH Intact + 01/31/2016 [facility] Calcium, 3.9 mg/dL Low 4.5-5.6 32 Calcium Ionized [address] [facility] Ionized, [place] [address] (607)- - PTH, Intact 8 pg/mL Low 15-65 Laboratory test 01/31/2016 [facility] PDF [id number] SEE IMAGE finding [address] [place] [address] (521)- - Laboratory test 01/31/2016 Simental Ghislaine([facility]) TSH 1.51 mIU/L 0.50-6 finding .00 Free T4 1.36 ng/dL 0.75-1.54 Comprehensive Metabolic 01/31/2016 Simental Ghislaine([facility]) Sodium 140 mEq/L 134-149 Prof Potassium 3.9 mEq/L 3.6-5.5 Chloride 100 mEq/L 94-112 Carbon Dioxide 27 mEq/L 21-32 Glucose 87 mg/dL 70-105 BUN 13 mg/dL 6-26 Creatinine 0.8 mg/dL 0.6-1.4 BUN/Creat Ratio 16.3 CALC 8.0-36.0 Calcium 7.4 mg/dL Low 8.6-10.2 33 Total Protein 6.7 g/dL 6.4-8.3 Albumin 4.0 g/dL 3.8-5.5 Globulin 2.7 g/dL 2.0-4.8 A/G Ratio 1.5 CALC 0.6-2.3 Alk. Phosphatase 56 U/L 30-110 Alt (SGPT) 12 U/L 7-35 Ast (Sgot) 18 U/L 5-34 Total Bilirubin 0.5 mg/dL 0.2-1.3 GFR Non- >60 ml/min/1.73m^ >=60 GFR >60 ml/min/1.73m^ >=60 Laboratory test 01/31/2016 Simental Ghislaine([facility]) Vitamin D25 >120 High 30- 100 34 finding Basic Metabolic 12/20/2015 Simental Ghislaine([facility]) Sodium 141 mEq/L 134-149 Profile Potassium 3.8 mEq/L 3.6-5.5 Chloride 101 mEq/L 94-112 Carbon Dioxide 26 mEq/L 21-32 Glucose 75 mg/dL 70-105 BUN 18 mg/dL 6-26 Creatinine 0.8 mg/dL 0.6-1.4 BUN/Creat Ratio 22.5 CALC 8.0-36.0 Calcium 8.0 mg/dL Low 8.6-10.2 35 GFR Non- >60 ml/min/1.73m^ >=60 GFR >60 ml/min/1.73m^ >=60 Laboratory test 12/20/2015 Hola Ghislaine([facility]) Magnesium, Serum 1.3 mEq/L 1.2-2.1 finding TSH 0.29 mIU/L Low 0.50-6.00 Free T3 2.67 pg/mL 2.00-4.90 Free T4 1.84 ng/dL High 0.75-1.54 Basic Metabolic Profile 10/04/2015 Hola Ghislaine([facility]) Sodium 140 mEq/L 134-149 Potassium 3.8 mEq/L 3.6-5.5 Chloride 100 mEq/L 94-112 Carbon Dioxide 32 mEq/L 21-32 Glucose 93 mg/dL 70-105 BUN 17 mg/dL 6-26 Creatinine 0.8 mg/dL 0.6-1.4 BUN/Creat Ratio 21.3 CALC 8.0-36.0 Calcium 8.1 mg/dL Low 8.6-10.2 36 GFR Non- >60 ml/min/1.73m^ >=60 GFR >60 ml/min/1.73m^ >=60 Laboratory test finding 10/04/2015 Hola Ghislaine([facility]) TSH 0.09 mIU/L Low 0.50-6.00 Free T4 1.86 ng/dL High 0.75-1.54 Free T3 2.78 pg/mL 2.00-4.90 Basic Metabolic Profile 07/12/2015 Simental Ghislaine([facility]) Sodium 139 mEq/L 134-149 Potassium 3.7 mEq/L 3.6-5.5 Chloride 99 mEq/L 94-112 Carbon Dioxide 28 mEq/L 21-32 Glucose 111 mg/dL High 70-105 37 BUN 18 mg/dL 6-26 Creatinine 0.8 mg/dL 0.6-1.4 BUN/Creat Ratio 22.5 CALC 8.0-36.0 Calcium 7.4 mg/dL Low 8.6-10.2 38 GFR Non- >60 ml/min/1.73m^ >=60 GFR >60 ml/min/1.73m^ >=60 Laboratory test 07/12/2015 Simental Ghislaine([facility]) Free T4 1.51 ng/dL 0.75- 1.54 finding Free T3 2.46 pg/mL 2.00-4.90 Magnesium, Serum 2.0 mEq/L 1.2-2.1 TSH 1.08 mIU/L 0.50-6.00 Comprehensive Metabolic 04/17/2015 Simental Ghislaine([facility]) Sodium 139 mEq/L 134-149 Prof Potassium 3.6 mEq/L 3.6-5.5 Chloride 96 mEq/L 94-112 Carbon Dioxide 31 mEq/L 21-32 Glucose 105 mg/dL 70-105 BUN 15 mg/dL 6-26 Creatinine 0.8 mg/dL 0.6-1.4 BUN/Creat Ratio 18.8 CALC 8.0-36.0 Calcium 7.7 mg/dL Low 8.6-10.2 39 Total Protein 7.1 g/dL 6.4-8.3 Albumin 4.1 g/dL 3.8-5.5 Globulin 3.0 g/dL 2.0-4.8 A/G Ratio 1.4 CALC 0.6-2.3 Alk. Phosphatase 54 U/L 30-110 Alt (SGPT) 17 U/L 7-35 Ast (Sgot) 22 U/L 5-34 Total Bilirubin 0.5 mg/dL 0.2-1.3 GFR Non- >60 ml/min/1.73m^ >=60 GFR >60 ml/min/1.73m^ >=60 Laboratory test 04/17/2015 Hola Ghislaine([facility]) Free T4 1.32 ng/dL 0.75- 1.54 40 finding TSH 1.42 mIU/L 0.50-6.00 Free T3 2.47 pg/mL 2.00-4.90 Comprehensive Metabolic 01/12/2015 Simental Ghislaine([facility]) Sodium 140 mEq/L 134-149 Prof Potassium 3.9 mEq/L 3.6-5.5 Chloride 102 mEq/L 94-112 Carbon Dioxide 22 mEq/L 21-32 Glucose 94 mg/dL 70-105 BUN 17 mg/dL 6-26 Creatinine 0.8 mg/dL 0.6-1.4 BUN/Creat Ratio 21.3 CALC 8.0-36.0 Calcium 7.0 mg/dL Low 8.6-10.2 41 Total Protein 7.1 g/dL 6.4-8.3 Albumin 4.1 g/dL 3.8-5.5 Globulin 3.0 g/dL 2.0-4.8 A/G Ratio 1.4 CALC 0.6-2.3 Alk. Phosphatase 63 U/L 30-110 Alt (SGPT) 15 U/L 7-35 Ast (Sgot) 13 U/L 5-34 Total Bilirubin 0.5 mg/dL 0.2-1.3 GFR Non- >60 ml/min/1.73m^ >=60 GFR >60 ml/min/1.73m^ >=60 Laboratory test finding 01/12/2015 Hola Scanlon([facility]) TSH 1.71 mIU/L 0.50-6.00 Uric Acid 4.7 mg/dL 2.5-9.2 Complete Blood Count 01/12/2015 Hola Scanlon([facility]) WBC 7.5 x10^3/UL 3.6 -9.6 RBC 4.93 x10^6/UL 3.90-5.70 HGB 14.6 g/dL 12.1-17.2 HCT 44 % 36-50 MCV 88.0 fL 82.2-97.4 MCH 29.6 pg 27.6-33.3 MCHC 33.5 g/dL 33.0-35.5 RDW 13.8 % High 11.6-13.7 PLT 332 x10^3/UL 150-400 MPV 7.5 fL 7.4-10.4 Gran # 4.8 x10^3/UL 1.5-7.2 Lymph# 1.9 x10^3/UL 0.7-4.9 [place]# 0.8 x10^3/UL 0.1-0.9 Gran % 62.7 % 42.2-75.2 Lymph % 26.3 % 20.5-51.1 [place]% 11.0 % High 1.7-9.3 Ua - Non Micro (Fma) 01/12/2015 [facility] Appearance clear (607)- - Color yellow Glucose, Urine (Fma/CMC/CTX) - Bilirubin - Ketones - SP Grav 1.010 Blood trace-intact PH 7.5 Protein - Urobil 0.2 Nitrite - Leukocytes (a/[facility]) - Comprehensive Metabolic 11/07/2014 Simental Ghislaine(a) Sodium 138 mEq/L 134-149 Prof Potassium 3.8 mEq/L 3.6-5.5 Chloride 94 mEq/L 94-112 Carbon Dioxide 27 mEq/L 21-32 Glucose 79 mg/dL 70-105 BUN 20 mg/dL 6-26 Creatinine 0.8 mg/dL 0.6-1.4 BUN/Creat Ratio 25.0 CALC 8.0-36.0 Calcium 7.6 mg/dL Low 8.6-10.2 42 Total Protein 7.1 g/dL 6.4-8.3 Albumin 4.2 g/dL 3.8-5.5 Globulin 2.9 g/dL 2.0-4.8 A/G Ratio 1.4 CALC 0.6-2.3 Alk. Phosphatase 58 U/L 30-110 Alt (SGPT) 17 U/L 7-35 Ast (Sgot) 18 U/L 5-34 Total Bilirubin 0.6 mg/dL 0.2-1.3 Laboratory test finding 11/07/2014 Simental Ghislaine(a) TSH 1.04 mIU/L 0.50-6.00 Free T3 2.61 pg/mL 2.00-4.90 Free T4 1.52 ng/dL 0.75-1.54 Laboratory test 10/03/2014 [facility] Cytology RUN DATE: 43 finding 10/05/ <SEE NOTE> Laboratory test 10/03/2014 Family [facility] Wet Prep see scanned 44 finding (607)- - (Fma,CMC,CX) Laboratory test 10/03/2014 [facility] Gardnerella/Yeast (SEE NOTE) 45 finding : Vaginal Dna Trichomonas: Vaginal Dna Probe (SEE NOTE) 46 Comprehensive Metabolic 08/08/2014 Simental Ghislaine(a) Sodium 141 mEq/L 134-149 Prof Potassium 3.7 mEq/L 3.6-5.5 Chloride 98 mEq/L 94-112 Carbon Dioxide 27 mEq/L 21-32 Glucose 108 mg/dL High 70-105 47 BUN 12 mg/dL 6-26 Creatinine 0.8 mg/dL 0.6-1.4 BUN/Creat Ratio 15.0 CALC 8.0-36.0 Calcium 7.3 mg/dL Low 8.6-10.2 48 Total Protein 7.1 g/dL 6.4-8.3 Albumin 3.9 g/dL 3.8-5.5 Globulin 3.2 g/dL 2.0-4.8 A/G Ratio 1.2 CALC 0.6-2.3 Alk. Phosphatase 56 U/L 30-110 Alt (SGPT) 20 U/L 7-35 Ast (Sgot) 17 U/L 5-34 Total Bilirubin 0.4 mg/dL 0.2-1.3 Complete Blood Count 08/08/2014 Simental Ghislaine([facility]) WBC 8.0 x10^3/UL 3.6 -9.6 RBC 5.13 x10^6/UL 3.90-5.70 HGB 15.0 g/dL 12.1-17.2 HCT 45 % 36-50 MCV 87.0 fL 82.2-97.4 MCH 29.3 pg 27.6-33.3 MCHC 33.5 g/dL 33.0-35.5 RDW 12.5 % 11.6-13.7 PLT 282 x10^3/UL 150-400 MPV 7.4 fL 7.4-10.4 Gran # 6.2 x10^3/UL 1.5-7.2 Lymph# 1.5 x10^3/UL 0.7-4.9 [place]# 0.3 x10^3/UL 0.1-0.9 Gran % 76.2 % High 42.2-75.2 Lymph % 19.1 % Low 20.5-51.1 [place]% 4.7 % 1.7-9.3 Laboratory test 08/08/2014 Hola Ghislaine([facility]) Magnesium, Serum 1.9 mEq/L 1.2-2.1 finding Influenza A&B-fma 07/28/2014 [facility] Influenza A NEG (607)- - Influenza B NEG Comprehensive Metabolic 05/02/2014 Hola Ghislaine([facility]) Sodium 138 mEq/L 134-149 Prof Potassium 3.6 mEq/L 3.6-5.5 Chloride 100 mEq/L 94-112 Carbon Dioxide 29 mEq/L 21-32 Glucose 92 mg/dL 70-105 BUN 18 mg/dL 6-26 Creatinine 0.9 mg/dL 0.6-1.4 BUN/Creat Ratio 20.0 CALC 8.0-36.0 Calcium 7.5 mg/dL Low 8.6-10.2 49 Total Protein 7.0 g/dL 6.4-8.3 Albumin 4.4 g/dL 3.8-5.5 Globulin 2.6 g/dL 2.0-4.8 A/G Ratio 1.7 CALC 0.6-2.3 Alk. Phosphatase 63 U/L 30-110 Alt (SGPT) 30 U/L 7-35 Ast (Sgot) 28 U/L 5-34 Total Bilirubin 0.3 mg/dL 0.2-1.3 Laboratory test 05/02/2014 Hola Scanlon(fma) Magnesium, Serum 1.9 mEq/L 1.2-2.1 finding Vitamin D25 >120 High 30-100 50 Comp Metabolic Panel 02/21/2014 [facility] Sodium 139 mmol/L N 133-145 Potassium 4.0 mmol/L N 3.7-5.6 Chloride 102 mmol/L N 101-111 Co2 Carbon Dioxide 30 mmol/L N 22-32 Anion Gap 7 mmol/L N 2-11 Glucose 75 mg/dL N 70-100 Blood Urea Nitrogen 13 mg/dL N 6-24 Creatinine 0.80 mg/dL N 0.51-0.95 BUN/Creatinine Ratio 16.3 N 8-20 Calcium 7.1 mg/dL Low 8.6-10.3 Total Protein 6.8 g/dL N 6.4-8.9 Albumin 4.0 g/dL N 3.2-5.2 Globulin 2.8 g/dL N 2-4 Albumin/Globulin Ratio 1.4 N 1-3 Total Bilirubin 0.40 mg/dL N 0.2-1.0 Alkaline Phosphatase 61 U/L N 34-104 Alt 24 U/L N 7-52 Ast 21 U/L N 13-39 Egfr Non- 71.8 N >60 Egfr 92.3 N >60 51 Laboratory test finding 02/21/2014 [facility] Magnesium 1.8 mg/dL Low 1.9-2.7 Free T4 1.08 ng/mL N 0.61-1.12 TSH (Thyroid Stimulating Horm) 1.34 IU/mL N 0.34-5.60 Vitamin D, 25 Hydroxy 02/21/2014 [facility] 25-Hydroxy Vitamin D2 136 ng/mL N 25-Hydroxy Vitamin D3 67 ng/mL N 25-Hydroxy Vitamin D Total 203 ng/mL Abnormal 52 Laboratory test finding 01/20/2014 Hola Ghislaine(fma) TSH 3.77 mIU/L 0.50-6.00 Free T4 1.25 ng/dL 0.75-1.54 Comprehensive Metabolic 01/20/2014 Simental Ghislaine(fma) Sodium 139 mEq/L 134-149 Prof Potassium 3.8 mEq/L 3.6-5.5 Chloride 98 mEq/L 94-112 Carbon Dioxide 22 mEq/L 21-32 Glucose 91 mg/dL 70-105 BUN 13 mg/dL 6-26 Creatinine 0.8 mg/dL 0.6-1.4 BUN/Creat Ratio 16.3 CALC 8.0-36.0 Calcium 8.2 mg/dL Low 8.6-10.2 53 Total Protein 7.8 g/dL 6.3-8.1 Albumin 4.5 g/dL 3.8-5.5 Globulin 3.3 g/dL 2.0-4.8 A/G Ratio 1.4 CALC 0.6-2.3 Alk. Phosphatase 68 U/L 30-110 Alt (SGPT) 29 U/L 7-35 Ast (Sgot) 18 U/L 5-34 Total Bilirubin 0.6 mg/dL 0.2-1.3 Laboratory test 01/20/2014 [facility] Rheumatoid Arth 9.3 IU/mL 0.0-13.9 finding 28 [place] [id number] [phone] CBC Manual 01/20/2014 Family Medicine WBC 8.1 3.6-9.6 Diff-Fma (607)- - RBC 5.06 3.90-5.70 Hemoglobin (Fma/CMC/CTX) 15.0 g/dL 12.1 - 17.2 Hematocrit (Fma/CMC/CTX) 44.9 % 36.1 - 50.3 Mean Corpuscular Vol 89 82.2-97.4 Mean Corpuscular Hemoglobin 29.6 27.6-33.3 Mean Corpuscular Hemo Concen 33.3 32.0-36.0 Platelets 251 10^3/ul 150-400 RDW 12.9 11.6-13.7 Mean Platelet Volume 7.7 5.5-11.0 Neutrophil 61 Band 5 Lymphocytes 24 Monocyte 6 Eosinophils 4 Z#Comment rbc/plts normal Laboratory test 12/13/2013 Hola Ghislaine([facility]) Calcium, Serum 6.7 mg/dL Low 8.6-10.2 54 finding Laboratory test 12/13/2013 [facility] C Reactive 7.40 mg/L High < 5.00 55 finding Protein Complete Blood 12/13/2013 Simental Ghislaine(a) WBC 6.7 3.6-9.6 Count x10^3/UL RBC 4.65 x10^6/UL 3.90-5.70 HGB 14.0 g/dL 12.1-17.2 HCT 41 % 36-50 MCV 88.0 fL 82.2-97.4 MCH 30.2 pg 27.6-33.3 MCHC 34.2 g/dL 33.0-35.5 RDW 12.4 % 11.6-13.7 PLT 287 x10^3/UL 150-400 MPV 7.1 fL Low 7.4-10.4 Gran # 5.1 x10^3/UL 1.5-7.2 Lymph# 1.3 x10^3/UL 0.7-4.9 [place]# 0.3 x10^3/UL 0.1-0.9 Gran % 73.9 % 42.2-75.2 Lymph % 20.3 % Low 20.5-51.1 [place]% 5.8 % 1.7-9.3 Vitamin D, 25 Hydroxy 11/01/2013 [facility] 25-Hydroxy Vitamin D2 96 ng/mL 25-Hydroxy Vitamin D3 75 ng/mL 25-Hydroxy Vitamin D Total 171 ng/mL Abnormal 56 Comp Metabolic Panel 11/01/2013 [facility] Sodium 137 mmol/L 133-145 Potassium 3.9 mmol/L [...] Egfr Non- 70.7 >60 Egfr 91.0 >60 57 Laboratory test 10/12/2013 Hospital (General) [facility] Lab Test see scanned finding Vitamin D, 25 09/19/2013 [facility] 25-Hydroxy <4.0 ng/mL Hydroxy Vitamin D2 25-Hydroxy Vitamin D3 53 ng/mL 25-Hydroxy Vitamin D Total 53 ng/mL 58 Laboratory test finding 09/19/2013 [facility] Free T4 1.07 ng/mL 0.61-1.12 TSH (Thyroid Stimulating Horm) 0.65 IU/mL 0.34-5.60 Comp Metabolic Panel 09/19/2013 [facility] Sodium 137 mmol/L 133-145 Potassium 4.2 mmol/L [...] Egfr Non- 66.9 >60 Egfr 86.1 >60 59 Comprehensive Metabolic 08/12/2013 [facility](fma) Sodium 135 mEq/L 134-149 Prof Potassium 3.7 mEq/L 3.6-5.5 Chloride 95 mEq/L [...] 5-34 Total Bilirubin 0.4 mg/dL 0.2-1.3 1 1 sst TAPED TOP DO NOT OPE N 2 Calculate total score by adding the 3 individual bacterial vaginosis (BV) marker scores together. Total score is interpreted as follows: Total score 0-1: Indicates the absence of BV. Total score 2: Indeterminate for BV. Additional clinical data should be evaluated to establish a diagnosis. Total score 3-6: Indicates the presence of BV. This test was developed and its performance characteristics determined by [employer]. It has not been cleared or approved by the Food and Drug Administration. The FDA has determined that such clearance or approval is not necessary. 3 This test was developed and its performance characteristics determined by [employer]. It has not been cleared or approved by the Food and Drug Administration. The FDA has determined that such clearance or approval is not necessary. 4 Culture shows less than 10,000 colony forming units of bacteria per milliliter of urine. This colony count is not generally considered to be clinically significant. 5 consistent w/ previous results 6 1 sst 7 No serum received. 8 Comment: No serum received. TEST: [id number] Calcium, Ionized, Serum 9 RESULTS VERIFIED BY REPEAT ANALYSIS 10 RESULTS VERIFIED BY REPEAT ANALYSIS 11 RESULTS VERIFIED BY REPEAT ANALYSIS 12 RESULTS VERIFIED BY REPEAT ANALYSIS 13 consistent w/ previous results 14 SEE RESULT BELOW Name: MELIDA GASPAR : [address]: Ton Boateng MD Acct: [id number] Unit: [id number] AGE: 72 Location: [place] [address] Re11/25/17 SEX: F Status: ADM Ron SPEC: [id number] NITHYA: 11/25/[address] [facility] [address]: Olegario Diaz MD REQ: [id number] RECD: 11/25/17 STATUS: COREEN AGOSTO DR: Madelin Hoover MD _ SOURCE: URINE SPDESC: ORDERED: Urine Culture Procedure Result Reported Site Urine Culture Final 11/27/17- 951 ML No growth of clinically significant organisms * ML - Main Lab . END OF REPORT DEPARTMENT OF PATHOLOGY, [address] [place] [address] Luke Cash M.D. Director [facility] # [id number] 15 Because ethnic data is not always readily [...] 15-29 5 Kidney failure <15 (or dialysis) 16 [facility] Severe Sepsis and Septic Shock Management Bundle Measure requires all lactic acids initially measuring >2.0 mmol/L be repeated. 17 >100 to <200 pg/mL: likely compensated congestive heart failure (CHF) 200 to 400 pg/mL: likely moderate CHF >400 pg/mL: likely moderate to severe CHF 18 Because ethnic data is not always readily [...] 15-29 5 Kidney failure <15 (or dialysis) 19 2 SST ONE WITH TAPE UNOPEN ED 20 Negative <0.91 Equivocal 0.91 - 1.09 Positive >1.09 21 Negative <0.80 Equivocal 0.80 - 1.19 Positive >1.19 IgM levels may peak at 3-6 weeks post infection, then gradually decline. 22 RESULTS VERIFIED BY REPEAT ANALYSIS 23 Test Performed by: [facility] [address] [place] [address] 24 REFERENCE VALUE <=1.0 (Negative) 25 REFERENCE VALUE <20.0 (Negative) 26 Tests for antibodies to dsDNA and TAYLOR antigens are not performed automatically unless the JOSEFA result is > or= 3.0 U. Studies performed at [facility] indicate that positive JOSEFA results <3.0 U are rarely accompanied by positive second order tests. Test Performed by: [facility] [address] [place] [address] 27 consistent w/ previous results 28 1 sst 29 consistent w/ previous results 30 consistent w/ previous results 31 1 sst unopened 32 split specimen 33 RESULTS VERIFIED BY REPEAT ANALYSIS 34 consistent w/ previous results 35 consistent w/ previous results 36 RESULTS VERIFIED BY REPEAT ANALYSIS 37 RESULTS VERIFIED BY REPEAT ANALYSIS 38 RESULTS VERIFIED BY REPEAT ANALYSIS 39 consistent w/ previous results 40 FASTING 41 RESULTS VERIFIED BY REPEAT ANALYSIS 42 RESULTS VERIFIED BY REPEAT ANALYSIS 43 RUN DATE: 10/05/14 [facility] LAB LIVE PAGE 1 RUN TIME: 7[address] [place], [place] [address] Specimen Inquiry Name: MELIDA GASPAR : [address]: Talia Desouza NP Acct: [id number] Unit: [id number] AGE: 69 Location: [facility] Re10/03/14 SEX: F Status: REG REF SPEC: [id number] NITHYA: 10/03/14-[address]: Talia Desouza [employer]IL MILL WORKER REQ: [id number] RECD: 10/04/14-1753 STATUS: SOUT _ ORDERED: IMAGE ANALYSIS FINAL [...] was evaluated with the assistance of the [employer] System. Due to cytologic findings at the field services analyst microscope, comprehensive manual rescreening by a Sql Data Analyst may be required. The Pap Smear is [...] performed at Main Lab DEPARTMENT OF PATHOLOGY, [facility] [employer] [place], [place] [address] Luke Cash M.D. Director [facility] # [id number] 44 few epis, no wbc , no clue cells, neg whiff 45 RUN DATE: 10/05/14 [facility] LAB LIVE PAGE 1 RUN TIME: 0842 [facility] [employer] [place], [place] [address] Specimen Inquiry Name: MELIDA GASPAR : [address]: Talia Desouza [employer] M[employer] WORKER Acct: [id number] Unit: [id number] AGE: 69 Location: [facility] Re10/03/14 SEX: F Status: REG REF SPEC: [id number] NITHYA: 10/03/14-[address]: Talia Desouza [employer]IL M[employer] WORKER REQ: [id number] RECD: 10/04/14774 STATUS: RES _ SOURCE: VAGINAL SPDESC: ORDERED: Gertrude,Yeast DNA, Trich DNA QUERIES: Provider Requisition # [id number] Procedure Result Verified Site Gardnerella/Yeast: Vaginal DNA [...] * ML - MAIN LAB ([facility]) . END OF REPORT * ML=Testing performed at Main Lab DEPARTMENT OF PATHOLOGY, [facility] [employer] [place], [place] [address] Luke Cash M.D. 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 Director [facility] # [id number] RUN DATE: 10/05/14 [facility] LAB LIVE PAGE 2 RUN TIME: 843 [facility] [employer] [place], [place] [address] Specimen Inquiry Patient: MELIDA GASPAR [id number] (Continued) Specimen: [id number] Collected: 10/03/14 Received: 10/04/14 (Continued) Procedure Result Verified Site Trichomonas: Vaginal DNA Probe Final (continued) 10/05/14843 The presence or absence of T. vaginalis cannot be used as a test for therapeutic success or failure. * ML - MAIN LAB ([facility]) . END OF REPORT * ML=Testing performed at Main Lab DEPARTMENT OF PATHOLOGY, [address] [place] [address] Luke Cash M.D. Director [facility] # [id number] 47 RESULTS VERIFIED BY REPEAT ANALYSIS 48 RESULTS VERIFIED BY REPEAT ANALYSIS 49 consistent w/ previous results 50 RESULTS VERIFIED BY REPEAT ANALYSIS 51 Because ethnic data is not always readily [...] 15-29 5 Kidney failure <15 (or dialysis) 52 Interpretation: >80 ng/mL (toxicity possible) -- REFERENCE VALUE -- 25-HYDROXY D TOTAL (D2+D3) Optimum levels in the healthy population are 20-50, patients with bone disease may benefit from higher levels within this range. Test Performed by: [place] [id number] [employer]: Masood Rankin III, M.D. 53 consistent w/ previous results 54 RESULTS VERIFIED BY REPEAT ANALYSIS 55 Acute inflammation: >10.00 56 Interpretation: >80 ng/mL (toxicity possible) -- REFERENCE VALUE -- 25-HYDROXY D TOTAL (D2+D3) Optimum levels in the healthy population are 20-50, patients with bone disease may benefit from higher levels within this range. Test Performed by: [address] [address] Bag Sealer: Masood Rankin III, M.D. 57 Because ethnic data is not always readily [...] 15-29 5 Kidney failure <15 (or dialysis) 58 Interpretation: 51-80 ng/mL (increased risk of hypercalciuria) -- REFERENCE VALUE -- 25-HYDROXY D TOTAL (D2+D3) Optimum levels in the healthy population are 20-50, patients with bone disease may benefit from higher levels within this range. Test Performed by: [facility] [place] [address] Bag Sealer: Masood Rankin III, M.D. 59 Because ethnic data is not always readily [...] Kidney failure <15 (or dialysis) Procedures Date Code Description Status 11/11/2018 [id number] Mammogram Completed 10/01/2017 [id number] Mammogram Completed 05/12/2017 68669 Electrocardiogram Complete Completed 02/15/2016 [id number] Mammogram Completed 01/12/2015 48813 Paring/Cutting Benign Lesion ([place]/Callus) Completed 08/15/2014 [id number] Mammogram Completed 08/08/2014 35066 Pulse Oximetry Completed 07/28/2014 35455 Pulse Oximetry Completed 06/01/2012 [id number] Colonoscopy Completed Encounters Type Date Location Provider Dx Diagnosis Office Visit 11/09/2018 [facility] Office Praveen Edwards0 Essential ( primary) 8:00a M.D. hypertension F41.9 Anxiety disorder, unspecified Z12.31 Encntr screen mammogram for malignant neoplasm of breast Z12.11 Encounter for screening for malignant neoplasm of colon E89.2 Postprocedural hypoparathyroidism N94.10 Unspecified dyspareunia B37.3 Candidiasis of vulva and vagina Office Visit 08/03/2018 9:30a [facility] Office Praveen Edwards0 Essential (primary) M.D. hypertension F41.9 Anxiety disorder, unspecified E89.2 Postprocedural hypoparathyroidism E03.9 Hypothyroidism, unspecified M15.0 Primary generalized (osteo)arthritis Office Visit 06/08/2018 9:40a [facility] Office Madelin Hoover, I10 Essential (primary) M.D. hypertension F41.9 Anxiety disorder, unspecified K21.9 Gastro-esophageal reflux disease without esophagitis E89.2 Postprocedural hypoparathyroidism Office Visit 04/27/2018 9:00a [facility] Office Madelin Hoover I10 Essential (primary) M.D. hypertension K21.9 Gastro-esophageal reflux disease without esophagitis E03.9 Hypothyroidism, unspecified F41.9 Anxiety disorder, unspecified Office Visit 03/09/2018 10:20a [facility] Office Madelin Hoover, I10 Essential (primary) M.D. hypertension E87.6 Hypokalemia M15.0 Primary generalized (osteo)arthritis E83.51 Hypocalcemia K21.9 Gastro-esophageal reflux disease without esophagitis E03.9 Hypothyroidism, unspecified R53.83 Other fatigue Z23 Encounter for immunization Office Visit 12/21/2017 1:20p [facility] Office Pedrito Rodgers9 Illness, MD Hal[place] unspecified E87.6 Hypokalemia Office Visit 11/10/2017 10:00a [facility] Office Madelin Preston, I10 Essential (primary) M.D. hypertension M15.0 Primary generalized (osteo)arthritis E83.51 Hypocalcemia F41.1 Generalized anxiety disorder K21.9 Gastro-esophageal reflux disease without esophagitis E89.2 Postprocedural hypoparathyroidism Office Visit 11/02/2017 1:20p [facility] Pedrito Moody R59.0 Localized Office MD Halley enlarged lymph nodes Office Visit 09/16/2017 2:00p [facility] Madelin Hoover, M25.541 Pain in joints Office M.D. of right hand F41.1 Generalized anxiety disorder E83.51 Hypocalcemia M15.0 Primary generalized (osteo)arthritis E06.3 Autoimmune thyroiditis Z12.31 Encntr screen mammogram for malignant neoplasm of breast Office Visit 06/19/2017 9:00a [facility] Office Chelsey Victor M25.541 Pain in joints BUBBA Chaudhry of right hand Office Visit 06/12/2017 1:45p [facility] Office Chelsey Victor L23.2 Allergic contact BUBBA Chaudhry dermatitis due to cosmetics Office Visit 05/12/2017 1:20p [facility] Office Madelin Hoover, Z00.00 Encntr for M.D. general adult medical exam w/o abnormal findings I10 Essential (primary) hypertension E83.51 Hypocalcemia F41.1 Generalized anxiety disorder E03.8 Other specified hypothyroidism Office Visit 01/13/2017 11:30a [facility] Office Madelin Hoover E83.51 Hypocalcemia M.D. F41.1 Generalized anxiety disorder I10 Essential (primary) hypertension E89.2 Postprocedural hypoparathyroidism E66.9 Obesity, unspecified Office Visit 08/20/2016 4:40p [facility] Office Madelin Hoover, F41.1 Generalized M.D. anxiety disorder I10 Essential (primary) hypertension E89.2 Postprocedural hypoparathyroidism E03.8 Other specified hypothyroidism E83.51 Hypocalcemia Z23 Encounter for immunization Office Visit 07/02/2016 1:40p [facility] Office Madelin Hoover F41.1 Generalized M.D. anxiety disorder I10 Essential (primary) hypertension E83.51 Hypocalcemia E89.2 Postprocedural hypoparathyroidism E03.8 Other specified hypothyroidism M25.511 Pain in right shoulder Office Visit 05/28/2016 8:00a [facility] Office Madelin Preston, F41.1 Generalized M.D. anxiety disorder I10 Essential (primary) hypertension E83.51 Hypocalcemia E89.2 Postprocedural hypoparathyroidism E03.8 Other specified hypothyroidism M25.511 Pain in right shoulder Office Visit 04/02/2016 11:30a [facility] Madelin Hoover, I10 Essential (primary) M.D. hypertension E83.51 Hypocalcemia F41.1 Generalized anxiety disorder Office Visit 03/25/2016 9:40a Main Office Madelin Hoover, I10 Essential ( primary) M.D. hypertension E83.51 Hypocalcemia F41.1 Generalized anxiety disorder Z23 Encounter for immunization Office Visit 02/08/2016 [facility] Madelin Hoover, E89.2 Postprocedural 4:20p Office MAng hypoparathyroidism E83.51 Hypocalcemia I10 Essential (primary) hypertension F41.1 Generalized anxiety disorder E03.8 Other specified hypothyroidism Z12.31 Encntr screen mammogram for malignant neoplasm of breast M15.0 Primary generalized (osteo)arthritis Office Visit 10/18/2015 1:00p [facility] LUIS Mueller E83.51 Hypocalcemia E06.3 Autoimmune thyroiditis Office Visit 10/04/2015 4:00p [facility] LUIS Mueller E83.51 Hypocalcemia E06.3 Autoimmune thyroiditis Office Visit 07/12/2015 3:00p [facility] Office LUIS Mueller E83.51 Hypocalcemia E06.3 Autoimmune thyroiditis Office Visit 05/18/2015 11:10a [facility] Office Abhijeet Dunn M.D. M79.671 Pain in right foot F41.1 Generalized anxiety disorder I10 Essential (primary) hypertension Office Visit 04/17/2015 8:50a [facility] Abhijeet Dunn M.D. H65.01 Acute serous otitis media, right ear I10 Essential (primary) hypertension E06.3 Autoimmune thyroiditis E83.51 Hypocalcemia Office Visit 01/12/2015 9:20a [facility] Office Abhijeet Dunn M.D. 788.42 Polyuria 780.52 Insomnia Unspecified 275.42 Hypercalcemia 300.02 Anxiety Disorder Generalized 454.1 Varicose Veins Lower Extrem W/ Inflammation 700 Corns & Callosities 719.47 Pain Joint Ankle & Foot Office Visit 11/07/2014 10:00a [facility] Abhijeet Dunn, 401.9 Hypertension Unspec M.D. 244.9 Hypothyroidism Other Unspec 300.02 Anxiety Disorder Generalized 275.41 Hypocalcemia Office Visit 10/03/2014 4:00p [facility] Office Talia V70.0 Examination Elizabeth Desouza General Medical Routine AT [facility] 311 Depressive Disorder Not Elsewhere Spec 300.02 Anxiety Disorder Generalized 401.9 Hypertension Unspec 724.2 Lumbago 620.2 Ovarian Cyst Other & Unspec 244.9 Hypothyroidism Other Unspec 623.8 Vaginal Disorder Noninflammatory Spec Other Office Visit 08/08/2014 10:15a [facility] Office Talia Elizabeth Desouza 786.2 Cough 790.6 Abnormal Blood Chemistry Other 300.00 Anxiety State Unspec Office Visit 07/28/2014 3:00p [facility] Alanna 780.60 Fever, Trae, [employer] Unspecified 786.2 Cough 787.02 Nausea Alone Office Visit 06/13/2014 11:00a [facility] Abhijeet Dunn 682.9 Cellulitis & M.D. Abscess Unspec Site 300.00 Anxiety State Unspec 530.81 Esophageal Reflux 780.52 Insomnia Unspecified Office Visit 05/12/2014 1:30p [facility] Alanna 112.9 Candidiasis Trae, [employer] Unspec Site Office Visit 05/02/2014 4:20p [facility] Abhijeet Dunn M.D. 724.2 Lumbago 275.41 Hypocalcemia Office Visit 03/31/2014 2:30p [facility] Abhijeet Dunn M.D. 724.2 Lumbago 780.52 Insomnia Unspecified Office Visit 03/21/2014 3:20p [facility] Abhijeet Dunn M.D. 724.2 Lumbago 311 Depressive Disorder Not Elsewhere Spec Office Visit 01/20/2014 8:00a [facility] Abhijeet Dunn M.D. 275.41 Hypocalcemia 401.9 Hypertension Unspec 789.01 Pain Abdominal Right Upper Quadrant 780.79 Malaise And Fatigue Other 244.9 Hypothyroidism Other Unspec Office Visit 12/26/2013 3:30p Main Office Abhijeet Dunn M.D. 724.3 Sciatica Office Visit 12/19/2013 2:40p Main Office Abhijeet Dunn M.D. 682.3 Cellulitis & Abscess Upper Arm & Forearm 787.02 Nausea Alone Office Visit 12/13/2013 11:20a [facility] Office Abhijeet Dunn, 682.4 Cellulitis & M.D. Abscess Hand Except Fingers & Thumb 275.41 Hypocalcemia 401.9 Hypertension Unspec Office Visit 12/06/2013 1:00p [facility] Office Abhijeet Dunn, 682.4 Cellulitis & M.D. Abscess Hand Except Fingers & Thumb Office Visit 11/28/2013 8:30a Main Office Abhijeet Dunn, 719.42 Pain Joint Upper M.D. Arm Office Visit 10/18/2013 9:20a [facility] Office Abhijeet Dunn, 401.9 Hypertension Unspec M.D. 275.42 Hypercalcemia 300.00 Anxiety State Unspec 275.41 Hypocalcemia Office Visit 09/13/2013 9:40a [facility] Office Abhijeet Dunn, 401.9 Hypertension Unspec M.D. 300.00 Anxiety State Unspec 530.81 Esophageal Reflux Office Visit 09/06/2013 10:50a [facility] Office Abhijeet Dunn, 401.9 Hypertension Unspec M.D. Office Visit 08/26/2013 9:30a [facility] Office Abhijeet Dunn, 401.9 Hypertension Unspec M.D. 275.42 Hypercalcemia 244.9 Hypothyroidism Other Unspec Office Visit 08/12/2013 10:20a [facility] Office Abhijeet Dunn, 401.9 Hypertension Unspec M.D. 275.42 Hypercalcemia 244.9 Hypothyroidism Other Unspec 300.00 Anxiety State Unspec 268.9 Vitamin D Deficiency Unspec 530.81 Esophageal Reflux Plan of Treatment 11/18/2018 - Chelsey Chaudhry, NPI95.1 Orthostatic hypotensionComments:Go to the emergency department right now for evaluation.E83.51 HypocalcemiaAllComments :1. Patient has been queried about patient's goals/preferences and functional/ lifestyle goals at relevant visits. If relevant, describe: Has been discussed, noted above2. Treatment goals as explainedto the patient: see above3. Are there barriers to meeting treatment goals? Yes If Yes, please describe: Barriers include possible insurance limits, disease process, and difficulty with lifestyle changes4. Self-Management goals as described to the patient: Yes , see above As always, we strongly encourage a healthy diet and making physical activity a part of your every day life. If you have questions about how or where to start, please contact the office.
--- OUTSIDE RECORDS SUMMARY | 2018-11-18 11:18 | XMS REPORT | Continuity of Care Document ---
:1945 External Reference #:[id number] Author Name Madelin Hoover M.D. Address [address] [facility] [place] [address] Care Team Providers Name Role Phone Madelin Hoover M.D. Care Team Information Gis Physical Scientist Unavailable Madelin Hoover M.D. Primary Care Physician Unavailable Payers Date Identification Numbers Payment Provider Subscriber Effective: 2016 Policy Number: [id number] [facility] [employer]oj Gaspar Group Number: [id number] [id number] PayID: [id number] [place] [address] Effective: 2012 Policy Number: [id number] Medicare [place] Gaspar PayID: [id number] [address] [place] [address] Problems Active Problems Provider Date Essential hypertension Abhijeet Dunn M.D. Onset: 08/12/2013 Hypercalcemia Abhijeet Dunn M.D. Onset: 08/12/2013 Hypothyroidism Abhijeet Dunn M.D. Onset: 08/12/2013 Anxiety state Abhijeet Dunn M.D. Onset: 08/12/2013 Vitamin D deficiency Abhijeet Dunn M.D. Onset: 08/12/2013 Gastroesophageal reflux disease Abhijeet Dunn M.D. Onset: 08/12/2013 Hypoparathyroidism Madelin Hoover M.D. Onset: 02/08/2016 Degenerative joint disease involving multiple Mdaelin Hoover M.D. Onset: 02/07 joints Resolved Problems Hypocalcemia Abhijeet Dunn M.D. Onset: 10/18/2013 Resolved: 01/01/2016 Right upper quadrant pain Abhijeet Dunn M.D. Onset: 01/20/2014 Resolved: 01/01/2016 Acute serous otitis media Abhijeet Dunn M.D. Onset: 04/17/2015 Resolved: 01/01/2016 Renetta thyroiditis Abhijeet Dunn M.D. 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 Tablets in five days Spironolactone Take 1 Tablet By 90Tablet [facility] 10/05/2018 50mg Mouth Every Day M.D. Tablets In The Morning Lisinopril 1 by mouth every 90tabs I10 [facility] 04/27/2018 40mg Tablets day M.D. Pantoprazole Sodium 1 by mouth every 30tabs I10 Ruby Myrna 04/27/2018 day BUBBA Ro 40mg Tablets DR Baptiste Oxalate take 1 tablet by 90tabs F41.1 [facility] 2017 mouth daily M.D. 20mg Tablets Hydrocodone-Acetamino 1 tab every 8 90tabs M54.5 [facility] 09/16/2017 phen hours as needed M.D. 7.5-325mg Tablets pain Calcium Carbonate 7.5ml by mouth 1800units [facility] 05/11/2017 Antacid in in the M.D. 1250mg/5ML morning, 5ml in Suspension afternoon and 7.5ml in evening Ambien take 1 tablet by 30tabs [facility] 12/20/2016 10mg Tablets mouth at bedtime M.D. Diazepam 1-2 tab by mouth 30tabs F41.1 Chelsey Victor 09/04/2016 10mg Tablets two times a day BUBBA Chaudhry as needed Levothyroxine Sodium take 1 tablet by 90tabs E06.3 [facility] 2015 mouth every day M.D. 100mcg Tablets Ergocalciferol 1 by mouth Sat 90caps [facility] 03/14/2014 And Sun M.D. [id number] Capsules History Medications Spironolactone 1 by mouth every 30tabs I10 [facility] 06/08/2018 - 50mg morning M.D. 10/04/2018 Tablets Lexapro 1 by mouth every 90tabs F41.1 [facility] 11/19/2017 - 20mg Tablets day (Brand Only) M.D. 12/12/2017 Augmentin 1 by mouth twice 14tabs Pedrito Moody 11/02/2017 - 875-125mg a day MD Halley 11/10/2017 Tablets Vitamin D Take 1 Capsule By 90caps [facility] 09/18/2017 - (Ergocalciferol) Mouth On Thursday M.D. 03/09/2018 And Thursday [id number] Capsules Hydrocortisone apply to skin 20gm L23.2 [facility] 06/12/2017 - 2.5% Cream around eyes twice M.D. 08/24/2017 daily for up to 10 days in a row. Prednisone take 2 by mouth 6tabs L23.2 Chelsey Victor 06/12/2017 - 20mg Tablets as one dose daily BUBBA Chaudhry 06/19/2017 until gone Lisinopril Take 1 Tablet By 90tabs I10 [facility] 05/12/2017 - 20mg Tablets Mouth Every Day M.D. 12/21/2017 Zolpidem Tartrate take one tablet 30tabs [facility] 06/23/2016 - 10mg by mouth at M.D. 12/20/2016 Tablets bedtime as needed for sleep; max daily dose=1 tablet Physical Therapy treatment and M25.511 [facility] 05/28/2016 - evaluation r M.D. 05/31/2016 shoulder pain Cyclobenzaprine HCL take 1 tablet by 90tabs M25.511 [facility] 2015 - 5mg mouth three times M.D. 05/29/2016 Tablets daily as needed Escitalopram Oxalate 1 by mouth every 30tabs F41.1 [facility] 2015 - 20mg day (brand only) M.D. 11/19/2017 Tablets Diazepam 1/2 -1 tab by 30tabs F41.1 [facility] 11/28/2015 - 10mg Tablets mouth two times a M.D. 06/23/2016 day as needed Levothyroxine Sodium 1 po qd 30tabs E06.3 Libby Ventura, 10/18/2015 - TASSEL MAKING MACHINE OPERATOR 01/01/2016 112mcg Tablets Cyclobenzaprine HCL 1 by mouth every 30tabs M79.671 Abhijeet Dunn M.D. 2014 - 10mg night 07/12/2015 Tablets Diazepam 1 by mouth three [...] sone Dipropionate area twice a day Trae TASSEL MAKING MACHINE OPERATOR 01/12/2015 1-0.05% Cream Prednisone 1 by mouth [...] M.D. 03/21/2014 5-325mg Tablets needed pain 724.3 Vitamin D3 1 po qid Abhijeet Dunn M.D. 10/18/2013 - 400Unit 01/19/2014 Tablets Zoloft 1 PO qd (brand 30tabs 300.00 Abhijeet Dunn M.D. 10/18/2013 - 100mg Tablets name only) 12/06/2013 Clonazepam three times a 90tabs 300.00 Abhijeet [...] 8caps 268.9 Abhijeet Dunn M.D. 08/12/2013 - [id number] 08/26/2013 Capsules Ambien 1 by mouth every 30tabs G47.00 Libby Ventura, 08/12/2013 - 10mg Tablets night at bedtime [facility] 06/04/2016 Valium 1/2 to 1 po qd 120tabs 300.00 Abhijeet Dunn M.D. 08/12/2013 - 10mg Tablets prn severe 08/26/2013 anxiety Zoloft 1 po qd brand 30tabs 300.00 Abhijeet Dunn M.D. 08/12/2013 - 50mg Tablets only 10/18/2013 Lisinopril 1/2 tab at 90tabs I10 Madelin Hoover, 08/12/2013 - 40mg Tablets bedtime Candelaria 05/12/2017 Levothyroxine Sodium 1 by mouth every 90tabs E06.3 Abhijeet Dunn M.D. 2013 - day 10/18/2015 125mcg Tablets Pantoprazole Sodium Take 1 Tablet By 30tabs K21.9 Libby Ventura, 2013 - Mouth Once Daily TASSEL MAKING MACHINE OPERATOR 03/09/[address] Wing 1 by mouth three 60tabs F41.9 Libby Audrey, - 0.5mg Tablets times a day as TASSEL MAKING MACHINE OPERATOR 12/20/2015 needed anxiety Prednisone taper as Unknown - 20mg Tablets directed 12/06/2013 Magnesium-Oxide Take 1 Tablet By 30tabs Libby Ventura, - 400mg Mouth Every Day TASSEL MAKING MACHINE OPERATOR 12/30/2015 Tablet as Needed Lisinopril Take 4 Tablets 120tabs I10 Ruby Myrna - 10mg Tablets By Mouth Every Ro, DRY KILN BURNER 04/27/2018 Day Immunizations CPT Code Status Date Vaccine Lot # [id number] Given 03/09/2018 High-Dose, Influenza Virus Vacccine-fluzone 65 and [id number] older 12582 Given 03/20/2017 High-Dose, Influenza Virus Vacccine-fluzone 65 and older [id number] Given 08/20/2016 Pneumococcal Conjugate Vacc-13 [id number] Given 03/25/2016 High-Dose, Influenza Virus Vacccine-fluzone 65 and [id number] older 66564 Given 03/19/2014 DO Not Use Split Influenza Virus Vaccine Vital Signs Date Vital Result Comment 11/09/2018 8:01am BP Systolic 124 mmHg BP [...] Result H/L Range Note Laboratory test 11/09/2018 Simental Ghislaine(fma) Free T4 <pending> 0.75- 1.54 finding TSH <pending> 0.5-5.0 Magnesium <pending> 1.2-2.1 Laboratory test 11/09/2018 [facility] Hemoglobin A1c <pending> % 4.1-5.7 finding (607)- - (Fma) Ua - Micro (Fma) 11/09/2018 [facility] Appearance clear (607)- - Color [...] /Lpf Crystals, Fluid (Fma/CMC/CTX) - Z#Comments - Laboratory test 11/09/2018 [facility] Calcium, <pending> finding [address] [facility] Ionized, [place] [address] (607)- - Laboratory test 08/03/2018 [facility] Calcium, 3.9 mg/dL Low 4.5-5. 1 finding [address] [facility] Ionized, Serum [address] [place] [address] (607)- - Comprehensive 08/03/2018 Simental Ghislaine(fma) Sodium 136 mEq/L 134-14 Metabolic Prof 9 Potassium 5.1 mEq/L 3.6-5.5 Chloride 98 mEq/L 94-112 Carbon Dioxide 28 mEq/L 21-32 Glucose 138 mg/dL High 70-105 BUN 29 mg/dL High 6-26 Creatinine 1.0 mg/dL 0.6-1.4 BUN/Creat Ratio 29.0 CALC 8.0-36.0 Calcium 6.9 mg/dL Low 8.6-10.2 2 Total Protein 7.1 g/dL 6.4-8.3 Albumin 4.4 g/dL 3.8-5.5 Globulin 2.7 g/dL 2.0-4.8 A/G Ratio 1.6 CALC 0.6-2.3 Alk. Phosphatase 57 U/L 30-110 Alt (SGPT) 12 U/L 7-35 Ast (Sgot) 15 U/L 5-34 Total Bilirubin 0.5 mg/dL 0.2-1.3 GFR Non- 58 ml/min/1.73m^ Low >=60 GFR >60 ml/min/1.73m^ >=60 Laboratory test 08/03/2018 Hola Scanlon(a) Magnesium, Serum 2.2 mEq/L High 1.2-2.1 finding Free T4 1.44 ng/dL 0.75-1.54 TSH 3.34 mIU/L 0.50-6.00 Laboratory test 06/08/2018 [facility] Calcium, Ionized, TNP mg/dL 3 finding [address] [place] [address] (052)- - Request Problem TNP Abnormal 4 Laboratory test finding 06/08/2018 Hola Scanlon(fma) TSH 3.13 mIU/L 0.50-6.00 Free T4 1.65 ng/dL High 0.75-1.54 5 Comprehensive Metabolic 06/08/2018 Hola Scanlon(fma) Sodium 136 mEq/L 134-149 Prof Potassium 4.0 mEq/L 3.6-5.5 Chloride 102 mEq/L 94-112 Carbon Dioxide 26 mEq/L 21-32 Glucose 93 mg/dL 70-105 BUN 14 mg/dL 6-26 Creatinine 0.8 mg/dL 0.6-1.4 BUN/Creat Ratio 17.5 CALC 8.0-36.0 Calcium 7.1 mg/dL Low 8.6-10.2 6 Total Protein 7.2 g/dL 6.4-8.3 Albumin 4.4 g/dL 3.8-5.5 Globulin 2.8 g/dL 2.0-4.8 A/G Ratio 1.6 CALC 0.6-2.3 Alk. Phosphatase 72 U/L 30-110 Alt (SGPT) 12 U/L 7-35 Ast (Sgot) 17 U/L 5-34 Total Bilirubin 0.4 mg/dL 0.2-1.3 GFR Non- >60 ml/min/1.73m^ >=60 GFR >60 ml/min/1.73m^ >=60 CBC Electronic Fma 06/08/2018 Hola Ghislaine(fma) WBC 8.1 x10^3/UL 4.0- 10.0 RBC 5.00 x10^6/UL 3.93-6.00 HGB 14.3 g/dL 12.0-17.0 HCT 43 % 35-50 MCV 86.8 fL 80.0-95.0 MCH 28.6 pg 25.6-32.2 MCHC 32.9 g/dL 32.2-36.0 RDW-CV 13.7 % 11.6-14.4 PLT 298 x10^3/UL 163-400 MPV 9.4 fL 9.4-12.4 Mary# 5.68 x10^3/UL 1.56-6.13 Lymph# 1.48 x10^3/UL 1.18-3.74 Churchill# 0.77 x10^3/UL 0.24-0.82 Eos # 0.1 x10^3/UL 0.0-0.5 Baso # 0.05 x10^3/UL 0.01-0.08 Mary% 69.9 % 34.0-70.0 Lymph % 18.2 % Low 20.0-52.0 Churchill% 9.5 % 5.0-12.0 Eos% 1.7 % 0.7-7.0 Baso% 0.6 % 0.1-1.2 Laboratory test 06/08/2018 Hola Ghislaine(fma) Magnesium, Serum 2.0 mEq/L 1.2-2.1 finding Laboratory test 03/09/2018 [facility] Calcium, 4.0 mg/dL Low 4.5-5.6 finding [address] [facility] Ionized, [place] [address] (607)- - Laboratory test 03/09/2018 Hola Ghislaine(fma) TSH 1.89 mIU/L 0.50-6.00 finding Free T4 1.59 ng/dL High 0.75-1.54 7 Magnesium, Serum 1.7 mEq/L 1.2-2.1 Vitamin B-12 724 pg/mL 230-1050 Serum Iron 73 g/dL 60-150 Comprehensive Metabolic 03/09/2018 Simental Ghislaine([facility]) Sodium 137 mEq/L 134-149 Prof Potassium 4.0 mEq/L 3.6-5.5 Chloride 97 mEq/L 94-112 Carbon Dioxide 27 mEq/L 21-32 Glucose 91 mg/dL 70-105 BUN 15 mg/dL 6-26 Creatinine 0.8 mg/dL 0.6-1.4 BUN/Creat Ratio 18.8 CALC 8.0-36.0 Calcium 7.3 mg/dL Low 8.6-10.2 8 Total Protein 7.6 g/dL 6.4-8.3 Albumin 4.6 g/dL 3.8-5.5 Globulin 3.0 g/dL 2.0-4.8 A/G Ratio 1.5 CALC 0.6-2.3 Alk. Phosphatase 61 U/L 30-110 Alt (SGPT) 14 U/L 7-35 Ast (Sgot) 16 U/L 5-34 Total Bilirubin 0.4 mg/dL 0.2-1.3 GFR Non- >60 ml/min/1.73m^ >=60 GFR >60 ml/min/1.73m^ >=60 CBC Electronic a 03/09/2018 Simental Flora([facility]) WBC 7.3 x10^3/UL 4.0- 10.0 RBC 4.76 x10^6/UL 3.93-6.00 HGB 13.7 g/dL 12.0-17.0 HCT 41 % 35-50 MCV 86.1 fL 80.0-95.0 MCH 28.8 pg 25.6-32.2 MCHC 33.4 g/dL 32.2-36.0 RDW-CV 13.7 % 11.6-14.4 PLT 267 x10^3/UL 163-400 MPV 9.7 fL 9.4-12.4 Mary# 4.77 x10^3/UL 1.56-6.13 Lymph# 1.71 x10^3/UL 1.18-3.74 Churchill# 0.65 x10^3/UL 0.24-0.82 Eos # 0.1 x10^3/UL 0.0-0.5 Baso # 0.04 x10^3/UL 0.01-0.08 Mary% 65.5 % 34.0-70.0 Lymph % 23.4 % 20.0-52.0 Churchill% 8.9 % 5.0-12.0 Eos% 1.6 % 0.7-7.0 Baso% 0.5 % 0.1-1.2 Basic Metabolic Profile 12/21/2017 Simental Ghislaine(fma) Sodium 137 mEq/L 134-149 Potassium 3.9 mEq/L 3.6-5.5 Chloride 98 mEq/L 94-112 Carbon Dioxide 26 mEq/L 21-32 Glucose 90 mg/dL 70-105 BUN 13 mg/dL 6-26 Creatinine 0.8 mg/dL 0.6-1.4 BUN/Creat Ratio 16.3 CALC 8.0-36.0 Calcium 7.7 mg/dL Low 8.6-10.2 9 GFR Non- >60 ml/min/1.73m^ >=60 GFR >60 ml/min/1.73m^ >=60 CBC Auto Diff 11/25/2017 [facility] White Blood Count 9.0 10^3/uL N 3.5-10.8 [...] 0-2 Nucleated Red Blood Cells % 0.1 Laboratory test finding 11/25/2017 [facility] Troponin I 0.01 ng/mL <0.04 Laboratory test finding 11/25/2017 [facility] Troponin I 0.00 ng/mL <0.04 Urine Culture And 11/25/2017 [facility] Urine Culture SEE RESULT BELOW 10 Sensitivities Comp Metabolic Panel 11/25/2017 [facility] Sodium 135 mmol/L N 135-145 Potassium 3.1 [...] Egfr Non- 76.4 >60 Egfr 92.4 >60 11 Laboratory test finding 11/25/2017 [facility] Troponin I 0.01 ng/mL <0.04 Lactic Acid 0.9 mmol/L N 0.5-2.0 12 B-Type Natriuretic Peptide BNP 93 pg/mL 13 Urinalysis Profile 11/25/2017 [facility] Urine Color Yellow Urine Appearance Clear Urine Specific [place] 1.014 N 1.010-1.030 Urine pH 7.0 N [...] Urine Squamous Epithelial Cell Present Abnormal Absent Istat BUN/Crea/Egfr/V Mainct 11/02/2017 [facility] Poc Bun Mainct 14 mg/dL N 9- 18 Poc Crea Mainct 0.9 mg/dL N 0.6-0.9 GFR Non- MCT 61.9 >60 GFR Mainct 79.6 >60 14 Comprehensive Metabolic 09/16/2017 Hola Ghislaine(fma) Sodium 142 mEq/L 134-149 Prof Potassium 3.6 mEq/L 3.6-5.5 Chloride 99 mEq/L 94-112 Carbon Dioxide 29 mEq/L 21-32 Glucose 123 mg/dL High 70-105 BUN 18 mg/dL 6-26 Creatinine 0.7 mg/dL 0.6-1.4 BUN/Creat Ratio 25.7 CALC 8.0-36.0 Calcium 7.5 mg/dL Low 8.6-10.2 15 Total Protein 6.7 g/dL 6.4-8.3 Albumin 4.2 g/dL 3.8-5.5 Globulin 2.5 g/dL 2.0-4.8 A/G Ratio 1.7 CALC 0.6-2.3 Alk. Phosphatase 63 U/L 30-110 Alt (SGPT) 13 U/L 7-35 Ast (Sgot) 13 U/L 5-34 Total Bilirubin 0.4 mg/dL 0.2-1.3 GFR Non- >60 ml/min/1.73m^ >=60 GFR >60 ml/min/1.73m^ >=60 Calcium+Calcium,Ionized 09/16/2017 [facility] Calcium 7.1 mg/dL Low 8.7- 10.3 16 [address] [place] [address] (607)- - Calcium, Ionized, Serum 4.0 mg/dL Low 4.5-5.6 Laboratory test 09/16/2017 Hola Ghislaine(a) Vitamin D25 >120 High 30- 100 finding Free T4 1.44 ng/dL 0.75-1.54 TSH 1.69 mIU/L 0.50-6.00 CBC Electronic Fma 09/16/2017 Simental Ghislaine(a) WBC 7.9 x10^3/UL 4.0- 10.0 RBC 4.94 x10^6/UL 3.93-6.00 HGB 14.3 g/dL 12.0-17.0 HCT 43 % 35-50 MCV 86.6 fL 80.0-95.0 MCH 28.9 pg 25.6-32.2 MCHC 33.4 g/dL 32.2-36.0 RDW-CV 13.7 % 11.6-14.4 PLT 271 x10^3/UL 163-400 MPV 10.1 fL 9.4-12.4 Mary# 5.22 x10^3/UL 1.56-6.13 Lymph# 1.85 x10^3/UL 1.18-3.74 Churchill# 0.64 x10^3/UL 0.24-0.82 Eos # 0.1 x10^3/UL 0.0-0.5 Baso # 0.04 x10^3/UL 0.01-0.08 Mary% 66.1 % 34.0-70.0 Lymph % 23.4 % 20.0-52.0 Churchill% 8.1 % 5.0-12.0 Eos% 1.8 % 0.7-7.0 Baso% 0.5 % 0.1-1.2 Lyme AB/Western 09/16/2017 [facility] Lyme IgG/IgM <0.91 ISR 0.00-0.90 17 Blot Reflex [address] [facility] [place] [address] (607)- - Lyme Disease Ab, Quant, IgM <0.80 index 0.00-0.79 18 Arthritis Panel 06/26/2017 [facility] Uric Acid 4.6 mg/dL N 2.3-6.6 Erythrocyte Sed Rate 33 mm/Hr N 0-40 Rheumatoid Factor <15 IU/mL <15 19 Anti-Nuclear Antibody 0.3 U 20 Cyclic Citrullinated Peptide <15.6 U 21 Interpretation See Comment 22 CBC Electronic (Fma) 06/19/2017 [facility] WBC 12.0 High 3.6-9.6 (607)- - RBC [...] Platelet Volume 7.8 5.5-11.0 Laboratory test 06/19/2017 [facility] Sedimentation Rate 17 mm finding (607)- - Lipid Profile 05/05/2017 Hola Scanlon(fma) Cholesterol 244 mg/dL High 120-20 0 Triglycerides 90 mg/dL 30-200 HDL Cholesterol 59 mg/dL 30-85 LDL (Calculated) 167 CALC High 0-129 VLDL Cholesterol 18 mg/dL 0-50 HDL Risk Factor 4.1 CALC 0.0-4.4 Comprehensive Metabolic 05/05/2017 Hola Scanlon(fma) Sodium 137 mEq/L 134-149 Prof Potassium 3.6 mEq/L 3.6-5.5 Chloride 99 mEq/L 94-112 Carbon Dioxide 27 mEq/L 21-32 Glucose 98 mg/dL 70-105 BUN 13 mg/dL 6-26 Creatinine 0.8 mg/dL 0.6-1.4 BUN/Creat Ratio 16.3 CALC 8.0-36.0 Calcium 7.2 mg/dL Low 8.6-10.2 23 Total Protein 6.4 g/dL 6.4-8.3 Albumin 4.2 g/dL 3.8-5.5 Globulin 2.2 g/dL 2.0-4.8 A/G Ratio 1.9 CALC 0.6-2.3 Alk. Phosphatase 57 U/L 30-110 Alt (SGPT) 12 U/L 7-35 Ast (Sgot) 14 U/L 5-34 Total Bilirubin 0.5 mg/dL 0.2-1.3 GFR Non- >60 ml/min/1.73m^ >=60 GFR >60 ml/min/1.73m^ >=60 Laboratory test finding 05/05/2017 Simental Ghislaine(fma) TSH 3.37 mIU/L 0.50-6.00 Complete Blood Count 05/05/2017 Simental Ghislaine(a) WBC 5.9 x10^3/UL 3.6 -9.6 RBC 4.58 x10^6/UL 3.90-5.70 HGB 14.0 g/dL 12.1-17.2 HCT 40 % 36-50 MCV 88.0 fL 82.2-97.4 MCH 30.5 pg 27.6-33.3 MCHC 34.9 g/dL 33.0-35.5 RDW 14.8 % High 11.6-13.7 PLT 248 x10^3/UL 150-400 MPV 7.7 fL 7.4-10.4 Gran # 4.1 x10^3/UL 1.5-7.2 Lymph# 1.5 x10^3/UL 0.7-4.9 Churchill# 0.3 x10^3/UL 0.1-0.9 Gran % 68.0 % 42.2-75.2 Lymph % 26.7 % 20.5-51.1 Churchill% 5.3 % 1.7-9.3 Complete Blood Count 01/30/2017 Simental Ghislaine(a) WBC 6.6 x10^3/UL 3.6 -9.6 RBC 4.84 x10^6/UL 3.90-5.70 HGB 14.3 g/dL 12.1-17.2 HCT 42 % 36-50 MCV 87.0 fL 82.2-97.4 MCH 29.5 pg 27.6-33.3 MCHC 33.8 g/dL 33.0-35.5 RDW 14.4 % High 11.6-13.7 PLT 266 x10^3/UL 150-400 MPV 7.7 fL 7.4-10.4 Gran # 4.9 x10^3/UL 1.5-7.2 Lymph# 1.4 x10^3/UL 0.7-4.9 Churchill# 0.3 x10^3/UL 0.1-0.9 Gran % 73.2 % 42.2-75.2 Lymph % 21.6 % 20.5-51.1 Churchill% 5.2 % 1.7-9.3 Comprehensive Metabolic 01/30/2017 Simental Flora(fma) Sodium 146 mEq/L 134-149 Prof Potassium 3.8 mEq/L 3.6-5.5 Chloride 102 mEq/L 94-112 Carbon Dioxide 30 mEq/L 21-32 Glucose 96 mg/dL 70-105 BUN 10 mg/dL 6-26 Creatinine 0.8 mg/dL 0.6-1.4 BUN/Creat Ratio 12.5 CALC 8.0-36.0 Calcium 7.2 mg/dL Low 8.6-10.2 24 Total Protein 6.6 g/dL 6.4-8.3 Albumin 3.9 g/dL 3.8-5.5 Globulin 2.7 g/dL 2.0-4.8 A/G Ratio 1.4 CALC 0.6-2.3 Alk. Phosphatase 60 U/L 30-110 Alt (SGPT) 14 U/L 7-35 Ast (Sgot) 16 U/L 5-34 Total Bilirubin 0.7 mg/dL 0.2-1.3 GFR Non- >60 ml/min/1.73m^ >=60 GFR >60 ml/min/1.73m^ >=60 Laboratory test 01/30/2017 Simental Flora(fma) Free T4 1.18 ng/dL 0.75- 1.54 finding Lipid Profile 01/30/2017 Simental Flora(fma) Cholesterol 279 mg/dL High 120-200 Triglycerides 102 mg/dL 30-200 HDL Cholesterol 68 mg/dL 30-85 LDL (Calculated) 191 CALC High 0-129 VLDL Cholesterol 20 mg/dL 0-50 HDL Risk Factor 4.1 CALC 0.0-4.4 Laboratory test finding 01/30/2017 Simental Flora(fma) TSH 2.89 mIU/L 0.50-6.00 Vitamin D25 >120 High 30-100 Laboratory test 01/30/2017 [facility] Calcium, 3.8 mg/dL Low 4.5-5.6 25 finding [address] [facility] Ionized, [place] [address] (607)- - Laboratory test 01/30/2017 [facility] Hemoglobin A1c 5.8 % High 4.1- 5.7 finding (607)- - (Fma) Brain Natural Peptide 41.1 pg/mL <100 Complete Blood Count 07/02/2016 Hol[facility] Ghislaine(fma) WBC 7.7 x10^3/UL 3.6 -9.6 RBC 4.90 x10^6/UL 3.90-5.70 HGB 14.1 g/dL 12.1-17.2 HCT 42 % 36-50 MCV 86.0 fL 82.2-97.4 MCH 28.7 pg 27.6-33.3 MCHC 33.2 g/dL 33.0-35.5 RDW 15.5 % High 11.6-13.7 PLT 262 x10^3/UL 150-400 MPV 7.9 fL 7.4-10.4 Gran # 5.0 x10^3/UL 1.5-7.2 Lymph# 2.3 x10^3/UL 0.7-4.9 Churchill# 0.4 x10^3/UL 0.1-0.9 Gran % 63.7 % 42.2-75.2 Lymph % 30.9 % 20.5-51.1 Churchill% 5.4 % 1.7-9.3 Laboratory test 07/02/2016 [facility] Calcium, 4.1 mg/dL Low 4.5-5.6 26 finding [address] [facility], [place] [address] Serum (607)- - Comprehensive 07/02/2016 Hola Ghislaine(fma) Sodium 142 mEq/L 134-149 Metabolic Prof Potassium 3.9 mEq/L 3.6-5.5 Chloride 103 mEq/L 94-112 Carbon Dioxide 32 mEq/L 21-32 Glucose 74 mg/dL 70-105 BUN 19 mg/dL 6-26 Creatinine 0.9 mg/dL 0.6-1.4 BUN/Creat Ratio 21.1 CALC 8.0-36.0 Calcium 7.3 mg/dL Low 8.6-10.2 27 Total Protein 7.2 g/dL 6.4-8.3 Albumin 4.1 g/dL 3.8-5.5 Globulin 3.1 g/dL 2.0-4.8 A/G Ratio 1.3 CALC 0.6-2.3 Alk. Phosphatase 68 U/L 30-110 Alt (SGPT) 15 U/L 7-35 Ast (Sgot) 17 U/L 5-34 Total Bilirubin 0.4 mg/dL 0.2-1.3 GFR Non- >60 ml/min/1.73m^ >=60 GFR >60 ml/min/1.73m^ >=60 Laboratory test finding 07/02/2016 Simental Flora(fma) TSH 4.63 mIU/L 0.50-6.00 Free T4 1.29 ng/dL 0.75-1.54 PTH Intact + 01/31/2016 [facility] Calcium, 3.9 mg/dL Low 4.5-5.6 28 Calcium Ionized [address] [facility] Ionized, [place] [address] (601)- - PTH, Intact 8 pg/mL Low 15-65 Laboratory test 01/31/2016 [facility] PDF [id number] SEE IMAGE finding [address] [place] [address] (006)- - Laboratory test 01/31/2016 Hola Scanlon(a) TSH 1.51 mIU/L 0.50-6 finding .00 Free T4 1.36 ng/dL 0.75-1.54 Comprehensive Metabolic 01/31/2016 Hola Ghislaine(fma) Sodium 140 mEq/L 134-149 Prof Potassium 3.9 mEq/L 3.6-5.5 Chloride 100 mEq/L 94-112 Carbon Dioxide 27 mEq/L 21-32 Glucose 87 mg/dL 70-105 BUN 13 mg/dL 6-26 Creatinine 0.8 mg/dL 0.6-1.4 BUN/Creat Ratio 16.3 CALC 8.0-36.0 Calcium 7.4 mg/dL Low 8.6-10.2 29 Total Protein 6.7 g/dL 6.4-8.3 Albumin 4.0 g/dL 3.8-5.5 Globulin 2.7 g/dL 2.0-4.8 A/G Ratio 1.5 CALC 0.6-2.3 Alk. Phosphatase 56 U/L 30-110 Alt (SGPT) 12 U/L 7-35 Ast (Sgot) 18 U/L 5-34 Total Bilirubin 0.5 mg/dL 0.2-1.3 GFR Non- >60 ml/min/1.73m^ >=60 GFR >60 ml/min/1.73m^ >=60 Laboratory test 01/31/2016 Simental Ghislaine(fma) Vitamin D25 >120 High 30- 100 30 finding Basic Metabolic 12/20/2015 Simental Ghislaine(fma) Sodium 141 mEq/L 134-149 Profile Potassium 3.8 mEq/L 3.6-5.5 Chloride 101 mEq/L 94-112 Carbon Dioxide 26 mEq/L 21-32 Glucose 75 mg/dL 70-105 BUN 18 mg/dL 6-26 Creatinine 0.8 mg/dL 0.6-1.4 BUN/Creat Ratio 22.5 CALC 8.0-36.0 Calcium 8.0 mg/dL Low 8.6-10.2 31 GFR Non- >60 ml/min/1.73m^ >=60 GFR >60 ml/min/1.73m^ >=60 Laboratory test 12/20/2015 Simental Ghislaine(fma) Magnesium, Serum 1.3 mEq/L 1.2-2.1 finding TSH 0.29 mIU/L Low 0.50-6.00 Free T3 2.67 pg/mL 2.00-4.90 Free T4 1.84 ng/dL High 0.75-1.54 Basic Metabolic Profile 10/04/2015 Simental Ghislaine(fma) Sodium 140 mEq/L 134-149 Potassium 3.8 mEq/L 3.6-5.5 Chloride 100 mEq/L 94-112 Carbon Dioxide 32 mEq/L 21-32 Glucose 93 mg/dL 70-105 BUN 17 mg/dL 6-26 Creatinine 0.8 mg/dL 0.6-1.4 BUN/Creat Ratio 21.3 CALC 8.0-36.0 Calcium 8.1 mg/dL Low 8.6-10.2 32 GFR Non- >60 ml/min/1.73m^ >=60 GFR >60 ml/min/1.73m^ >=60 Laboratory test finding 10/04/2015 Simental Ghislaine(fma) TSH 0.09 mIU/L Low 0.50-6.00 Free T4 1.86 ng/dL High 0.75-1.54 Free T3 2.78 pg/mL 2.00-4.90 Basic Metabolic Profile 07/12/2015 Simental Ghislaine(fma) Sodium 139 mEq/L 134-149 Potassium 3.7 mEq/L 3.6-5.5 Chloride 99 mEq/L 94-112 Carbon Dioxide 28 mEq/L 21-32 Glucose 111 mg/dL High 70-105 33 BUN 18 mg/dL 6-26 Creatinine 0.8 mg/dL 0.6-1.4 BUN/Creat Ratio 22.5 CALC 8.0-36.0 Calcium 7.4 mg/dL Low 8.6-10.2 34 GFR Non- >60 ml/min/1.73m^ >=60 GFR >60 ml/min/1.73m^ >=60 Laboratory test 07/12/2015 Hola Ghislaine(fma) Free T4 1.51 ng/dL 0.75- 1.54 finding Free T3 2.46 pg/mL 2.00-4.90 Magnesium, Serum 2.0 mEq/L 1.2-2.1 TSH 1.08 mIU/L 0.50-6.00 Comprehensive Metabolic 04/17/2015 Hola Scanlon(fma) Sodium 139 mEq/L 134-149 Prof Potassium 3.6 mEq/L 3.6-5.5 Chloride 96 mEq/L 94-112 Carbon Dioxide 31 mEq/L 21-32 Glucose 105 mg/dL 70-105 BUN 15 mg/dL 6-26 Creatinine 0.8 mg/dL 0.6-1.4 BUN/Creat Ratio 18.8 CALC 8.0-36.0 Calcium 7.7 mg/dL Low 8.6-10.2 35 Total Protein 7.1 g/dL 6.4-8.3 Albumin 4.1 g/dL 3.8-5.5 Globulin 3.0 g/dL 2.0-4.8 A/G Ratio 1.4 CALC 0.6-2.3 Alk. Phosphatase 54 U/L 30-110 Alt (SGPT) 17 U/L 7-35 Ast (Sgot) 22 U/L 5-34 Total Bilirubin 0.5 mg/dL 0.2-1.3 GFR Non- >60 ml/min/1.73m^ >=60 GFR >60 ml/min/1.73m^ >=60 Laboratory test 04/17/2015 Hola Scanlon(fma) Free T4 1.32 ng/dL 0.75- 1.54 36 finding TSH 1.42 mIU/L 0.50-6.00 Free T3 2.47 pg/mL 2.00-4.90 Comprehensive Metabolic 01/12/2015 Hola Scanlon([facility]) Sodium 140 mEq/L 134-149 Prof Potassium 3.9 mEq/L 3.6-5.5 Chloride 102 mEq/L 94-112 Carbon Dioxide 22 mEq/L 21-32 Glucose 94 mg/dL 70-105 BUN 17 mg/dL 6-26 Creatinine 0.8 mg/dL 0.6-1.4 BUN/Creat Ratio 21.3 CALC 8.0-36.0 Calcium 7.0 mg/dL Low 8.6-10.2 37 Total Protein 7.1 g/dL 6.4-8.3 Albumin 4.1 g/dL 3.8-5.5 Globulin 3.0 g/dL 2.0-4.8 A/G Ratio 1.4 CALC 0.6-2.3 Alk. Phosphatase 63 U/L 30-110 Alt (SGPT) 15 U/L 7-35 Ast (Sgot) 13 U/L 5-34 Total Bilirubin 0.5 mg/dL 0.2-1.3 GFR Non- >60 ml/min/1.73m^ >=60 GFR >60 ml/min/1.73m^ >=60 Laboratory test finding 01/12/2015 Simental Flora([facility]) TSH 1.71 mIU/L 0.50-6.00 Uric Acid 4.7 mg/dL 2.5-9.2 Complete Blood Count 01/12/2015 Simental Flora([facility]) WBC 7.5 x10^3/UL 3.6 -9.6 RBC 4.93 x10^6/UL 3.90-5.70 HGB 14.6 g/dL 12.1-17.2 HCT 44 % 36-50 MCV 88.0 fL 82.2-97.4 MCH 29.6 pg 27.6-33.3 MCHC 33.5 g/dL 33.0-35.5 RDW 13.8 % High 11.6-13.7 PLT 332 x10^3/UL 150-400 MPV 7.5 fL 7.4-10.4 Gran # 4.8 x10^3/UL 1.5-7.2 Lymph# 1.9 x10^3/UL 0.7-4.9 Churchill# 0.8 x10^3/UL 0.1-0.9 Gran % 62.7 % 42.2-75.2 Lymph % 26.3 % 20.5-51.1 Churchill% 11.0 % High 1.7-9.3 Ua - Non Micro (Fma) 01/12/2015 [facility] Appearance clear (607)- - Color yellow Glucose, Urine (Fma/CMC/CTX) - Bilirubin - Ketones - SP Grav 1.010 Blood trace-intact PH 7.5 Protein - Urobil 0.2 Nitrite - Leukocytes (a/[facility]) - Comprehensive Metabolic 11/07/2014 Simental Ghislaine(a) Sodium 138 mEq/L 134-149 Prof Potassium 3.8 mEq/L 3.6-5.5 Chloride 94 mEq/L 94-112 Carbon Dioxide 27 mEq/L 21-32 Glucose 79 mg/dL 70-105 BUN 20 mg/dL 6-26 Creatinine 0.8 mg/dL 0.6-1.4 BUN/Creat Ratio 25.0 CALC 8.0-36.0 Calcium 7.6 mg/dL Low 8.6-10.2 38 Total Protein 7.1 g/dL 6.4-8.3 Albumin 4.2 g/dL 3.8-5.5 Globulin 2.9 g/dL 2.0-4.8 A/G Ratio 1.4 CALC 0.6-2.3 Alk. Phosphatase 58 U/L 30-110 Alt (SGPT) 17 U/L 7-35 Ast (Sgot) 18 U/L 5-34 Total Bilirubin 0.6 mg/dL 0.2-1.3 Laboratory test finding 11/07/2014 Simental Ghislaine(a) TSH 1.04 mIU/L 0.50-6.00 Free T3 2.61 pg/mL 2.00-4.90 Free T4 1.52 ng/dL 0.75-1.54 Laboratory test 10/03/2014 [facility] Cytology RUN DATE: 39 finding 10/05/ <SEE NOTE> Laboratory test 10/03/2014 [facility] Wet Prep see scanned 40 finding (607)- - (Fma,CMC,CX) Laboratory test 10/03/2014 [facility] Gardnerella/Yeast (SEE NOTE) 41 finding : Vaginal Dna Trichomonas: Vaginal Dna Probe (SEE NOTE) 42 Comprehensive Metabolic 08/08/2014 Simental Ghislaine(fma) Sodium 141 mEq/L 134-149 Prof Potassium 3.7 mEq/L 3.6-5.5 Chloride 98 mEq/L 94-112 Carbon Dioxide 27 mEq/L 21-32 Glucose 108 mg/dL High 70-105 43 BUN 12 mg/dL 6-26 Creatinine 0.8 mg/dL 0.6-1.4 BUN/Creat Ratio 15.0 CALC 8.0-36.0 Calcium 7.3 mg/dL Low 8.6-10.2 44 Total Protein 7.1 g/dL 6.4-8.3 Albumin 3.9 g/dL 3.8-5.5 Globulin 3.2 g/dL 2.0-4.8 A/G Ratio 1.2 CALC 0.6-2.3 Alk. Phosphatase 56 U/L 30-110 Alt (SGPT) 20 U/L 7-35 Ast (Sgot) 17 U/L 5-34 Total Bilirubin 0.4 mg/dL 0.2-1.3 Complete Blood Count 08/08/2014 Simental Ghislaine(fma) WBC 8.0 x10^3/UL 3.6 -9.6 RBC 5.13 x10^6/UL 3.90-5.70 HGB 15.0 g/dL 12.1-17.2 HCT 45 % 36-50 MCV 87.0 fL 82.2-97.4 MCH 29.3 pg 27.6-33.3 MCHC 33.5 g/dL 33.0-35.5 RDW 12.5 % 11.6-13.7 PLT 282 x10^3/UL 150-400 MPV 7.4 fL 7.4-10.4 Gran # 6.2 x10^3/UL 1.5-7.2 Lymph# 1.5 x10^3/UL 0.7-4.9 Churchill# 0.3 x10^3/UL 0.1-0.9 Gran % 76.2 % High 42.2-75.2 Lymph % 19.1 % Low 20.5-51.1 Churchill% 4.7 % 1.7-9.3 Laboratory test 08/08/2014 Simental Ghislaine(fma) Magnesium, Serum 1.9 mEq/L 1.2-2.1 finding Influenza A&B-fma 07/28/2014 [facility] Influenza A NEG (607)- - Influenza B NEG Comprehensive Metabolic 05/02/2014 Simental Ghislaine([facility]) Sodium 138 mEq/L 134-149 Prof Potassium 3.6 mEq/L 3.6-5.5 Chloride 100 mEq/L 94-112 Carbon Dioxide 29 mEq/L 21-32 Glucose 92 mg/dL 70-105 BUN 18 mg/dL 6-26 Creatinine 0.9 mg/dL 0.6-1.4 BUN/Creat Ratio 20.0 CALC 8.0-36.0 Calcium 7.5 mg/dL Low 8.6-10.2 45 Total Protein 7.0 g/dL 6.4-8.3 Albumin 4.4 g/dL 3.8-5.5 Globulin 2.6 g/dL 2.0-4.8 A/G Ratio 1.7 CALC 0.6-2.3 Alk. Phosphatase 63 U/L 30-110 Alt (SGPT) 30 U/L 7-35 Ast (Sgot) 28 U/L 5-34 Total Bilirubin 0.3 mg/dL 0.2-1.3 Laboratory test 05/02/2014 Hola Ghislaine([facility]) Magnesium, Serum 1.9 mEq/L 1.2-2.1 finding Vitamin D25 >120 High 30-100 46 Vitamin D, 25 Hydroxy 02/21/2014 [facility] 25-Hydroxy Vitamin D2 136 ng/mL N 25-Hydroxy Vitamin D3 67 ng/mL N 25-Hydroxy Vitamin D Total 203 ng/mL Abnormal 47 Comp Metabolic Panel 02/21/2014 [facility] Sodium 139 [...] 71.8 N >60 Egfr 92.3 N >60 48 Laboratory test finding 02/21/2014 [facility] Magnesium 1.8 mg/dL Low 1.9-2.7 Free T4 1.08 ng/mL N 0.61-1.12 TSH (Thyroid Stimulating Horm) 1.34 IU/mL N 0.34-5.60 Laboratory test finding 01/20/2014 Hola Scanlon(fma) TSH 3.77 mIU/L 0.50-6.00 Free T4 1.25 ng/dL 0.75-1.54 Comprehensive Metabolic 01/20/2014 Hola Scanlon(fma) Sodium 139 mEq/L 134-149 Prof Potassium 3.8 mEq/L 3.6-5.5 Chloride 98 mEq/L 94-112 Carbon Dioxide 22 mEq/L 21-32 Glucose 91 mg/dL 70-105 BUN 13 mg/dL 6-26 Creatinine 0.8 mg/dL 0.6-1.4 BUN/Creat Ratio 16.3 CALC 8.0-36.0 Calcium 8.2 mg/dL Low 8.6-10.2 49 Total Protein 7.8 g/dL 6.3-8.1 Albumin 4.5 g/dL 3.8-5.5 Globulin 3.3 g/dL 2.0-4.8 A/G Ratio 1.4 CALC 0.6-2.3 Alk. Phosphatase 68 U/L 30-110 Alt (SGPT) 29 U/L 7-35 Ast (Sgot) 18 U/L 5-34 Total Bilirubin 0.6 mg/dL 0.2-1.3 Laboratory test 01/20/2014 [facility] Rheumatoid Arth 9.3 IU/mL 0.0-13.9 finding [address] [place] [address] [phone] CBC Manual 01/20/2014 [facility] WBC 8.1 [...] Z#Comment rbc/plts normal Laboratory test 12/13/2013 Hola Ghislaine([facility]) Calcium, Serum 6.7 mg/dL Low 8.6-10.2 50 finding Complete Blood 12/13/2013 Simental Flora(a) WBC 6.7 3.6-9.6 Count x10^3/UL RBC 4.65 x10^6/UL 3.90-5.70 HGB 14.0 g/dL 12.1-17.2 HCT 41 % 36-50 MCV 88.0 fL 82.2-97.4 MCH 30.2 pg 27.6-33.3 MCHC 34.2 g/dL 33.0-35.5 RDW 12.4 % 11.6-13.7 PLT 287 x10^3/UL 150-400 MPV 7.1 fL Low 7.4-10.4 Gran # 5.1 x10^3/UL 1.5-7.2 Lymph# 1.3 x10^3/UL 0.7-4.9 Churchill# 0.3 x10^3/UL 0.1-0.9 Gran % 73.9 % 42.2-75.2 Lymph % 20.3 % Low 20.5-51.1 Churchill% 5.8 % 1.7-9.3 Laboratory test finding 12/13/2013 [facility] C Reactive Protein 7.40 mg/L High < 5.00 51 Comp Metabolic Panel 11/01/2013 [facility] Sodium 137 mmol/L 133-145 Potassium 3.9 mmol/L [...] Egfr Non- 70.7 >60 Egfr 91.0 >60 52 Vitamin D, 25 Hydroxy 11/01/2013 [facility] 25-Hydroxy Vitamin D2 96 ng/mL 25-Hydroxy Vitamin D3 75 ng/mL 25-Hydroxy Vitamin D Total 171 ng/mL Abnormal 53 Laboratory test 10/12/2013 [facility] Test see scanned finding Comp Metabolic 09/19/2013 [facility] Sodium 137 mmol/L 133-145 Panel Potassium 4.2 mmol/L 3.7-5.6 Chloride 102 mmol/L [...] Egfr Non- 66.9 >60 Egfr 86.1 >60 54 Laboratory test finding 09/19/2013 [facility] Free T4 1.07 ng/mL 0.61-1.12 TSH (Thyroid Stimulating Horm) 0.65 IU/mL 0.34-5.60 Vitamin D, 25 Hydroxy 09/19/2013 [facility] 25-Hydroxy Vitamin D2 <4.0 ng/mL 25-Hydroxy Vitamin D3 53 ng/mL 25-Hydroxy Vitamin D Total 53 ng/mL 55 Comprehensive Metabolic 08/12/2013 Simental Ghislaine(fma) Sodium 135 [...] Bilirubin 0.4 mg/dL 0.2-1.3 1 1 sst 2 consistent w/ previous results 3 No serum received. 4 Comment: No serum received. TEST: [id number] Calcium, Ionized, Serum 5 RESULTS VERIFIED BY REPEAT ANALYSIS 6 RESULTS VERIFIED BY REPEAT ANALYSIS 7 RESULTS VERIFIED BY REPEAT ANALYSIS 8 RESULTS VERIFIED BY REPEAT ANALYSIS 9 consistent w/ previous results 10 SEE RESULT BELOW Name: MELIDA GASPAR : [address]: Ton Boateng MD Acct: [id number] Unit: [id number] AGE: 72 Location: [place] [address] Re11/25/17 SEX: F Status: ADM Ron SPEC: [id number] NITHYA: 11/25/[address]: Olegario Diaz MD REQ: [id number] RECD: 11/25/17 STATUS: COREEN AGOSTO DR: Madelin Hoover MD _ SOURCE: URINE SPDESC: ORDERED: Urine Culture Procedure Result Reported Site Urine Culture Final 11/27/17- 3340 ML No growth of clinically significant organisms * ML - Main Lab . END OF REPORT DEPARTMENT OF PATHOLOGY, [address] [place] [address] Luke Cash M.D. Director [facility] # [id number] 11 Because ethnic data is not always readily [...] 15-29 5 Kidney failure <15 (or dialysis) 12 [facility] Severe Sepsis and Septic Shock Management Bundle Measure requires all lactic acids initially measuring >2.0 mmol/L be repeated. 13 >100 to <200 pg/mL: likely compensated congestive heart failure (CHF) 200 to 400 pg/mL: likely moderate CHF >400 pg/mL: likely moderate to severe CHF 14 Because ethnic data is not always readily [...] 15-29 5 Kidney failure <15 (or dialysis) 15 RESULTS VERIFIED BY REPEAT ANALYSIS 16 2 SST ONE WITH TAPE UNOPEN ED 17 Negative <0.91 Equivocal 0.91 - 1.09 Positive >1.09 18 Negative <0.80 Equivocal 0.80 - 1.19 Positive >1.19 IgM levels may peak at 3-6 weeks post infection, then gradually decline. 19 Test Performed by: [facility] - [address] [address] 20 REFERENCE VALUE <=1.0 (Negative) 21 REFERENCE VALUE <20.0 (Negative) 22 Tests for antibodies to dsDNA and TAYLOR antigens are not performed automatically unless the JOSEFA result is > or= 3.0 U. Studies performed at [facility] indicate that positive JOSEFA results <3.0 U are rarely accompanied by positive second order tests. Test Performed by: [facility] - [address] [address] 23 consistent w/ previous results 24 consistent w/ previous results 25 1 sst 26 1 sst unopened 27 consistent w/ previous results 28 split specimen 29 RESULTS VERIFIED BY REPEAT ANALYSIS 30 consistent w/ previous results 31 consistent w/ previous results 32 RESULTS VERIFIED BY REPEAT ANALYSIS 33 RESULTS VERIFIED BY REPEAT ANALYSIS 34 RESULTS VERIFIED BY REPEAT ANALYSIS 35 consistent w/ previous results 36 FASTING 37 RESULTS VERIFIED BY REPEAT ANALYSIS 38 RESULTS VERIFIED BY REPEAT ANALYSIS 39 RUN DATE: 10/05/14 [facility] LAB LIVE PAGE 1 RUN TIME: [address] [place] [address] Specimen Inquiry Name: MELIDA GASPAR Joleen : [address]: Talia Desouza DRY KILN BURNER Acct: [id number] Unit: [id number] AGE: 69 Location: [facility] Re10/03/14 SEX: F Status: REG REF SPEC: [id number] NITHYA: 10/03/[address] [facility] [address]: Talia Desouza DRY KILN BURNER REQ: [id number] RECD: 10/04/14 STATUS: SOUT _ ORDERED: IMAGE [...] Abnormal Pap Smears?:N Signed (signature on file) EIDE Mcnair (ASCP) 10/05 1519 This Pap test was evaluated with the assistance of the [employer] System. Due to cytologic findings at the hook and eye attacher microscope, comprehensive manual rescreening by a Marine Pipefitter may be required. The Pap Smear is [...] PATHOLOGY, [facility] [employer] [place], [place] [address] Luke Cash M.D. Director [facility] # [id number] 40 few epis, no wbc , no clue cells, neg whiff 41 RUN DATE: 10/05/14 [facility] LAB LIVE PAGE 1 RUN TIME: 841 [facility] [employer] [place], [place] [address] Specimen Inquiry Name: MELIDA GASPAR : [address]: Talia Desouza NP Acct: [id number] Unit: [id number] AGE: 69 Location: [facility] Re10/03/14 SEX: F Status: REG REF SPEC: [id number] NITHYA: 10/03/14-[address]: Talia Desouza DRY KILN BURNER REQ: [id number] RECD: 10/04/14 STATUS: RES _ SOURCE: VAGINAL SPDESC: ORDERED: Gertrude,Yeast DNA, Trich DNA QUERIES: Provider Requisition # [id number] Procedure Result Verified Site Gardnerella/Yeast: Vaginal DNA [...] Probe PENDING * ML - MAIN LAB ([facility]) . END OF REPORT * ML=Testing performed at Main Lab DEPARTMENT OF PATHOLOGY, [address] [place] [address] Luke Cash M.D. Director [facility] # [id number] 42 RUN DATE: 10/05/14 [facility] LAB LIVE PAGE 1 RUN TIME: [address] [place] [address] Specimen Inquiry Name: MELIDA GASPAR : [address]: Talia Desouza NP Acct: [id number] Unit: [id number] AGE: 69 Location: [facility] Re10/03/14 SEX: F Status: REG REF SPEC: [id number] NITHYA: 10/03/14-[address]: Talia Desouza NP REQ: [id number] RECD: 10/04/14 STATUS: COMP _ SOURCE: VAGINAL SPDESC: ORDERED: Gertrude,Yeast DNA, Trich DNA QUERIES: Provider Requisition # [id number] Procedure Result Verified Site Gardnerella/Yeast: Vaginal DNA [...] failure. Trichomonas: Vaginal DNA Probe Final 10/05/14- 0844 ML Organism 1 Negative Trichomonas CONTINUED ON NEXT PAGE * ML=Testing performed at Main Lab DEPARTMENT OF PATHOLOGY, [facility] [employer] [place] [address] Luke Cash M.D. Director [facility] # [id number] RUN DATE: 10/05/14 [facility] LAB LIVE PAGE 2 RUN TIME: 843 [facility] [employer] [place], [place] [address] Specimen Inquiry Patient: MELIDA GASPAR Joleen [id number] (Continued) Specimen: [id number] Collected: 10/03/14 Received: 10/04/14 (Continued) Procedure Result Verified Site Trichomonas: Vaginal DNA Probe Final (continued) 10/05/14843 The presence or absence of T. vaginalis cannot be used as a test for therapeutic success or failure. * ML - MAIN LAB ([facility]) . END OF REPORT * ML=Testing performed at Main Lab DEPARTMENT OF PATHOLOGY, [address] [place] [address] Luke Cash M.D. Director [facility] # [id number] 43 RESULTS VERIFIED BY REPEAT ANALYSIS 44 RESULTS VERIFIED BY REPEAT ANALYSIS 45 consistent w/ previous results 46 RESULTS VERIFIED BY REPEAT ANALYSIS 47 Interpretation: >80 ng/mL (toxicity possible) -- REFERENCE VALUE -- 25-HYDROXY D TOTAL (D2+D3) Optimum levels in the healthy population are 20-50, patients with bone disease may benefit from higher levels within this range. Test Performed by: [address] [address] [employer]: Masood Rankin III, M.D. 48 Because ethnic data is not always readily [...] 15-29 5 Kidney failure <15 (or dialysis) 49 consistent w/ previous results 50 RESULTS VERIFIED BY REPEAT ANALYSIS 51 Acute inflammation: >10.00 52 Because ethnic data is not always readily [...] 15-29 5 Kidney failure <15 (or dialysis) 53 Interpretation: >80 ng/mL (toxicity possible) -- REFERENCE VALUE -- 25-HYDROXY D TOTAL (D2+D3) Optimum levels in the healthy population are 20-50, patients with bone disease may benefit from higher levels within this range. Test Performed by: [address] [address] [employer]: Masood Rankin III, M.D. 54 Because ethnic data is not always readily [...] 15-29 5 Kidney failure <15 (or dialysis) 55 Interpretation: 51-80 ng/mL (increased risk of hypercalciuria) -- REFERENCE VALUE -- 25-HYDROXY D TOTAL (D2+D3) Optimum levels in the healthy population are 20-50, patients with bone disease may benefit from higher levels within this range. Test Performed by: [address] [address] [employer]: Masood Rankin III, M.D. Procedures Date Code Description Status 10/01/2017 [id number] Mammogram Completed 05/12/2017 49491 Electrocardiogram Complete Completed 02/15/2016 [id number] Mammogram Completed 01/12/2015 14155 Paring/Cutting Benign Lesion ([place]/Callus) Completed 08/15/2014 [id number] Mammogram Completed 08/08/2014 99610 Pulse Oximetry Completed 07/28/2014 00251 Pulse Oximetry Completed 06/01/2012 [id number] Colonoscopy Completed Encounters Type Date Location Provider Dx Diagnosis Office Visit 08/03/2018 [facility] Office Madelin Hoover, I10 Essential ( primary) 9:30a M.D. hypertension F41.9 Anxiety disorder, unspecified E89.2 Postprocedural hypoparathyroidism E03.9 Hypothyroidism, unspecified M15.0 Primary generalized (osteo)arthritis Office Visit 06/08/2018 9:40a [facility] Office Madelin Hoover, I10 Essential (primary) M.D. hypertension F41.9 Anxiety disorder, unspecified K21.9 Gastro-esophageal reflux disease without esophagitis E89.2 Postprocedural hypoparathyroidism Office Visit 04/27/2018 9:00a [facility] Office Madelin Hoover, I10 Essential (primary) M.D. hypertension K21.9 Gastro-esophageal reflux disease without esophagitis E03.9 Hypothyroidism, unspecified F41.9 Anxiety disorder, unspecified Office Visit 03/09/2018 10:20a [facility] Office Madelin Hoover, I10 Essential (primary) M.D. hypertension E87.6 Hypokalemia M15.0 Primary generalized (osteo)arthritis E83.51 Hypocalcemia K21.9 Gastro-esophageal reflux disease without esophagitis E03.9 Hypothyroidism, unspecified R53.83 Other fatigue Z23 Encounter for immunization Office Visit 12/21/2017 1:20p [facility] Office Pedrito Moody R69 Illness, MD Halley unspecified E87.6 Hypokalemia Office Visit 11/10/2017 10:00a [facility] Office Madelin Hoover, I10 Essential (primary) M.D. hypertension M15.0 Primary generalized (osteo)arthritis E83.51 Hypocalcemia F41.1 Generalized anxiety disorder K21.9 Gastro-esophageal reflux disease without esophagitis E89.2 Postprocedural hypoparathyroidism Office Visit 11/02/2017 1:20p [facility] Pedrito Moody R59.0 Localized Office MD Halley enlarged lymph nodes Office Visit 09/16/2017 2:00p [facility] Madelin Hoover, M25.541 Pain in joints Office M.DRohith of right hand F41.1 Generalized anxiety disorder E83.51 Hypocalcemia M15.0 Primary generalized (osteo)arthritis E06.3 Autoimmune thyroiditis Z12.31 Encntr screen mammogram for malignant neoplasm of breast Office Visit 06/19/2017 9:00a [facility] Office Chelsey Victor M25.541 Pain in joints BUBBA Chaudhry of right hand Office Visit 06/12/2017 1:45p [facility] Office Chelsey NicolasRohith L23.2 Allergic contact BUBBA Chaudhry dermatitis due to cosmetics Office Visit 05/12/2017 1:20p [facility] Office Madelin Hoover, Z00.00 Encntr for M.D. general adult medical exam w/o abnormal findings I10 Essential (primary) hypertension E83.51 Hypocalcemia F41.1 Generalized anxiety disorder E03.8 Other specified hypothyroidism Office Visit 01/13/2017 11:30a [facility] Office Madelin Hoover, E83.51 Hypocalcemia M.D. F41.1 Generalized anxiety disorder I10 Essential (primary) hypertension E89.2 Postprocedural hypoparathyroidism E66.9 Obesity, unspecified Office Visit 08/20/2016 4:40p [facility] Office Madelin Hoover, F41.1 Generalized M.D. anxiety disorder I10 Essential (primary) hypertension E89.2 Postprocedural hypoparathyroidism E03.8 Other specified hypothyroidism E83.51 Hypocalcemia Z23 Encounter for immunization Office Visit 07/02/2016 1:40p [facility] Office Madelin Hoover, F41.1 Generalized M.D. anxiety disorder I10 Essential (primary) hypertension E83.51 Hypocalcemia E89.2 Postprocedural hypoparathyroidism E03.8 Other specified hypothyroidism M25.511 Pain in right shoulder Office Visit 05/28/2016 8:00a [facility] Office Madelin Hoover, F41.1 Generalized M.D. anxiety disorder I10 Essential (primary) hypertension E83.51 Hypocalcemia E89.2 Postprocedural hypoparathyroidism E03.8 Other specified hypothyroidism M25.511 Pain in right shoulder Office Visit 04/02/2016 11:30a [facility] Office Madelin Hoover, I10 Essential (primary) M.D. hypertension E83.51 Hypocalcemia F41.1 Generalized anxiety disorder Office Visit 03/25/2016 9:40a Main Office Madelin Hoover, I10 Essential ( primary) M.D. hypertension E83.51 Hypocalcemia F41.1 Generalized anxiety disorder Z23 Encounter for immunization Office Visit 02/08/2016 [facility] Madelin Hoover, E89.2 Postprocedural 4:20p Office M.D. hypoparathyroidism E83.51 Hypocalcemia I10 Essential (primary) hypertension F41.1 Generalized anxiety disorder E03.8 Other specified hypothyroidism Z12.31 Encntr screen mammogram for malignant neoplasm of breast M15.0 Primary generalized (osteo)arthritis Office Visit 10/18/2015 1:00p [facility] Office LUIS Mueller E83.51 Hypocalcemia E06.3 Autoimmune thyroiditis Office Visit 10/04/2015 4:00p [facility] LUIS Mueller E83.51 Hypocalcemia E06.3 Autoimmune thyroiditis Office Visit 07/12/2015 3:00p [facility] LUIS Mueller E83.51 Hypocalcemia E06.3 Autoimmune thyroiditis Office Visit 05/18/2015 11:10a [facility] Office Abhijeet Dunn M.D. M79.671 Pain in right foot F41.1 Generalized anxiety disorder I10 Essential (primary) hypertension Office Visit 04/17/2015 8:50a [facility] Office Abhijeet Dunn M.D. H65.01 Acute serous otitis media, right ear I10 Essential (primary) hypertension E06.3 Autoimmune thyroiditis E83.51 Hypocalcemia Office Visit 01/12/2015 9:20a [facility] Office Abhijeet Dunn M.D. 788.42 Polyuria 780.52 Insomnia Unspecified 275.42 Hypercalcemia 300.02 Anxiety Disorder Generalized 454.1 Varicose Veins Lower Extrem W/ Inflammation 700 Corns & Callosities 719.47 Pain Joint Ankle & Foot Office Visit 11/07/2014 10:00a [facility] Office Abhijeet Dunn, 401.9 Hypertension Unspec M.D. 244.9 Hypothyroidism Other Unspec 300.02 Anxiety Disorder Generalized 275.41 Hypocalcemia Office Visit 10/03/2014 4:00p [facility] Office Talia V70.0 Examination Elizabeth Desouza General Medical Routine AT [facility] 311 Depressive Disorder Not Elsewhere Spec 300.02 Anxiety Disorder Generalized 401.9 Hypertension Unspec 724.2 Lumbago 620.2 Ovarian Cyst Other & Unspec 244.9 Hypothyroidism Other Unspec 623.8 Vaginal Disorder Noninflammatory Spec Other Office Visit 08/08/2014 10:15a [facility] Office Elizabeth Adler 786.2 Cough 790.6 Abnormal Blood Chemistry Other 300.00 Anxiety State Unspec Office Visit 07/28/2014 3:00p [facility] Office Alanna 780.60 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 724.2 Lumbago 275.41 Hypocalcemia Office Visit 03/31/2014 2:30p [facility] Abhijeet Dunn M.D. 724.2 Lumbago 780.52 Insomnia Unspecified Office Visit 03/21/2014 3:20p [facility] Office Abhijeet Dunn M.D. 724.2 Lumbago 311 Depressive Disorder Not Elsewhere Spec Office Visit 01/20/2014 8:00a [facility] Office Abhijeet Dunn M.D. 275.41 Hypocalcemia 401.9 Hypertension Unspec 789.01 Pain Abdominal Right Upper Quadrant 780.79 Malaise And Fatigue Other 244.9 Hypothyroidism Other Unspec Office Visit 12/26/2013 3:30p Main Office Abhijeet Dunn M.D. 724.3 Sciatica Office Visit 12/19/2013 2:40p Main Office Abhijeet uDnn M.D. 682.3 Cellulitis & Abscess Upper Arm & Forearm 787.02 Nausea Alone Office Visit 12/13/2013 11:20a [facility] Office Abhijeet Dunn 682.4 Cellulitis & M.D. Abscess Hand Except Fingers & Thumb 275.41 Hypocalcemia 401.9 Hypertension Unspec Office Visit 12/06/2013 1:00p [facility] Office Abhijeet Dunn 682.4 Cellulitis & M.D. Abscess Hand Except Fingers & Thumb Office Visit 11/28/2013 8:30a Main Office Abhijeet Dunn 719.42 Pain Joint Upper M.D. Arm Office Visit 10/18/2013 9:20a [facility] Abhijeet Dunn 401.9 Hypertension Unspec M.D. 275.42 Hypercalcemia 300.00 Anxiety State Unspec 275.41 Hypocalcemia Office Visit 09/13/2013 9:40a [facility] Abhijeet Dunn 401.9 Hypertension Unspec M.D. 300.00 Anxiety State Unspec 530.81 Esophageal Reflux Office Visit 09/06/2013 10:50a [facility] Office Abhijeet Dunn, 401.9 Hypertension Unspec M.D. Office Visit 08/26/2013 9:30a [facility] Office Abhijeet Dunn, 401.9 Hypertension Unspec M.D. 275.42 Hypercalcemia 244.9 Hypothyroidism Other Unspec Office Visit 08/12/2013 10:20a [facility] Office Abhijeet Dunn, 401.9 Hypertension Unspec M.D. 275.42 Hypercalcemia 244.9 Hypothyroidism Other Unspec 300.00 Anxiety State Unspec 268.9 Vitamin D Deficiency Unspec 530.81 Esophageal Reflux Plan of Treatment 11/09/2018 - Madelin Hoover M.D.I10 Essential (primary) hypertensionComments:The patient will continue to monitor blood pressure and let me know the blood pressure results if there are readings persistently above 140/90. Goal blood pressure is less than 130/80. Recommend low salt/cardiac diet such as the Mediterranean diet and routine exercise at least 30 minutes a day.Follow up:4 mo [id number] Anxiety disorder, unspecifiedComments:stable on regimen, call if symptoms [id number] Encounter for screening mammogram for malignant neoplasm ofComments:refer for [id number] Encounter for screening for malignant neoplasm of colonComments:counseled on colon cancer screening; elects for cologuard testing, defers colonoscopy (doesn't like prep; has electrolytes) ; understands if cologuard is positive will still need a [id number] Postprocedural [id number] Unspecified dyspareuniaComments: discussed lubrication options silicone or replens moisturizers, vagisil wipes for [id number] Candidiasis of vulva and vaginaNew Medication:Fluconazole 150 mg - one tab by mouth once, may repeat in five daysComments:trial of fluconazole for symptoms; will let you know test resultAllComments:Medication Management Patient Understands medications she's taking? Yes No Are there Barriers to Adherence? Yes No Has the patient been asked about herbal supplements and therapies, and OTC meds? Yes No
[2018-11-18 12:03] LABS: ABS Basophils 0.1 10^3/ul (0-0.2); ABS Lymphocytes 1.6 10^3/ul (1.0-4.8); ABS Monocytes 0.8 10^3/ul (0-0.8); ABS Neutrophils 7.2 10^3/ul (1.5-7.7); Eosinophil % 0.4 %; Hematocrit 40 % (35-47); Hemoglobin 13.5 g/dL (12.0-16.0); Lymphocyte % 16.3 %; Mean Corpuscular HGB Conc 34 g/dL (31-36); Mean Corpuscular Hemoglobin 30 pg (27-31); Mean Corpuscular Volume 88 fL (80-97); Mean Platelet Volume 8.1 fL (7.4-10.4); Platelet Count 270 10^3/uL (150-450); Red Blood Count 4.54 10^6 /uL (3.70-4.87); Red Cell Distribution Width 14 % (10-15); White Blood Count 9.7 10^3/uL (3.5-10.8)
[2018-11-18 12:09] LABS: INR 1.04 (0.82-1.09)
[2018-11-18 12:25] LABS: Albumin 4.1 g/dL (3.2-5.2); Albumin/Globulin Ratio 1.2 (1-3); BUN/Creatinine Ratio 21.9 (8-20); Calcium 6.9 mg/dL (8.6-10.3); EGFR African American 62.5 (>60); EGFR Non-African American 51.7 (>60); Globulin 3.5 g/dL (2-4); Potassium 4.7 mmol/L (3.5-5.0); Total Bilirubin 0.6 mg/dL (0.2-1.0); Total Protein 7.6 g/dL (6.4-8.9)
--- NOTE | 2018-11-18 12:57 | ED ---
Dizziness - HPI Summary HPI Summary: This patient is a 73 year old F presenting to [facility] accompanied by her with a chief complaint of dizziness. She was seen by her PCP Dr. Hoover and was instructed to follow up at the hospital for a cardiac workup. She has been experiencing fluctuating blood pressures that change from high to low when ambulating and starts to feel faint. She stated that when she lies down during these episodes her blood pressure returns back to normal. She reports no CP, N/V /D, SOB, abdominal pain, headaches, fevers, or coughs. She denies any pain that is associated to her symptoms. - History Of Current Complaint Chief Complaint: EDDizziness Stated Complaint: DIZZINESS PER PT Time Seen by Provider: 11/18/18 12:46 Hx Obtained From: Patient Onset/Duration: Resolved Timing: Intermittent Episode Lasting Severity Initially: Mild Severity Currently: None Character: Dizzy Aggravating Factor(s): Other - ambulation Alleviating Factor(s): Lying Down Associated Signs And Symptoms: Positive: Negative - CP, N/V/D, SOB, abdominal pain, headaches, fevers, or coughs., Other: - POSITIVE: flucctuation in BP from high to low, dizziness, near syncope - Allergies/Home Medications Allergies/Adverse Reactions: Allergies Allergy/AdvReac Type Severity Reaction Status Date / Time cyclobenzaprine Allergy Hives Verified 11/18/18 11:03 hydrochlorothiazide Allergy Hives Verified 11/18/18 11:03 NSAIDS (Non-Steroidal Allergy Hives/Diff. Verified 11/18/18 11:03 Anti-Inflamma Breathing/I tching atorvastatin AdvReac Vomiting Verified 11/18/18 11:03 codeine AdvReac Headache Verified 11/18/18 11:03 Sea Food AdvReac GI Upset Uncoded 11/18/18 11:03 PMH/Surg Hx/FS Hx/Imm Hx Previously Healthy: No Endocrine/Hematology History: Reports: Hx Thyroid Disease, Other Endocrine/ Hematological Disorders - hypoparathyroidism, hypo and hypercalcemia r/t Denies: Hx Diabetes Cardiovascular History: Reports: Hx Hypertension Denies: Hx Pacemaker/ICD Respiratory History: Denies: Hx Chronic Obstructive Pulmonary Disease (COPD) GI History: Reports: Hx Gastroesophageal Reflux Disease History: Denies: Hx Renal Disease Musculoskeletal History: Reports: Hx Arthritis Denies: Hx Rheumatoid Arthritis, Hx Osteoporosis Sensory History: Reports: Hx Contacts or Glasses Denies: Hx Vision Problem, Hx Deafness, Hx Hearing Aid Opthamlomology History: Reports: Hx Contacts or Glasses Denies: Hx Vision Problem Neurological History: Denies: Hx Dementia Psychiatric History: Reports: Hx Anxiety, Hx Depression, Other Psychiatric Issues/Disorders - insonmnia Denies: Hx Panic Disorder - Cancer History Hx Chemotherapy: No Hx Radiation Therapy: No - Surgical History Surgery Procedure, Year, and Place: Appendectomy-age 16, Thyroid -age 24, C- section-age 42 Infectious Disease History: No Infectious Disease History: Denies: Hx Clostridium Difficile, Hx Hepatitis, Hx Human Immunodeficiency Virus (HIV), Hx of Known/Suspected MRSA, Hx Shingles, Hx Tuberculosis, Hx Known/ Suspected VRE, Hx Known/Suspected VRSA, History Other Infectious Disease, Traveled Outside the [place] in Last 30 Days - Family History Known Family History: Positive: Hypertension - Social History Alcohol Use: Rare Hx Substance Use: No Substance Use Type: Reports: None Hx Tobacco Use: No Smoking Status (MU): Never Smoked Tobacco Review of Systems Negative: Fever Positive: Other - flucctuating BP from high to low. Negative: Chest Pain Negative: Shortness Of Breath, Cough Negative: Abdominal Pain, Vomiting, Diarrhea, Nausea Neurological: Other - Dizzy Positive: Syncope - near syncope during episodes. Negative: Headache All Other Systems Reviewed And Are Negative: Yes Physical Exam - Summary Physical Exam Summary: Appearance: Well-appearing, Well-nourished, lying in bed comfortably Skin: Warm, dry, no obvious rash Eyes: sclera anicteric, no conjunctival pallor ENT: mucous membranes moist, pharynx appears normal Neck: Supple, nontender Respiratory: Clear to auscultation, no signs of respiratory distress Cardiovascular: Normal S1, S2. No murmurs. Normal distal pulses in tibial and radial bilaterally. Abdomen: Soft, nontender, normal active bowel sounds present Musculoskeletal: Normal, Strength/ROM Intact Neurological: A&Ox3, awake and alert, mentation is normal, speech is fluent and appropriate Psychiatric: affect is normal, does not appear anxious or depressed Triage Information Reviewed: Yes Vital Signs On Initial Exam: Initial Vitals Temp Pulse Resp BP Pulse Ox 97.3 F 65 14 150/75 96 11/18/18 11:01 11/18/18 11:01 11/18/18 11:01 11/18/18 11:01 11/18/18 11:01 Vital Signs Reviewed: Yes Diagnostics - Vital Signs Vital Signs Temp Pulse Resp BP Pulse Ox 11/18/18 12:50 72 131/70 11/18/18 12:45 64 14 92 11/18/18 12:42 130/69 11/18/18 11:01 97.3 F 65 14 150/75 96 - Laboratory Lab Results: Lab Results 11/18/18 11/18/18 11/18/18 Range/Units 11:41 11:41 11:41 WBC 9.7 (3.5-10.8) 10^3/uL RBC 4.54 (3.70-4.87) 10^6 /uL Hgb 13.5 (12.0-16.0) g/dL Hct 40 (35-47) % MCV 88 (80-97) fL MCH 30 (27-31) pg MCHC 34 (31-36) g/dL RDW 14 (10-15) % Plt Count 270 (150-450) 10^3/uL MPV 8.1 (7.4-10.4) fL Neut % (Auto) 74.1 % Lymph % (Auto) 16.3 % [place] % (Auto) 8.6 % Eos % (Auto) 0.4 % Baso % (Auto) 0.6 % Absolute Neuts (auto) 7.2 (1.5-7.7) 10^3/ul Absolute Lymphs (auto) 1.6 (1.0-4.8) 10^3/ul Absolute Monos (auto) 0.8 (0-0.8) 10^3/ul Absolute Eos (auto) 0.0 (0-0.6) 10^3/ul Absolute Basos (auto) 0.1 (0-0.2) 10^3/ul Absolute Nucleated RBC 0.0 10^3/ul Nucleated RBC % 0.0 INR (Anticoag Therapy) 1.04 (0.82-1.09) Sodium 132 L (135-145) mmol/L Potassium 4.7 (3.5-5.0) mmol/L Chloride 95 L (101-111) mmol/L Carbon Dioxide 27 (22-32) mmol/L Anion Gap 10 (2-11) mmol/L BUN 23 (6-24) mg/dL Creatinine 1.05 H (0.51-0.95) mg/dL Est GFR ( Amer) 62.5 (>60) Est GFR (Non-Af Amer) 51.7 (>60) BUN/Creatinine Ratio 21.9 H (8-20) Glucose 106 H (70-100) mg/dL Calcium 6.9 L (8.6-10.3) mg/dL Total Bilirubin 0.60 (0.2-1.0) mg/dL AST 15 (13-39) U/L ALT 11 (7-52) U/L Alkaline Phosphatase 62 (34-104) U/L Troponin I 0.00 (<0.04) ng/mL Total Protein 7.6 (6.4-8.9) g/dL Albumin 4.1 (3.2-5.2) g/dL Globulin 3.5 (2-4) g/dL Albumin/Globulin Ratio 1.2 (1-3) Result Diagrams: 11/18/18 11:41 11/18/18 11:41 Lab Statement: Any lab studies that have been ordered have been reviewed, and results considered in the medical decision making process. - EKG 1108 Cardiac Rate: NL - 62 BPM EKG Rhythm: Sinus Rhythm ST Segment: Normal Ectopy: None Summary of EKG Findings: NSR at 62 BPM, P waves, QRS complex, and T waves are within normal limits, T waves and intervals are normal, no ischemic changes. This is a normal EKG. Interpreted by Dr. Elizabeth at 1303 11/18/18. Dizzy Course/Dx - Course Course Of Treatment: This patient is a 73 year old F presenting to [facility] accompanied by her with a chief complaint of dizziness. She was seen by her PCP Dr. Hoover and was instructed to follow up at the hospital for a cardiac workup. She has been experiencing fluctuating blood pressures that change from high to low when ambulating and starts to feel faint. Upon her PE the pt has no abnormal findings. Her Blood tests are negative and are within her normal values. Her EKG shows a NSR at 62 BPM, P waves, QRS complex, and T waves are within normal limits, T waves and intervals are normal, no ischemic changes. This is a normal EKG. The pt joy be discharged with a DX of orthostatic hypotension due to her negative lab values and normal EKG. She will be instructed to follow up with her PCP. - Diagnoses Provider Diagnoses: Orthostatic hypotension Discharge - Sign-Out/Discharge Documenting (check all that apply): Patient Departure - discharge Patient Received Moderate/Deep Sedation with Procedure: No - Discharge Plan Condition: Stable Disposition: HOME Patient Education Materials: Hypotension (ED) Referrals: Madelin Hoover MD [Primary Care Provider] - Additional Instructions: We did not find any significant abnormalities on your evaluation or testing that there is any other cause for your periodic low blood pressure, such as an acute heart condition or infection. Continue the current regimen you are on, and contact Dr. Hoover's office on Thursday if you continue to have any similar problems. Over the weekend it may help to increase your fluid intake. - Billing Disposition and Condition Condition: STABLE Disposition: Home - Attestation Statements Document Initiated by Zafar: Yes Documenting Scribe: Twin Schaefer Provider For Whom Zafar is Documenting (Include Credential): Jak Elizabeth MD Scribe Attestation: Twin Dial, scribed for Jak Elizabeth MD on 11/18/18 at 1313. Scribe Documentation Reviewed: Yes Provider Attestation: The documentation as recorded by the Twin sanchez accurately reflects the service I personally performed and the decisions made by , Jak Elizabeth MD Status of Scribe Document: Viewed
[2018-11-18 13:12] VITALS: BP 126/68
== END 2018-11-18 13:11 | disposition home or self-care (01) ==
LOC: ED 10:58
DX: I95.1 Orthostatic hypotension (principal); I10 Essential (primary) hypertension; Z88.8 Allergy status to other drugs, medicaments and biological substances
CPT/HCPCS: 36415; 80053; 84484; 85025; 85610; 93005; 99283

== ENCOUNTER 2019-02-09 09:48 | Emergency (ER) | payer OTHER, MEDICARE ==
--- OUTSIDE RECORDS SUMMARY | 2019-02-09 10:16 | XMS REPORT | Continuity of Care Document ---
:1945 External Reference #:[id number] Author Name Elizabeth Adler Address [address] [place] [address] Care Team Providers Name Role Phone Madelin Hoover M.D. - Family Medicine Care Team Information Single Needle Operator Unavailable Fabrice Crawford MD - Cardiovascular Care Team Information Single Needle Operator Disease [facility] - Care Team Information Single Needle Operator [phone] Orthopaedic Surgery Problems Active Problems Provider Date Essential hypertension [...] multiple Madelin Hoover M.D. Onset: 02/07 joints Social History Type Date Description Comments Sex Unknown ETOH Use Denies alcohol use Tobacco Use Start: Unknown Patient has never smoked Smoking Status Reviewed: 01/24/19 Patient has never smoked Exercise Type/Frequency tries [...] Provider Vitamin D Take 1 Capsule 45Caps [facility], 11/15/2018 (Ergocalciferol) By Mouth Every M.D. Other Day 55015Pdcc Capsules Pantoprazole Sodium 1 by mouth every 30tabs I10 Ruby Myrna 04/27/2018 day BUBBA Ro 40mg Tablets Escitalopram Oxalate Take 1 Tablet By 30tabs F41.1 [facility], 2017 Mouth Every Day M.D. 20mg Tablets Hydrocodone-Acetamino 1 tab every 8 90tabs M54.5 Ruby Norris 09/16/2017 phen hours as needed BUBBA Ro 7.5-325mg Tablets pain Calcium Carbonate 7.5ml by mouth 1800units [facility], 05/11/2017 Antacid in in the M.D. 1250mg/5ML morning, 5ml in Suspension afternoon and 7.5ml in evening Ambien take 1 tablet by 30tabs [facility], 12/20/2016 10mg Tablets mouth at bedtime M.D. Diazepam 1-2 tab by mouth 30tabs F41.1 Chelsey Victor 09/04/2016 10mg Tablets two times a day BUBBA Chaudhry as needed Levothyroxine Sodium Take 1 Tablet By 90tabs E06.3 [facility], 2015 Mouth Every Day M.D. 100mcg Tablets Ergocalciferol 1 by mouth Sat 90caps [facility], 03/14/2014 And Sun M.D. 14699Upjj Capsules History Medications Fluconazole one tab by 2tabs B37.3 [facility], 11/09/2018 - 150mg Tablets mouth once, september M.D. 11/24/2018 repeat in five days Spironolactone Take 1 Tablet 90Tablet [facility], 10/05/2018 - 50mg By Mouth Every M.D. 11/18/2018 Tablets Day In The Morning Immunizations CPT Code Status Date Vaccine Lot # [id number] Given 03/09/2018 High-Dose, Influenza Virus Vacccine-fluzone 65 and [id number] older 28033 Given 03/20/2017 High-Dose, Influenza Virus Vacccine-fluzone 65 and older [id number] Given 08/20/2016 Pneumococcal Conjugate Vacc-13 [id number] 06421 Given 03/25/2016 High-Dose, Influenza Virus Vacccine-fluzone 65 and [id number] older 98979 Given 03/19/2014 DO Not Use Split Influenza Virus Vaccine Vital Signs Date Vital Result Comment 01/24/2019 12:55pm BP Systolic 136 mmHg BP Diastolic 84 mmHg Heart Rate 88 /min Body Temperature 99.0 F Respiratory Rate 16 /min Height 61.5 inches 5'1.50" Weight 201.00 lb BMI (Body Mass Index) 37.4 kg/m2 11/24/2018 3:40pm BP Systolic 130 mmHg BP Diastolic 80 mmHg Heart Rate 66 /min Body Temperature 98.4 F Respiratory Rate 18 /min Weight 200.00 lb Results Test Date Facility Test Result H/L Range Note Laboratory test 01/24/2019 [facility]) Free T4 <pending> 0.75- 1.54 finding TSH <pending> 0.5-5.0 Laboratory test 01/24/2019 [facility]) B12 <pending> 230-1050 finding Laboratory test 01/24/2019 [facility] (Folic <pending> finding [address] Acid), [place] [address] (607)- - Laboratory test 01/24/2019 [facility] Sedimentation Rate 14 finding (607)- - Basic Metabolic 12/22/2018 [facility]) Sodium 139 mEq/L 134-149 Profile Potassium 3.8 mEq/L 3.6-5.5 Chloride 99 mEq/L 94-112 Carbon Dioxide 32 mEq/L 21-32 Glucose 89 mg/dL 70-105 BUN 14 mg/dL 6-26 Creatinine 0.9 mg/dL 0.6-1.4 BUN/Creat Ratio 15.6 CALC 8.0-36.0 Calcium 6.7 mg/dL Low 8.6-10.2 1 GFR Non- >60 ml/min/1.73m^ >=60 GFR >60 ml/min/1.73m^ >=60 Laboratory 12/07/2018 [facility] Cologuard Negative Not 2 test finding [address] [place] [address] [phone] CBC Auto Diff 11/18/2018 [facility] White Blood 9.7 10^3/uL Normal 3.5-10.8 Count Red Blood Count 4.54 10^6/uL Normal 3.70-4.87 Hemoglobin 13.5 g/dL Normal 12.0-16.0 Hematocrit 40 % Normal 35-47 Mean Corpuscular Volume 88 fL Normal 80-97 Mean Corpuscular Hemoglobin 30 pg Normal 27-31 Mean Corpuscular HGB Conc 34 g/dL Normal 31-36 Red Cell Distribution Width 14 % Normal 10-15 Platelet Count 270 10^3/uL Normal 150-450 Mean Platelet Volume 8.1 fL Normal 7.4-10.4 Abs Neutrophils 7.2 10^3/uL Normal 1.5-7.7 Abs Lymphocytes 1.6 10^3/uL Normal 1.0-4.8 Abs Monocytes 0.8 10^3/uL Normal 0-0.8 Abs Eosinophils 0.0 10^3/uL Normal 0-0.6 Abs Basophils 0.1 10^3/uL Normal 0-0.2 Abs Nucleated RBC 0.0 10^3/uL Granulocyte % 74.1 % Lymphocyte % 16.3 % Monocyte % 8.6 % Eosinophil % 0.4 % Basophil % 0.6 % Nucleated Red Blood Cells % 0.0 Inr/Protime 11/18/2018 [facility] Inr 1.04 Normal 0.82-1.09 3 Comp Metabolic Panel 11/18/2018 [facility] Sodium 132 mmol/L Low 135-145 Potassium 4.7 mmol/L Normal 3.5-5.0 Chloride 95 mmol/L Low 101-111 Co2 Carbon Dioxide 27 mmol/L Normal 22-32 Anion Gap 10 mmol/L Normal 2-11 Glucose 106 mg/dL High 70-100 Blood Urea Nitrogen 23 mg/dL Normal 6-24 Creatinine 1.05 mg/dL High 0.51-0.95 BUN/Creatinine Ratio 21.9 High 8-20 Calcium 6.9 mg/dL Low 8.6-10.3 Total Protein 7.6 g/dL Normal 6.4-8.9 Albumin 4.1 g/dL Normal 3.2-5.2 Globulin 3.5 g/dL Normal 2-4 Albumin/Globulin Ratio 1.2 Normal 1-3 Total Bilirubin 0.60 mg/dL Normal 0.2-1.0 Alkaline Phosphatase 62 U/L Normal 34-104 Alt 11 U/L Normal 7-52 Ast 15 U/L Normal 13-39 Egfr Non- 51.7 >60 Egfr 62.5 >60 4 Laboratory test finding 11/18/2018 [facility] Troponin I 0.00 ng/mL <0.04 5 Ua - Micro (Fma) 11/09/2018 [facility] Appearance clear (607)- - Color yellow Glucose, Urine (Fma/CMC/CTX) neg Bilirubin neg Ketones neg SP Grav 1.010 Blood trace-intact PH 6.0 Protein neg Urobil 0.2 Nitrite neg Leukocytes (Fma/CMC/Centrex) neg Hyaline - /Lpf Granular - /Lpf WBC (Fma,[facility]) 1-2 RBC 1-2 Mucus (Fma/CBC/Centrex) - /Lpf Epith occ /Lpf Bacteria trace /Hpf Amorphous (Fma/CMC/[facility]rex) - /Lpf Crystals, Fluid (Fma/CMC/CTX) - Z#Comments - Vaginitis Plus 11/09/2018 [facility] Atopobium vaginae Low - 0 Score [address] [place] [address] (147)- - Bvab 2 Low - 0 Score Megasphaera 1 Low - 0 Score 7 Tameka albicans, Denisha Negative Negative Tameka glabrata, Denisha Negative Negative 8 Trich vag by Denisha Negative Negative Chlamydia trachomatis, Denisha Negative Negative Neisseria gonorrhoeae, Denisha Negative Negative Urine Culture, 11/09/2018 [facility] Urine Culture, Final report Routine [address] [facility] [place] [address] (979)- - Result 1 See Comment: 9 Laboratory test 11/09/2018 [facility] Calcium, 4.0 mg/dL Low 4.5-5.6 finding [address] [facility] Ionized, [place] [address] (339)- - Comprehensive 11/09/2018 [facility](a) Sodium 137 mEq/L 134-149 Metabolic Prof Potassium [...] >60 ml/min/1.73m^ >=60 Lipid Profile 11/09/2018 [facility]) Cholesterol 274 mg/dL High 120-200 Triglycerides 124 mg/dL 30-200 HDL Cholesterol 61 mg/dL 30-85 LDL (Calculated) 188 CALC High 0-129 VLDL Cholesterol 25 mg/dL 0-50 HDL Risk Factor 4.5 CALC High 0.0-4.4 Laboratory test 11/09/2018 [facility]) Free T4 1.42 ng/dL 0.75- 1.54 finding TSH 3.93 mIU/L 0.50-6.00 Magnesium, Serum 2.4 mEq/L High 1.2-2.1 CBC Electronic a 11/09/2018 [facility]) WBC 7.7 x10^3/UL 4.0- 10.0 RBC 4.63 x10^6/UL 3.93-6.00 HGB 13.7 g/dL 12.0-17.0 HCT 41 % 35-50 MCV 89.0 fL 80.0-95.0 MCH 29.6 pg 25.6-32.2 MCHC 33.3 g/dL 32.2-36.0 RDW-CV 13.1 % 11.6-14.4 PLT 273 x10^3/UL 163-400 MPV 9.5 fL 9.4-12.4 Mary# 5.21 x10^3/UL 1.56-6.13 Lymph# 1.62 x10^3/UL 1.18-3.74 Keith# 0.67 x10^3/UL 0.24-0.82 Eos # 0.1 x10^3/UL 0.0-0.5 Baso # 0.04 x10^3/UL 0.01-0.08 Mary% 67.8 % 34.0-70.0 Lymph % 21.1 % 20.0-52.0 Keith% 8.7 % 5.0-12.0 Eos% 1.8 % 0.7-7.0 Baso% 0.5 % 0.1-1.2 Laboratory test 11/09/2018 [facility] Hemoglobin A1c 5.8 % High 4.1- 5.7 finding (607)- - (Fma) Comprehensive 08/03/2018 [facility](a) Sodium 136 mEq/L 134-149 Metabolic Prof Potassium 5.1 mEq/L 3.6-5.5 Chloride 98 mEq/L 94-112 Carbon Dioxide 28 mEq/L 21-32 Glucose 138 mg/dL High 70-105 BUN 29 mg/dL High 6-26 Creatinine 1.0 mg/dL 0.6-1.4 BUN/Creat Ratio 29.0 CALC 8.0-36.0 Calcium 6.9 mg/dL Low 8.6-10.2 10 Total Protein 7.1 g/dL 6.4-8.3 Albumin 4.4 [...] 08/03/2018 [facility] Calcium, 3.9 mg/dL Low 4.5-5.6 11 finding [address] [place] [address] (851)- - 1 consistent w/ previous results 2 A negative result indicates a low likelihood that a colorectal cancer (CRC) or an advanced adenoma (adenomatous polyps with more advanced pre-malignant features) is present. The chance that a person wit h a negative Cologuard test has a colorectal cancer is less than 1 in 1500 ( negative predictive value >99.9%) or has an advanced adenoma is less than 5.3% ( negative predictive value 94.7%). These jose cruz a are based on a prospective cross-sectional screening study of 10,000 individuals at average risk for colorectal cancer who were screened with both Cologuard and colonoscopy. (Yonas Moody et al, N Eng l J Med 2014;370(14):2605-6037)\\X0A\\ \\X0A\\COLOGUARD RE-SCREENING RECOMMENDATION: Periodic routine colorectal cancer screening is an important part of preventive healthcare for asymptomatic persons at av erage risk for colorectal cancer. Following a negative Cologuard result, the [place] [employer] and U.S. Multi-Society Task Force screening guidelines recommend a Cologuard re-screening interval o f 3 years. \\X0A\\References: [place] [employer] (ACS). Colorectal cancer prevention and early detection. [place], [place]: [place] [employer]; [updated 2015Sep 22]. https://www.cancer.org/cancer/co cpp-tpnrtz-mhyxme/vhpqcywqa-hzzsuqijf-tvkqsrt/acs-recommendations.html. Accessed January 29, 2018; Danish ESTEBAN, Vera BRANDT, Tha CasasK, Colorectal Cancer Screening: Recommendations for Physicians and Patients from the U.S. Multi-Society Task Force on Colorectal Cancer Screening, Am J Gastroenterology 2017; 112:3392-2378. Test Type: Composite algorithmic analysis of stool DNA-biomarkers with hemoglobin immunoassay. Quantitative values of individual biomarkers are not reportable and are not associated with individual biomarker result reference ranges. Precautions and Limitations: Cologuard is intended for colorectal cancer screening of adults of either sex, 50 years or older, who are at typical average-risk for colorectal cancer. A negative C ologuard test result does not guarantee the absence of colorectal cancer or advanced adenoma (pre-cancer). Patients with a negative Cologuard test result should be advised to continue participating in a colorectal cancer screening program. Cologuard may produce a positive result , even though a colonoscopy may not find colorectal cancer or precancerous polyps. The performance of Cologuard has been esta blished in a cross sectional study (i.e., single point in time). Performance has not been evaluated in adults who have been previously tested with Cologuard or in patients less than 50 years of age. Col oguard has been approved for use by the U.S. FDA. Cologuard performance data in a 10,000 patient pivotal study using colonoscopy as the reference method can be accessed at the following location: www.[employer]/results. Additional description of the Cologuard test process, warnings and precautions can be found at www.cologuardtest.com. Rx Only. 3 Standard intensity warfarin therapeutic range: 2.0-3.0 High intensity warfarin therapeutic range: 2.5-3.5 4 Because ethnic data is not always readily [...] 15-29 5 Kidney failure <15 (or dialysis) 5 Troponin-I testing on Plasma Separator Tubes (PST) has a known false positive rate of 0.20-0.40%. All positive troponins reflex immediately to secondary confirmatory testing. Using the [employer] 800 Access Immunoassay systems, the 99th percentile upper reference limit was demonstrated to be < 0.03 ng/mL. 6 1 sst TAPED TOP DO NOT OPE N 7 Calculate total score by adding the 3 individual bacterial vaginosis (BV) marker scores together. Total score is interpreted as follows: Total score 0-1: Indicates the absence of BV. Total score 2: Indeterminate for BV. Additional clinical data should be evaluated to establish a diagnosis. Total score 3-6: Indicates the presence of BV. This test was developed and its performance characteristics determined by [employer]. It has not been cleared or approved by the Food and Drug Administration. The FDA has determined that such clearance or approval is not necessary. 8 This test was developed and its performance characteristics determined by [employer]. It has not been cleared or approved by the Food and Drug Administration. The FDA has determined that such clearance or approval is not necessary. 9 Culture shows less than 10,000 colony forming units of bacteria per milliliter of urine. This colony count is not generally considered to be clinically significant. 10 consistent w/ previous results 11 1 sst Procedures Date Code Description Status 11/18/2018 [id number] Electrocardiogram Complete Completed 11/11/2018 [id number] Mammogram Completed 10/01/2017 [id number] Mammogram Completed 02/15/2016 [id number] Mammogram Completed 08/15/2014 [id number] Mammogram Completed 06/01/2012 [id number] Colonoscopy Completed Medical Devices Description No Information Available Encounters Type Date Location Provider Dx Diagnosis Office Visit 11/24/2018 [facility] Office Madelin Hoover, I10 Essential ( primary) 3:40p M.D. hypertension F41.9 Anxiety disorder, unspecified R42 Dizziness and giddiness Office Visit 11/18/2018 10:00a Main Office Chelsey Victor I95.1 Orthostatic IsidoroBUBBA hypotension E83.51 Hypocalcemia I10 Essential (primary) hypertension Office Visit 11/09/2018 8:00a [facility] Office Madelin Hoover, I10 Essential (primary) M.D. hypertension F41.9 Anxiety disorder, unspecified Z12.31 Encntr screen mammogram for malignant neoplasm of breast Z12.11 Encounter for screening for malignant neoplasm of colon E89.2 Postprocedural hypoparathyroidism N94.10 Unspecified dyspareunia B37.3 Candidiasis of vulva and vagina Office Visit 08/03/2018 9:30a [facility] Office Madelin Hoover, I10 Essential (primary) M.D. hypertension F41.9 Anxiety disorder, unspecified E89.2 Postprocedural hypoparathyroidism E03.9 Hypothyroidism, unspecified M15.0 Primary generalized (osteo)arthritis Assessments Date Code Description Provider 01/24/2019 R42 Dizziness and giddiness [place] 01/24/2019 E83.51 Hypocalcemia Talia VázquezWillow bashir-C 01/24/2019 E03.9 Hypothyroidism, unspecified Talia Vicaleksandra bubba-C 01/24/2019 R53.83 Other fatigue Talia Vicaleksandra bubba-C 12/22/2018 E83.51 Hypocalcemia Denis Francois M.D. 11/24/2018 I10 Essential (primary) hypertension Madelin Hoover M.D. 11/24/2018 F41.9 Anxiety disorder, unspecified Madelin Hoovre M.D. 11/24/2018 R42 Dizziness and giddiness Madelin Hoover M.D. 11/18/2018 I95.1 Orthostatic hypotension Chelsey Chaudhry, BUBBA 11/18/2018 E83.51 Hypocalcemia Chelsey Chaudhry, BUBBA 11/18/2018 I10 Essential (primary) hypertension Chelsey Chaudhry, BUBBA 11/09/2018 I10 Essential (primary) hypertension Madelin Hoover M.D. 11/09/2018 F41.9 Anxiety disorder, unspecified Madelin Hoover M.D. 11/09/2018 Z12.31 Encounter for screening mammogram for Madelin Hoover M.D. malignant neoplasm of 11/09/2018 Z12.11 Encounter for screening for malignant Madelin Hoover M.D. neoplasm of colon 11/09/2018 E89.2 Postprocedural hypoparathyroidism Madelin Hoover M.D. 11/09/2018 N94.10 Unspecified dyspareunia Madelni Hoover M.D. 11/09/2018 B37.3 Candidiasis of vulva and vagina Madelin Hoover M.D. 08/03/2018 I10 Essential (primary) hypertension Madelin Hoover M.D. 08/03/2018 F41.9 Anxiety disorder, unspecified Madelin Hoover M.D. 08/03/2018 E89.2 Postprocedural hypoparathyroidism Madelin Hoover M.D. 08/03/2018 E03.9 Hypothyroidism, unspecified Madelin Hoover M.D. 08/03/2018 M15.0 Primary generalized (osteo)arthritis Madelin Hoover M.D. Plan of Treatment Future Appointment(s):03/08/2019 1:20 pm - Madelin Hoover M.D. at [facility] Tirbwv4901/24/2019 - Talia Desouza, [place]-CR42 Dizziness and jwxrxjvjkD51.51 BwgkzdkwdtomE24.9 Hypothyroidism, unspecifiedFollow up:Followup:. (Follow up) R53.83 Other fatigueAllComments:Medication Management Patient Understands medications she's taking? Yes No Are there Barriers to Adherence? Yes No Has the patient been asked about herbal supplements and therapies, and OTC meds? Yes No Care Plan1. Patient has been queried about patient's goals/preferences and functional/lifestyle goals at relevant visits. If relevant, describe: na2. Treatment goals as explained to the patient: abovefurther sx evaluation 3. Are there barriers to meeting treatment goals? Yes No If Yes, please describe:4. Self-Management goals as described to the patient: Yes No I am not seeing any clinical red flags i will check your labs and f/u pending test results call if sx worsen Functional Status Description No Information Available Mental Status Description No Information Available Referrals Refer to Reason for Referral Status Appt Date Josue Piña MD hypoparathyroidism and low calcium jw Scheduled 02/11/2019 [facility] Endocrinology [address] [facility] [id number] [phone] Fabrice Crawford MD nuclear stress test Closed [address] [place] [address] [phone] [facility] Healthy Living obesity, HTN jw Scheduled [address] [place] [address] [address] [place] [address] [phone]
[2019-02-09 10:31] LABS: ABS Eosinophils 0.1 10^3/ul (0-0.6); ABS Lymphocytes 1.3 10^3/ul (1.0-4.8); ABS Monocytes 0.7 10^3/ul (0-0.8); ABS Neutrophils 8.1 10^3/ul (1.5-7.7); Hematocrit 41 % (35-47); Lymphocyte % 12.7 %; Mean Corpuscular HGB Conc 34 g/dL (31-36); Mean Corpuscular Hemoglobin 29 pg (27-31); Mean Corpuscular Volume 86 fL (80-97); Mean Platelet Volume 8.2 fL (7.4-10.4); Platelet Count 263 10^3/uL (150-450); Red Blood Count 4.79 10^6 /uL (3.70-4.87); Red Cell Distribution Width 14 % (10-15); White Blood Count 10.2 10^3/uL (3.5-10.8)
--- NOTE | 2019-02-09 10:35 | ED ---
Complex/Multi-Sys Presentation - HPI Summary HPI Summary: his patient is a 73 year old F presenting to [facility] accompanied by her with a chief complaint of not being able to take her blood pressure since this morning. Pt notes she has chronic hypocalcemia. She states she has a tingling sensation in her hands, legs, and feet when her calcium levels are low. The tingling sensation developed on her face yesterday. Pt had thyroid procedure done years ago. The patient rates the pain 0/10 in severity. Symptoms aggravated by nothing. Symptoms alleviated by nothing. Patient reports slurred speech, vision changes, chest heaviness, room-spinning dizziness. Patient denies swelling of legs. Medications reviewed. Allergies noted. Pt does not smoke, use drugs, but occasionally drinks alcohol. Her last stress test was a couple of years ago. Pt has not travelled recently. - History Of Current Complaint Chief Complaint: EDChestPainROMI Time Seen by Provider: 02/09/19 10:18 Hx Obtained From: Patient, Family/Mirror Department Supervisor - Onset/Duration: Sudden Onset, Lasting Hours - since today Severity Currently: Moderate Severity Initially: Moderate Aggravating Factor(s): nothing Alleviating Factor(s): nothing Associated Signs And Symptoms: Positive: Dizziness - room-spinning, Chest Pain - heaviness, Other - positive - not able to take her BP, tingling sensation in her face, slurred speech, vision changes. negative - swelling of legs - Allergies/Home Medications Allergies/Adverse Reactions: Allergies Allergy/AdvReac Type Severity Reaction Status Date / Time amoxicillin Allergy Unknown Verified 02/09/19 10:08 Reaction Details aspirin Allergy Hives Verified 02/09/19 10:08 buspirone Allergy Unknown Verified 02/09/19 10:08 Reaction Details clonidine Allergy Unknown Verified 02/09/19 10:08 Reaction Details cyclobenzaprine Allergy Hives Verified 11/18/18 11:03 hydrochlorothiazide Allergy Hives Verified 11/18/18 11:03 indomethacin [From Indocin] Allergy Unknown Verified 02/09/19 10:08 Reaction Details metoprolol Allergy Agitation Verified 02/09/19 10:08 nebivolol [From Bystolic] Allergy Unknown Verified 02/09/19 10:08 Reaction Details NSAIDS (Non-Steroidal Allergy Hives/Diff. Verified 11/18/18 11:03 Anti-Inflamma Breathing/I tching shellfish derived Allergy Unknown Verified 02/09/19 10:08 Reaction Details atorvastatin AdvReac Vomiting Verified 11/18/18 11:03 codeine AdvReac Headache Verified 11/18/18 11:03 crab AdvReac GI Upset Verified 02/09/19 10:56 Fish Containing Products AdvReac GI Upset Verified 02/09/19 10:55 Sea Food AdvReac GI Upset Uncoded 11/18/18 11:03 Home Medications: Home Medications Cholecalciferol TAB* [Vitamin D TAB*] 50,000 units PO SUSA 02/09/19 [History Confirmed 02/09/19] PMH/Surg Hx/FS Hx/Imm Hx Previously Healthy: No Endocrine/Hematology History: Reports: Hx Thyroid Disease, Other Endocrine/ Hematological Disorders - hypoparathyroidism, hypo and hypercalcemia r/t Denies: Hx Diabetes Cardiovascular History: Reports: Hx Hypertension Denies: Hx Pacemaker/ICD Respiratory History: Denies: Hx Chronic Obstructive Pulmonary Disease (COPD) GI History: Reports: Hx Gastroesophageal Reflux Disease History: Denies: Hx Renal Disease Musculoskeletal History: Reports: Hx Arthritis Denies: Hx Rheumatoid Arthritis, Hx Osteoporosis Sensory History: Reports: Hx Contacts or Glasses Denies: Hx Vision Problem, Hx Deafness, Hx Hearing Aid Opthamlomology History: Reports: Hx Contacts or Glasses Denies: Hx Vision Problem Neurological History: Denies: Hx Dementia Psychiatric History: Reports: Hx Anxiety, Hx Depression, Other Psychiatric Issues/Disorders - insonmnia Denies: Hx Panic Disorder - Cancer History Hx Chemotherapy: No Hx Radiation Therapy: No - Surgical History Surgical History: Yes Surgery Procedure, Year, and Place: Appendectomy-age 16, Thyroid -age 24, C- section-age 42 Infectious Disease History: No Infectious Disease History: Denies: Hx Clostridium Difficile, Hx Hepatitis, Hx Human Immunodeficiency Virus (HIV), Hx of Known/Suspected MRSA, Hx Shingles, Hx Tuberculosis, Hx Known/ Suspected VRE, Hx Known/Suspected VRSA, History Other Infectious Disease, Traveled Outside the [place] in Last 30 Days - Family History Known Family History: Positive: Hypertension - Social History Alcohol Use: Rare Hx Substance Use: No Substance Use Type: Reports: None Hx Tobacco Use: No Smoking Status (MU): Never Smoked Tobacco Review of Systems Constitutional: Other - positive - no able to take her BP Eyes: Other - positive - vision changes Positive: Chest Pain - chest heaviness Musculoskeletal: Other - negative - swelling of legs Neurological: Other - positive - tingling sensation in face, room-spinning dizziness Positive: Slurred Speech Positive: Other All Other Systems Reviewed And Are Negative: Yes Physical Exam - Summary Physical Exam Summary: Constitutional: Well-developed, Well-nourished, Alert. (-) Distressed Skin: Warm, Dry HENT: Normocephalic; Atraumatic Eyes: Conjunctiva normal Neck: Musculoskeletal ROM normal neck. (-) JVD, (-) Stridor, (-) Tracheal deviation Cardio: Rhythm regular, rate normal, Heart sounds normal; Intact distal pulses; The pedal pulses are 2+ and symmetric. Radial pulses are 2+ and symmetric. (-) Murmur Pulmonary/Chest wall: Effort normal. (-) Respiratory distress, (-) Wheezes, (-) Rales Abd: Soft. (-) Tenderness, (-) Distension, (-) Guarding, (-) Rebound Musculoskeletal: (-) Edema Lymph: (-) Cervical adenopathy Neuro: Alert, Oriented x3, Strength normal, Cranial nerves II-XII are grossly intact. (-) Dysmetria, (-) Nystagmus, (-) Ataxia by finger to nose testing, (-) Sensory deficit. Psych: Mood and affect Normal NIH:0 Triage Information Reviewed: Yes Vital Signs On Initial Exam: Initial Vitals Temp Pulse Resp BP Pulse Ox 97.6 F 76 18 175/93 87 02/09/19 09:50 02/09/19 09:50 02/09/19 09:50 02/09/19 09:50 02/09/19 09:50 Vital Signs Reviewed: Yes Diagnostics - Vital Signs Vital Signs Temp Pulse Resp BP Pulse Ox 02/09/19 10:08 79 19 175/93 96 02/09/19 10:00 19 02/09/19 09:58 79 20 180/103 91 02/09/19 09:50 97.6 F 76 18 175/93 87 - Laboratory Result Diagrams: 02/09/19 10:09 02/09/19 10:09 Lab Statement: Any lab studies that have been ordered have been reviewed, and results considered in the medical decision making process. - Radiology CXR Radiology Interpretation Completed By: Radiologist Summary of Radiographic Findings: IMPRESSION: CARDIOMEGALY. NO ACTIVE CARDIOPULMONARY DISEASE. These findings were reviewed by Dr. Cronin. - CT Chest/Thorax CTA CT Interpretation Completed By: Radiologist Summary of CT Findings: IMPRESSION: 1. NO EVIDENCE FOR ACUTE PULMONARY EMBOLISM. 2. QUESTIONABLE CHRONIC LEFT UPPER LOBE PULMONARY EMBOLISM UNCHANGED FROM THE PRIOR STUDY. These findings were reviewed by Dr. Cronin. - EKG 1052 Cardiac Rate: NL - 79 BPM EKG Rhythm: Sinus Rhythm Summary of EKG Findings: Sinus rhythm, 79 BPM, QTC 5-9 Complex Multi-Symp Course/Dx Course Of Treatment: Patient is here with symptoms consistent with hypocalcemia. Patient paresthesias off-and-on for the past couple months. Patient was hypocalcemic with the initial calcium of 5.7. Patient was given 1 g of IV calcium with improvement in her symptoms. Patient also was here with chest pain so a cardiac workup was initiated which showed normal EKG and serial troponin. Patient had an elevated d-dimer and negative CTA for an acute unreality. Patient was hypoxic on room here with no known etiology. Given patient's hypocalcemia, hypomagnesemia, hypoxemia, chest pain, patient is admitted to the hospital for further workup and management. Patient also received 2 g of IV magnesium here. - Diagnoses Provider Diagnoses: Hypomagnesemia, Hypocalcemia, Hypoxemia, Chest pain - Physician Notifications Discussed Care Of Patient With: Mariajose Zuniga Time Discussed With Above Provider: 13:41 Instructed by Provider To: Other - Dr. Zuniga agrees to admit pt. Discharge ED - Sign-Out/Discharge Documenting (check all that apply): Patient Departure - admit Patient Received Moderate/Deep Sedation with Procedure: No - Discharge Plan Condition: Stable Disposition: ADMITTED TO [facility] Referrals: Madelin Hoover MD [Primary Care Provider] - - Billing Disposition and Condition Condition: STABLE Disposition: Admitted to [facility] - Attestation Statements Document Initiated by Zafar: Yes Documenting Maggiibilana: Refugio Martinez Provider For Whom Zafar is Documenting (Include Credential): Dr. Berlin Cronin MD Scribe Attestation: Refugio Dial scribed for Dr. Berlin Cronin MD on 02/09/19 at 1509. Scribe Documentation Reviewed: Yes Provider Attestation: The documentation as recorded by the Refugio sanchez accurately reflects the service I personally performed and the decisions made by me, Dr. Berlin Cronin MD Status of Scribe Document: Viewed
[2019-02-09 10:40] LABS: Anion Gap 10 mmol/L (2-11); CO2 Carbon Dioxide 31 mmol/L (22-32); Chloride 98 mmol/L (101-111); Potassium 3.8 mmol/L (3.5-5.0); Sodium 139 mmol/L (135-145)
[2019-02-09 10:45] LABS: Calcium 5.7 mg/dL (8.6-10.3)
[2019-02-09 10:46] LABS: ALT 15 U/L (7-52); AST 19 U/L (13-39); Albumin/Globulin Ratio 1.3 (1-3); Alkaline Phosphatase 66 U/L (34-104); BUN/Creatinine Ratio 18.4 (8-20); Blood Urea Nitrogen 16 mg/dL (6-24); EGFR African American 77.7 (>60); EGFR Non-African American 64.2 (>60); Glucose 96 mg/dL (70-100); Troponin I 0.01 ng/mL (<0.04)
[2019-02-09 11:08] LABS: INR 0.98 (0.82-1.09)
[2019-02-09] MEDS: Calcium Gluconate INJ* 1 GM in NS 0.9% 100 ML* 100 ML IVPB ONE ×2 (11:10→17:30)
[2019-02-09] MEDS: Iohexol 350* (CONTRAST) 500 ML MDV IV ONE (12:45)
[2019-02-09 13:21] LABS: Magnesium 1.8 mg/dL (1.9-2.7)
[2019-02-09] MEDS: Magnesium Sulfate 2 GM IV* 2 GM/50 ML BAG IVPB ONE (13:38)
[2019-02-09 13:50] LABS: Troponin I 0.01 ng/mL (<0.04)
[2019-02-09 14:15] LABS: Vitamin D Total 25(OH) > 120.0 ng/mL (20-50)
[2019-02-09 14:16] LABS: Calcium 5.8 mg/dL (8.6-10.3)
[2019-02-09 15:51] LABS: Phosphorus 5.8 mg/dL (2.5-5.0)
--- NOTE | 2019-02-09 16:27 | CONSULT ---
Subjective Date of Service: 02/09/19 Interval History: 73 y/o F with PMH of Hypothyroidism and Hypoparathyroidism(s/p thyroidectomy and ?parathyroidectomy at the age of 26 yr), HTN, GERD presented with numbness and tingling of hand, feet and face for last 2 month with worsening of symptom for 1 day. She also experienced chest heaviness which was nonexertional, nonpositional and nonradiating. No spasm, seizure, palpitation, SOB or LOC. She was not able to get her BP reading at home. She has history of hypocalcemia for which she is taking calcium carbonate regularly. She has not missed her medication. Her diet is varied and also consist of milk at least once a day. Past Medical/Family/Social History: Medical History: History of hypothyroidism, hypoparathyroidism, Hypertension, GERD and anxiety. Surgical History: Thyroidectomy annd Parathyroidectomy 48 year ago. Hx of appendectomy. Social History: Retired; ; lives with ; Doesnot smoke; Drinks alcohol(glass of wine) once or twice a month. No history of recreational drug use. Consulting Service: Internal Medicine Reason for Consult: Hypocalcemia. Review of Systems - Review of Systems Eyes: Positive: Vision Change Cardiovascular: Positive: Other - chest heaviness Neurological: Positive: Numbness, Other - Tingling - Medications/Allergies Allergies/Adverse Reactions: Allergies Allergy/AdvReac Type Severity Reaction Status Date / Time amoxicillin Allergy Unknown Verified 02/09/19 10:08 Reaction Details aspirin Allergy Hives Verified 02/09/19 10:08 buspirone Allergy Unknown Verified 02/09/19 10:08 Reaction Details clonidine Allergy Unknown Verified 02/09/19 10:08 Reaction Details cyclobenzaprine Allergy Hives Verified 11/18/18 11:03 hydrochlorothiazide Allergy Hives Verified 11/18/18 11:03 indomethacin [From Indocin] Allergy Unknown Verified 02/09/19 10:08 Reaction Details metoprolol Allergy Agitation Verified 02/09/19 10:08 nebivolol [From Bystolic] Allergy Unknown Verified 02/09/19 10:08 Reaction Details NSAIDS (Non-Steroidal Allergy Hives/Diff. Verified 11/18/18 11:03 Anti-Inflamma Breathing/I tching shellfish derived Allergy Unknown Verified 02/09/19 10:08 Reaction Details atorvastatin AdvReac Vomiting Verified 11/18/18 11:03 codeine AdvReac Headache Verified 11/18/18 11:03 crab AdvReac GI Upset Verified 02/09/19 10:56 Fish Containing Products AdvReac GI Upset Verified 02/09/19 10:55 Sea Food AdvReac GI Upset Uncoded 11/18/18 11:03 Objective Vital Signs - 8 hr 02/09/19 02/09/19 02/09/19 09:50 09:58 10:00 Temperature 97.6 F Pulse Rate 76 79 Respiratory 18 20 19 Rate Blood Pressure 175/93 180/103 (mmHg) O2 Sat by Pulse 87 91 Oximetry 02/09/19 02/09/19 02/09/19 10:08 10:28 10:59 Temperature Pulse Rate 79 77 75 Respiratory 19 22 21 Rate Blood Pressure 175/93 176/102 153/94 (mmHg) O2 Sat by Pulse 96 96 95 Oximetry 02/09/19 02/09/19 02/09/19 11:00 11:28 11:58 Temperature Pulse Rate 75 73 73 Respiratory 18 15 24 Rate Blood Pressure 146/94 175/98 (mmHg) O2 Sat by Pulse 95 96 97 Oximetry 02/09/19 02/09/19 02/09/19 12:00 13:00 13:53 Temperature Pulse Rate 73 72 72 Respiratory 13 21 18 Rate Blood Pressure 150/97 (mmHg) O2 Sat by Pulse 97 96 95 Oximetry 02/09/19 02/09/19 02/09/19 13:58 14:00 14:28 Temperature Pulse Rate 72 77 Respiratory 15 16 16 Rate Blood Pressure 151/84 158/90 (mmHg) O2 Sat by Pulse 93 95 Oximetry 02/09/19 02/09/19 02/09/19 14:58 15:00 15:30 Temperature Pulse Rate 71 78 75 Respiratory 17 19 15 Rate Blood Pressure 147/89 149/81 (mmHg) O2 Sat by Pulse 95 96 97 Oximetry Exam: Patient is lying on bed with nasal cannula. HEENT: Normocepahalic and atraumatic Lung: Clear on ascultation with no any added sound. Heart: S1/S2 heard with no any murmur or rub. Abdomen: Soft, nondistended and nontender. Normal BS heard. EXtremity: No any swelling, cyanosis or clubbing. Neuro: Alert, conscious and oriented X3. CN intact. Motor and sensory function intact. No carpopedal spasm and chovstek sign was negative. Result Diagrams: 02/09/19 10:09 02/09/19 10:09 Assess/Plan/Problems-Billing Assessment: 73 y/o F with h/o hypothyroidism and hypoparathyroidism(s/p thyroidectomy and ? parathyroidectomy), HTN, GERD and Anxiety presented with numbness and tingling for 2 month with worsening symptom for 1 day. She also had chest heaviness whch was nonexertional, nonpositional and nonradiating. Found to have serum calcium of 5.7 mad magnesium of 1.8. IV calcium gluconate and magnesium given. Her hypocalcemia is mild with no any symptom(tingling, spasm) and we have already given her IV calcium we can safely discharge her home on oral calcium. She has follow up with Endocrine on thursday. Her chest pain is atypical and EKG , troponin and CTA was normal. She scores 2 points on Heart score which stratifies her as low risk with risk of 0.9-1.7% risk of MACE. She doesnot need emrgency stress test at present. - Patient Problems (1) Hypocalcemia Current Visit: No Status: Acute Code(s): E83.51 - HYPOCALCEMIA SNOMED Code (s): 0816186 Comment: Serum calcium is 5.7. due to hypoparathyroidism. she is taking calcium carbonate regularly. May be there is underabsoprtion given she is also taking pantoprazole as this may react with carbonate. In fpc patient will benefit if switched to calcium citrate. Need endocrine consultation which she is following on thursday. Now we can give her calcium gluconate iv. It is reasonable to d/c her as her hypocalcemia is mild with no any symptom and has close endocrine f/u. (2) Chest pain, atypical Current Visit: No Status: Acute Code(s): R07.89 - OTHER CHEST PAIN SNOMED Code(s): 182112687 Comment: May be due to anxiety. Chest heaviness is atypical with normal ECG and Negative troponin. She scored 2 point on HEART score for MACE which stratifies her as low risk with risk of 0.9- 1.7% of MACE. CTA chest doesnot show any acute changes. She was advised for stress test by her PCP which is due. She can do outpatient stress test and follow up with her PCP. (3) Hypertension Current Visit: No Status: Acute Code(s): I10 - ESSENTIAL (PRIMARY) HYPERTENSION SNOMED Code(s): 84412005 Comment: BP was high on presentation. Normalizing now. may be due to anxiety and stress. She is not on any anti hypertensive medication as it caused her dizziness. (4) Hypothyroidism Current Visit: No Status: Acute Code(s): E03.9 - HYPOTHYROIDISM, UNSPECIFIED SNOMED Code(s): 32073222 Comment: continue her levothyroxine 100 mcg. (5) Hypoxia Current Visit: No Status: Acute Code(s): R09.02 - HYPOXEMIA SNOMED Code(s) : 591452861 Comment: Saturation was 87 on presentation. maintaining saturation at around 97%. (6) Anxiety Current Visit: No Status: Acute Code(s): F41.9 - ANXIETY DISORDER, UNSPECIFIED SNOMED Code(s): 48563189 Comment: continue her home ambien, lexapro and valium. (7) Full code status Current Visit: No Status: Acute Code(s): Z78.9 - OTHER SPECIFIED HEALTH STATUS SNOMED Code(s): 780188102 Comment: Status and Disposition: Stable to discharge to home. Thank you for the consultation, I really appreciate it. Attending: Dominique Murdock Attestation Documenting Resident: Hollis Mckeon Supervising Physician: Dominique Murdock Attending/Supervising Physician Comment: Agree with resident note, overall pt came with symptomatic mild hypocalcemia of which is chronic. She is improved s/p transfusion of Calcium Gluconate, likely levels will not refelect for even up to 10 or 12 hours and repeat Calcium levels do not need to hold discharge. We have offered inpatient workup and she prefers to retrun to home and follow with endocrine as outpt Attestation: This service has been performed in part by a resident under the direction of a teaching physician.I, Dominique Murdock, performed the service, or was physically present during the critical, or mcdaniels portions of the service, furnished by the resident. I participated in the management of the patient.
--- NOTE | 2019-02-09 16:30 | ED ---
Progress - Progress Note Progress Note: Pt offered admission to [facility] [place], but declined. See consultation note for details. Course/Dx - Course Course Of Treatment: Pt offered admission to [facility] [place], but declined. See consultation note for details. - Diagnoses Provider Diagnoses: Hypomagnesemia, Hypocalcemia, Hypoxemia, Chest pain - Provider Notifications Time Discussed With Above Provider: 13:41 Instructed by Provider To: Other - Dr. Zuniga agrees to admit pt. Discharge ED - Sign-Out/Discharge Documenting (check all that apply): Patient Departure - discharge Patient Received Moderate/Deep Sedation with Procedure: No - Discharge Plan Condition: Stable Disposition: HOME Patient Education Materials: Hypocalcemia (ED) Referrals: Madelin Hoover MD [Primary Care Provider] - 2 Days Additional Instructions: Follow up with your gis physical scientist in 2 days. Follow up with your primary care provider within 1-3 days. Return to the ED for any new or worsening symptoms. - Billing Disposition and Condition Condition: STABLE Disposition: Home - Attestation Statements Document Initiated by Scribe: Yes Documenting Scribe: Refugio Martinez Provider For Whom Zafar is Documenting (Include Credential): Dr. Berlin Cronin MD Scribe Attestation: Refugio Dial scribed for Dr. Berlin Cronin MD on 02/09/19 at 1740. Scribe Documentation Reviewed: Yes Provider Attestation: The documentation as recorded by the Refugio sanchez accurately reflects the service I personally performed and the decisions made by me, Dr. Berlin Cronin MD Status of Scribe Document: Viewed
[2019-02-09] MEDS ORDERED: NS 0.9% 100 ML* 100 ML ONE (17:01)
[2019-02-09 18:36] VITALS: BP 159/90
== END 2019-02-09 18:35 | disposition home or self-care (01) ==
LOC: ED 09:48
DX: E83.42 Hypomagnesemia (principal); E83.51 Hypocalcemia; R09.02 Hypoxemia; R07.9 Chest pain, unspecified; E07.9 Disorder of thyroid, unspecified; I10 Essential (primary) hypertension; K21.9 Gastro-esophageal reflux disease without esophagitis; F41.9 Anxiety disorder, unspecified; F32.9 Major depressive disorder, single episode, unspecified; Z79.899 Other long term (current) drug therapy; Z88.6 Allergy status to analgesic agent; Z88.1 Allergy status to other antibiotic agents; Z88.5 Allergy status to narcotic agent; Z88.8 Allergy status to other drugs, medicaments and biological substances
CPT/HCPCS: 36415; 71045; 71275; 80053; 82306; 82310; 83735; 84100; 84484; 85025; 85379; 85610; 93005; 96365; 96366; 99283; J0610; J3475; Q9967

== ENCOUNTER 2021-01-10 08:52 | Inpatient (IN) ==
[~2021-01-10 08:52] MED LIST: Buffered Lidocaine 1% SYRIN 1 ml INTRADERM ONE; Famotidine IV 10 MG/ML 2 ml VIAL (20 mg) IV ONE; Lactated Ringers 1000 ml BAG 1,000 ML IV SCH
[2021-01-10] MEDS ORDERED: ceFAZolin 2 GM in NS PREMIX 2 GM/100 ML BAG IVPB ONE (09:17)
[2021-01-10] MEDS ORDERED: Famotidine IV 10 MG/ML 2 ml VIAL (20 mg) ONE (09:18)
[2021-01-10] MEDS ORDERED: Lidocaine 2% PF 5 ML VIAL ONE (09:49)
[2021-01-10] MEDS ORDERED: Dexamethasone IV 4 MG/ML VIAL 1 ml VIAL ONE ×2 (09:49→10:05)
[2021-01-10] MEDS ORDERED: Propofol 10 MG/ML 20 ML BTL ONE (09:49)
[2021-01-10] MEDS ORDERED: Ondansetron 4 mg VIAL 2 MG/ML 2 ml VIAL ONE ×2 (09:49→13:53)
[2021-01-10] MEDS ORDERED: Phenylephrine IV 10 MG/ML 1 ml VIAL ONE (09:49)
[2021-01-10] MEDS ORDERED: Glycopyrrolate IV 0.2 MG/ML 1 ML VIAL ONE (09:49)
[2021-01-10] MEDS ORDERED: Propofol 0 MG/0 ML BTL ONE ×2 (09:49→10:46)
[2021-01-10] MEDS ORDERED: Rocuronium 50 mg VIAL 10 mg/ml 5 ml VIAL (50 mg) ONE (10:05)
[2021-01-10] MEDS ORDERED: HYDROmorphone 1 MG/1 ML SYRINGE ONE ×2 (10:05→14:52)
[2021-01-10] MEDS ORDERED: Ketamine HCL 50 mg/ml 10 ml VIAL (500 MG) ONE (10:05)
[2021-01-10] MEDS ORDERED: Midazolam 2 mg/2 ml VIAL 1 mg/ml 2 ml VIAL (2 mg) ONE (10:11)
[2021-01-10] MEDS ORDERED: ROPIVACAINE 5 MG/ML 30 ML BTL (0.5%) ONE ×2 (10:27→11:29)
[2021-01-10] MEDS ORDERED: fentaNYL 100 mcg/2 ml 50 MCG/ML VIAL ONE ×2 (10:45→14:44)
[2021-01-10] MEDS ORDERED: DiMENhydriNATE IV 50 mg/ml 1 ml VIAL IV PUSH PRN (11:33)
[2021-01-10] MEDS ORDERED: diPHENhydraMINE IV 50 MG/ML 1 ml VIAL (BENADRYL) IV PRN ×2 (11:33→13:00)
[2021-01-10] MEDS ORDERED: Naloxone 0.4 mg VIAL 0.4 mg/ml 1 ml VIAL IV PRN (11:33)
[2021-01-10] MEDS ORDERED: EPHEDrine (Pressors) 50 MG/ML VIAL ONE (12:22)
[2021-01-10] MEDS ORDERED: Magnesium Hydroxide LIQ 30 ML UDC PO PRN (13:00)
[2021-01-10] MEDS ORDERED: diPHENhydraMINE 25 mg TAB PO PRN (13:00)
[2021-01-10] MEDS ORDERED: Lactulose 30 ml UDC PO PRN (13:00)
[2021-01-10] MEDS ORDERED: Lactated Ringers 1000 ml BAG 1,000 ML IV SCH (13:00)
[2021-01-10] MEDS ORDERED: Prochlorperazine 5 mg/ml 2 ml VIAL (10 mg) IV PRN (13:09)
[2021-01-10] MEDS: fentaNYL 100 mcg/2 ml 50 MCG/ML VIAL IV PRN ×4 (14:50→15:25)
[2021-01-10] MEDS: HYDROmorphone 1 MG/1 ML SYRINGE IV PRN ×2 (15:06→16:09)
[2021-01-10] MEDS ORDERED: Acetaminophen IV 1 GM/100ML 100 ML IV ONE ×2 (16:30→17:09)
[2021-01-10] MEDS ORDERED: Morphine 2 MG/ML SYRINGE ONE (18:23)
[2021-01-10] MEDS: Morphine 2 MG/ML SYRINGE IV PRN ×2 (18:25→23:09)
[2021-01-10] MEDS: Magnesium Hydroxide LIQ 30 ML UDC PO SCH (23:13)
[2021-01-10] MEDS: Clindamycin 600 MG/D5W BAG 600 MG/50 ML BAG IV SCH (23:16)
[2021-01-11] MEDS: Clindamycin 600 MG/D5W BAG 600 MG/50 ML BAG IV SCH ×2 (06:09→12:28)
[2021-01-11 06:59] LABS: Hematocrit 36 % (35-47); Hemoglobin 12.2 g/dL (12.0-16.0); Mean Platelet Volume 7.5 fL (7.4-10.4); Platelet Count 233 10^3/uL (150-450)
[2021-01-11 07:17] LABS: Calcium 6.9 mg/dL (8.6-10.3); EGFR African American 118.6 (>60); Potassium 3.4 mmol/L (3.5-5.0)
[2021-01-11] MEDS: Morphine 2 MG/ML SYRINGE IV PRN (07:40)
[2021-01-11] MEDS ORDERED: Potassium Chlor 20 meq TAB.ER PO ONE (08:32)
[2021-01-11] MEDS: Magnesium Hydroxide LIQ 30 ML UDC PO SCH ×2 (08:35→21:43)
[2021-01-11] MEDS: Vitamin THERAPEUTIC TAB PO SCH (08:35)
[2021-01-11] MEDS: Morphine ER 15 mg TAB ** extended release PO SCH ×2 (11:35→21:42)
[2021-01-12] MEDS ORDERED: NS 0.9% 1000 ml BAG 1,000 ML IV ONE (04:33)
[2021-01-12 04:54] LABS: ABS Basophils 0.1 10^3/ul (0-0.2); ABS Eosinophils 0.1 10^3/ul (0-0.6); ABS Lymphocytes 1.4 10^3/ul (1.0-4.8); ABS Monocytes 1.5 10^3/ul (0-0.8); ABS Neutrophils 11.9 10^3/ul (1.5-7.7); Eosinophil % 0.4 %; Hematocrit 34 % (35-47); Hemoglobin 11.3 g/dL (12.0-16.0); Lymphocyte % 9.1 %; Mean Corpuscular HGB Conc 33 g/dL (31-36); Mean Corpuscular Hemoglobin 29 pg (27-31); Mean Corpuscular Volume 89 fL (80-97); Mean Platelet Volume 7.5 fL (7.4-10.4); Platelet Count 242 10^3/uL (150-450); Red Blood Count 3.84 10^6 /uL (3.70-4.87); Red Cell Distribution Width 14 % (10-15); White Blood Count 14.8 10^3/uL (3.5-10.8)
[2021-01-12] MEDS: Vitamin THERAPEUTIC TAB PO SCH (09:52)
[2021-01-12] MEDS: Morphine ER 15 mg TAB ** extended release PO SCH ×2 (09:52→21:11)
[2021-01-12] MEDS: Magnesium Hydroxide LIQ 30 ML UDC PO SCH ×2 (09:55→21:14)
[2021-01-12 19:41] LABS: Urine Appearance Clear; Urine Bilirubin Negative (Negative); Urine Blood 2+ (Negative); Urine Color Yellow; Urine Glucose Negative (Negative); Urine Ketones 1+ (Negative); Urine Nitrite Negative (Negative); Urine Protein 1+(30 mg/dL) (Negative); Urine Specific Gravity 1.013 (1.002-1.030); Urine Urobilinogen Negative (Negative)
[2021-01-12 20:08] LABS: Urine Bacteria Absent (Absent); Urine Red Blood Cell 3+(>10/hpf) (Absent); Urine White Blood Cell Trace(0-5/hpf) (Absent)
[2021-01-13 06:41] LABS: ABS Eosinophils 0.1 10^3/ul (0-0.6); ABS Lymphocytes 1.7 10^3/ul (1.0-4.8); ABS Monocytes 1.3 10^3/ul (0-0.8); ABS Neutrophils 8.5 10^3/ul (1.5-7.7); Eosinophil % 1.2 %; Hematocrit 34 % (35-47); Hemoglobin 11.4 g/dL (12.0-16.0); Lymphocyte % 14.3 %; Mean Corpuscular HGB Conc 33 g/dL (31-36); Mean Corpuscular Hemoglobin 30 pg (27-31); Mean Corpuscular Volume 89 fL (80-97); Mean Platelet Volume 7.9 fL (7.4-10.4); Nucleated Red Blood Cells % 0.1; Platelet Count 196 10^3/uL (150-450); Red Blood Count 3.84 10^6 /uL (3.70-4.87); Red Cell Distribution Width 15 % (10-15); White Blood Count 11.6 10^3/uL (3.5-10.8)
[2021-01-13] MEDS: Morphine ER 15 mg TAB ** extended release PO SCH ×2 (08:20→20:01)
[2021-01-13] MEDS: Vitamin THERAPEUTIC TAB PO SCH (08:23)
[2021-01-13] MEDS: Magnesium Hydroxide LIQ 30 ML UDC PO SCH ×2 (08:28→20:01)
[2021-01-13] MEDS: Calcium (OSCAL) 500 mg TAB PO SCH (10:23)
[2021-01-14 05:27] LABS: Hematocrit 31 % (35-47); Hemoglobin 10.5 g/dL (12.0-16.0); Mean Platelet Volume 7.6 fL (7.4-10.4); Platelet Count 234 10^3/uL (150-450)
[2021-01-14 07:58] VITALS: BP 136/70
[2021-01-14] MEDS: Calcium (OSCAL) 500 mg TAB PO SCH (08:41)
[2021-01-14] MEDS: Morphine ER 15 mg TAB ** extended release PO SCH (08:41)
[2021-01-14] MEDS: Magnesium Hydroxide LIQ 30 ML UDC PO SCH (08:42)
[2021-01-14] MEDS: Vitamin THERAPEUTIC TAB PO SCH (08:42)
== END 2021-01-14 13:20 | disposition home or self-care (01) | DRG 470 ==
LOC: OR 08:52 → SSU 08:52
PROVIDERS: ADMIT Orthopaedic Surgery Adult Reconstructive Orthopaedic Surgery; ATTEND Orthopaedic Surgery Adult Reconstructive Orthopaedic Surgery